=== PATIENT | female | born 1970 | race Caucasian/White ===

== ENCOUNTER → 2025-06-03 | Outpatient (CLI) | payer SELFPAY ==
--- NOTE | 2025-06-02 11:55 | FEM._PTH ---
PATIENT: DAMARIS JOYNER LOC: [facility] U#:[id number] AGE/SX: 55/F ROOM: RE06/03/[address]: Dr. Stiven Osuna MD : 1970 BED: DIS: 06/03/2025 SPEC #: [id number] RECD: 06/03/25 16:58 STATUS: JEREL TRISTIAN #: [id number] JOSE: 06/02/25 11:[address]: Stiven Osuna DEPT: SURGICAL PATHOLOGY RECD BY: Samy Cruz Tissues: A - Hip, NOS Procedures: Decalcification bone/plaque Surgery Specimen Level III HEADER OPERATION: Anterior left total hip arthroplasty PRE-OP DIAGNOSIS: Avascular necrosis of left hip TISSUE SUBMITTED: A- Left hip MICROSCOPIC DIAGNOSIS A. Femoral head, left, total hip arthroplasty: - Articular bone with necrosis. MICROSCOPIC DESCRIPTION Slides are reviewed. GROSS DESCRIPTION A. Received in formalin labeled with the patient's name and date of . Designated as femoral head-left is a 4.3 x 4.2 x 4.1 cm femoral head with a portion of attached femoral neck, 1.0 cm in length by 3.1 cm in diameter. The articular cartilage is smooth and willis with focal granularity and a 3.3 x 2.2 cm slightly raised area with a surrounding rim of [place]-green discoloration. Eburnation and peripheral osteophyte formation are not grossly identified. Sectioning reveals willis-yellow medullary bone with a 2.3 x 1.3 cm pale partially detached, wedge shaped area with irregular borders, underlying the previously described raised and discolored cartilage (suspicious for necrosis). Additional foci of possible necrosis are identified. There is also a 2.8 cm length by 0.8 cm in diameter defect with linear ridges (appears iatrogenic in nature). Operations Professional sections are submitted in 2 cassettes, following decalcification. [place] 06/06/2025 CPT:03570,48346
== END | disposition home or self-care (01) ==
LOC: LABSPEC 15:51
PROVIDERS: Referring Provider Specialist; Visit Provider Specialist
DX: M87.9 Osteonecrosis, unspecified (principal)
CPT/HCPCS: 88304; 88311

== ENCOUNTER → 2025-08-04 | Outpatient (CLI) | payer SELFPAY ==
--- NOTE | 2025-08-04 07:15 | FEM._PTH ---
PATIENT: DAMARIS JOYNER LOC: [facility] U#:[id number] AGE/SX: 55/F ROOM: RE08/04/[address]: Dr. Stiven Osuna MD : 1970 BED: DIS: 08/04/2025 SPEC #: [id number] RECD: 08/04/25 15:15 STATUS: JEREL REHaven #: [id number] JOSE: 08/04/25 07:[address]: Stiven Osuna DEPT: SURGICAL PATHOLOGY RECD BY: Anum Aceves Tissues: Hip, NOS Procedures: Decalcification bone/plaque Surgery Specimen Level III HEADER OPERATION: Anterior right total hip arthroplasty PRE-OP DIAGNOSIS: Right hip avascular necrosis TISSUE SUBMITTED: A- Right femoral head, bone and soft tissue MICROSCOPIC DIAGNOSIS A. 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 GROSS DESCRIPTION A. Received in formalin labeled with the patient's name and date of . Designated as right femoral head is a femoral head in 2 pieces, collectively measuring 4.5 x 4.2 x 3.9 cm with a detached femoral neck, 1.4 cm in length by 3.8 cm in diameter. The articular cartilage is willis and focally granular with focal, peripheral osteophyte formation. No definitive areas of eburnation are grossly identified. The medullary bone is willis-yellow with a 1.9 x 1.0 cm pale yellow, wedge-shaped area of some chondral bone (suspicious for necrosis). Video Game Animator sections are submitted in 2 cassettes, following decalcification as follows: A1: Femoral head wedge shaped areaA2: Femoral neck SC 08/05/2025 CPT:36513,14995
--- NOTE | 2025-08-04 07:15 | FEM._PTH ---
PATIENT: DAMARIS JOYNER LOC: [facility] U#:[id number] AGE/SX: 55/F ROOM: RE08/04/[address]: Dr. Stiven Osuna MD : 1970 BED: DIS: 08/04/2025 SPEC #: [id number] RECD: 08/04/25 15:15 STATUS: JEREL REHaven #: [id number] JOSE: 08/04/25 07:[address]: Stiven Osuna DEPT: SURGICAL PATHOLOGY RECD BY: Anum Aceves Tissues: Hip, NOS Procedures: Decalcification bone/plaque Surgery Specimen Level III HEADER OPERATION: Anterior right total hip arthroplasty PRE-OP DIAGNOSIS: Right hip avascular necrosis TISSUE SUBMITTED: A- Right femoral head, bone and soft tissue MICROSCOPIC DIAGNOSIS A. 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 GROSS DESCRIPTION A. Received in formalin labeled with the patient's name and date of . Designated as right femoral head is a femoral head in 2 pieces, collectively measuring 4.5 x 4.2 x 3.9 cm with a detached femoral neck, 1.4 cm in length by 3.8 cm in diameter. The articular cartilage is willis and focally granular with focal, peripheral osteophyte formation. No definitive areas of eburnation are grossly identified. The medullary bone is willis-yellow with a 1.9 x 1.0 cm pale yellow, wedge-shaped area of some chondral bone (suspicious for necrosis). Software Consultant sections are submitted in 2 cassettes, following decalcification as follows: A1: Femoral head wedge shaped areaA2: Femoral neck SC 08/05/2025 CPT:29812,58819
--- OUTSIDE RECORDS SUMMARY | 2025-08-04 15:47 | XMS RPT_ITS | CCD ---
Author Organization [facility] Care Team Providers Care Coach Mechanic Name Role Phone UNKNOWN, PCP Unavailable Unavailable JAQUAN DRAPER Unavailable Unavailable UNKNOWN, PCP Unavailable Unavailable Caitlyn Ferguson CNP Unavailable Unavailable None Unavailable Unavailable Caitlyn Ferguson Primary Care Provider [phone] Malena Cantor Attending Unav ailable CAITLYN FREGUSON Primary Care Unavailabl e MAMI CHARLES Attending Unavaila ble CAITLYN FERGUSON Primary Care Unavailatul e CAITLYN FERGUSON Consulting Unavailatul e Caitlyn Kirkland APRN, CNP Primary Care Provider Caitlyn Ferguson Primary Care Provider Caitlyn Kirkland APRN, CNP Primary Care Provider CAITLYN FERGUSON Primary Care Unavailable Dorota Jones MD Unavailable [phone] SID FRAGOSO Attending Unavailable SID FRAGOSO Referring Unavailable Dr. Leslee Mortensen MD Attending Provider [phone] Dr. Leslee Mortensen MD Referring Provider Leslee Mortensen Referring Unavailable Leslee Mortensen Attending Unavailable LESLEE MORTENSEN MD Attending Unavailable LESLEE MORTENSEN MD Primary Care Unavailable LESLEE MORTENSEN MD Admitting Unavailable [facility] Consulting Unavailable PROVIDER, UNKNOWN Consulting Unavailable LESLEE MORTENSEN MD Primary Care Unavailable LESLEE MORTENSEN MD Admitting Unavailable [facility] [place] Consulting Unavailable LESLEE MORTENSEN MD Attending Unavailable PROVIDER, UNKNOWN Consulting Unavailable Allergies Allergy Classification Reported Allergen(s) Allergy Type Date of Onset Reaction(s) Facility (10 sources) Antihistamines, Diphenhydramine- Type Propensity to adverse reactions to drug [address] Phone: (2 sources) diphenhydrAMINE; Translations: [DIPHENHYDRAMINE ] Drug Allergy 3 Unknown [facility] Medications Current Medications Medication Drug Class(es) Dates Sig (Normalized) Sig (Original) Acetaminophen (2 sources) Start: 08-06-2021 acetaminophen (TYLENOL) tablet 650 mg Start: 11-09-2019 End: 11-09-2019 acetaminophen (TYLENOL) 325 MG tablet [id number] 200 actuat albuterol 0.09 mg/actuat metered dose inhaler (2 sources) beta2-Adrenergic Agonist Start: 08-14-2021 take 2 puff(s) by inhalation every six hours as needed for wheezing albuterol sulfate HFA 108 (90 Base) MCG/ACT inhaler Inhale 2 puffs into the lungs every 6 hours as needed for Wheezing or Shortness of Breath 18 g 3 08/14/2021 Active Start: 08-06-2021 albuterol sulf ate HFA 108 (90 Base) MCG/ACT inhaler 2 puff ascorbic acid 500 mg oral tablet (2 sources) Vitamin C Start: 08-15-2021 take 1 tablet by mouth once daily ascorbic acid (VITAMIN C) 500 MG tablet Take 1 tablet by mouth daily 30 tablet 3 08/15/2021 Active Start: 08-06-2021 ascorbic acid (VITAMIN C) tablet 500 mg baricitinib 2 mg oral tablet (1 source) Start: 08-06-2021 End: 08-20-2021 baricitinib (OLUMIANT) tablet 4 mg benzocaine 15 mg / menthol 3.6 mg oral lozenge (1 source) Standardized Chemical Allergen Start: 08-14-2021 benzocaine-menthol (CEPACOL SORE THROAT) lozenge 1 lozenge cephalexin 500 mg oral capsule (4 sources) Cephalosporin Antibacterial Start: 04-18-2020 End: 04-25-2020 take 1 capsule by mouth three times daily cephALEXin (KEFLEX) 500 MG capsule Take 1 capsule by mouth 3 times daily for 7 days 21 capsule 0 04/18/2020 04/25/2020 Active cholecalciferol 0.025 mg oral tablet (3 sources) Vitamin D Start: 08-15-2021 take 1 tablet by mouth once daily Cholecalciferol (VITAMIN D) 25 MCG TABS Take 1 tablet by mouth daily 60 tablet 0 08/15/2021 Active Start: 08-06-2021 Vitamin D (CHO LECALCIFEROL) tablet 1,000 Units ciprofloxacin 500 mg oral tablet (1 source) Quinolone Antimicrobial Start: 10-30-2019 End: 11-06-2019 take 1 tablet by mouth twice daily ciprofloxacin (CIPRO) 500 MG tablet Take 1 tablet by mouth 2 times daily for 7 days 14 tablet 0 10/30/2019 11/06/2019 Active dexamethasone 6 mg oral tablet (5 sources) Corticosteroid Start: 08-14-2021 End: 08-19-2021 take 1 tablet by mouth once daily at breakfast dexamethasone (DECADRON) 6 MG tablet Take 1 tablet by mouth daily (with breakfast) for 5 days 5 tablet 0 08/14/2021 08/19/2021 Active Start: 08-12-2021 Dexamethasone Sodium Phosphate injection 10 mg Start: 08-07-2021 End: 08-07-2021 dexamethasone (DECADRON) inj ection 6 mg Start: 08-06-2021 End: 08-06-2021 dexamethasone (DECADRON) inj ection 4 mg Start: 08-06-2021 End: 08-06-2021 dexamethasone (DECADRON) inj ection 6 mg 0.4 ml enoxaparin sodium 100 mg/ml prefilled syringe (1 source) Low Molecular Weight Heparin Start: 08-06-2021 enoxaparin (LOVENOX) injection 40 mg 2 ml fentaNYL 0.05 mg/ml injection (2 sources) Opioid Agonist Start: 11-23-2019 fentaNYL (SUBL IMAZE) injection 50 mcg Start: 11-09-2019 fentaNYL (SUBL IMAZE) injection 50 mcg 1 ml hydrALAZINE hydrochloride 20 mg/ml injection (2 sources) Arteriolar Vasodilator Start: 11-23-2019 hydrALAZINE (APRESOLINE) injection 5 mg Start: 11-09-2019 hydrALAZINE (A PRESOLINE) injection 5 mg 1 ml HYDROmorphone hydrochloride 1 mg/ml cartridge (2 sources) Opioid Agonist Start: 11-23-2019 HYDROmorphone (DILAUDID) injection 0.25 mg Start: 11-09-2019 HYDROmorphone (DILAUDID) injection 0.25 mg ketorolac tromethamine 10 mg oral tablet (10 sources) Nonsteroidal Anti-inflammatory Drug, Cyclooxygenase Inhibitor Start: 04-14-2020 End: 04-21-2020 take 1 tablet by mouth every six hours as needed for pain ketorolac (TORADOL) 10 MG tablet Indications: Nephrolithiasis Take 1 tablet by mouth every 6 hours as needed for Pain 28 tablet 0 04/14/2020 04/21/2020 Active Start: 11-23-2019 ketorolac (TOR ADOL) injection 30 mg Start: 11-23-2019 ketorolac (TOR ADOL) 30 MG/ML injection Start: 10-30-2019 ketorolac (TOR ADOL) injection 30 mg Start: 10-30-2019 take 1 tablet by randall th every six hours as needed for pain ketorolac (TORADOL) 10 MG tablet Take 1 tablet by mouth every 6 hours as needed for Pain 20 tablet 0 10/30/2019 Suspended 1 ml meperidine hydrochloride 25 mg/ml cartridge (2 sources) Opioid Agonist Start: 11-23-2019 meperidine (DE MEROL) injection 12.5 mg Start: 11-09-2019 meperidine (DE MEROL) injection 12.5 mg 1 ml morphine sulfate 2 mg/ml cartridge (2 sources) Opioid Agonist Start: 11-23-2019 morphine (PF) injection 2 mg Start: 11-09-2019 morphine (PF) injection 2 mg ondansetron 4 mg disintegrating oral tablet (10 sources) Serotonin-3 Receptor Antagonist Start: 04-14-2020 take 1 tablet by mouth every eight hours as needed for nausea ondansetron (ZOFRAN ODT) 4 MG disintegrating tablet Indications: Nephrolithiasis Take 1 tablet by mouth every 8 hours as needed for Nausea or Vomiting 15 tablet 0 04/14/2020 Active Start: 11-23-2019 End: 11-23-2019 ondansetron (ZOFRAN) injecti on 4 mg Start: 11-09-2019 End: 11-09-2019 ondansetron (ZOFRAN) injecti on 4 mg Start: 10-30-2019 End: 10-30-2019 take 1 tablet by mouth every eight hours as needed for nausea ondansetron (ZOFRAN ODT) 4 MG disintegrating tablet Take 1 tablet by mouth every 8 hours as needed for Nausea 20 tablet 0 10/30/2019 Suspended ondansetron (ZOFRAN-ODT) disintegrating tablet 4 mg (1 source) Start: 08-06-2021 ondansetron (ZOFRAN-ODT) disintegrating tablet 4 mg 24 hr oxybutynin chloride 10 mg extended release oral tablet (6 sources) Cholinergic Muscarinic Antagonist Start: 04-18-2020 take 1 tablet by mouth once daily oxybutynin (DITROPAN XL) 10 MG extended release tablet Take 1 tablet by mouth daily 30 tablet 2 04/18/2020 Active Start: 04-14-2020 End: 04-18-2020 take 1 tablet by mouth three times daily as needed for muscle spasms oxybutynin (DITROPAN) 5 MG tablet Indications: Nephrolithiasis Take 1 tablet by mouth 3 times daily as needed (bladder spasms) 30 tablet 3 04/14/2020 04/18/2020 Discontinued (Stop Taking at Discharge) Start: 11-11-2019 End: 11-19-2019 take 1 tablet by mouth three times daily as needed for pain oxybutynin (DITROPAN) 5 MG tablet Indications: Nephrolithiasis Take 1 tablet by mouth 3 times daily as needed (stent pain, bladder spasms) 30 tablet 0 11/11/2019 11/19/2019 Discontinued (LIST CLEANUP) polyethylene glycol 3350 90599 mg powder for oral solution (1 source) Osmotic Laxative Start: 08-06-2021 polyethylene glycol (GLYCOLAX) packet 17 g potassium citrate 15 meq extended release oral tablet (2 sources) Start: 12-31-2021 End: 12-31-2022 take 1 tablet by mouth twice daily Potassium Citrate ER (UROCIT-K 15) 15 MEQ (1620 MG) TBCR Indications: Kidney stones Take 1 tablet by mouth 2 times daily 180 tablet 3 12/31/2021 12/31/2022 Active Start: 02-04-2021 End: 03-06-2021 take 2 tablets by mouth twice daily at mealtime potassium citrate (UROCIT-K) 10 MEQ (1080 MG) extended release tablet Take 2 tablets by mouth 2 times daily (with meals) 120 tablet 3 02/04/2021 03/06/2021 Active Progesterone Micronized 10 % CREA (1 source) Progesterone Micronized 10 % CREA Indications: to wrist Place onto the skin 2 times daily Indications: to wrist 0 Active tamsulosin hydrochloride 0.4 mg oral capsule (7 sources) alpha-Adrenergic Nik Start: 0 take 1 capsule by mouth once daily, then take 1 capsule by mouth once daily tamsulosin (FLOMAX) 0.4 MG capsule Take 1 capsule by mouth daily Take one capsule daily to facilitate passage of ureteral stone 21 capsule 0 04/18/2020 Active Start: 10-30-2019 End: 11-23-2019 take 1 capsule by mouth once daily, then take 1 capsule by mouth once daily tamsulosin (FLOMAX) 0.4 MG capsule Indications: Nephrolithiasis Take 1 capsule by mouth daily Take one capsule daily to facilitate passage of ureteral stone 30 capsule 1 11/01/2019 Active zinc sulfate 220 mg oral capsule (2 sources) Start: 08-15-2021 take 1 capsule by mouth once daily zinc sulfate (ZINCATE) 220 (50 Zn) MG capsule Take 1 capsule by mouth daily 30 capsule 3 08/15/2021 Active Start: 08-06-2021 zinc sulfate ( ZINCATE) capsule 50 mg Completed/Discontinued Medications Medication Drug Class(es) Dates Sig (Normalized) Sig (Original) acetaminophen 325 mg / HYDROcodone bitartrate 5 mg oral tablet (10 sources) Opioid Agonist Start: 04-18-2020 End: 04-18-2020 HYDROcodone-acetam inophen (NORCO) 5-325 MG per tablet 1 tablet Start: 04-18-2020 End: 04-18-2020 HYDROcodone-acetaminophen (N ORCO) 5-325 MG per tablet Start: 04-18-2020 End: 04-21-2020 take 1 tablet by mouth every four hours as needed for pain, then take 1 tablet by mouth as needed for pain HYDROcodone-acetaminophen (NORCO) 5-325 MG per tablet Indications: Nephrolithiasis Take 1 tablet by mouth every 4 hours as needed for Pain for up to 3 days. Intended supply: 3 days. Take lowest dose possible to manage pain 18 tablet 0 04/18/2020 04/21/2020 Active Start: 11-23-2019 End: 11-26-2019 take 1 tablet by mouth every four hours as needed for pain, then take 1 tablet by mouth as needed for pain HYDROcodone-acetaminophen (NORCO) 5-325 MG per tablet Indications: Postoperative pain Take 1 tablet by mouth every 4 hours as needed for Pain for up to 3 days. Intended supply: 3 days. Take lowest dose possible to manage pain 18 tablet 0 11/23/2019 11/26/2019 Active Start: 11-09-2019 End: 11-12-2019 HYDROcodone-acetaminophen (N ORCO) 5-325 MG per tablet Indications: Postoperative pain Take 1 tablet by mouth every 4 hours as needed for Pain for up to 3 days. Intended supply: 3 days. Take lowest dose possible to manage pain 18 tablet 0 11/09/2019 11/12/2019 Active Start: 10-30-2019 End: 11-02-2019 HYDROcodone-acetaminophen (N ORCO) 5-325 MG per tablet Indications: Right nephrolithiasis Take 1 tablet by mouth every 4 hours as needed for Pain for up to 3 days. Intended supply: 5 days. Take lowest dose possible to manage pain 12 tablet 0 10/30/2019 11/02/2019 Active End: 10-30-2019 take 1 tablet by mouth every six hours as needed for pain HYDROcodone-acetaminophen (NORCO) 5-325 MG per tablet Take 1 tablet by mouth every 6 hours as needed for Pain . 0 10/30/2019 Discontinued amoxicillin 875 mg / clavulanate 125 mg oral tablet (1 source) Penicillin-class Antibacterial Start: 11-22-2019 End: 11-29-2019 take 1 tablet by mouth twice daily amoxicillin-clavulanate (AUGMENTIN) 875-125 MG per tablet Indications: Enterococcus UTI Take 1 tablet by mouth 2 times daily for 7 days 14 tablet 0 11/22/2019 11/29/2019 Suspended belladonna alkaloids 16.2 mg / opium 30 mg rectal suppository (2 sources) Start: 11-23-2019 End: 11-23-2019 opium-belladonna (B&O SUPPRETTES) 16.2-30 MG suppository 30 mg Start: 11-23-2019 End: 11-23-2019 opium-belladonna (B&O SUPPRE TTES) 16.2-30 MG suppository bifidobacterium animalis [id number] unt / lactobacillus acidophilus [id number] unt oral capsule (2 sources) End: 11-09-2019 take 1 capsule by mouth once daily Probiotic Product (PROBIOMAX DAILY DF) CAPS Take 1 capsule by mouth daily 0 11/09/2019 Discontinued (Therapy completed) cefTRIAXone (ROCEPHIN) 1 g IVPB in 50 mL D5W minibag (1 source) Start: 10-30-2019 End: 10-30-2019 cefTRIAXone (ROCEPHIN) 1 g IVPB in 50 mL D5W minibag Iopamidol (1 source) Radiographic Contrast Agent Start: 10-30-2019 End: 10-30-2019 iopamidol (ISOVUE-370) 76 % injection 80 mL iv contrast (will be provided with radiology test) (1 source) Start: 08-31-2023 End: 01-18-2025 inject 1 dose intravenously once iv contrast (will be provided with radiology test) CTA Coronary. No IV access, insert saline lock prior to the sedation, infusion, injection for imaging exam. Discontinue saline lock post exam. If Pt. has a central line or IVAD, may access for administration according to line specific nursing protocol. Once exam is complete flush line and de-access according to line specific nursing protocol in the CT contrast administration guidelines link. 1 Each 08/31/2023 01/18/2025 Discontinued (Other) metoprolol tartrate 50 mg oral tablet (1 source) beta-Adrenergic Nik Start: 08-31-2023 End: 01-18-2025 metoprolol tartrate, short acting, (LOPRESSOR) 50 mg tablet Take one 50 mg tablet the evening prior to the CTA examination, take another 50 mg tablet the morning of the CTA examination. 2 tablet 08/31/2023 01/18/2025 Discontinued (Other) nitroglycerin 0.3 mg sublingual tablet (1 source) Nitrate Vasodilator Start: 08-31-2023 End: 01-18-2025 take 1 tablet under the tongue once nitroglycerin sublingual (NITROQUICK) 0.3 mg SL tablet Dissolve 1 tablet under the tongue one time only for 1 dose. To be administered in Radiology for CTA exam 1 tablet 08/31/2023 01/18/2025 Discontinued (Other) 50 ml sodium chloride 9 mg/ml injection (9 sources) Start: 08-13-2021 End: 08-13-2021 0.9 % sodium chloride bolus Start: 08-06-2021 0.9 % sodium c hloride infusion Start: 08-06-2021 sodium chlorid e flush 0.9 % injection 5-40 mL Start: 04-18-2020 0.9 % sodium c hloride infusion Start: 11-23-2019 0.9 % sodium c hloride infusion Start: 11-09-2019 0.9 % sodium c hloride infusion Start: 10-30-2019 End: 10-30-2019 0.9 % sodium chloride bolus sulfamethoxazole 800 mg / trimethoprim 160 mg oral tablet (1 source) Dihydrofolate Reductase Inhibitor Antibacterial, Sulfonamide Antimicrobial Start: 11-11-2019 End: 11-18-2019 take 1 tablet by mouth twice daily sulfamethoxazole-trimethoprim (BACTRIM DS;SEPTRA DS) 800-160 MG per tablet Indications: Nephrolithiasis , Dysuria , Urinary tract infection with hematuria, site unspecified Take 1 tablet by mouth 2 times daily for 7 days 14 tablet 0 11/11/2019 11/18/2019 Problems Active Problems Problem Classification Problem Date Documented Da te Episodic/Chronic Abdominal pain (3 sources) Unspecified abdominal pain; Translations: [Right flank pain] Onset: 06-29-2017 Episodic Administrative/social admission (3 sources) Medical examinations/reports status; Translations: [Examination for normal comparison for clinical research] Episodic Calculus of urinary tract (14 sources) Kidney stone; Translations: [Calculus of kidney] Onset: 07-01-2017 07-01-2017 Episodic Deficiency and other anemia (10 sources) Anemia; Translations: [Anemia, unspecified] 02-25-2014 Episodic Disorders of lipid metabolism (2 sources) Hyperlipidemia; Translations: [Hyperlipidemia, unspecified] Onset: 01-18-2025 01-18-2025 Chronic Other bone disease and musculoskeletal deformities (1 source) Osteonecrosis, unspecified; Translations: [Osteonecrosis, unspecified] Onset: 06-08-2025 Chronic Other nervous system disorders (2 sources) Postoperative pain Episodic Residual codes; unclassified (1 source) Past history of procedure; Translations: [Personal history of other medical treatment] 01-18-2025 Episodic Residual codes; unclassified (1 source) Non-smoker; Translations: [Other specified health status] 01-18-2025 Episodic Respiratory failure; insufficiency; arrest (adult) (1 source) Acute respiratory failure; Translations: [Acute respiratory failure with hypoxia] Episodic Past or Other Problems Problem Classification Problem Date Documented Date Episodic/Chronic Biliary tract disease (1 source) Calculus of gallbladder without cholecystitis without obstruction; Translations: [CALCULUS OF GALLBLADDER W/O CHOLECYSTITIS W/O OBSTRUCTION] Onset: 06-29-2017 Episodic Cardiac dysrhythmias (3 sources) Palpitations; Translations: [Palpitations] Onset: 01-18-2025 01-19-2025 Episodic Malaise and fatigue (10 sources) Tired; Translations: [Other fatigue] Onset: 02-25-2014 02-25-2014 Episodic Residual codes; unclassified (1 source) Personal history of other medical treatment; Translations: [History of stress test] Onset: 01-18-2025 Episodic Residual codes; unclassified (1 source) Other specified health status; Translations: [Non-smoker] Onset: 01-18-2025 Episodic Viral infection (3 sources) COVID-19; Translations: [Pneumonia due to other virus not elsewhere classified] Onset: 08-06-2021 Episodic Results Test Name Value Interpretation Reference Range Facility ALBUMIN PLASMAon 07-14-2025 Albumin [Mass/Vol] 3.8 g/dL Normal 3.4 - 5.0 [facility] Comment on above: Performed By: #### 2 [id number] #### [facility],[address] [place], [place] [id number] BMP with eGFRon 07-14-2025 AGE 55 years Normal [facility] Comment on above: Performed By: #### 2 [id number] #### [facility],[address] [place], [place] [id number] Anion gap [Moles/Vol] 11 mmol/L Normal 10 - 20 [facility] Comment on above: Performed By: #### 2 [id number] #### [facility],[address] [place] [address]78 BMP with eGFR Normal [facility] Comment on above: Result Comment: BASI C METABOLIC PANEL Performed By: #### 2 [id number] #### [facility],[address] [place] [address]605 Calcium [Mass/Vol] 9.1 mg/dL Normal 8.5 - 10.1 [facility] Comment on above: Performed By: #### 2 96540 #### [facility],[address] [place] [address] 47500 Chloride [Moles/Vol] 103 mmol/L Normal 98 - 107 [facility] Comment on above: Performed By: #### 2 11101 #### [facility],[address] [place] [address] 99515 CO2 [Moles/Vol] 30.1 mmol/L Normal 21.0 - 32.0 [facility] Comment on above: Performed By: #### 2 74668 #### [facility],[address] [place], [place] [id number] Creatinine [Mass/Vol] 0.85 mg/dL Normal 0.55 - 1.02 [facility] Comment on above: Performed By: #### 2 [id number] #### [facility],[address] [place] [address] GFR/1.73 sq M.predicted among non-blacks MDRD (S/P/Bld) [Vol rate/Area] mL/min/{1.73_m2} Normal 60 - 999 [facility] Comment on above: Performed By: #### 2 [id number] #### [facility],[address] [place], [place] [id number] Result Comment: ACCO RDING TO THE NATIONAL KIDNEY DISEASE EDUCATION PROGRAM(NKDE), A NORMAL eGFR IS A VALUE GREATER THAN OR EQUAL TO 60 ML/MIN/1.73 SQ METERS. CHRONIC KIDNEY DISEASE: <60mL/MIN/1.73 SQ METERS KIDNEY FAILURE: <15mL/MIN/1.73 SQ METERS THIS TEST SHOULD ONLY BE USED FOR PATIENTS 18 YEARS OF AGE AND OLDER. Glucose [Mass/Vol] 98 mg/dL Normal 74 - 106 [facility] Comment on above: Performed By: #### 2 [id number] #### [facility],[address] [place] [address]48 Potassium [Moles/Vol] 4.0 mmol/L Normal 3.5 - 5.1 [facility] Comment on above: Performed By: #### 2 63541 #### [facility],[address] [place] [address] 96875 Sodium [Moles/Vol] 140 mmol/L Normal 136 - 145 [facility] Comment on above: Performed By: #### 2 59581 #### [facility],[address] [place] [address] 97316 Urea nitrogen [Mass/Vol] 18 mg/dL Normal 7 - 18 [facility] Comment on above: Performed By: #### 2 79959 #### [facility],[address] [place] [address] 16385 CBC + DIFFon 07-14-2025 Baso # 0.03 x10EE3/UL Normal 0.00 - 0.10 [facility] Comment on above: Performed By: #### 2 82934 #### [facility],[address] [place] [address]4360 Basophils/100 WBC (Bld) 0.5 % Normal 0.0 - 2.0 [facility] Comment on above: Performed By: #### 2 92403 #### [facility],[address] [place] [address] 43969 CBC + DIFF Normal [facility] Comment on above: Result Comment: CBC- COMPLETE BLOOD COUNT Performed By: #### 2 10090 #### [facility],[address] [place] [address] 28720 EO # 0.12 x10EE3/UL Normal 0.00 - 0.50 [facility] Comment on above: Performed By: #### 2 91372 #### [facility],[address] [place] [address] 23267 Eosinophils/100 WBC (Bld) 2.2 % Normal 0.0 - 7.0 [facility] Comment on above: Performed By: #### 2 36235 #### [facility],[address] [place] [address] 46750 Erythrocyte distribution width (RBC) [Ratio] 13.4 % Normal 12.0 - 15.6 [facility] Comment on above: Performed By: #### 2 [id number] #### [facility],[address] [place] [address] Hematocrit (Bld) [Volume fraction] 38.5 % Normal 34.0 - 46.0 [facility] Comment on above: Performed By: #### 2 27678 #### [facility],[address] [place] [address] Hemoglobin (Bld) [Mass/Vol] 13.3 g/dL Normal 12.0 - 16.0 [facility] Comment on above: Performed By: #### 2 32426 #### [facility],[address] [place] [address] Lymph # 1.59 x10EE3/UL Normal 0.80 - 2.80 [facility] Comment on above: Performed By: #### 2 42589 #### [facility],[address] [place] [address] Lymphocytes/100 WBC (Bld) 29.7 % Normal 20.0 - 45.0 [facility] Comment on above: Performed By: #### 2 42287 #### [facility],[address] [place], [place] [id number] MANUAL DIFF N/A Normal [facility] Comment on above: Performed By: #### 2 [id number] #### [facility],[address] [place] [address] MCH (RBC) [Entitic mass] 30 pg Normal 27 - 33 [facility] Comment on above: Performed By: #### 2 [id number] #### [place] [address] MCHC 35 X10 3 Normal 32 - 36 [facility] Comment on above: Performed By: #### 2 [id number] #### [facility],[address] [place], [place] [address] MCV (RBC) [Entitic vol] 88 fL Normal 80 - 99 [facility] Comment on above: Performed By: #### 2 69456 #### [facility],[address] [place] [address] 14774 [place] # 0.39 x10EE3/UL Normal 0.20 - 1.00 [facility] Comment on above: Performed By: #### 2 88227 #### [facility],[address] [place] [address] 06324 MONOS % 7.3 % Normal 0.0 - 10.0 [facility] Comment on above: Performed By: #### 2 32746 #### [facility],[address] [place] [address] Morphology Lokesh (Bld) [Interp] N/A Normal [facility] Comment on above: Performed By: #### 2 22040 #### [facility],[address] [place] [address] Neut # 3.24 x10EE3/UL Normal 1.50 - 7.10 [facility] Comment on above: Performed By: #### 2 58448 #### [facility],[address] [place], [place] [address] Neutrophils/100 WBC (Bld) 60.4 % Normal 46.0 - 76.0 [facility] Comment on above: Performed By: #### 2 93813 #### [facility],[address] [place], [place] [address] PLATELET 316 x10EE3/UL Normal 150 - 450 [facility] Comment on above: Performed By: #### 2 18888 #### [facility],[address] [place] [address] 68159 Platelet mean volume (Bld) [Entitic vol] 7.1 fL Normal 6.6 - 10.5 [facility] Comment on above: Result Comment: AUTO MATED DIFFERENTIAL Performed By: #### 2 41086 #### [facility],[address] [place] [address] 45721 RBC 4.38 x 10EE6/UL Normal 4.10 - 5.30 [facility] Comment on above: Performed By: #### 2 44941 #### [facility],[address] [place] [address] 88585 WBC 5.4 x 10EE3/UL Normal 4.5 - 10.8 [facility] Comment on above: Performed By: #### 2 98795 #### [facility],[address] [place] [address] 91162 Decalcification bone/plaqueo n 06-02-2025 Decalcification bone/plaque Patient Age/Sex Location Account Attending Physician YARELI JOYNER 55/F LABSPEC [id number] Dr. Leslee Mortensen MD Specimen: [id number] Received: 06/03/25 Status: JEREL Hurt Num: [id number] Spec Type: FEM HEAD Subm Dr: Dr. Leslee Mortensen MD HEADER OPERATION: Anterior left total hip arthroplasty PRE-OP DIAGNOSIS: Avascular necrosis of left hip TISSUE SUBMITTED: A- Left hip MICROSCOPIC DIAGNOSIS A. Femoral head, left, total hip arthroplasty: - Articular bone with necrosis. MICROSCOPIC DESCRIPTION Slides are reviewed. GROSS DESCRIPTION A. Received in formalin labeled with the patient's name and date of . Designated as femoral head-left is a 4.3 x 4.2 x 4.1 cm femoral head with a portion of attached femoral neck, 1.0 cm in length by 3.1 cm in diameter. The articular cartilage is smooth and willis with focal granularity and a 3.3 x 2.2 cm slightly raised area with a surrounding rim of العراقي-green discoloration. Eburnation and peripheral osteophyte formation are not grossly identified. Sectioning reveals willis-yellow medullary bone with a 2.3 x 1.3 cm pale partially detached, wedge shaped area with irregular borders, underlying the previously described raised and discolored cartilage (suspicious for necrosis). Additional foci of possible necrosis are identified. There is also a 2.8 cm length by 0.8 cm in diameter defect with linear ridges (appears iatrogenic in nature). Assembler Adjuster sections are submitted in 2 cassettes, following decalcification. [place] 06/06/2025 CPT:10959,36252 Patient Age/Sex Location Account Attending Physician ARYARELI CHATTERJEE 55/F LABSPEC [id number] Dr. Leslee Mortensen MD Signed (signature on file) Dr. Amy Marcum MD 06/17/25 164 Normal [facility] Comment on above: Performed By: #### P DEC #### [facility] [address] [place], [place] [address], [place], [address] ALBUMIN PLASMAon 05-03-2025 Albumin [Mass/Vol] 3.7 g/dL Normal 3.4 - 5.0 [facility] Comment on above: Performed By: #### 2 99289 #### [facility],[address] [place] [address] 10846 BMP with eGFRon 05-03-2025 AGE 55 years Normal [facility] Comment on above: Performed By: #### 2 67212 #### [facility],[address] [place] [address] 78613 Anion gap [Moles/Vol] 10 mmol/L Normal 10 - 20 [facility] Comment on above: Performed By: #### 2 85078 #### [facility],[address] [place] [address] 12552 BMP with eGFR Normal [facility] Comment on above: Result Comment: BASI C METABOLIC PANEL Performed By: #### 2 21988 #### [facility],[address] [place], [place] [address] Calcium [Mass/Vol] 8.8 mg/dL Normal 8.5 - 10.1 [facility] Comment on above: Performed By: #### 2 72961 #### [facility],[address] [place] [address] Chloride [Moles/Vol] 105 mmol/L Normal 98 - 107 [facility] Comment on above: Performed By: #### 2 79477 #### [facility],[address] [place], [place] [address] CO2 [Moles/Vol] 29.4 mmol/L Normal 21.0 - 32.0 [facility] Comment on above: Performed By: #### 2 40307 #### [facility],[address] [place], [place] [address] Creatinine [Mass/Vol] 0.78 mg/dL Normal 0.55 - 1.02 [facility] Comment on above: Performed By: #### 2 57742 #### [facility],[address] [place] [address] 91121 GFR/1.73 sq M.predicted among non-blacks MDRD (S/P/Bld) [Vol rate/Area] mL/min/{1.73_m2} Normal 60 - 999 [facility] Comment on above: Performed By: #### 2 40371 #### [facility],[address] [place], [place] [address] Result Comment: ACCO RDING TO THE NATIONAL KIDNEY DISEASE EDUCATION PROGRAM(NKDE), A NORMAL eGFR IS A VALUE GREATER THAN OR EQUAL TO 60 ML/MIN/1.73 SQ METERS. CHRONIC KIDNEY DISEASE: <60mL/MIN/1.73 SQ METERS KIDNEY FAILURE: <15mL/MIN/1.73 SQ METERS THIS TEST SHOULD ONLY BE USED FOR PATIENTS 18 YEARS OF AGE AND OLDER. Glucose [Mass/Vol] 111 mg/dL High 74 - 106 [facility] Comment on above: Performed By: #### 2 31196 #### [facility],[address] [place] [address] Potassium [Moles/Vol] 4.2 mmol/L Normal 3.5 - 5.1 [facility] Comment on above: Performed By: #### 2 74539 #### [facility],[address] [place] [address] 64744 Sodium [Moles/Vol] 140 mmol/L Normal 136 - 145 [facility] Comment on above: Performed By: #### 2 96181 #### [facility],[address] [place], [place] [address] Urea nitrogen [Mass/Vol] 19 mg/dL High 7 - 18 [facility] Comment on above: Performed By: #### 2 23248 #### [facility],[address] [place] [address] 17103 CBC + DIFFon 05-03-2025 Baso # 0.02 x10EE3/UL Normal 0.00 - 0.10 [facility] Comment on above: Performed By: #### 2 61216 #### [facility],[address] [place] [address] 85161 Basophils/100 WBC (Bld) 0.4 % Normal 0.0 - 2.0 [facility] Comment on above: Performed By: #### 2 13307 #### [facility],[address] [place] [address] 38156 CBC + DIFF Normal [facility] Comment on above: Result Comment: CBC- COMPLETE BLOOD COUNT Performed By: #### 2 55457 #### [facility],[address] [place] [address] 82966 EO # 0.07 x10EE3/UL Normal 0.00 - 0.50 [facility] Comment on above: Performed By: #### 2 63228 #### [facility],[address] [place] [address] 95261 Eosinophils/100 WBC (Bld) 1.3 % Normal 0.0 - 7.0 [facility] Comment on above: Performed By: #### 2 04631 #### [facility],[address] [place] [address] Erythrocyte distribution width (RBC) [Ratio] 13.0 % Normal 12.0 - 15.6 [facility] Comment on above: Performed By: #### 2 98412 #### [facility],[address] [place] [address] Hematocrit (Bld) [Volume fraction] 38.8 % Normal 34.0 - 46.0 [facility] Comment on above: Performed By: #### 2 27372 #### [facility],[address] [place] [address] Hemoglobin (Bld) [Mass/Vol] 13.4 g/dL Normal 12.0 - 16.0 [facility] Comment on above: Performed By: #### 2 99138 #### [facility],[address] [place] [address] 87118 Lymph # 1.54 x10EE3/UL Normal 0.80 - 2.80 [facility] Comment on above: Performed By: #### 2 21106 #### [facility],[address] [place] [address] 53491 Lymphocytes/100 WBC (Bld) 30.4 % Normal 20.0 - 45.0 [facility] Comment on above: Performed By: #### 2 43720 #### [facility],[address] [place], [place] [address] MANUAL DIFF N/A Normal [facility] Comment on above: Performed By: #### 2 40866 #### [facility],[address] [place] [address] 51668 MCH (RBC) [Entitic mass] 30 pg Normal 27 - 33 [facility] Comment on above: Performed By: #### 2 50632 #### [facility],[address] [place] [address] 93476 MCHC 35 X10 3 Normal 32 - 36 [facility] Comment on above: Performed By: #### 2 69493 #### [facility],[address] [place] [address] 81743 MCV (RBC) [Entitic vol] 88 fL Normal 80 - 99 [facility] Comment on above: Performed By: #### 2 33796 #### [facility],[address] [place] [address] [place] # 0.27 x10EE3/UL Normal 0.20 - 1.00 [facility] Comment on above: Performed By: #### 2 35840 #### [facility],[address] [place] [address] 05815 MONOS % 5.3 % Normal 0.0 - 10.0 [facility] Comment on above: Performed By: #### 2 44841 #### [facility],[address] [place] [address] 67846 Morphology Lokesh (Bld) [Interp] N/A Normal [facility] Comment on above: Performed By: #### 2 57235 #### [facility],[address] [place] [address] 10861 Neut # 3.16 x10EE3/UL Normal 1.50 - 7.10 [facility] Comment on above: Performed By: #### 2 43386 #### [facility],[address] [place] [address] 54745 Neutrophils/100 WBC (Bld) 62.6 % Normal 46.0 - 76.0 [facility] Comment on above: Performed By: #### 2 56740 #### [facility],[address] [place] [address] 76827 PLATELET 253 x10EE3/UL Normal 150 - 450 [facility] Comment on above: Performed By: #### 2 87314 #### [facility],[address] [place] [address] 30440 Platelet mean volume (Bld) [Entitic vol] 7.2 fL Normal 6.6 - 10.5 [facility] Comment on above: Result Comment: AUTO MATED DIFFERENTIAL Performed By: #### 2 90167 #### [facility],[address] [place] [address] 43698 RBC 4.41 x 10EE6/UL Normal 4.10 - 5.30 [facility] Comment on above: Performed By: #### 2 14792 #### [facility],[address] [place] [address] 27692 WBC 5.1 x 10EE3/UL Normal 4.5 - 10.8 [facility] Comment on above: Performed By: #### 2 07944 #### [facility],[address] [place] [address] 17820 CNCOon 04-28-2025 [facility] (DAVONTE ) -- YARELI JOYNER ([id number]) 1970 F Date Time Provider Department 01/18/25 11:15 AM SID FRAGOSO During your visit today, we recorded the following information about you: Pulse Blood pressure Weight Height 57/minute 112/72 76.4 kg 1.651 m Sid Fragoso DO 01/19/2025 4:59 AM Signed Referring Provider: Sid Fragoso DO Date: January 18, 2025 Chief Complaint: Established Patient Follow-Up (1 year follow up) HISTORY OF PRESENT ILLNESS: Yareli Joyner is a 54 year old female who presents for Established Patient Follow-Up (1 year follow up). Patient has avascular necrosis of the hips. Activity is quite limited ALLERGIES Allergen Reactions Antihistamine [Diph* Unknown Palpitations-makes heart go crazy. PAST MEDICAL HISTORY: PAST MEDICAL HISTORY Diagnosis Date Atypical chest pain Avascular necrosis (HCC) History of exercise stress test 12/01/[address] changes, normal BP response, no arrhythmias Mixed hyperlipidemia Palpitations SOB (shortness of breath) PAST SURGICAL HISTORY Procedure Laterality Date KIDNEY STONE SURGERY HX 2020 x3 REMOVAL GALLBLADDER FAMILY HISTORY Problem Relation Age of Onset other (Cardiovascular Disease) Mother other (Cardiovascular Disease) Father SOCIAL HISTORY: Tobacco Use: Never Alcohol Use: Never Drug Use: Never Employer And Job Title: None on file Years Of Education Completed: Not specified Marital Status: MEDICATIONS: No current outpatient medications on file. No current facility-administered medications for this visit. I have personally reviewed the patients past medical history including social, family, surgical, diagnostics, and medications. REVIEW OF SYSTEMS: Review of Systems Constitutional: Negative for chills and fatigue. Respiratory: Negative for chest tightness and shortness of breath. Cardiovascular: Negative for chest pain, palpitations and leg swelling. Neurological: Negative for dizziness, syncope, weakness and light-headedness. Hematological: Does not bruise/bleed easily. Psychiatric/Behavioral: Negative for confusion and hallucinations. Vitals: BP 112/72 (BP Site: Left Arm, BP Position: Sitting, BP Cuff Size: Large Adult) Pulse (!) 57 Ht 165.1 cm (5' 5) Wt 76.4 kg (168 lb 6.9 oz) BMI 28.03 kg/m? PHYSICAL EXAMINATION: BP 112/72 (BP Site: Left Arm, BP Position: Sitting, BP Cuff Size: Large Adult) Pulse (!) 57 Ht 165.1 cm (5' 5) Wt 76.4 kg (168 lb 6.9 oz) BMI 28.03 kg/m? Last 3 Encounter BP Readings: Date: BP: 08/29/2023 112/70 Last 3 Encounter Pulse Readings: Date: Pulse: 08/29/2023 56 Last 3 Encounter Wt Readings: Date: Wt: 08/29/2023 81.2 kg (179 lb) Physical Exam Vitals reviewed. Constitutional: General: She is not in acute distress. Appearance: Normal appearance. HENT: Head: Normocephalic. Right Ear: External ear normal. Left Ear: External ear normal. Nose: Nose normal. Mouth/Throat: Mouth: Mucous membranes are moist. Eyes: Extraocular Movements: Extraocular movements intact. Cardiovascular: Rate and Rhythm: Normal rate and regular rhythm. Pulses: Normal pulses. Carotid pulses are 2+ on the right side and 2+ on the left side. Radial pulses are 2+ on the right side and 2+ on the left side. Posterior tibial pulses are 2+ on the right side and 2+ on the left side. Heart sounds: Normal heart sounds. No murmur heard. Pulmonary: Effort: Pulmonary effort is normal. Breath sounds: Normal breath sounds. Abdominal: General: Abdomen is flat. Bowel sounds are normal. Palpations: Abdomen is soft. Tenderness: There is no abdominal tenderness. Musculoskeletal: General: Normal range of motion. Cervical back: Normal range of motion. Right lower leg: No edema. Left lower leg: No edema. Skin: General: Skin is warm. Capillary Refill: Capillary refill takes 2 to 3 seconds. Findings: No rash or wound. Neurological: General: No focal deficit present. Mental Status: She is alert and oriented to person, place, and time. Mental status is at baseline. Coordination: Coordination is intact. Psychiatric: Mood and Affect: Mood normal. Thought Content: Thought content normal. Judgment: Judgment normal. LABS: No results found for: GLUC, K, NA, CHLOR, CO2, CREAT, BUN, ANION, CA, TPROT, ALB, TBILI, ALKPHOS, AST, ALT No results found for: HB, HCT, WBC No results found for: CHOL, HDL, LDL, TG EKG: s ASSESSMENT/PLAN: 1. Palpitations - ICD9: 785.1, ICD10: R00.2 (primary diagnosis) much improved. Denies any chest discomfort or palpitations at this time. She was on beta-blockade in the past. We have stopped it. She has not had a return of the palpitations - ECG COMPLETE today's EKG demonstrates sinus rhyt (more content not included)... [facility] ECG COMPLETEon 01-18-2025 ECG COMPLETE Ventricular Rate : 5 7 BPM Atrial Rate : 57 BPM P-R Interval : 132 ms QRS Duration : 88 ms Q-T Interval : 408 ms QTC Calculation(Bazett) : 397 ms Calculated P [place] : 8 degrees Calculated R [place] : 65 degrees Calculated T [place] : 69 degrees Sinus bradycardia Otherwise normal ECG When compared with ECG of 29-Aug-2023 10:, No significant change was found Confirmed by SID FRAGOSO DO ([id number]) on 01/24/2025 1:04:56 AM NAME : YARELI JOYNER PID : [id number] : 1970 Gender : Female Race : ORD : [id number] Procedure Date : Jan 18 2025 11:16:56 Edit Date : Jan 24 2025 01:05:01 Diagnosis: Sinus bradycardia Otherwise normal ECG When compared with ECG of 29-Aug-2023 10:, No significant change was found Confirmed by SID FRAGOSO DO ([id number]) on 01/24/2025 1:04:56 AM Test Reason : HCS Location : 2 : [place] Overread By : SID FRAGOSO DO Edited By : SID FRAGOSO DO Referred By : SID FRAGOSO Acquired by : [id number], [facility] Final Surgical Pathology Rep [facility] 01-26-2024 Final Surgical Pathology Report . Pathology Reports Accession: Collected Date/Time: Received Date/Time: Pathologist: [id number] 01/21/2024 15:15 EDT 01/23/2024 07:34 EDT MD CHELA SHEPHERD Final Surgical Pathology Report DIAGNOSIS: GALLBLADDER, CHOLECYSTECTOMY: - ACUTE CHOLECYSTITIS WITH CHOLELITHIASIS COMMENT: [facility] - [id number] CLINICAL INFORMATION: ACUTE CHOLECYSTITIS, ACUTE CHOLELITHIASIS, BILIARY COLIC SPECIMEN: A GALLBLADDER GROSS DESCRIPTION: All parts labelled with patient name and [id number] Received in formalin labelled gallbladder Dimensions - 8.2 x 3.7 x 1.3 cm Cystic duct/pericystic duct lymph node - no lymph node identified Serosal surface - is smooth and willis-العراقي with attached yellow adipose tissue Luminal contents - willis-brown bile and multiple yellow stones aggregating 0.2 cm Mucosal surface - is velvety dark green Wall thickness - 0.2 to 0.3 cm RS-1 Katherine Reagan, Grossing Cold Header/ Dr. Wagner Polk, Pathologist Dictated by Katherine Reagan MICROSCOPIC DESCRIPTION: The microscopic examination is performed, except in the case of Gross Only. Electronically Signed by Pathology Report verified by [facility] CHELA SHEPHERD MD Sign out Date: 01/26/2024 12:42 Performing Lab: [facility], [address] [place] [address] Pathology Dept Disclaimer If ancillary studies were utilized, the following Laboratory Developed Test (LDT) disclaimer will apply: Under CLIA requirements, [facility] is qualified to perform high complexity testing. For all ancillary stains, positive and negative controls stain appropriately. Performance characteristics of immunohistochemical and chromogenic in-situ hybridization tests have been determined by [facility]. These tests are used for clinical purposes, They should not be regarded as investigational or for research. Normal [facility] ([place]) Anion GapOrdered By: Unknown Result on 08-14-2021 Anion gap [Moles/Vol] 11.0 mmol/L 8.0 - 16.0 meq/L [address] Phone: Comment on above: ANION GAP = Sodium - (Chloride + CO2) Performed at [facility] [address] [place] [address] Basic Metabolic PanelOrdered By: Palmer Dave on 08-14-2021 Calcium [Mass/Vol] 9.2 mg/dL 8.5 - 10. 5 mg/dL [address] Phone: Comment on above: Performed at [facility] [address] [place] [address] Chloride [Moles/Vol] 101 mmol/L 98 - 11 1 meq/L [address] Phone: CO2 [Moles/Vol] 27 mmol/L 23 - 33 meq/L [address] Phone: Creatinine [Mass/Vol] 0.7 mg/dL 0.4 - 1.2 mg/dL [address] Phone: Glucose [Mass/Vol] 103 mg/dL 70 - 108 mg/dL [address] Phone: Potassium [Moles/Vol] 5.0 mmol/L 3.5 - 5.2 meq/L [address] Phone: Sodium [Moles/Vol] 139 mmol/L 135 - 145 meq/L [address] Phone: Urea nitrogen (BldV) [Mass/Vol] 27 mg/dL High 7 - 22 mg/dL [address] Phone: CBC auto differentialOrdered By: Palmer Dave on 08-14-2021 Basophils (Bld) [#/Vol] 0.0 10*3/uL [address] Phone: Basophils/100 WBC (Bld) 0.3 % [address] Phone: Eosinophils Absolute 0.0 [facility] Phone: Eosinophils/100 WBC (Bld) 0.3 % [address] Phone: Erythrocyte distribution width (RBC) [Ratio] 12.7 % 11.5 - 14.5 % [address] Phone: Erythrocyte distribution width (RBC) [Ratio] 42.5 fL 35.0 - 45.[address] Phone: Hematocrit (Bld) [Volume fraction] 42.7 % 37.0 - 47.0 % [address] Phone: Hemoglobin.gastrointe stinal spec 1 Ql (Stl) 14.[address] Phone: Immature Grans (Abs) 0.2 High [facility] Phone: Immature granulocytes/100 WBC (Bld) 2.9 % [address] Phone: Interpretation and review of laboratory results Abnormal [address] Phone: Lymphocytes Absolute 1.0 [facility] Phone: Lymphocytes/100 WBC (Bld) 15.1 % [employer] Work Phone: MCH (RBC) [Entitic mass] 30.5 pg 26.0 - 33.[address] [email or web address] Work Phone: MCHC (RBC) [Mass/Vol] 33.5 g/dL [facility] Work Phone: MCV (RBC) [Entitic vol] 91.0 fL 81.0 - 99.[address] [email or web address] Work Phone: Monocytes Absolute 0.[address] [email or web address] Work Phone: Monocytes/100 WBC (Bld) 6.4 % [email or web address] Work Phone: nRBC 0 /100 wbc [employer] Work Phone: Comment on above: Performed at [facility] [address] [place] [address] 97469 Platelet mean volume (Bld) [Entitic vol] 9.3 fL Low 9.4 - 12.4 fL [employer] Work Phone: Platelets (Bld) [#/Vol] 430 10*3/uL High [employer] Work Phone: RBC (Bld) [#/Vol] 4.69 10*6/uL [employer] Work Phone: Segmented neutrophils/100 WBC (Bld) 75 % [employer] [employer] Work Phone: [employer]s [employer] Work Phone: WBC (Bld) [#/Vol] 6.8 10*3/uL [employer] Work Phone: [employer] Work Phone: Glomerular Filtration Rate, EstimatedOrdered By: Unknown Result on 08-14-2021 GFR/1.73 sq M.predicted MDRD (S/P/Bld) [Vol rate/Area] 89 mL/min/{1.73_m2} Abnormal ml/min/1.[address] Phone: Comment on above: Stage Description GF R, ml/min/1.73 m2 - At increased risk > or = 60 (with chronic kidney disease risk factors) 1 Normal or increased GFR > or = 90 2 Mildly or decreased GFR 60 - 89 3 Moderately decreased GFR 30 - 59 4 Severely decreased GFR 15 - 29 5 Kidney failure <15 (or dialysis) Estimated GFR calculated using abbreviated MDRD formula as recommended by National Kidney Foundation. Calculation based upon serum creatinine and adjusted for age, gender & race. Mia. Internal Med., Vol. 139 (2 pg 137-147. Performed at [facility] [address] [place] [address] No Panel InformationOrdered By: Palmer Dave on 08-14-2021 Interpretation and review of laboratory results Abnormal [address] Phone: [address] Phone: Anion GapOrdered By: Unknown Result on 08-13-2021 Anion gap [Moles/Vol] 14.0 mmol/L 8.0 - 16.0 meq/L [address] Phone: Comment on above: ANION GAP = Sodium - (Chloride + CO2) Performed at [facility] [address] [place] [address] Basic Metabolic PanelOrdered By: Palmer Dave on 08-13-2021 Calcium [Mass/Vol] 9.0 mg/dL 8.5 - 10. 5 mg/dL [address] Phone: Comment on above: Performed at [facility] [address] [place] [address] Chloride [Moles/Vol] 99 mmol/L 98 - 11 1 meq/L [address] Phone: CO2 [Moles/Vol] 26 mmol/L 23 - 33 meq/L [address] Phone: Creatinine [Mass/Vol] 0.7 mg/dL 0.4 - 1.2 mg/dL [address] Phone: Glucose [Mass/Vol] 99 mg/dL 70 - 108 mg/dL [address] Phone: Potassium [Moles/Vol] 5.1 mmol/L 3.5 - 5.2 meq/L [address] Phone: Sodium [Moles/Vol] 139 mmol/L 135 - 145 meq/L [address] Phone: Urea nitrogen (BldV) [Mass/Vol] 30 mg/dL High 7 - 22 mg/dL [address] Phone: CBC auto differentialOrdered By: Palmer Dave on 08-13-2021 Basophils (Bld) [#/Vol] 0.0 10*3/uL [address] Phone: Basophils/100 WBC (Bld) 0.4 % [address] Phone: Eosinophils Absolute 0.0 [facility] Phone: Eosinophils/100 WBC (Bld) 0.4 % [address] Phone: Erythrocyte distribution width (RBC) [Ratio] 12.7 % 11.5 - 14.5 % [address] Phone: Erythrocyte distribution width (RBC) [Ratio] 42.2 fL 35.0 - 45.[address] Phone: Hematocrit (Bld) [Volume fraction] 44.5 % 37.0 - 47.0 % [address] Phone: Hemoglobin.gastrointe stinal spec 1 Ql (Stl) 14.[address] Phone: Immature Grans (Abs) 0.24 High [facility] Phone: Immature granulocytes/100 WBC (Bld) 3.3 % [address] Phone: Interpretation and review of laboratory results Abnormal [address] Phone: Lymphocytes Absolute 1.3 [facility] Phone: Lymphocytes/100 WBC (Bld) 17.8 % [address] Phone: MCH (RBC) [Entitic mass] 30.0 pg 26.0 - 33.0 pg [employer] Work Phone: MCHC (RBC) [Mass/Vol] 32.8 g/dL [facility] [employer] Work Phone: MCV (RBC) [Entitic vol] 91.4 fL 81.0 - 99.[address] [address] [facility] Work Phone: Monocytes Absolute 0.5 [employer] Work Phone: Monocytes/100 WBC (Bld) 7.5 % [employer] Work Phone: nRBC 0 /[address] Phone: Comment on above: Performed at [facility] [address] [place] [address] Platelet mean volume (Bld) [Entitic vol] 9.6 fL 9.4 - 12.[address] Phone: Platelets (Bld) [#/Vol] 441 10*3/uL High [employer] Work Phone: RBC (Bld) [#/Vol] 4.87 10*6/uL [address] Phone: Segmented neutrophils/100 WBC (Bld) 70.6 % [address] Phone: [employer] Work Phone: WBC (Bld) [#/Vol] 7.2 10*3/uL [employer] Work Phone: [address] Phone: Glomerular Filtration Rate, EstimatedOrdered By: Unknown Result on 08-13-2021 GFR/1.73 sq M.predicted MDRD (S/P/Bld) [Vol rate/Area] 89 mL/min/{1.73_m2} Abnormal ml/min/1.[address] Phone: Comment on above: Stage Description GF R, ml/min/1.73 m2 - At increased risk > or = 60 (with chronic kidney disease risk factors) 1 Normal or increased GFR > or = 90 2 Mildly or decreased GFR 60 - 89 3 Moderately decreased GFR 30 - 59 4 Severely decreased GFR 15 - 29 5 Kidney failure <15 (or dialysis) Estimated GFR calculated using abbreviated MDRD formula as recommended by National Kidney Foundation. Calculation based upon serum creatinine and adjusted for age, gender & race. Mia. Internal Med., Vol. 139 (2 pg 137-147. Performed at [facility] [address] [place] [address] No Panel InformationOrdered By: Palmer Dave on 08-13-2021 Interpretation and review of laboratory results Abnormal [address] Phone: [address] Phone: Anion GapOrdered By: Unknown Result on 08-12-2021 Anion gap [Moles/Vol] 10.0 mmol/L 8.0 - 16.0 meq/L [address] Phone: Comment on above: ANION GAP = Sodium - (Chloride + CO2) Performed at [facility] [address] [place] [address] Basic Metabolic PanelOrdered By: Palmer Dave on 08-12-2021 Calcium [Mass/Vol] 8.8 mg/dL 8.5 - 10. 5 mg/dL [address] Phone: Comment on above: Performed at [facility] [address] [place] [address] Chloride [Moles/Vol] 102 mmol/L 98 - 11 1 meq/L [address] Phone: CO2 [Moles/Vol] 26 mmol/L 23 - 33 meq/L [address] Phone: Creatinine [Mass/Vol] 0.7 mg/dL 0.4 - 1.2 mg/dL [address] Phone: Glucose [Mass/Vol] 110 mg/dL High 70 - 108 mg/dL [address] Phone: Potassium [Moles/Vol] 4.7 mmol/L 3.5 - 5.2 meq/L [address] Phone: Sodium [Moles/Vol] 138 mmol/L 135 - 145 meq/L [address] Phone: Urea nitrogen (BldV) [Mass/Vol] 28 mg/dL High 7 - 22 mg/dL [address] Phone: CBC auto differentialOrdered By: Palmer Dave on 08-12-2021 Basophils (Bld) [#/Vol] 0.0 10*3/uL [address] Phone: Basophils/100 WBC (Bld) 0.3 % [address] Phone: Eosinophils Absolute 0.0 [facility]N Phone: Eosinophils/100 WBC (Bld) 0.2 % [address] Phone: Erythrocyte distribution width (RBC) [Ratio] 12.6 % 11.5 - 14.5 % [address] Phone: Erythrocyte distribution width (RBC) [Ratio] 42.1 fL 35.0 - 45.[address] Phone: Hematocrit (Bld) [Volume fraction] 44.2 % 37.0 - 47.0 % [address] Phone: Hemoglobin.gastrointe stinal spec 1 Ql (Stl) 14.[address] Phone: Immature Grans (Abs) 0.[address] [facility] [employer] Phone: Immature granulocytes/100 WBC (Bld) 3.1 % [address] Phone: Interpretation and review of laboratory results Abnormal [address] Phone: Lymphocytes Absolute 0.8 Low [employer] Work Phone: Lymphocytes/100 WBC (Bld) 12.2 % [employer] Work Phone: MCH (RBC) [Entitic mass] 30.5 pg 26.0 - 33.[address] [facility] [address] [email or web address] Work Phone: MCHC (RBC) [Mass/Vol] 33.7 g/dL [facility] [employer] Work Phone: MCV (RBC) [Entitic vol] 90.6 fL 81.0 - 99.[address] [facility] [facility] Work Phone: Monocytes Absolute 0.[address] [facility] [email or web address] Work Phone: Monocytes/100 WBC (Bld) 7.2 % [employer] Work Phone: nRBC 0 /[address] Phone: Comment on above: Performed at [facility] [address] [place] [id number] Platelet mean volume (Bld) [Entitic vol] 9.1 fL Low 9.4 - 12.[address] Phone: Platelets (Bld) [#/Vol] 424 10*3/uL High [employer] Work Phone: RBC (Bld) [#/Vol] 4.88 10*6/uL [employer] Work Phone: Segmented neutrophils/100 WBC (Bld) 77 % [address] Phone: [employer] Work Phone: WBC (Bld) [#/Vol] 6.5 10*3/uL [employer] Work Phone: [employer] Work Phone: Glomerular Filtration Rate, EstimatedOrdered By: Unknown Result on 08-12-2021 GFR/1.73 sq M.predicted MDRD (S/P/Bld) [Vol rate/Area] 89 mL/min/{1.73_m2} Abnormal ml/min/1.7 3m2 [employer] Work Phone: Comment on above: Stage Description GF R, ml/min/1.73 m2 - At increased risk > or = 60 (with chronic kidney disease risk factors) 1 Normal or increased GFR > or = 90 2 Mildly or decreased GFR 60 - 89 3 Moderately decreased GFR 30 - 59 4 Severely decreased GFR 15 - 29 5 Kidney failure <15 (or dialysis) Estimated GFR calculated using abbreviated MDRD formula as recommended by National Kidney Foundation. Calculation based upon serum creatinine and adjusted for age, gender & race. Mia. Internal Med., Vol. 139 (2 pg 137-147. Performed at [facility] [address] [place] [address] No Panel InformationOrdered By: Palmer Dave on 08-12-2021 Interpretation and review of laboratory results Abnormal [address] Phone: [address] Phone: Anion GapOrdered By: Unknown Result on 08-11-2021 Anion gap [Moles/Vol] 12.0 mmol/L 8.0 - 16.0 meq/L [address] Phone: Comment on above: ANION GAP = Sodium - (Chloride + CO2) Performed at [facility] [address] [place] [address] Basic Metabolic PanelOrdered By: Palmer Dave on 08-11-2021 Calcium [Mass/Vol] 8.8 mg/dL 8.5 - 10. 5 mg/dL [address] Phone: Comment on above: Performed at [facility] [address] [place] [address] Chloride [Moles/Vol] 106 mmol/L 98 - 11 1 meq/L [address] Phone: CO2 [Moles/Vol] 21 mmol/L Low 23 - 33 meq/L [address] Phone: Creatinine [Mass/Vol] 0.6 mg/dL 0.4 - 1.2 mg/dL [address] Phone: Glucose [Mass/Vol] 107 mg/dL 70 - 108 mg/dL [address] Phone: Interpretation and review of laboratory results Abnormal [address] Phone: Potassium [Moles/Vol] 4.4 mmol/L 3.5 - 5.2 meq/L [address] Phone: Comment on above: Low level specimen h emolysis is present as indicated by the interference level index on the Allegra analyzer. The reported K+ level may be falsely increased. If clinically warranted, recollection of the specimen is suggested. Sodium [Moles/Vol] 139 mmol/L 135 - 145 meq/L [address] Phone: Urea nitrogen (BldV) [Mass/Vol] 31 mg/dL High 7 - 22 mg/dL [address] Phone: CBC auto differentialOrdered By: Palmer Dave on 08-11-2021 Basophils (Bld) [#/Vol] 0.0 10*3/uL [address] Phone: Basophils/100 WBC (Bld) 0.6 % [address] Phone: Eosinophils Absolute 0.0 [facility] Phone: Eosinophils/100 WBC (Bld) 0 % [address] Phone: Erythrocyte distribution width (RBC) [Ratio] 13.1 % 11.5 - 14.5 % [address] Phone: Erythrocyte distribution width (RBC) [Ratio] 48.3 fL High 35.0 - 45.[address] Phone: Hematocrit (Bld) [Volume fraction] 48.4 % High 37.0 - 47.0 % [address] Phone: Hemoglobin.gastrointe stinal spec 1 Ql (Stl) 14.[address] Phone: Immature Grans (Abs) 0.19 High [facility] Phone: Immature granulocytes/100 WBC (Bld) 2.6 % [address] Phone: Interpretation and review of laboratory results Abnormal [employer] Work Phone: Lymphocytes Absolute 1.0 [email or web address] Work Phone: Lymphocytes/100 WBC (Bld) 13.8 % [email or web address] Work Phone: MCH (RBC) [Entitic mass] 30.4 pg 26.0 - 33.[address] [email or web address] Work Phone: MCHC (RBC) [Mass/Vol] 30.4 g/dL Low [facility] [employer] Work Phone: MCV (RBC) [Entitic vol] 100.0 fL High 81.0 - 99.[address] [facility] Work Phone: Monocytes Absolute 0.[address] [facility] [email or web address] Work Phone: Monocytes/100 WBC (Bld) 8.6 % [email or web address] Work Phone: nRBC 0 /100 wbc [employer] Work Phone: Comment on above: Performed at [facility] [address] [place] [id number] Platelet mean volume (Bld) [Entitic vol] 9.2 fL Low 9.4 - 12.4 fL [employer] Work Phone: Platelets (Bld) [#/Vol] 360 10*3/uL [employer] Work Phone: RBC (Bld) [#/Vol] 4.84 10*6/uL [employer] Work Phone: Segmented neutrophils/100 WBC (Bld) 74.4 % [employer] Work Phone: [employer] Work Phone: WBC (Bld) [#/Vol] 7.3 10*3/uL [employer] Work Phone: [employer] Work Phone: Glomerular Filtration Rate, EstimatedOrdered By: Unknown Result on 08-11-2021 GFR/1.73 sq M.predicted MDRD (S/P/Bld) [Vol rate/Area] mL/min/{1.73_m2} ml/min/1.[address] Phone: Comment on above: Stage Description GF R, ml/min/1.73 m2 - At increased risk > or = 60 (with chronic kidney disease risk factors) 1 Normal or increased GFR > or = 90 2 Mildly or decreased GFR 60 - 89 3 Moderately decreased GFR 30 - 59 4 Severely decreased GFR 15 - 29 5 Kidney failure <15 (or dialysis) Estimated GFR calculated using abbreviated MDRD formula as recommended by National Kidney Foundation. Calculation based upon serum creatinine and adjusted for age, gender & race. Mia. Internal Med., Vol. 139 (7) pg 137-147. Performed at [facility] [address] [place] [address] No Panel InformationOrdered By: Palmer Dave on 08-11-[address] Phone: Anion GapOrdered By: Unknown Result on 08-10-2021 Anion gap [Moles/Vol] 10.0 mmol/L 8.0 - 16.0 meq/L [address] Phone: Comment on above: ANION GAP = Sodium - (Chloride + CO2) Performed at [facility] [address] [place] [address] Basic Metabolic PanelOrdered By: Palmer Dave on 08-10-2021 Calcium [Mass/Vol] 8.9 mg/dL 8.5 - 10. 5 mg/dL [address] Phone: Comment on above: Performed at [facility] [address] [place] [address] Chloride [Moles/Vol] 103 mmol/L 98 - 11 1 meq/L [address] Phone: CO2 [Moles/Vol] 27 mmol/L 23 - 33 meq/L [address] Phone: Creatinine [Mass/Vol] 0.7 mg/dL 0.4 - 1.2 mg/dL [address] Phone: Glucose [Mass/Vol] 108 mg/dL 70 - 108 mg/dL [address] Phone: Potassium [Moles/Vol] 4.6 mmol/L 3.5 - 5.2 meq/L [address] Phone: Sodium [Moles/Vol] 140 mmol/L 135 - 145 meq/L [address] Phone: Urea nitrogen (BldV) [Mass/Vol] 33 mg/dL High 7 - 22 mg/dL [address] Phone: CBC auto differentialOrdered By: Palmer Dave on 08-10-2021 Basophils (Bld) [#/Vol] 0.0 10*3/uL [address] Phone: Basophils/100 WBC (Bld) 0.4 % [address] Phone: Eosinophils Absolute 0.0 [facility] Phone: Eosinophils/100 WBC (Bld) 0 % [address] Phone: Erythrocyte distribution width (RBC) [Ratio] 13.3 % 11.5 - 14.5 % [address] Phone: Erythrocyte distribution width (RBC) [Ratio] 45.3 fL High 35.0 - 45.[address] Phone: Hematocrit (Bld) [Volume fraction] 43.1 % 37.0 - 47.0 % [address] Phone: Hemoglobin.gastrointe stinal spec 1 Ql (Stl) 14.[address] Phone: Immature Grans (Abs) 0.12 High [facility] Phone: Immature granulocytes/100 WBC (Bld) 1.7 % [address] Phone: Interpretation and review of laboratory results Abnormal [address] Phone: Lymphocytes Absolute 0.8 Low [employer] Work Phone: Lymphocytes/100 WBC (Bld) 11.3 % [email or web address] Work Phone: MCH (RBC) [Entitic mass] 30.5 pg 26.0 - 33.[address] [email or web address] Work Phone: MCHC (RBC) [Mass/Vol] 33.2 g/dL [facility] Work Phone: MCV (RBC) [Entitic vol] 91.9 fL 81.0 - 99.[address] [facility] Work Phone: Monocytes Absolute 0.[address] [email or web address] Work Phone: Monocytes/100 WBC (Bld) 10.5 % [email or web address] Work Phone: nRBC 0 /[address] [email or web address] Work Phone: Comment on above: Performed at [facility] [address] [place] [id number] Platelet mean volume (Bld) [Entitic vol] 9.1 fL Low 9.4 - 12.[address] [email or web address] Work Phone: Platelets (Bld) [#/Vol] 367 10*3/uL [email or web address] Work Phone: RBC (Bld) [#/Vol] 4.69 10*6/uL [employer] Work Phone: Segmented neutrophils/100 WBC (Bld) 76.1 % [employer] Work Phone: [employer]s [employer] 5[employer]5 [employer] [facility] [employer] Work Phone: WBC (Bld) [#/Vol] 7.2 10*3/uL [employer] Work Phone: [employer] Work Phone: Glomerular Filtration Rate, EstimatedOrdered By: Unknown Result on 08-10-2021 GFR/1.73 sq M.predicted MDRD (S/P/Bld) [Vol rate/Area] 89 mL/min/{1.73_m2} Abnormal ml/min/1.[address] Phone: Comment on above: Stage Description GF R, ml/min/1.73 m2 - At increased risk > or = 60 (with chronic kidney disease risk factors) 1 Normal or increased GFR > or = 90 2 Mildly or decreased GFR 60 - 89 3 Moderately decreased GFR 30 - 59 4 Severely decreased GFR 15 - 29 5 Kidney failure <15 (or dialysis) Estimated GFR calculated using abbreviated MDRD formula as recommended by National Kidney Foundation. Calculation based upon serum creatinine and adjusted for age, gender & race. Mia. Internal Med., Vol. 139 (8) pg 137-147. Performed at [facility] [address] [place] [address] No Panel InformationOrdered By: Palmer Dave on 08-10-2021 Interpretation and review of laboratory results Abnormal [address] Phone: [address] Phone: Anion GapOrdered By: Unknown Result on 08-09-2021 Anion gap [Moles/Vol] 12.0 mmol/L 8.0 - 16.0 meq/L [address] Phone: Comment on above: ANION GAP = Sodium - (Chloride + CO2) Performed at [facility] [address] [place] [address] Basic Metabolic PanelOrdered By: Palmer Dave on 08-09-2021 Calcium [Mass/Vol] 9.1 mg/dL 8.5 - 10. 5 mg/dL [address] Phone: Comment on above: Performed at [facility] [address] [place] [address] Chloride [Moles/Vol] 104 mmol/L 98 - 11 1 meq/L [address] Phone: CO2 [Moles/Vol] 26 mmol/L 23 - 33 meq/L [address] Phone: Creatinine [Mass/Vol] 0.7 mg/dL 0.4 - 1.2 mg/dL [address] Phone: Glucose [Mass/Vol] 113 mg/dL High 70 - 108 mg/dL [address] Phone: Potassium [Moles/Vol] 4.6 mmol/L 3.5 - 5.2 meq/L [address] Phone: Sodium [Moles/Vol] 142 mmol/L 135 - 145 meq/L [address] Phone: Urea nitrogen (BldV) [Mass/Vol] 35 mg/dL High 7 - 22 mg/dL [address] Phone: CBC auto differentialOrdered By: Palmer Dave on 08-09-2021 Atypical Lymphocytes RARE % [facility] Phone: Basophils (Bld) [#/Vol] 0.0 10*3/uL [address] Phone: Basophils/100 WBC (Bld) 0.1 % [address] Phone: Eosinophils Absolute 0.0 [facility] Phone: Eosinophils/100 WBC (Bld) 0 % [address] Phone: Erythrocyte distribution width (RBC) [Ratio] 13.8 % 11.5 - 14.5 % [address] Phone: Erythrocyte distribution width (RBC) [Ratio] 46.5 fL High 35.0 - 45.[address] Phone: Hematocrit (Bld) [Volume fraction] 42.3 % 37.0 - 47.0 % [address] Phone: Hemoglobin.gastrointe stinal spec 1 Ql (Stl) 14.[address] Phone: Immature Grans (Abs) 0.13 High [facility] Phone: Immature granulocytes/100 WBC (Bld) 1.7 % [address] Phone: Interpretation and review of laboratory results Abnormal [address] Phone: Lymphocytes Absolute 0.8 Low [email or web address] Work Phone: Lymphocytes/100 WBC (Bld) 10 % [facility] [employer] Work Phone: MCH (RBC) [Entitic mass] 30.5 pg 26.0 - 33.0 pg [facility] [employer] Work Phone: MCHC (RBC) [Mass/Vol] 33.3 g/dL [facility] Work Phone: MCV (RBC) [Entitic vol] 91.4 fL 81.0 - 99.[address] [facility] [employer] Work Phone: Monocytes Absolute 0.[address] [email or web address] Work Phone: Monocytes/100 WBC (Bld) 9.4 % [email or web address] Work Phone: nRBC 0 /[address] [facility] [email or web address] Work Phone: Comment on above: Performed at [facility] [address] [place] [address] Platelet Estimate ADEQUATE Adequate [facility] Center[facility] Work Phone: Platelet mean volume (Bld) [Entitic vol] 8.7 fL Low 9.4 - 12.[address] [email or web address] Work Phone: Platelets (Bld) [#/Vol] 371 10*3/uL [employer] Work Phone: RBC (Bld) [#/Vol] 4.63 10*6/uL [employer] Work Phone: Segmented neutrophils/100 WBC (Bld) 78.8 % [email or web address] Work Phone: [employer]s [employer] 6[employer] [place] [facility] [employer] Work Phone: WBC (Bld) [#/Vol] 7.7 10*3/uL [employer] Work Phone: Glomerular Filtration Rate, EstimatedOrdered By: Unknown Result on 08-09-2021 GFR/1.73 sq M.predicted MDRD (S/P/Bld) [Vol rate/Area] 89 mL/min/{1.73_m2} Abnormal ml/min/1.[address] Phone: Comment on above: Stage Description GF R, ml/min/1.73 m2 - At increased risk > or = 60 (with chronic kidney disease risk factors) 1 Normal or increased GFR > or = 90 2 Mildly or decreased GFR 60 - 89 3 Moderately decreased GFR 30 - 59 4 Severely decreased GFR 15 - 29 5 Kidney failure <15 (or dialysis) Estimated GFR calculated using abbreviated MDRD formula as recommended by National Kidney Foundation. Calculation based upon serum creatinine and adjusted for age, gender & race. Mia. Internal Med., Vol. 139 (2 pg 137-147. Performed at [facility] [address] [place] [address] No Panel InformationOrdered By: Palmer Dave on 08-09-[address] Phone: Interpretation and review of laboratory results Abnormal [address] Phone: [address] Phone: Scan of Blood SmearOrdered B y: Unknown Result on 08-09-2021 SCAN OF BLOOD SMEAR see below [address] Phone: Comment on above: Criteria Exceeded; S can of Differential Slide Performed Performed at [facility] [address] [place] [address] Anion GapOrdered By: Unknown Result on 08-08-2021 Anion gap [Moles/Vol] 15.0 mmol/L 8.0 - 16.0 meq/L [address] Phone: Comment on above: ANION GAP = Sodium - (Chloride + CO2) Performed at [facility] [address] [place] [address] Basic Metabolic PanelOrdered By: Palmer Dave on 08-08-2021 Calcium [Mass/Vol] 9.1 mg/dL 8.5 - 10. 5 mg/dL [address] Phone: Comment on above: Performed at [facility] [employer] [address] [place] [address] Chloride [Moles/Vol] 104 mmol/L 98 - 11 1 meq/L [address] Phone: CO2 [Moles/Vol] 23 mmol/L 23 - 33 meq/L [address] Phone: Creatinine [Mass/Vol] 0.7 mg/dL 0.4 - 1.2 mg/dL [address] Phone: Glucose [Mass/Vol] 128 mg/dL High 70 - 108 mg/dL [address] Phone: Potassium [Moles/Vol] 4.8 mmol/L 3.5 - 5.2 meq/L [address] Phone: Comment on above: Low level specimen h emolysis is present as indicated by the interference level index on the Allegra analyzer. The reported K+ level may be falsely increased. If clinically warranted, recollection of the specimen is suggested. Sodium [Moles/Vol] 142 mmol/L 135 - 145 meq/L [address] Phone: Urea nitrogen (BldV) [Mass/Vol] 29 mg/dL High 7 - 22 mg/dL [address] Phone: C-reactive proteinOrdered By : Palmer Dave on 08-08-2021 CRP 6.09 mg/dl High 0.00 - 1.00 mg/dl [address] Phone: Comment on above: Performed at [facility] [address] [place] [address] CBC auto differentialOrdered By: Palmer Dave on 08-08-2021 Atypical Lymphocytes RARE % [facility] Phone: Basophils (Bld) [#/Vol] 0.0 10*3/uL [employer] Work Phone: Basophils/100 WBC (Bld) 0.1 % [address] Phone: Eosinophils Absolute 0.0 [facility] Phone: Eosinophils/100 WBC (Bld) 0 % [employer] Work Phone: Erythrocyte distribution width (RBC) [Ratio] 13.9 % 11.5 - 14.5 % [employer] Work Phone: Erythrocyte distribution width (RBC) [Ratio] 47.7 fL High 35.0 - 45.[address] Phone: Hematocrit (Bld) [Volume fraction] 43.1 % 37.0 - 47.0 % [email or web address] Work Phone: Hemoglobin.gastrointe stinal spec 1 Ql (Stl) 13.[address] [facility] [email or web address] Work Phone: Immature Grans (Abs) 0.13 High [employer] Work Phone: Immature granulocytes/100 WBC (Bld) 1.7 % [facility] Phone: Interpretation and review of laboratory results Abnormal [facility] Phone: Lymphocytes Absolute 1.[address] [facility] [email or web address] Work Phone: Lymphocytes/100 WBC (Bld) 12.7 % [facility] Phone: MCH (RBC) [Entitic mass] 29.9 pg 26.0 - 33.[address] [facility] [facility] [email or web address] Work Phone: MCHC (RBC) [Mass/Vol] 32.3 g/dL [facility] [employer] Work Phone: MCV (RBC) [Entitic vol] 92.7 fL 81.0 - 99.[email or web address] Work Phone: Monocytes Absolute 0.[address] [facility] [address] Phone: Monocytes/100 WBC (Bld) 7.7 % [email or web address] Work Phone: nRBC 0 /[address] [facility] Phone: Platelet Estimate ADEQUATE Adequate [facility] Work Phone: Platelet mean volume (Bld) [Entitic vol] 9.1 fL Low 9.4 - 12.4 fL [employer] Work Phone: Platelets (Bld) [#/Vol] 378 10*3/uL [employer] Work Phone: RBC (Bld) [#/Vol] 4.65 10*6/uL [employer] Work Phone: Segmented neutrophils/100 WBC (Bld) 77.8 % [employer] Work Phone: Segs Absolute 6.0 [facility] Work Phone: Toxic Granulation Present Absent [employer] Work Phone: Comment on above: Performed at [facility] [address] [place] [id number] WBC (Bld) [#/Vol] 7.7 10*3/uL [employer] Work Phone: Glomerular Filtration Rate, EstimatedOrdered By: Unknown Result on 08-08-2021 GFR/1.73 sq M.predicted MDRD (S/P/Bld) [Vol rate/Area] 89 mL/min/{1.73_m2} Abnormal ml/min/1.[address] Phone: Comment on above: Stage Description GF R, ml/min/1.73 m2 - At increased risk > or = 60 (with chronic kidney disease risk factors) 1 Normal or increased GFR > or = 90 2 Mildly or decreased GFR 60 - 89 3 Moderately decreased GFR 30 - 59 4 Severely decreased GFR 15 - 29 5 Kidney failure <15 (or dialysis) Estimated GFR calculated using abbreviated MDRD formula as recommended by National Kidney Foundation. Calculation based upon serum creatinine and adjusted for age, gender & race. Mia. Internal Med., Vol. 139 (2) pg 137-147. Performed at [facility] [address] [place] [id number] No Panel InformationOrdered By: Palmer Dave on 08-08-2021 [employer] Work Phone: Interpretation and review of laboratory results Abnormal [employer] Work Phone: [employer] Work Phone: Scan of Blood SmearOrdered B y: Unknown Result on 08-08-2021 SCAN OF BLOOD SMEAR see below [address] Phone: Comment on above: Criteria Exceeded; S can of Differential Slide Performed Performed at [facility] [address] [place] [address] Anion GapOrdered By: Unknown Result on 08-07-2021 Anion gap [Moles/Vol] 11.0 mmol/L 8.0 - 16.0 meq/L [address] Phone: Comment on above: ANION GAP = Sodium - (Chloride + CO2) Performed at [facility] [address] [place], [place] [id number] Basic Metabolic Panel w/ Ref sameera to MGOrdered By: Palmer Dave on 08-07-2021 Calcium [Mass/Vol] 9.2 mg/dL 8.5 - 10. 5 mg/dL [address] Phone: Comment on above: Performed at [facility] [address] [place] [address] Chloride [Moles/Vol] 103 mmol/L 98 - 11 1 meq/L [address] Phone: CO2 [Moles/Vol] 27 mmol/L 23 - 33 meq/L [address] Phone: Creatinine [Mass/Vol] 0.6 mg/dL 0.4 - 1.2 mg/dL [address] Phone: Glucose [Mass/Vol] 139 mg/dL High 70 - 108 mg/dL [address] Phone: Interpretation and review of laboratory results Abnormal [address] Phone: Potassium [Moles/Vol] 4 mmol/L 3.5 - 5.2 meq/L [address] Phone: Sodium [Moles/Vol] 141 mmol/L 135 - 145 meq/L [address] Phone: Urea nitrogen (BldV) [Mass/Vol] 18 mg/dL 7 - 22 mg/dL [address] Phone: CBC auto differentialOrdered By: Palmer Dave on 08-07-2021 Atypical Lymphocytes OCC. % [facility] Phone: Basophils (Bld) [#/Vol] 0.0 10*3/uL [address] Phone: Basophils/100 WBC (Bld) 0.2 % [address] Phone: Eosinophils Absolute 0.[address] [facility] [employer] Phone: Eosinophils/100 WBC (Bld) 0 % [address] Phone: Erythrocyte distribution width (RBC) [Ratio] 13.9 % 11.5 - 14.5 % [facility] Phone: Erythrocyte distribution width (RBC) [Ratio] 46.7 fL High 35.0 - 45.[address] Phone: Hematocrit (Bld) [Volume fraction] 41.0 % 37.0 - 47.0 % [facility] Phone: Hemoglobin.gastrointe stinal spec 1 Ql (Stl) 13.[address] [facility] [address] Phone: Immature Grans (Abs) 0.[address] [facility] [employer] Phone: Immature granulocytes/100 WBC (Bld) 3 % [address] Phone: Interpretation and review of laboratory results Abnormal [facility] Phone: Lymphocytes Absolute 0.[address] [facility] [employer] Phone: Lymphocytes/100 WBC (Bld) 14.5 % [facility] Phone: MCH (RBC) [Entitic mass] 30.2 pg 26.0 - 33.[address] [facility] Phone: MCHC (RBC) [Mass/Vol] 33.2 g/dL [facility] [employer] Work Phone: MCV (RBC) [Entitic vol] 90.9 fL 81.0 - 99.0 fL [employer] Work Phone: Monocytes Absolute 0.2 Low [employer] Work Phone: Monocytes/100 WBC (Bld) 4.9 % [employer] Work Phone: nRBC 0 /100 wbc [employer] Work Phone: Comment on above: Performed at [facility] [address] [place] [address] Platelet Estimate ADEQUATE Adequate [employer] Work Phone: Platelet mean volume (Bld) [Entitic vol] 8.8 fL Low 9.4 - 12.4 fL [employer] Work Phone: Platelets (Bld) [#/Vol] 322 10*3/uL [employer] Work Phone: RBC (Bld) [#/Vol] 4.51 10*6/uL [employer] Work Phone: Segmented neutrophils/100 WBC (Bld) 77.4 % [employer] Work Phone: Segs Absolute 3.2 [employer] Work Phone: WBC (Bld) [#/Vol] 4.1 10*3/uL Low [employer] Work Phone: Glomerular Filtration Rate, EstimatedOrdered By: Unknown Result on 08-07-2021 GFR/1.73 sq M.predicted MDRD (S/P/Bld) [Vol rate/Area] mL/min/{1.73_m2} ml/min/1.7 3m2 [employer] Work Phone: Comment on above: Stage Description GF R, ml/min/1.73 m2 - At increased risk > or = 60 (with chronic kidney disease risk factors) 1 Normal or increased GFR > or = 90 2 Mildly or decreased GFR 60 - 89 3 Moderately decreased GFR 30 - 59 4 Severely decreased GFR 15 - 29 5 Kidney failure <15 (or dialysis) Estimated GFR calculated using abbreviated MDRD formula as recommended by National Kidney Foundation. Calculation based upon serum creatinine and adjusted for age, gender & race. Mia. Internal Med., Vol. 139 (2) pg 137-147. Performed at [facility] [address] [place] [address] No Panel InformationOrdered By: Palmer Dave on 08-07-[address] Phone: [address] Phone: Scan of Blood SmearOrdered B y: Unknown Result on 08-07-2021 SCAN OF BLOOD SMEAR see below [address] Phone: Comment on above: Criteria Exceeded; S can of Differential Slide Performed Performed at [facility] [address] [place] [address] APTTOrdered By: Glenn Newton on 08-06-2021 aPTT Coag (Bld) [Time] 33.[address] Phone: Comment on above: Therapeutic Heparin Reference Range= 60-95 seconds (corresponds to 0.3 to 0.7 u/mL Anti-Xa factor activity) Performed at [facility] [place] [address] Phone: Anion GapOrdered By: Dann veronica on 08-06-2021 Anion gap [Moles/Vol] 13.0 mmol/L 8.0 - 16.0 meq/L [address] Phone: Comment on above: ANION GAP = Sodium - (Chloride + CO2) Performed at [place] [place] [address] Brain Natriuretic PeptideOrd ered By: Dann Haile on 08-06-2021 Natriuretic peptide B (Bld) [Mass/Vol] 60.1 pg/mL 0.0 - 450.0 pg/mL [address] Phone: Comment on above: Values < 300 pg/ml rule out, or make the probability of heart failure highly unlikely. Values which rule in heart failue are as follows: AGE RANGE <50 years >450 pg/ml 50-75 years >900 pg/ml >75 years >1800 pg/ml Performed at [facility] [address] [place] [address] C-Reactive ProteinOrdered By : Glenn Newton on 08-06-2021 CRP 23.15 mg/dl High 0.00 - 1.00 mg/dl [address] Phone: Comment on above: Performed at [facility] [address] [place] [address] CBC Auto DifferentialOrdered By: Dann Haile on 08-06-2021 Atypical Lymphocytes RARE % [employer] Work Phone: Basophils (Bld) [#/Vol] 0.0 10*3/uL [employer] Work Phone: Basophils/100 WBC (Bld) 0.2 % [address] Phone: Eosinophils Absolute 0.0 [facility] Phone: Eosinophils/100 WBC (Bld) 0 % [employer] Work Phone: Erythrocyte distribution width (RBC) [Ratio] 14.1 % 11.5 - 14.5 % [address] Phone: Erythrocyte distribution width (RBC) [Ratio] 48.4 fL High 35.0 - 45.[address] Phone: Hematocrit (Bld) [Volume fraction] 42.2 % 37.0 - 47.0 % [address] Phone: Hemoglobin.gastrointe stinal spec 1 Ql (Stl) 13.[address] Phone: Immature Grans (Abs) 0.07 [employer] Work Phone: Immature granulocytes/100 WBC (Bld) 1.2 % [address] Phone: Interpretation and review of laboratory results Abnormal [address] Phone: Lymphocytes Absolute 0.6 Low [employer] Work Phone: Lymphocytes/100 WBC (Bld) 11 % [employer] Work Phone: MCH (RBC) [Entitic mass] 30.5 pg 26.0 - 33.0 pg [facility] [employer] Work Phone: MCHC (RBC) [Mass/Vol] 32.9 g/dL [facility] Work Phone: MCV (RBC) [Entitic vol] 92.5 fL 81.0 - 99.[address] [email or web address] Work Phone: Monocytes Absolute 0.[address] [email or web address] Work Phone: Monocytes/100 WBC (Bld) 3.9 % [email or web address] Work Phone: nRBC 0 /[address] [email or web address] Work Phone: Comment on above: Performed at [facility] [address] [place] [address] Platelet mean volume (Bld) [Entitic vol] 8.9 fL Low 9.4 - 12.[address] [email or web address] Work Phone: Platelets (Bld) [#/Vol] 234 10*3/uL [email or web address] Work Phone: RBC (Bld) [#/Vol] 4.56 10*6/uL [employer] Work Phone: Segmented neutrophils/100 WBC (Bld) 83.7 % [facility] Phone: Segs Absolute 4.[address] [facility] CenterSk[facility] [employer] Work Phone: WBC (Bld) [#/Vol] 5.6 10*3/uL [email or web address] Work Phone: COVID-19, RapidOrdered By: Casimiro Haile on 08-06-2021 Interpretation and review of laboratory results Abnormal [facility] Phone: SARS-CoV-2 (COVID-19) RNA TIAGO+probe Ql (Unsp spec) Detected Critically abnormal NOT DETECTED [facility] Phone: Comment on above: Rapid NAAT: Negative results should be treated as presumptive and, if inconsistent with clinical signs and symptoms or necessary for patient management, should be tested with an alternative molecular assay. Negative results do not preclude SARS-CoV-2 infection and should not be used as the sole basis for patient management decisions. This test has been authorized by the FDA under an Emergency Use Authorization (EUA) for use by authorized laboratories. Fact sheet for Healthcare Providers: https://www.fda.gov/media/203360/download Fact sheet for Patients: https://www.fda.gov/media/453925/download METHODOLOGY: Isothermal Nucleic Acid Amplification Performed at [facility] [address] [place] [address] Phone: Comprehensive Metabolic Pane l w/ Reflex to MGOrdered By: Dann Haile on 08-06-2021 Albumin [Mass/Vol] 3.8 g/dL 3.5 - 5.1 g/dL [address] Phone: ALP (Bld) [Catalytic activity/Vol] 83 U/L 38 - 126 U/L [address] Phone: ALT [Catalytic activity/Vol] 104 U/L High 11 - 66 U/L [address] Phone: Comment on above: Performed at [facility] [address] [place] [address] AST [Catalytic activity/Vol] 71 U/L High 5 - 40 U/L [address] Phone: Bilirubin [Mass/Vol] 0.4 mg/dL 0.3 - 1 .2 mg/dL [address] Phone: Calcium [Mass/Vol] 9.1 mg/dL 8.5 - 10. 5 mg/dL [address] Phone: Chloride [Moles/Vol] 102 mmol/L 98 - 11 1 meq/L [address] Phone: CO2 [Moles/Vol] 26 mmol/L 23 - 33 meq/L [address] Phone: Creatinine [Mass/Vol] 0.7 mg/dL 0.4 - 1.2 mg/dL [address] Phone: Free PSA/Total PSA [Mass fraction] 7.6 g/dL 6.1 - 8.0 g/dL [address] Phone: Glucose [Mass/Vol] 107 mg/dL 70 - 108 mg/dL [address] Phone: Potassium [Moles/Vol] 3.9 mmol/L 3.5 - 5.2 meq/L [address] Phone: Sodium [Moles/Vol] 141 mmol/L 135 - 145 meq/L [address] Phone: Urea nitrogen (BldV) [Mass/Vol] 11 mg/dL 7 - 22 mg/dL [address] Phone: FerritinOrdered By: Glenn denis on 08-06-2021 Ferritin [Mass/Vol] 4179 ng/mL High 10 - 291 ng/mL [address] Phone: Comment on above: Performed at [facility] [address] [place] [address] Interpretation and review of laboratory results Abnormal [address] Phone: [address] Phone: FibrinogenOrdered By: Glenn Newton on 08-06-2021 [address]ibrinogen [address] Phone: Comment on above: Performed at [facility] [address] [place] [address] Interpretation and review of laboratory results Abnormal [address] Phone: Glomerular Filtration Rate, EstimatedOrdered By: Dann Haile on 08-06-2021 GFR/1.73 sq M.predicted MDRD (S/P/Bld) [Vol rate/Area] 89 mL/min/{1.73_m2} Abnormal ml/min/1.[address] Phone: Comment on above: Stage Description GF R, ml/min/1.73 m2 - At increased risk > or = 60 (with chronic kidney disease risk factors) 1 Normal or increased GFR > or = 90 2 Mildly or decreased GFR 60 - 89 3 Moderately decreased GFR 30 - 59 4 Severely decreased GFR 15 - 29 5 Kidney failure <15 (or dialysis) Estimated GFR calculated using abbreviated MDRD formula as recommended by National Kidney Foundation. Calculation based upon serum creatinine and adjusted for age, gender & race. Mia. Internal Med., Vol. 139 (2) pg 137-147. Performed at [facility] [address] [place] [address] Lactate DehydrogenaseOrdered By: Glenn Newton on 08-06-2021 LD 539 U/L High 100 - 190 U/L [employer] Work Phone: Comment on above: Performed at [facility] [address] [place] [address] No Panel InformationOrdered By: Dann Haile on 08-06-2021 [employer] Work Phone: Interpretation and review of laboratory results Abnormal [employer] Work Phone: [employer] Work Phone: [employer] Work Phone: No Panel InformationOrdered By: Glenn Newton on 08-06-2021 Interpretation and review of laboratory results Abnormal [employer] Work Phone: [employer] Work Phone: [employer] Work Phone: OsmolalityOrdered By: Dann magallanes on 08-06-2021 Osmolality Calc 281.1 [facility] Work Phone: Comment on above: Performed at [facility] [address] [place] [address] ProcalcitoninOrdered By: Thomas Newton on 08-06-2021 Procalcitonin 0.12 ng/mL High 0.01 - 0.09 ng/mL [employer] Work Phone: Comment on above: Suspected Sepsis: <0.50 ng/mL Low likelihood of sepsis. 0.50-2.00 ng/mL Increased likelihood of sepsis. Antibiotics encouraged. >2.00 ng/mL High risk of sepsis/shock. Antibiotics strongly encouraged. Suspected Lower Resp Tract Infections: <0.24 ng/mL Low likelihood of bacterial infection. >0.24 ng/mL Increased likelihood of bacterial infection. Antibiotics encouraged. With successful antibiotic therapy, PCT levels should decrease rapidly. (Half-life of 24 to 36 hours.) Procalcitonin values from samples collected within the first 6 hours of systemic infection may still be low. Retesting may be indicated. Values from day 1 and day 4 can be entered into the Change in Procalcitonin Calculator (www.ukzpam-vhu-pvrajijbfr.The Roundtable) to determine the patient's Mortality Risk Prognosis. In healthy neonates, plasma Procalcitonin (PCT) concentrations increase gradually after , reaching peak values at about 24 hours of age then decrease to normal values below 0.5 ng/mL by 48-72 hours of age. Performed at [facility] [address] [place] [address] Protime-INROrdered By: Carlee Newton on 08-06-2021 INR Coag (Bld) [Relative time] 1.06 {INR} [address] Phone: Comment on above: ---------INDICATION- INR Reference Range DVT, PE, AF, AMI, tissue heart valve 2.0 to 3.0 Mechanical prosthetic valves 2.5 to 3.5 Performed at [facility] [address] [place] [address] Rapid influenza A/B antigens Ordered By: Dann Haile on 08-06-2021 Flu A Antigen Negative NEGATIVE [employer] Work Phone: Flu B Antigen Negative NEGATIVE [employer] Work Phone: Comment on above: Performed at [facility] [address] [place] [address] Phone: Scan of Blood SmearOrdered B y: Dann Haile on 08-06-2021 SCAN OF BLOOD SMEAR see below [address] Phone: Comment on above: Criteria Exceeded; S can of Differential Slide Performed Performed at [facility] [address] [place] [address] TroponinOrdered By: Dann damon on 08-06-2021 Troponin T < 0.010 ng/ml [address] Phone: Comment on above: <0.010 ng/ml Normal > or = 0.010 ng/ml Elevated (99%) Consistent with myocardial damage Cardiac troponin values can be elevated by many disease states in addition to acute ischemia. These include, but are not limited to: chronic renal failure, CHF, CVA, pulmonary embolus, COPD, myocardial trauma/surgery, myocarditis, pericarditis, tachycardia, aortic dissection, amyloidosis, sepsis and strenuous exercise. Serial measurement of troponin is strongly recommended as a first step in determining whether a low level elevation represents an acute or chronic condition. Performed at [facility] [address] [address] XR CHEST PORTABLEOrdered By: Dann Haile on 08-06-2021 1. Poor inflation th e lungs. Kyphotic positioning the patient. Normal heart size. 2. Moderate pneumonia/pulmonary edema both mid and lower lung caro. This report has been created using voice recognition software. It may contain minor errors which are inherent in voice recognition technology. Final report electronically signed by Dr. Bari Franklin on 08/06/2021 1:[address] Phone: Flo, Wcoh Incoming R adiant Results From [facility]Pacs - 08/06/2021 1:32 PM EDT PROCEDURE: XR CHEST PORTABLE CLINICAL INFORMATION: sob COMPARISON: No prior study. TECHNIQUE: A single mobile view of the chest was obtained. IMPRESSION: 1. Poor inflation the lungs. Kyphotic positioning the patient. Normal heart size. 2. Moderate pneumonia/pulmonary edema both mid and lower lung caro. This report has been created using voice recognition software. It may contain minor errors which are inherent in voice recognition technology. Final report electronically signed by Dr. Bari Franklin on 08/06/2021 1:[address] Phone: [address] Phone: BASIC METABOLIC PANEL WITH G FRon 02-14-2021 Anion gap [Moles/Vol] 8 mmol/L Normal 5-15 [employer] Comment on above: Result Comment: Test performed at [facility] [address] [place] [address] CLIA Number [id number] ----- Calcium [Mass/Vol] 9.6 mg/dL Normal 8.5-10.5 [employer] Chloride [Moles/Vol] 103 mmol/L Normal 98-109 [facility] [employer] CO2 [Moles/Vol] 27 mmol/L Normal 22-32 [facility] Creatinine [Mass/Vol] 0.84 mg/dL Normal 0.40-1.00 [employer] Comment on above: Result Comment: METH OD TRACEABLE TO IDMS STANDARD GFR/1.73 sq M.predicted among blacks MDRD (S/P/Bld) [Vol rate/Area] mL/min/{1.73_m2} Normal >59 [facility] GFR/1.73 sq M.predicted among non-blacks MDRD (S/P/Bld) [Vol rate/Area] mL/min/{1.73_m2} Normal >59 [facility] Glucose [Mass/Vol] 101 mg/dL High 65-99 [facility] Potassium [Moles/Vol] 4.5 mmol/L Normal 3.5-5.0 [employer] Sodium [Moles/Vol] 138 mmol/L Normal 134-146 [facility] [employer] Urea nitrogen [Mass/Vol] 11 mg/dL Normal 5-23 [facility] CBC W/AUTO DIFFon 02-14-2021 ABS NEUTROPHILS 2.9 X10E9/L Normal 1.5-6.6 [facility] Basophils (Bld) [#/Vol] 0.1 10*3/uL Normal 0.0-0.2 [facility] Comment on above: Result Comment: Perf ormed at [facility] [address] [place] [address] [facility] [place] [address] CLIA No. [id number] CAP Accreditation No. [id number] Project Controller: Dominick Mosley M.D. Basophils/100 WBC (Bld) 1.2 % Normal [facility] Eosinophils (Bld) [#/Vol] 0.1 10*3/uL Normal 0.0-0.4 [facility] Eosinophils/100 WBC (Bld) 1.4 % Normal [facility] Erythrocyte distribution width (RBC) [Ratio] 13.5 % Normal 11.5-15.0 [facility] Hematocrit (Bld) [Volume fraction] 40.3 % Normal 35-47 [facility] Hemoglobin (Bld) [Mass/Vol] 13.9 g/dL Normal 11.7-15.5 [facility] Lymphocytes (Bld) [#/Vol] 2.0 10*3/uL Normal 1.0-3.5 [facility] Lymphocytes/100 WBC (Bld) 37.7 % Normal [facility] MCH (RBC) [Entitic mass] 31.1 pg Normal 27-34 [facility] MCHC (RBC) [Mass/Vol] 34.5 g/dL Normal 32-36 [facility] MCV (RBC) [Entitic vol] 90 fL Normal 80-100 [facility] Monocytes (Bld) [#/Vol] 0.3 10*3/uL Normal 0-0.9 [facility] Monocytes/100 WBC (Bld) 5.7 % Normal [facility] Neutrophils/100 WBC (Bld) 54.0 % Normal [facility] Platelet mean volume (Bld) [Entitic vol] 7.9 fL Normal 7-12 [facility] Platelets (Bld) [#/Vol] 282 10*3/uL Normal 150-450 [facility] RBC 4.47 X10E12/L Normal 3.80-5.20 [facility] WBC (Bld) [#/Vol] 5.3 10*3/uL Normal 4.0-11.0 [facility] [employer] COVID-19on 04-18-2020 SARS-CoV-2, PCR NOT DETECTED NOT DETECT [facility]AM[facility] Lindsay Comment on above: This test has been a uthorized by FDA under an Emergency Use Authorization (EUA). This test is only authorized for the duration of the time of declaration that circumstances exist justifying the authorization of the emergency use of in vitro diagnostic testing for detection of the SARS-CoV-2 virus and/or diagnosis of COVID-19 infection under section 564 (b)(1) of the Act, 21 U.S.C. 360nnn-3 (b) (1), unless the authorization is terminated or revoked sooner. Performed at [facility] [address] CT COMPARISON OF OUTSIDE [facility] MSon 04-18-2020 Radiology exam is complete. No Radiologist dictation. Please follow up with ordering provider. [place], [place] COMPARISON OF OUTSIDE [facility] MSon 04-18-2020 Radiology exam is complete. No Radiologist dictation. Please follow up with ordering provider. [place], [place] XR [facility] Radiology exam is complete. No Radiologist dictation. Please follow up with ordering provider. [place], [place] CT Abd Pelvis w/o IV Cont St one Prot.on 04-14-2020 CT Abd Pelvis w/o IV Cont Stone Prot. COMPUTED TOMOGRAPHY OF THE ABDOMEN AND PELVIS, RENAL STONE PROTOCOL: CLINICAL INFORMATION: Severe left flank pain. History of bilateral renal stones. COMPARISON: Ultrasound kidneys dated 04/04/2020. KUB dated 04/04/2020. TECHNIQUE: Contiguous axial scans of 3.0 mm slice thicknesses were obtained through the genitourinary tract. This CT study was performed using one or more of the following dose reduction techniques: automated exposure control, adjustment of the mA and/or kV according to patient's size and/or use of iterative reconstruction technique. Coronal and sagittal reformatted images were created and reviewed. FINDINGS: Right Kidney: Kidney is normal in size. No mass. A 7 mm calculus in the lower pole, axial image #62, coronal image #56. No ureteral calculi are noted. No hydronephrosis. No abnormal perinephric fascial stranding is seen. Left Kidney: Kidney is normal in size. No solid or cystic masses. No intrarenal calculi/calcifications. A 6 mm obstructing calculus just proximal to the ureterovesical junction. Proximal hydroureteronephrosis is seen. No abnormal perinephric fascial stranding is seen. Bladder: No calcifications are seen in the urinary bladder. No bladder masses or areas of wall thickening are noted. Liver: Normal in size. Normal parenchymal attenuation. Gallbladder: No calcified gallstones. No wall thickening or pericholecystic edema. No ductal dilatation. Spleen: Normal size. No masses. Pancreas: No abnormalities noted in the region of the pancreas. Adrenals: Unremarkable. Appendix: Unremarkable. Stomach and Bowel: Normal caliber. Reproductive organs: Unremarkable. Peritoneum: No signs of free air or masses. No peritoneal fluid collection or masses Retroperitoneum: No abnormal fluid collections or masses. No lymphadenopathy. Vessels: No aneurysms. Phleboliths in the pelvis . Abdominal wall: Fat-containing periumbilical hernia. Lower thorax: Partially visualized. No abnormalities. Bones: Unremarkable. CONCLUSIONS: 1. Findings of a left obstructive uropathy by a 6 mm calculus at the ureterovesical junction. Associated proximal hydroureteronephrosis. 2. A 7 mm nonobstructing calculus in the inferior pole, right kidney. 3. Other nonacute findings detailed above. Radiation Dose Estimate: CTDI(mGy):0.855087 / / / kVp:130.920703 / mAs:0.260514 / / / Body Part: Abdomen CTDI(mGy):19.594701 / / / kVp:130.367638 / mAs:130.465409 / / / Body Part: Abdomen Final Dictated by: Ryan Epstein MD Dictated DT/TM: 04.14.2020 1:45 pm Signed by: Ryan Epstein MD Signed (Electronic Signature): 04.14.2020 1:53 pm (If Report Is Signed, Electronically Signed in Other Vendor System) Normal [facility] US Renal Onlyon 04-04-2020 US Renal Only Procedure: Renal son ogram. Technique: Real-time grayscale and color flow Doppler imaging of the kidneys. Still images were reviewed. Clinical Information: 49-year-old female with history of kidney stones and left flank pain. Comparison: Abdominal radiographs 04/04/2020. Right kidney findings: Echogenicity: Normal. Cysts/masses: None. Calculi (number and maximal diameter): None. Pelvicalyceal dilatation: None. Size: 10.4 x 4.3 x 5.4 cm. Cortical thickness: 1.1 cm. Left kidney findings: Echogenicity: Normal. Cysts/masses: None. Calculi (number and maximal diameter): None. Pelvicalyceal dilatation: None. Size: 10.5 x 5.3 x 5.5 cm. Cortical thickness: 1.2 cm. IMPRESSION: Unremarkable renal sonogram. Final Dictated by: Juan Byrd MD Dictated DT/TM: 04/04/2020 2:31 pm Signed by: Juan Byrd MD Signed (Electronic Signature): 04/04/2020 2:41 pm (If Report Is Signed, Electronically Signed in Other Vendor System) Normal [facility] XR Abdomen APon 04-04-2020 XR Abdomen AP Procedure: Supine AP view of the abdomen (KUB). Clinical Information: 49-year-old female with gross immaturity and left flank pain two days ago. History of kidney stones. Comparison: Renal sonogram 04/04/2020. Findings: Pathologic calcifications: Subcentimeter calcifications projecting over the inferior right renal collecting system. Pelvic calcifications, probable phleboliths. Bowel gas pattern: Nonobstructive. Bones/soft tissues: No gross acute abnormality. IMPRESSION: Possible nonobstructing right nephrolithiasis, although not appreciated on comparison sonogram. Final Dictated by: Juan Byrd MD Dictated DT/TM: 04/04/2020 2:41 pm Signed by: Juan Byrd MD Signed (Electronic Signature): 04/04/2020 2:47 pm (If Report Is Signed, Electronically Signed in Other Vendor System) Normal [facility] FLUORO FOR SURGICAL PROCEDUR ESOrdered By: Antonia Grigsby on 11-09-2019 Radiology exam is complete. No Radiologist dictation. Please follow up with ordering provider. [address] Phone: XR ABDOMEN (KUB) (SINGLE AP VIEW)Ordered By: Antonia Grigsby on 11-09-2019 Status post double-J stent insertion by Dr. Grigsby This report has been created using voice recognition software. It may contain minor errors which are inherent in voice recognition technology. Final report electronically signed by Dr. Bari Franklin on 11/09/2019 4:[address] Phone: Anion GapOrdered By: Ligia James on 10-30-2019 Anion gap [Moles/Vol] 15.0 mmol/L 8 - 16 meq/L [address] Phone: Comment on above: ANION GAP = Sodium - (Chloride + CO2) Performed at [facility] [address] [place] [address] CBC auto differentialOrdered By: Malena James on 10-30-2019 Basophils (Bld) [#/Vol] 0.1 10*3/uL [address] Phone: Basophils/100 WBC (Bld) 1 % [address] Phone: Eosinophils Absolute 0.1 [facility] Phone: Eosinophils/100 WBC (Bld) 1.4 % [address] Phone: Erythrocyte distribution width (RBC) [Ratio] 13.2 % 11.5 - 14.5 % [address] Phone: Hematocrit (Bld) [Volume fraction] 40.5 % 37 - 47 % [address] Phone: Hemoglobin (Bld) [Mass/Vol] 13.1 g/dL [address] Phone: Immature Grans (Abs) 0.01 [facility] Phone: Immature granulocytes/100 WBC (Bld) 0.2 % [address] Phone: Interpretation and review of laboratory results Abnormal [address] Phone: Lymphocytes Absolute 1.9 [facility] Phone: Lymphocytes/100 WBC (Bld) 37.7 % [address] Phone: MCH (RBC) [Entitic mass] 29.9 pg 26 - [address] Phone: MCHC (RBC) [Mass/Vol] 32.3 g/dL [facility] [employer] Work Phone: MCV (RBC) [Entitic vol] 92.5 fL 81 - 99 fL [employer] Work Phone: Monocytes Absolute 0.[address] Phone: Monocytes/100 WBC (Bld) 6.3 % [address] Phone: nRBC 0 /100 wbc [employer] Work Phone: Comment on above: Performed at [facility] [address] [place] [address] Platelet mean volume (Bld) [Entitic vol] 9.1 fL Low 9.4 - 12.[address] [facility] Phone: Platelets (Bld) [#/Vol] 292 10*3/uL [employer] Work Phone: RBC (Bld) [#/Vol] 4.38 10*6/uL [employer] Work Phone: RDW-SD 44.6 fL 35 - [address] Phone: Segmented neutrophils/100 WBC (Bld) 53.4 % [address] Phone: Segs Absolute 2.7 [employer] Work Phone: WBC (Bld) [#/Vol] 5.1 10*3/uL [address] Phone: CT ABDOMEN PELVIS W WO CONTR AST Additional Contrast? NoneOrdered By: Malena James on 10-30-2019 1. 5 mm calculus in the distal right ureter causing mild right hydronephrosis. 2. Bilateral nephrolithiasis. 3. Cholelithiasis. This report has been created using voice recognition software. It may contain minor errors which are inherent in voice recognition technology. Final report electronically signed by Dr. Darleen Spring on 10/30/2019 2:[address] Phone: Comprehensive Metabolic Pane l w/ Reflex to MGOrdered By: Malena James on 10-30-2019 Albumin [Mass/Vol] 4.5 g/dL 3.5 - 5.1 g/dL [address] Phone: ALP [Catalytic activity/Vol] 84 U/L 38 - 126 U/L [address] Phone: ALT [Catalytic activity/Vol] 34 U/L 11 - 66 U/L [address] Phone: Comment on above: Performed at [facility] [address] [place] [address] AST [Catalytic activity/Vol] 23 U/L 5 - 40 U/L [address] Phone: Bilirubin [Mass/Vol] 0.4 mg/dL 0.3 - 1 .2 mg/dL [address] Phone: Calcium [Mass/Vol] 9.7 mg/dL 8.5 - 10. 5 mg/dL [address] Phone: Chloride [Moles/Vol] 102 mmol/L 98 - 11 1 meq/L [address] Phone: CO2 [Moles/Vol] 22 mmol/L Low 23 - 33 meq/L [address] Phone: Creatinine [Mass/Vol] 0.8 mg/dL 0.4 - 1.2 mg/dL [address] Phone: Glucose [Mass/Vol] 96 mg/dL 70 - 108 mg/dL [address] Phone: Potassium [Moles/Vol] 4.1 mmol/L 3.5 - 5.2 meq/L [address] Phone: Protein [Mass/Vol] 7.7 g/dL 6.1 - 8 g/dL [address] Phone: Sodium [Moles/Vol] 139 mmol/L 135 - 145 meq/L [address] Phone: Urea nitrogen [Mass/Vol] 15 mg/dL 7 - 22 mg/dL [employer] Work Phone: Glomerular Filtration Rate, EstimatedOrdered By: Malena James on 10-30-2019 Est Globruna Filt Rate 77 Abnormal ml/min/1 .7 3m2 [employer] Work Phone: Comment on above: Stage Description G FR, ml/min/1.73 m2 - At increased risk > or = 60 (with chronic kidney disease risk factors) 1 Normal or increased GFR > or = 90 2 Mildly or decreased GFR 60 - 89 3 Moderately decreased GFR 30 - 59 4 Severely decreased GFR 15 - 29 5 Kidney failure <15 (or dialysis) Estimated GFR calculated using abbreviated MDRD formula as recommended by National Kidney Foundation. Calculation based upon serum creatinine and adjusted for age, gender & race. Mia. Internal Med., Vol. 139 (2 pg 137-147. Performed at [facility] [address] [place] [address] HCG Qualitative, SerumOrdere d By: Malena James on 10-30-2019 Preg, Serum Negative NEGATIVE [employer] Work Phone: Comment on above: Performed at [facility] [address] [place] [address] No Panel InformationOrdered By: Malena James on 10-30-2019 Interpretation and review of laboratory results Abnormal [address] Phone: OsmolalityOrdered By: Miguel James on 10-30-2019 Osmolality Calc 278.2 [employer] Work Phone: Comment on above: Performed at [facility] [address] [place] [address] Urine with Reflexed MicroOrd ered By: Malena James on 10-30-2019 Bacteria, UA NONE SEEN FEW/NONE S /hpf [employer] Work Phone: Bilirubin Urine Negative NEGATIVE [employer] Work Phone: Blood, Urine TRACE Abnormal NEGATIVE [employer] Work Phone: CASTS 2 NONE SEEN NONE SEEN /lpf [employer] Work Phone: Casts UA NONE SEEN NONE SEEN /lpf [facility] Work Phone: Character, Urine CLEAR CLEAR-SL C [facility] Work Phone: Color, UA DK YELLOW Abnormal STRAW-YELL [facility] [employer] Work Phone: Crystals LM Nom (Urine sed) NONE SEEN NONE SEEN [facility] Work Phone: Epi Cells 0-2 3-5/hpf /hpf [facility] Work Phone: Glucose, Ur Negative NEGATIVE mg/dl [employer] Work Phone: Interpretation and review of laboratory results Abnormal [facility] Work Phone: Ketones Ql (U) Negative NEGATIVE [facility] Work Phone: Leukocyte esterase Test strip Ql (U) Negative NEGATIVE [facility] Work Phone: MISCELLANEOUS 2 NONE [address] [facility] Work Phone: Comment on above: Performed at [facility] [address] [place] [address] Nitrite, Urine Positive Abnormal NEGATIVE [facility] Work Phone: pH, UA 6.[address] [facility] Work Phone: Protein, UA Negative NEGATIVE [facility] [employer] Work Phone: RBC, UA 0-2 0-2/hpf /hpf [facility] Work Phone: Renal Epithelial, Urine NONE SEEN NONE SEEN [facility] Work Phone: Specific [place], Urine < 1.005 [employer] Work Phone: Urobilinogen, Urine 0.2 [employer] Work Phone: WBC, UA NONE SEEN 0-4/hpf /hpf [facility] Work Phone: Yeast, UA NONE SEEN NONE SEEN [facility] Work Phone: Microalb/Creat Ratio,[place] Ur on 04-14-2018 Microalbumin, Random Urine < 2.0 Normal [facility] Comment on above: Performed By: #### L 500.0950 ####Main Laboratory ([facility])[address] [phone] Nivar, MD Microalbumin/Creatini ne Ratio < 3.7 Normal 0-30.0 [facility] Comment on above: Performed By: #### L 500.0950 ####Main Laboratory ([facility])[address] [phone] Nivar, MD Urine, creatinine 54.0 mg/dL Normal [facility] Comment on above: Performed By: #### L 500.0950 ####Main Laboratory ([facility])[address] [phone] Nivar, MD Urinalysis with Reflex Cultu reon 04-14-2018 Bilirubin (total) Negative Normal Negative [facility] Comment on above: Order Comment: Urine Source Urine, Clean Catch Performed By: #### L 300.3000 ####Main Laboratory ([facility])[address] [phone] Nivar, MD Epi,Squamous 0-5 Normal [facility] [place] Comment on above: Order Comment: Urine Source Urine, Clean Catch Performed By: #### L 300.3000 ####Main Laboratory ([facility])[address], [place] [phone] Nivar, MD Epi,Transitional 0-5 Normal [facility] Comment on above: Order Comment: Urine Source Urine, Clean Catch Performed By: #### L 300.3000 ####Main Laboratory ([facility])[address] [phone] Nivar, MD Erythrocytes (RBC) 0-2 Normal [place] [facility] Comment on above: Order Comment: Urine Source Urine, Clean Catch Performed By: #### L 300.3000 ####Main Laboratory ([facility])[address], [place] [phone] Nivar, MD Glucose mass conc Negative Normal Negative [facility] Comment on above: Order Comment: Urine Source Urine, Clean Catch Performed By: #### L 300.3000 ####Main Laboratory ([facility])[address], [place] [phone] Nivar, MD Hemoglobin mass conc (Bld) Negative Normal Negative [facility] Comment on above: Order Comment: Urine Source Urine, Clean Catch Performed By: #### L 300.3000 ####Main Laboratory ([facility])[address] [phone] Nivar, MD Mucous Present Normal [facility] Comment on above: Order Comment: Urine Source Urine, Clean Catch Performed By: #### L 300.3000 ####Main Laboratory ([facility])[address] [place] [phone] Nivar, MD pH of blood 5.0 [pH] Normal 5.0-8.0 [facility] Comment on above: Order Comment: Urine Source Urine, Clean Catch Performed By: #### L 300.3000 ####Main Laboratory ([facility])[address], [place] [phone] Nivar, MD Protein Negative Normal Negative [facility] Comment on above: Order Comment: Urine Source Urine, Clean Catch Performed By: #### L 300.3000 ####Main Laboratory ([facility])[address], [place] [phone] Nivar, MD UA Reflex Culture No Normal [facility] Comment on above: Order Comment: Urine Source Urine, Clean Catch Result Comment: Cult ure not done per lab protocol Performed By: #### L 300.3000 ####Main Laboratory ([facility])[address], [place] [phone] Nivar, MD Urine, appearance Clear Normal [facility] Comment on above: Order Comment: Urine Source Urine, Clean Catch Performed By: #### L 300.3000 ####Main Laboratory ([facility])[address], [place] [phone] Nivar, MD Urine, color Straw Normal [facility] [place] Comment on above: Order Comment: Urine Source Urine, Clean Catch Performed By: #### L 300.3000 ####Main Laboratory ([facility])[address], [place] [phone] Nivar, MD Urine, ketones presence Negative Normal Negative [facility] Comment on above: Order Comment: Urine Source Urine, Clean Catch Performed By: #### L 300.3000 ####Main Laboratory ([facility])[address], [place] [phone] Nivar, MD Urine, nitrite presence Negative Normal Negative [facility] Comment on above: Order Comment: Urine Source Urine, Clean Catch Performed By: #### L 300.3000 ####Main Laboratory ([facility])[address], [place] [phone] Nivar, MD Urine, specific gravity 1.008 Normal 1.000-1.03 5 [facility] Comment on above: Order Comment: Urine Source Urine, Clean Catch Performed By: #### L 300.3000 ####Main Laboratory ([facility])[address], [place] [phone] Nivar, MD Urine, urobilinogen {Kylee'U}/dL Normal 0.2-1.0 [facility] Comment on above: Order Comment: Urine Source Urine, Clean Catch Performed By: #### L 300.3000 ####Main Laboratory ([facility])[address], [place] [phone] Nivar, MD WBC (Leukocytes) Negative Normal Negative [facility] Comment on above: Order Comment: Urine Source Urine, Clean Catch Performed By: #### L 300.3000 ####Main Laboratory ([facility])[address] [place] [phone] Nivar, MD WBC (Leukocytes) 0-5 Normal [facility] Comment on above: Order Comment: Urine Source Urine, Clean Catch Performed By: #### L 300.3000 ####Main Laboratory ([facility])[address] [place] [phone] Nivar, MD AMYLASEon 06-29-2017 Amylase 66 U/L Normal 25-115 [facility] Comment on above: Result Comment: The above 1 analytes were performed by [facility] [address] [place] [address] Performed By: #### 1 1000, 23114, 94206, 10725, 97535 ####[facility] Laboratory, [address] [place] [address] BASIC METABOLIC PANELon 06-20 BUN (urea nitrogen) 20 mg/dL High 7-18 [facility] Comment on above: Performed By: #### 1 1000, 53928, 41639, 31128, 22337 ####[facility] Laboratory, [address] [facility] [place] [address] Calcium 9.1 mg/dL Normal 8.5-10.1 [facility] Comment on above: Result Comment: The above 11 analytes were performed by [facility] [address] [facility] [place] [address] Performed By: #### 1 1000, 29506, 53245, 73220, 96705 ####[facility], [address] [facility] [place] [place] [address] Chloride 103 mmol/L Normal 98-107 [facility] Comment on above: Performed By: #### 1 1000, 74224, 70848, 27677, 04690 ####[facility], [address] [facility] [place] [place] [address] CO2 26 mmol/L Normal 21-32 [facility] Comment on above: Performed By: #### 1 1000, 16007, 89840, 30099, 52874 ####[facility] Laboratory, [address] [place] [address] Creatinine 0.90 mg/dL Normal 0.60-1.30 [facility] Comment on above: Performed By: #### 1 1000, 58995, 36345, 49556, 42962 ####[facility] Laboratory, [address] [place] [address] eGFR (non-black) mL/min/{1.73_m2} Normal [facility] Comment on above: Result Comment: Norm al Reference Range is >60. Performed By: #### 1 1000, 94475, 16472, 14680, 22249 ####[facility] Laboratory, [address] [place] [address] Result Comment: AfAm = UNITS=mL/min/1.73 [id number] Reference Ranges is >60.Persistent reduction of eGFR (<60) for 3 months or more defines chronickidney disease, while eGFR <15 indicates renal failure. Patients witheGFR values >= 60 may also have CKD if evidence of persistentproteinuria is present. Gap 11 Normal 5-15 [facility] Comment on above: Performed By: #### 1 1000, 38643, 02474, 80676, 52907 ####[facility] Laboratory, [address] [place] [address] Glucose mass conc 97 mg/dL Normal 74-106 [facility] Comment on above: Performed By: #### 1 1000, 83932, 21100, 97399, 57696 ####[facility] Laboratory, [address] [place] [address] Potassium molar conc 3.6 mmol/L Normal 3.5-5.1 [facility] Comment on above: Performed By: #### 1 1000, 32749, 08360, 66667, 12256 ####[facility] Laboratory, [address] [place] [address] Sodium 136 mmol/L Normal 136-145 [facility] Comment on above: Performed By: #### 1 1000, 62335, 81525, 84915, 37255 ####[facility] Laboratory, [address] [place] [address] CBC WITH AUTO DIFFon 06-29-2 017 Basophils Auto #/vol (Bld) 0.[address] [facility] Comment on above: Result Comment: The above 20 analytes were performed by [facility] [id number] [place] [address] Performed By: #### 1 1000, 63983, 88612, 42683, 23345 ####[facility] Laboratory, [address] [place] [address] Basophils/100 WBC Auto (Bld) 0.5 % Normal 0.0-3.0 [facility] Comment on above: Performed By: #### 1 1000, 36247, 96877, 09331, 96370 ####[facility], [address] [place] [address] Eosinophils 0.[address] [facility] Comment on above: Performed By: #### 1 1000, 75123, 38899, 78557, 73536 ####[facility] Laboratory, [address] [place] [address] Eosinophils/100 leukocytes 0.7 % Normal 0.0-6.0 [facility] Comment on above: Performed By: #### 1 1000, 46749, 29425, 63971, 55648 ####[facility], [address] [place] [address] Erythrocyte distribution width Auto Ratio (RBC) 13.2 % Normal 11.0-15.0 [facility] Comment on above: Performed By: #### 1 1000, 57326, 10180, 21751, 58307 ####[facility] Laboratory, [address] [place] [address] Hematocrit (HCT) 42.9 % Normal 37.0-47.0 [facility] Comment on above: Performed By: #### 1 1000, 80369, 02302, 42874, 82595 ####[facility], [address] [place] [address] Hemoglobin mass conc (Bld) 14.5 g/dL Normal 12.0-16.0 [facility] Comment on above: Performed By: #### 1 1000, 63335, 24110, 22832, 01923 ####[facility] Laboratory, [address] [place] [address] Lymphocytes 2.[address] [facility] Comment on above: Performed By: #### 1 1000, 06543, 24866, 78106, 72140 ####[facility] Laboratory, [address] [place] [address] Lymphocytes/100 leukocytes 24.8 % Normal 14.0-47.0 [facility] Comment on above: Performed By: #### 1 1000, 10810, 66292, 78491, 62535 ####[facility] Laboratory, [address] [place] [address] MCH 30.2 pg Normal 27-31 [facility] Comment on above: Performed By: #### 1 1000, 86067, 41576, 74053, 71247 ####[facility] Laboratory, [address] [place] [address] MCHC mass conc (RBC) 33.9 g/dL Normal 32.0-36.0 [facility] Comment on above: Performed By: #### 1 1000, 58022, 46071, 18059, 14409 ####[facility] Laboratory, [address] [place] [address] MCV 89.1 fL Normal 80.0-100.0 [facility] Comment on above: Performed By: #### 1 1000, 08282, 52699, 98585, 91141 ####[facility], [address] [place] [address] Monocytes 0.[address] [facility] Comment on above: Performed By: #### 1 1000, 02902, 16265, 45606, 39775 ####[facility] [facility], [address] [place] [address] Monocytes/100 leukocytes 5.4 % Normal 0.0-10.0 [facility] Comment on above: Performed By: #### 1 1000, 48807, 05485, 17924, 04112 ####[facility], [address] [place] [address] Neutrophils 5[address] [facility] Comment on above: Performed By: #### 1 1000, 79995, 24361, 36569, 28905 ####[facility], [address] [place] [address] Neutrophils/100 WBC Auto (Bld) 68.6 % Normal 43.0-77.0 [facility] Comment on above: Performed By: #### 1 1000, 34714, 84404, 47783, 30973 ####[facility], [address] [place] [address] NRBC% 0.00 % WBC Normal [facility] Comment on above: Performed By: #### 1 1000, 03697, 06673, 65254, 00354 ####[facility], [facility] [place] [address] Platelets 297 x1000 Normal 144-420 [facility] Comment on above: Performed By: #### 1 1000, 13684, 56982, 55468, 54448 ####[facility], [facility] [place] [address] Red Blood Cell 4.82 MILLION Normal 4.2-5.4 [facility] Comment on above: Performed By: #### 1 1000, 93558, 57119, 08520, 80215 ####[facility], [facility] [place] [address] WBC (Leukocytes) 8.4 x1000 Normal 4.8-10.8 [facility] Comment on above: Performed By: #### 1 1000, 13623, 34088, 67750, 46401 ####[facility], [address] [place] [address] ABD&PELVIS W/O CONon 06-20 CT ABD&PELVIS W/O CON [place], OHIORADIOLOGY INTERPRETATION Patient Name: YARELI JOYNER Med Rec #: [id number] DR: JAQUAN DRAPER M.D. Date: 06/29/2017 Age: 47Y 2MLocation: ER : [address]: Pham RESTREPO M.D. Acces #: [id number] DR: Order #: [id number] DR: MD Dominick GutierrezExam Description: CT ABD&PELVIS W/O CON EXAMINATION:CT OF THE ABDOMEN AND PELVIS WITHOUT CONTRAST 06/29/2017 1:50 pmTECHNIQUE:CT of the abdomen and pelvis was performed without the administration ofintravenous contrast. Multiplanar reformatted images are provided for review.Dose modulation, iterative reconstruction, and/or weight based adjustment ofthe mA/kV was utilized to reduce the radiation dose to as low as reasonablyachievable.HARLEY RISON:NoneHISTORY:FLANK PAINLeft flank pain for 1 hour, history of kidney stones, initial presentationFINDINGS:Lower Chest: The lung bases are clear. There are no pleural or pericardialeffusions evident.Organs: There is a single 3 mm gallstone present. The gallbladder isotherwise normal in appearance. The liver, spleen, pancreas and adrenalglands are normal in appearance. There is mild left hydronephrosis and lefthydroureter. There is a 1 mm calculus within the distal left ureter justproximal to the left ureterovesicular junction. There are nonobstructingbilateral intrarenal calculi. The largest calculus is located within theright kidney measuring 5 mm. There is no right-sided hydronephrosis.GI/Bowel: There are no abnormally dilated loops of large or small bowelpresent. There is no mesenteric inflammatory stranding present. Theappendix is normal.Pelvis: The urinary bladder is normal in appearance. There is no free fluididentified. There is no pelvic mass identified.Peritoneum/Retr operitoneum: There is no pathologically enlargedlymphadenopathy present.Bones/Soft Tissues: No lytic or blastic osseous lesions are identified.IMPRESSION:1. Mild left hydronephrosis and left hydroureter secondary to a 1 mm calculuswithin the distal left ureter just proximal to the left ureterovesicularRADIOLOGY INTERPRETATION Page 1 of 2Patient Name: FILEMON JOYNERCLARISSAChococount #: [id number] Med Rec #: [id number] DR: MD Dominick Gutierrez.2. Bilateral nephrolithiasis.###FMC/dxr Dict: 06/29/2017 2:11:32 PMTran: 06/29/2017 2:18:10 PMJob#: [id number] Name: Ceci JOYNERectronically signed by Dominick Gutierrez MD on 06/30/2017 7:24:32 AMRADIOLOGY INTERPRETATION Page 2 of 2 [facility] LIPASEon 06-29-2017 Lipase 163 U/L Normal 73-393 [facility] Comment on above: Result Comment: The above 1 analytes were performed by [facility] [address] [place] [facility] [address] Performed By: #### 1 1000, 81454, 28615, 09432, 84590 ####[facility], [address] [facility] [place] [place] [address] URINALYSIS W/MICROSCOPIC REF SAMEERA TO CULTUREon 06-29-2017 Bilirubin,Urine Negative Normal Negative [facility] Comment on above: Performed By: #### 1 1000, 88192, 92447, 37912, 03410 ####[facility], [address], [place] [address] Blood,Urine Moderate Critically abnormal Negative [facility] Comment on above: Performed By: #### 1 1000, 96653, 97291, 83160, 06237 ####[facility], [address], [place] [address] Epith,Urine Few Normal [facility] Comment on above: Performed By: #### 1 1000, 47938, 39416, 52245, 49413 ####[facility], [address], [place] [address] Ketone,Urine Trace Critically abnormal Negative [facility] Comment on above: Performed By: #### 1 1000, 15597, 58693, 66541, 00886 ####[facility], [address], [place] [address] Leukocyte,Urine Negative Normal Negative [facility] Comment on above: Performed By: #### 1 1000, 39683, 52822, 59214, 08527 ####[facility], [address], [place] [address] Mucus,Urine Few Normal [facility] Comment on above: Result Comment: The above 16 analytes were performed by [facility] [address],[place] [address] Performed By: #### 1 1000, 33237, 59701, 41550, 10240 ####[facility], [address], [place] [address] Nitrite,Urine Negative Normal Negative [facility] Comment on above: Performed By: #### 1 1000, 67985, 06834, 04815, 33932 ####[facility], [address], [place] [address] pH of blood 5.0 [pH] Low 6.0-8.0 [facility] Comment on above: Performed By: #### 1 1000, 29128, 59210, 81820, 96299 ####[facility], [address], [place] [address] Protein,Urine Qual Negative Normal Negative [facility] Comment on above: Performed By: #### 1 1000, 16638, 94321, 38021, 12718 ####[facility], [address], [place] [address] S.G. 1.014 Normal 1.000-1.[address] [facility] Comment on above: Performed By: #### 1 1000, 85549, 43500, 21038, 09012 ####[facility], [address], [place] [address] Urine, appearance Clear Normal Clear [facility] Comment on above: Performed By: #### 1 1000, 82394, 95184, 67795, 63737 ####[facility], [address], [place] [address] Urine, color Yellow Normal Yellow [facility] Comment on above: Performed By: #### 1 1000, 98415, 51699, 93625, 95692 ####[facility], [address], [place] [address] Urine, erythrocytes in sediment by area 11-20 [facility] Comment on above: Performed By: #### 1 1000, 92429, 37686, 95889, 15056 ####[facility], [address], [place] [address] Urine, glucose presence Negative Normal Negative [facility] Comment on above: Performed By: #### 1 1000, 75095, 08813, 30482, 48015 ####[facility], [address], [place] [address] Urine, leukocytes in sedmiment 1-2 [facility] Comment on above: Performed By: #### 1 1000, 62931, 39029, 96947, 45322 ####[facility], [address] [place] [address] Urobilinogen,Urine Normal Normal Normal [facility] Comment on above: Performed By: #### 1 1000, 34368, 25659, 96412, 19344 ####[facility], [address] [place] [address] Vital Signs Date Time Vital Sign Value Performing Clinician John christopher 01-18-2025 11:220400 Body height 165.1 cm [employer] Work Phone: [facility] 01-18-2025 11:22040 Body mass index (BMI) [Ratio] 28.03 kg/m2 [employer] Work Phone: [facility] 01-18-2025 11:22040 Body weight 76.4 kg [employer] Work Phone: [facility] 01-18-2025 11:22-0400 Diastolic blood pressure 72 mm[Hg] [employer] Work Phone: [facility] 01-18-2025 11:22-0400 Heart rate 57 /min [employer] Work Phone: [facility] 01-18-2025 11:22-0400 Systolic blood pressure 112 mm[Hg] [employer] Work Phone: [facility] 08-14-2021 16:11-0400 Body temperature 97.5 [degF] [employer] Work Phone: [employer] Work Phone: 08-14-2021 16:11-0400 Diastolic blood pressure 66 mm[Hg] [employer] Work Phone: [address] Phone: 08-14-2021 16:11-0400 Heart rate 64 /min [employer] Work Phone: [address] Phone: 08-14-2021 16:11-0400 Respiratory rate 19 /min Dann Agiro DO Work Phone: [employer] Work Phone: 08-14-2021 16:11-0400 SaO2% (BldA) [Mass fraction] 93 % [facility] Work Phone: [address] Phone: 08-14-2021 16:11-0400 Systolic blood pressure 105 mm[Hg] [employer] [facility] Work Phone: [employer] Work Phone: 08-06-2021 21:36-0400 Body mass index (BMI) [Ratio] 29.02 kg/m2 [employer] Work Phone: [address] Phone: 08-06-2021 21:36-0400 Body weight 84.05 kg [employer] Phone: [address] Phone: 08-06-2021 12:38-0400 Body height 170.2 cm [employer] Phone: [address] Phone: 04-18-2020 18:41-0400 BP Diastolic 64 mm[Hg] [facility] , MD 04-18-2020 18:41-0400 BP Systolic 128 mm[Hg] [facility] [employer] [facility] , MD 04-18-2020 18:41-0400 Pulse (Heart Rate) 66 /min [facility] MD 04-18-2020 18:41-0400 Pulse Oximetry 98 % [facility] , [place] 04-18-2020 18:41-0400 Respiratory Rate 16 /min [facility] [employer], [place] 04-18-2020 17:40-0400 Body Temperature 98.2 [degF] [facility] [employer], [place] 04-18-2020 14:55-0400 BMI (Body Mass Index) 32.02 kg/m2 [facility], MD 04-18-2020 14:55-0400 Body weight 87.27 kg [facility] [employer] , [place] 04-18-2020 14:55-0400 Height 165.1 cm Antoniaalfred Vidaels [facility] , MD 11-23-2019 12:05-0500 BP Diastolic 59 mm[Hg] Antonia Ball [employer] Work Phone: 11-23-2019 12:05-0500 BP Systolic 106 mm[Hg] Antoniaalfred Grigsby [facility] [employer] Work Phone: 11-23-2019 12:05-0500 Pulse (Heart Rate) 77 /min Antoniaalfred Grigsby [facility] [employer] Work Phone: 11-23-2019 12:05-0500 Pulse Oximetry 97 % Antoniaalfred Grigsby [facility] [employer] Work Phone: 11-23-2019 12:05-0500 Respiratory Rate 16 /min Antoniaalfred Grigsby [facility] [employer] Work Phone: 11-23-2019 11:06-0500 Body Temperature 97 [degF] Antoniaalfred Grigsby [facility] [employer] Work Phone: 11-23-2019 08:01-0500 BMI (Body Mass Index) 32.42 kg/m2 Antoniaalfred V[employer]ales [facility] Work Phone: 11-23-2019 08:01-0500 Body weight 88.36 kg Antoniaalfred Grigsby [facility] Work Phone: 11-23-2019 08:01-0500 Height 165.1 cm Antoniaalfred Grigsby [facility] [employer] Work Phone: 11-09-2019 17:38-0500 Body temperature 97.2 [degF] Antonia Grigsby MD Work Phone: [employer] Work Phone: 11-09-2019 17:38-0500 Diastolic blood pressure 68 mm[Hg] Antonia Grigsby MD Work Phone: [employer] Work Phone: 11-09-2019 17:38-0500 Heart rate 63 /min Antonia Grigsby MD Work Phone: [employer] Work Phone: 11-09-2019 17:38-0500 Respiratory rate 16 /min Antonia Grigsby MD Work Phone: [employer] Work Phone: 11-09-2019 17:38-0500 SaO2% (BldA) [Mass fraction] 100 % Antonia Grigsby MD Work Phone: [employer] Work Phone: 11-09-2019 17:38-0500 Systolic blood pressure 124 mm[Hg] Antonia Grigsby MD Work Phone: [employer] Work Phone: 11-09-2019 14:01-0500 Body height 165.1 cm Antonia Grigsby MD Work Phone: [employer] Work Phone: 11-09-2019 14:01-0500 Body mass index (BMI) [Ratio] 32.48 kg/m2 Antonia Grigsby MD Work Phone: [employer] Work Phone: 11-09-2019 14:01-0500 Body weight 88.54 kg Antonia Grigsby MD Work Phone: [employer] Work Phone: 10-30-2019 15:10-0500 Diastolic blood pressure 79 mm[Hg] Caitlyn Ferguson Other Phone: [employer] Work Phone: 10-30-2019 15:10-0500 Heart rate 68 /min Caitlyn Ferguson Other Phone: [employer] Work Phone: 10-30-2019 15:10-0500 Respiratory rate 18 /min Caitlyn Ferguson Other Phone: [address] Phone: 10-30-2019 15:10-0500 SaO2% (BldA) [Mass fraction] 96 % Caitlyn Ferguson Other Phone: [address] Phone: 10-30-2019 15:10-0500 Systolic blood pressure 123 mm[Hg] Caitlyn Ferguson Other Phone: [address] Phone: 10-30-2019 13:21-0500 Body height 165.1 cm Caitlyn Ferguson Other Phone: [address] Phone: 10-30-2019 13:21-0500 Body mass index (BMI) [Ratio] 31.62 kg/m2 Caitlyn [place]ilton Other Phone: [address] Phone: 10-30-2019 13:21-0500 Body temperature 98.4 [degF] Caitlyn Bairdabel Other Phone: [address] Phone: 10-30-2019 13:21-0500 Body weight 86.18 kg Caitlyn Madeleine Other Phone: [address] Phone: Encounters Encounter Date Encounter Type Care Provider Facility Start: 07-14-2025 End: 07-14-2025 ambulatory LESLEE MORTENSEN [facility] Start: 06-03-2025 End: 06-03-[address] Leslee Mortensen MD Work Phone: -Laboratory Specimen Start: 06-03-2025 End: 06-03-[address] Leslee Mortensen MD -Laboratory Specimen Work Phone: Start: 06-03-2025 End: 06-03-2025 ambulatory Leslee Mortensen Facility:[facility] Start: 05-03-2025 End: 05-03-2025 [facility] Start: 01-18-2025 End: 01-18-2025 Patient encounter procedure Sid Fragoso DO Work Phone: [facility] Card[facility] Comment on above: Palpitations (Primar y Dx); Hyperlipidemia LDL goal <70; History of stress test; Non-smoker Start: 01-18-2025 End: 01-18-2025 ambulatory SID FRAGOSO Facility:[id number] Start: 03-11-2024 End: 03-11-2024 [facility] Start: 05-07-2022 End: 05-07-2022 Subsequent hospital visit by physician Caitlyn Ferguson [employer] Work Phone: [facility] Start: 08-06-2021 End: 08-14-2021 Evaluation and management of inpatient Dann Haile DO Work Phone: [facility] Comment on above: Pneumonia due to COV ID-19 virus (Primary Dx); Acute respiratory failure with hypoxia (HCC) Start: 02-15-2021 End: 02-15-2021 Subsequent hospital visit by physician Caitlyn Ferguson [employer] Work Phone: [facility] [place] Comment on above: Right flank pain; Nephrolithiasis Start: 04-18-2020 End: 04-18-2020 Subsequent hospital visit by physician Antonia Grigsby Work Phone: [facility] Comment on above: Nephrolithiasis (Key nikky Dx) Start: 04-18-2020 End: 04-18-2020 Subsequent hospital visit by physician Leila Willams 4 [facility] Ultrasound Comment on above: Examination for norm al comparison for clinical research Start: 04-14-2020 End: 04-15-2020 Patient encounter procedure MAMI RICHARD Facility:[facility] Start: 04-04-2020 End: 04-05-2020 Patient encounter procedure Malena Cantor Facility:[facility] Start: 11-23-2019 End: 11-23-2019 Subsequent hospital visit by physician Antonia Grigsby Work Phone: [facility] Comment on above: Postoperative pain ( Primary Dx) Start: 11-09-2019 End: 11-09-2019 Subsequent hospital visit by physician Antonia Grigsby MD Work Phone: [facility] Comment on above: Postoperative pain ( Primary Dx) Start: 10-30-2019 End: 10-30-2019 Emergency department patient visit Caitlyn Ferguson Other Phone: [facility] Comment on above: Right nephrolithiasi s (Primary Dx) Start: 04-14-2018 End: 04-14-2018 Ambulatory Caitlyn Ferguson CNP Facility:[facility] Start: 06-29-2017 End: 06-29-[address] [facility] Procedures Date Procedure Procedure Detail Performing Clinician Start: 01-18-2025 Ecg routine ecg w/le ast 12 lds i&r only Sid Curry Yovany DO Work Phone: Start: 08-14-2021 Anion gap [Moles/Vol] U nknown Provider Result Start: 08-14-2021 Basic metabolic pane l calcium total Palmer Antalis DO Work Phone: Start: 08-14-2021 GLOMERULAR FILTRATIO N RATE, ESTIMATED Unknown Provider Result Start: 08-13-2021 Anion gap [Moles/Vol] U nknown Provider Result Start: 08-13-2021 Basic metabolic pane l calcium total Palmer Antalis DO Work Phone: Start: 08-13-2021 GLOMERULAR FILTRATIO N RATE, ESTIMATED Unknown Provider Result Start: 08-12-2021 Anion gap [Moles/Vol] U nknown Provider Result Start: 08-12-2021 Basic metabolic pane l calcium total Palmer Antalis DO Work Phone: Start: 08-12-2021 GLOMERULAR FILTRATIO N RATE, ESTIMATED Unknown Provider Result Start: 08-11-2021 HOME O2 EVAL (DESATURATION SCREEN) Palmer Antalis DO Work Phone: Start: 08-11-2021 Anion gap [Moles/Vol] U nknown Provider Result Start: 08-11-2021 Basic metabolic pane l calcium total Palmer Antalis DO Work Phone: Start: 08-11-2021 GLOMERULAR FILTRATIO N RATE, ESTIMATED Unknown Provider Result Start: 08-10-2021 Anion gap [Moles/Vol] U nknown Provider Result Start: 08-10-2021 Basic metabolic pane l calcium total Palmer Richardsalis DO Work Phone: Start: 08-10-2021 GLOMERULAR FILTRATIO N RATE, ESTIMATED Unknown Provider Result Start: 08-09-2021 Anion gap [Moles/Vol] U nknown Provider Result Start: 08-09-2021 Basic metabolic pane l calcium total Palmer Richardsalis DO Work Phone: Start: 08-09-2021 GLOMERULAR FILTRATIO N RATE, ESTIMATED Unknown Provider Result Start: 08-09-2021 SCAN OF BLOOD SMEAR Unk nown Provider Result Start: 08-08-2021 Anion gap [Moles/Vol] U nknown Provider Result Start: 08-08-2021 Basic metabolic pane l calcium total Palmer Richardsalis DO Work Phone: Start: 08-08-2021 C-reactive protein Jah lc Antalis DO Work Phone: Start: 08-08-2021 GLOMERULAR FILTRATIO N RATE, ESTIMATED Unknown Provider Result Start: 08-08-2021 SCAN OF BLOOD SMEAR Unk nown Provider Result Start: 08-07-2021 Anion gap [Moles/Vol] U nknown Provider Result Start: 08-07-2021 BASIC METABOLIC PANE L W/ REFLEX TO MG FOR LOW K Palmer Richardsalis DO Work Phone: Start: 08-07-2021 Blood count complete auto&auto difrntl wbc Palmer Richardsalis DO Work Phone: Start: 08-07-2021 GLOMERULAR FILTRATIO N RATE, ESTIMATED Unknown Provider Result Start: 08-07-2021 SCAN OF BLOOD SMEAR Unk nown Provider Result Start: 08-06-2021 Anion gap [Moles/Vol] S eth Agiro DO Work Phone: Start: 08-06-2021 Assay of ferritin Carlee Newton MD Work Phone: Start: 08-06-2021 C-reactive protein Mattesfaye Newton MD Work Phone: Start: 08-06-2021 GLOMERULAR FILTRATIO N RATE, ESTIMATED Dann Agiro DO Work Phone: Start: 08-06-2021 SCAN OF BLOOD SMEAR Set h Agiro DO Work Phone: Start: 08-06-2021 Radiologic exam ches t single view Dann Agiro DO Work Phone: Start: 08-06-2021 COVID-19, RAPID Dann Ag iro DO Work Phone: Start: 08-06-2021 Iaadiadoo influenza Set h Agiro DO Work Phone: Start: 02-15-2021 COVID-19 Antonia Grigsby MD Work Phone: Start: 04-18-2020 COVID-19 Antonia Grigsby Work Phone: Start: 04-14-2020 CT COMPARISON OF OUT SIDE FILMS Darleen Spring Work Phone: Start: 04-04-2020 US COMPARISON OF OUT SIDE FILMS Darleen Spring Work Phone: Start: 04-04-2020 XR COMPARISON OF OUT SIDE FILMS Darleen Spring Work Phone: Start: 11-09-2019 FLUORO FOR SURGICAL PROCEDURES Antonia Grigsby MD Work Phone: Start: 11-09-2019 Radiologic exam abdo men 1 view Antonia Grigsby MD Work Phone: Start: 10-30-2019 Ct abdomen & pelvis w/o contrst 1/> body re Malena James PA-C Work Phone: Start: 10-30-2019 URINE WITH REFLEXED MICRO Malena James PA-C Work Phone: Start: 10-30-2019 Anion gap [Moles/Vol] J jag James PA-C Work Phone: Start: 10-30-2019 End: 10-30-2019 Assay of osmolality blood Malena nelson PA-C Work Phone: Start: 10-30-2019 GLOMERULAR FILTRATIO N RATE, ESTIMATED Malena James PA-C Work Phone: Start: 10-30-2019 Ecg routine ecg w/le ast 12 lds w/i&r Malena James PA-C Work Phone: Plan of Treatment Date Care Activity Detail Author Start: 01-18-2027 End: 01-18-2027 Patient encounter procedure 01/18/2027 11:20 AM EDT Office Visit [facility] [address] [place] [address] [address] [address] Gerardo Mullen APRN.[facility] [address] [place], [place] [id number] 2 year f/u [facility] Comment on above: 2 year f/u Start: 07-19-2025 Lipid panel [facility] Start: 08-14-2024 Diabetes Screening Diabetes Screenin g [facility] Start: 06-20-2024 Covid-19 Vaccine ( season) Covid-19 Vaccine ( season) [facility] Start: 06-20-2024 Influenza vaccination Influenza Vacc ine (#1) [facility] Start: 11-05-2022 End: 11-05-2022 Patient encounter procedure 11/05/2022 Office Visit Urology Antonia Grigsby MD [address] [place] [address] [facility] Start: 06-20-2022 Influenza vaccination Flu vaccine (# 1) [facility] Start: 2022 Pneumococcal Vaccine : 50+ (1 of 1 - PCV) Pneumococcal Vaccine: 50+ (1 of 1 - PCV) [facility] Start: 2022 Screening for malign ant neoplasm of breast Breast cancer screen [facility] Start: 06-29-2022 Shingles vaccine (1 of 2) Shingles vaccine (1 of 2) [facility] Start: 2022 Shingrix Vaccine (1 of 2) Shingrix Vaccine (1 of 2) [facility] Start: 06-20-2021 [facility]: Start: 02-20-2021 End: 02-20-2021 Admission to same day surgery center 02/20/2021 Surgery IP Unit Antonia Grigsby MD [address] [place], [id number] [phone] RIGHT ESWL EXTRACORPOREAL SHOCK WAVE LITHOTRIPSY [facility] Comment on above: RIGHT ESWL EXTRACORP OREAL SHOCK WAVE LITHOTRIPSY Start: 02-20-2021 Subsequent hospital visit by physician 02/20/2021 Hospital Encounter IP Unit Antonia Grigsby MD [address] [place], [id number] [phone] [facility] Start: 06-20-2020 Influenza vaccination Flu vacc ine (Season Ended) [facility] [place] Start: 05-16-2020 End: 05-16-2020 Office Visit 05/16/2020 Office Visit Urology Antonia Grigsby MD [address] [place], [id number] [phone] [facility] [facility] Start: 11-29-2019 End: 11-29-2019 Nurse Only [facility] Start: 11-01-2019 End: 11-01-2019 Patient encounter procedure 11/01/2019 Office Visit Urology [facility] Start: 06-30-2019 [facility] [place] [place] Start: 06-30-2019 [facility]id screen [facility] Phone: Start: 06-20-2019 Influenza vaccination Flu vaccine (# 1) [address] Phone: Start: 08-30-2017 Cervical cancer screen Cervical canc er screen [facility] Phone: Start: 08-30-2017 Screening for malign ant neoplasm of cervix Cervical cancer screen [facility]- [place], [place] Start: 06-30-2017 Diabetes screen Diabetes screen [facility] Start: 2017 Lipid panel Lipid Screening [facility] Start: 2017 Screening for malign ant neoplasm of colon [facility] Start: 2012 Screening for malign ant neoplasm of breast Mammogram Screening [facility] Start: 2002 Screening for malign ant neoplasm of cervix [facility] Start: 1993 Screening for malign ant neoplasm of cervix [facility] Start: 1991 DTaP/Tdap/Td vaccine (1 - Tdap) DTaP/Tdap/Td vaccine (1 - Tdap) [facility] Start: 1991 Hepatitis B Vaccine (1 of 3 - 19+ 3-dose series) Hepatitis B Vaccine (1 of 3 - 19+ 3-dose series) [facility] Start: 1991 Urine microalbumin profile DTaP,Tdap,Td Vaccine (1 - Tdap) [facility] Start: 1990 Anxiety Screening Anxiety Screening [facility] Start: 1990 [facility]: [facility] Hep[facility] C screening [facility] Start: 1990 HIV screening HIV Screening [facility] Start: 1988 COVID-19 Vaccine (1) COVID-19 Vaccin e (1) [facility] [employer] Work Phone: Start: 1987 HIV screen HIV screen [facility] Work Phone: Start: 1987 HIV screening HIV screen [facility] Start: 1984 COVID-19 Vaccine (1) COVID-19 Vaccin e (1) [employer] Work Phone: Start: 1984 Depression Screen Depression Screen [facility] Start: 1983 DTaP/Tdap/Td vaccine (1 - Tdap) DTaP/Tdap/Td vaccine (1 - Tdap) [facility] Work Phone: Start: 1970 COVID-19 Vaccine (#1) COVID-19 Vacci ne (#1) DEANNA HART [employer] Start: 1970 Hepatitis C screening Hepatitis C sc víctor [address] Phone: Acapella Acapella Respira tory Care Routine As Needed until discontinued starting 08/08/2021 [employer] Work Phone: Comment on above: As Needed until disc ontinued starting 08/08/2021 Basic metabolic 2000 panel - Serum or Plasma Basic Metabolic Panel Lab Routine Daily until discontinued starting 08/08/2021, [address] Phone: Comment on above: Daily until disconti nued starting 08/08/2021, 7 completed CBC W Auto Different ial panel - Blood CBC auto differential Lab Routine Daily until discontinued starting 08/08/2021, [address] Phone: Comment on above: Daily until disconti nued starting 08/08/2021, 7 completed COVID-19 COVID-19 Lab [place] Right flank pain Nephrolithiasis 02/15/2021 9:20 AM EDT [employer] Work Phone: End: 10-30-2019 Culture, Reflexed, Urine Culture, Reflexed, Urine Microbiology Routine Once for 1 Occurrences starting 10/30/2019 until 10/30/2019 [employer] Work Phone: Comment on above: Once for 1 Occurrenc es starting 10/30/2019 until 10/30/2019 Culture, Reflexed, Urine Culture , Reflexed, Urine Microbiology Routine 10/30/2019 1:22 PM [email or web address] Work Phone: ECG COMPLETE ECG COMPLETE ECG Routine Palpitations 01/18/2025 11:16 AM EDT [facility] Work Phone: EKG Emergency EKG Emergency EC G STAT 10/30/2019 1:18 PM EST [employer] Work Phone: Heated/ Humidified H igh Flow Nasal Cannula Heated/ Humidified High Flow Nasal Cannula Respiratory Care Routine Every 4hr until discontinued starting 08/07/[address] Phone: Comment on above: Every 4hr until disc ontinued starting 08/07/2021 End: 08-13-2021 Home O2 eval (desaturation screen) Home O2 eval (desaturation screen) Respiratory Care Routine One Time for 1 Occurrences starting 08/13/2021 until 08/13/[address] Phone: Comment on above: One Time for 1 Occur rences starting 08/13/2021 until 08/13/2021 End: 08-14-2021 Home O2 eval (desaturation screen) Home O2 eval (desaturation screen) Respiratory Care Routine One Time for 1 Occurrences starting 08/14/2021 until 08/14/[address] Phone: Comment on above: One Time for 1 Occur rences starting 08/14/2021 until 08/14/2021 Incentive spirometry [employer] [facility] [employer] Phone: Comment on above: Every 2hr while awak e until discontinued starting 11/23/2019 Every 2hr while awak e until discontinued starting 11/09/2019 Initiate Oxygen Ther apy Protocol [address] Phone: Comment on above: Daily until disconti nued starting 11/23/2019 Daily until disconti nued starting 11/09/2019 Oxygen therapy [[facility] Data Set] Initiate Oxygen Therapy Protocol Respiratory Care Routine Daily until discontinued starting 08/06/[address] Phone: Comment on above: Daily until disconti nued starting 08/06/2021 Phase I & II - meter ed glucose [address] Phone: Comment on above: As Needed until disc ontinued starting 11/23/2019 As Needed until disc ontinued starting 11/09/2019 End: 11-23-2019 Stone Analysis Stone Analysis Microbiology Routine Once for 1 Occurrences starting 11/23/2019 until 11/23/[address] Phone: Comment on above: Once for 1 Occurrenc es starting 11/23/2019 until 11/23/2019 Stone Analysis Stone Analysis Microbiology Routine 11/23/2019 9:[address] Phone: Surgical Pathology Surgical Path ology Lab Routine ONE TIME for 1 Occurrences starting 11/23/[address] Phone: Comment on above: ONE TIME for 1 Occur rences starting 11/23/2019 Payers Date Payer Category Payer Self-pay 1970 Unknown [id number] 1970 Unknown [id number] Self-pay [id number] Unknown [id number] Social History Date Type Detail Facility Start: 11-23-2019 End: 08-29-2023 Tobacco smoking status ORIS Never smoker DEANNA HART [facility] Phone: Start: 11-23-2019 End: 05-07-2022 Alcohol intake Current non-drinker of alcohol (finding) [address] Phone: Start: 1970 Sex Assigned At Not on file [employer] Phone: Exposure to SARS-CoV -2 (event) Unable to assess [employer]- [place], [place] Start: 02-14-2021 End: 08-29-2023 Tobacco use and exposure Never used [employer] Exposure to SARS-CoV -2 (event) Not sure [employer] Start: 01-18-2025 Alcoholic beverage intake Lifetime non-drinker (finding) [facility] Start: 08-29-2023 End: 01-18-2025 History of Social function [facility] Start: 08-29-2023 End: 01-18-2025 Tobacco use panel [facility] National Score (1-10 0), lower number is lower risk 48 [facility] if ever smoked [facility] Work Phone: Start: 1970 Sex Assigned At Female [facility] Medical Equipment Procedure Code Equipment Code Equipment Origin al Text Equipment Identifier Dates Stent Uret Hydrp l Coat W/O [id number] Start: 11-09-2019 Stent Uret Hydrp l Coat W/O [id number] Start: 11-23-2019 Stent Uret Hydrp l Coat W/O [id number] Start: 04-18-2020 Goals Date Patient Goal Desired Activity /State Personal health goal Clinical Notes 10-30-2019 to 01-18-2025 Sid Fragoso DO - 01/18/2025 11:18 AM Palmer Murillo DO - 08/14/2021 3:31 PM Akosua Jaramillo RN - 08/14/2021 2:50 PM Amie Hernández PT - 08/14/2021 10:55 AM EDTInstructions Note Date & Type Note Facility 01-18-2025 Note HNO ID: [id number] Author: SID FRAGOSO DO Service: ? Author Type: Physician Type: Progress Notes Filed: 01/19/2025 04:59 Note Text: Referring Provider: Sid Fragoso DO Date: January 18, 2025 Chief Complaint: Established Patient Follow-Up (1 year follow up) HISTORY OF PRESENT ILLNESS: Yareli Joyner is a 54 year old female who presents for Established Patient Follow-Up (1 year follow up). Patient has avascular necrosis of the hips. Activity is quite limited ALLERGIES Allergen Reactions Antihistamine [Diph* Unknown Palpitations-makes heart go crazy. PAST MEDICAL HISTORY: PAST MEDICAL HISTORY Diagnosis Date Atypical chest pain Avascular necrosis (HCC) History of exercise stress test 12/01/[address] changes, normal BP response, no arrhythmias Mixed hyperlipidemia Palpitations SOB (shortness of breath) PAST SURGICAL HISTORY Procedure Laterality Date KIDNEY STONE SURGERY HX 2019 x3 REMOVAL GALLBLADDER FAMILY HISTORY Problem Relation Age of Onset other (Cardiovascular Disease) Mother other (Cardiovascular Disease) Father SOCIAL HISTORY: Tobacco Use: Never Alcohol Use: Never Drug Use: Never Employer And Job Title: None on file Years Of Education Completed: Not specified Marital Status: MEDICATIONS: No current outpatient medications on file. No current facility-administered medications for this visit. I have personally reviewed the patients past medical history including social, family, surgical, diagnostics, and medications. REVIEW OF SYSTEMS: Review of Systems Constitutional: Negative for chills and fatigue. Respiratory: Negative for chest tightness and shortness of breath. Cardiovascular: Negative for chest pain, palpitations and leg swelling. Neurological: Negative for dizziness, syncope, weakness and light-headedness. Hematological: Does not bruise/bleed easily. Psychiatric/Behavioral: Negative for confusion and hallucinations. Vitals: BP 112/72 (BP Site: Left Arm, BP Position: Sitting, BP Cuff Size: Large Adult) Pulse (!) 57 Ht 165.1 cm (5' 5) Wt 76.4 kg (168 lb 6.9 oz) BMI 28.03 kg/m? PHYSICAL EXAMINATION: BP 112/72 (BP Site: Left Arm, BP Position: Sitting, BP Cuff Size: Large Adult) Pulse (!) 57 Ht 165.1 cm (5' 5) Wt 76.4 kg (168 lb 6.9 oz) BMI 28.03 kg/m? Last 3 Encounter BP Readings: Date: BP: 08/29/2023 112/70 Last 3 Encounter Pulse Readings: Date: Pulse: 08/29/2023 56 Last 3 Encounter Wt Readings: Date: Wt: 08/29/2023 81.2 kg (179 lb) Physical Exam Vitals reviewed. Constitutional: General: She is not in acute distress. Appearance: Normal appearance. HENT: Head: Normocephalic. Right Ear: External ear normal. Left Ear: External ear normal. Nose: Nose normal. Mouth/Throat: Mouth: Mucous membranes are moist. Eyes: Extraocular Movements: Extraocular movements intact. Cardiovascular: Rate and Rhythm: Normal rate and regular rhythm. Pulses: Normal pulses. Carotid pulses are 2+ on the right side and 2+ on the left side. Radial pulses are 2+ on the right side and 2+ on the left side. Posterior tibial pulses are 2+ on the right side and 2+ on the left side. Heart sounds: Normal heart sounds. No murmur heard. Pulmonary: Effort: Pulmonary effort is normal. Breath sounds: Normal breath sounds. Abdominal: General: Abdomen is flat. Bowel sounds are normal. Palpations: Abdomen is soft. Tenderness: There is no abdominal tenderness. Musculoskeletal: General: Normal range of motion. Cervical back: Normal range of motion. Right lower leg: No edema. Left lower leg: No edema. Skin: General: Skin is warm. Capillary Refill: Capillary refill takes 2 to 3 seconds. Findings: No rash or wound. Neurological: General: No focal deficit present. Mental Status: She is alert and oriented to person, place, and time. Mental status is at baseline. Coordination: Coordination is intact. Psychiatric: Mood and Affect: Mood normal. Thought Content: Thought content normal. Judgment: Judgment normal. LABS: No results found for: GLUC, K, NA, CHLOR, CO2, CREAT, BUN, ANION, CA, TPROT, ALB, TBILI, ALKPHOS, AST, ALT No results found for: HB, HCT, WBC No results found for: CHOL, HDL, LDL, TG EKG: s ASSESSMENT/PLAN: 1. Palpitations - ICD9: 785.1, ICD10: R00.2 (primary diagnosis) much improved. Denies any chest discomfort or palpitations at this time. She was on beta-blockade in the past. We have stopped it. She has not had a return of the palpitations - ECG COMPLETE today's EKG demonstrates sinus rhythm. There is no QT prolongation. 2. Hyperlipidemia LDL goal <70 - ICD9: 272.4, ICD10: E78.5 Patient is not currently taking anything for cholesterol 3. History of stress test - ICD9: V15.89, ICD10: Z92.89 Stress test done on 12/01/2018 showed EKG showed nonspecific S (more content not included)... [facility] 01-18-2025 History of Presen t illness Narrative Referring Provider: Sid Fragoso DO Date: January 18, 2025 Chief Complaint: Established Patient Follow-Up (1 year follow up) HISTORY OF PRESENT ILLNESS: Yareli Joyner is a 54 year old female who presents for Established Patient Follow-Up (1 year follow up). Patient has avascular necrosis of the hips. Activity is quite limited ALLERGIES Allergen Reactions Antihistamine [Diph* Unknown Palpitations-makes heart go crazy. PAST MEDICAL HISTORY: PAST MEDICAL HISTORY Diagnosis Date Atypical chest pain Avascular necrosis (HCC) History of exercise stress test 12/01/[address] changes, normal BP response, no arrhythmias Mixed hyperlipidemia Palpitations SOB (shortness of breath) PAST SURGICAL HISTORY Procedure Laterality Date KIDNEY STONE SURGERY HX 2020 x3 REMOVAL GALLBLADDER FAMILY HISTORY Problem Relation Age of Onset other (Cardiovascular Disease) Mother other (Cardiovascular Disease) Father SOCIAL HISTORY: Tobacco Use: Never Alcohol Use: Never Drug Use: Never Employer And Job Title: None on file Years Of Education Completed: Not specified Marital Status: MEDICATIONS: No current outpatient medications on file. No current facility-administered medications for this visit. I have personally reviewed the patients past medical history including social, family, surgical, diagnostics, and medications. REVIEW OF SYSTEMS: Review of Systems Constitutional: Negative for chills and fatigue. Respiratory: Negative for chest tightness and shortness of breath. Cardiovascular: Negative for chest pain, palpitations and leg swelling. Neurological: Negative for dizziness, syncope, weakness and light-headedness. Hematological: Does not bruise/bleed easily. Psychiatric/Behavioral: Negative for confusion and hallucinations. Vitals: BP 112/72 (BP Site: Left Arm, BP Position: Sitting, BP Cuff Size: Large Adult) Pulse (!) 57 Ht 165.1 cm (5' 5) Wt 76.4 kg (168 lb 6.9 oz) BMI 28.03 kg/m PHYSICAL EXAMINATION: BP 112/72 (BP Site: Left Arm, BP Position: Sitting, BP Cuff Size: Large Adult) Pulse (!) 57 Ht 165.1 cm (5' 5) Wt 76.4 kg (168 lb 6.9 oz) BMI 28.03 kg/m Last 3 Encounter BP Readings: Date: BP: 08/29/2023 112/70 Last 3 Encounter Pulse Readings: Date: Pulse: 08/29/2023 56 Last 3 Encounter Wt Readings: Date: Wt: 08/29/2023 81.2 kg (179 lb) Physical Exam Vitals reviewed. Constitutional: General: She is not in acute distress. Appearance: Normal appearance. HENT: Head: Normocephalic. Right Ear: External ear normal. Left Ear: External ear normal. Nose: Nose normal. Mouth/Throat: Mouth: Mucous membranes are moist. Eyes: Extraocular Movements: Extraocular movements intact. Cardiovascular: Rate and Rhythm: Normal rate and regular rhythm. Pulses: Normal pulses. Carotid pulses are 2+ on the right side and 2+ on the left side. Radial pulses are 2+ on the right side and 2+ on the left side. Posterior tibial pulses are 2+ on the right side and 2+ on the left side. Heart sounds: Normal heart sounds. No murmur heard. Pulmonary: Effort: Pulmonary effort is normal. Breath sounds: Normal breath sounds. Abdominal: General: Abdomen is flat. Bowel sounds are normal. Palpations: Abdomen is soft. Tenderness: There is no abdominal tenderness. Musculoskeletal: General: Normal range of motion. Cervical back: Normal range of motion. Right lower leg: No edema. Left lower leg: No edema. Skin: General: Skin is warm. Capillary Refill: Capillary refill takes 2 to 3 seconds. Findings: No rash or wound. Neurological: General: No focal deficit present. Mental Status: She is alert and oriented to person, place, and time. Mental status is at baseline. Coordination: Coordination is intact. Psychiatric: Mood and Affect: Mood normal. Thought Content: Thought content normal. Judgment: Judgment normal. LABS: No results found for: GLUC, K, NA, CHLOR, CO2, CREAT, BUN, ANION, CA, TPROT, ALB, TBILI, ALKPHOS, AST, ALT No results found for: HB, HCT, WBC No results found for: CHOL, HDL, LDL, TG EKG: s ASSESSMENT/PLAN: 1. Palpitations - ICD9: 785.1, ICD10: R00.2 (primary diagnosis) much improved. Denies any chest discomfort or palpitations at this time. She was on beta-blockade in the past. We have stopped it. She has not had a return of the palpitations - ECG COMPLETE today's EKG demonstrates sinus rhythm. There is no QT prolongation. 2. Hyperlipidemia LDL goal <70 - ICD9: 272.4, ICD10: E78.5 Patient is not currently taking anything for cholesterol 3. History of stress test - ICD9: V15.89, ICD10: Z92.89 Stress test done on 12/01/2018 showed EKG showed nonspecific ST changes, normal BP response, no arrhythmias 4. Non-smoker - ICD9: V49.89, ICD10: Z78.9 Patient is a non-smoker I, Phylicia Galindo MA , scribing for Dr. Sid Fragoso, was present in the room during the examination Follow up in: 2 years with Gerardo Prior to entering the room, I reviewed the last progress note including the diagnosis and plan of action. When available, I then reviewed the last heart catheterization, stress test, echocardiogram and EKG. I proceeded to review the medial therapy and any side effects the patient may have had in the past. I was able to look at the last several EKGs. A new EKG was performed today and an interetation was performed. I reviewed its interpretation with the family and compared it to the previous EKGs that we have in the medical records. Changes were described to the patient. In a pictorial format; I described the CT and QRS intervals. This was to show the effects of antiarrhythmic therapy on the electrical system. I was able to look at the past several EKG's. A new EKG was performed today and interpretation was noted. I reviewed this interpretation with the patient, and the family when available, and compared it to the previous EKG's that we have in the medical record. Since my office visit was carried out with a scribe, while in the exam room I was able to devote one hundred percent of my time in [id number] conversation with the patient. I answered all the questions and explained the diagnosis of palpitations now with lifestyle modification. Beta-blockade has been stopped in the past she has not had any return of the palpitations. Greater that 51% of my time was spent with [id number] conversation with the patient. I have discussed the recommended treatment, alternative therapies and other options in detail. I've discussed the best benefit and side effects of these recommended treatments. I've attempted to answer all the questions to the patient's satisfaction and understanding. With approval, we would recommend an pursue the current therapy such as unfortunately she has avascular necrosis. She is cleared for surgical approach if deemed necessary. After leaving the exam room, I went back into the patient's chart and coordinated care with my nurse ordering the proper testing and medicinal changes. Letter was performed with voice recognition algorithms and sent to the referring team. The chart was completed. Including the pre-exam, exam and post-exam, the total time spent in the patient's management was greater than 15 minutes I, Dr. Sid Fragoso, have reviewed and agree with the information in the medical record. Sid Fragoso DO documented in this encounter [facility] 08-14-2021 Hospital course Narrative Images from the original note were not included. Hospitalist Discharge Summary Patient: Yareli Joyner Date of : 1970 Acct: [id number] Primary Care Physician: Caitlyn Ferguson APRN - [employer] Admit date 08/06/2021 Discharge date: 08/14/2021 3:31 PM Chief Complaint on presentation :- Shortness of breath Discharge Assessment and Plan:- 1. Hypoxic respiratory failure 2. COVID-19 pneumonia a. Treated with high-dose IV Decadron therapy due to need for high flow nasal cannula presentation. b. Also received baricitinib, vitamin C/D, and zinc. c. We will complete an additional 5 days of p.o. Decadron therapy at 6 mg daily. d. On her home oxygen evaluation prior to discharge. Patient did not require any supplemental oxygen with rest or exertion to maintain appropriate oxygen saturations. 3. Orthostasis, resolved 1. Secondary to volume depletion with poor oral intake. 2. Patient responded to IV fluids. Repeat orthostatic vital signs were normal. Patient was asymptomatic. Initial H and P and Hospital course:- 08/06: Patient presents to the hospital with 8 days of fevers, shortness of breath, and cough. Found to be COVID-19 positive and started on IV Decadron therapy. Initially required 4 L nasal cannula, but quickly uptitrated to high flow nasal cannula. 08/07. Patient stable on high flow nasal cannula. Decadron increased to 20 mg daily. 08/09: Patient weaned off high flow nasal cannula. Tolerating regular nasal cannula. Working with physical therapy/Occupational Therapy. Remains severely dyspneic and hypoxic with exertion. 08/11: Patient underwent home oxygen evaluation with significant desaturations to the low to mid 80s despite 6 L via nasal cannula after ambulating only a few steps. Oxygen evaluation was aborted. Patient was significant dyspnea 08/14: Patient being discharged home. Will complete additional 5 days of p.o. Decadron therapy. Complete home oxygen evaluation prior to discharge. Patient was able to maintain appropriate oxygen saturations at rest and with exertion. No indication for oxygen at discharge. Physical Exam:- Vitals: Patient Vitals for the past 24 hrs: BP Temp Temp src Pulse Resp SpO2 08/14/21 1158 (!) 91/55 97.7 F (36.5 C) Oral 84 18 93 % 08/14/21 0830 93 % 08/14/21 0800 97.9 F (36.6 C) Oral 57 18 94 % 08/14/21 0400 (!) 113/94 98 F (36.7 C) Oral 56 18 95 % 08/14/21 0000 117/66 98.6 F (37 C) Oral 55 16 95 % 08/13/21 2145 98 F (36.7 C) Oral 82 18 95 % 08/13/21 1658 92 % 08/13/21 1544 96/61 97.5 F (36.4 C) Oral 68 18 92 % Weight: Weight: 185 lb 4.8 oz (84.1 kg) 24 hour intake/output: Intake/Output Summary (Last 24 hours) at 08/14/2021 1531 Last data filed at 08/13/2021 1658 Gross per 24 hour Intake 240 ml Output Net 240 ml General appearance: No apparent distress, appears stated age and cooperative HEENT: Normal cephalic, atraumatic without obvious deformity. Pupils equal, round, and reactive to light. Extra ocular muscles intact. Conjunctivae/corneas clear. Neck: Supple, with full range of motion. No jugular venous distention. Trachea midline. Respiratory: Lungs are clear to auscultation. No wheeze, rales, rhonchi. Normal respiratory rate. Cardiovascular: Regular rate and rhythm with normal S1/S2 without murmurs, rubs or gallops. Abdomen: Soft, non-tender, non-distended with normal bowel sounds. Musculoskeletal: No clubbing, cyanosis or edema bilaterally. Skin: Skin color, texture, turgor normal. No rashes or lesions. Neurologic: Neurovascularly intact without any focal sensory/motor deficits. Cranial nerves: II-XII intact, grossly non-focal. Psychiatric: Alert and oriented, thought content appropriate, normal insight Capillary Refill: Brisk,< 3 seconds Peripheral Pulses: +2 palpable, equal bilaterally Discharge Medications:- Medication List START taking these medications albuterol sulfate HFA 108 (90 Base) MCG/ACT inhaler Inhale 2 puffs into the lungs every 6 hours as needed for Wheezing or Shortness of Breath ascorbic acid 500 MG tablet Commonly known as: VITAMIN C Take 1 tablet by mouth daily Start taking on: August 15, 2021 dexamethasone 6 MG tablet Commonly known as: Decadron Take 1 tablet by mouth daily (with breakfast) for 5 days Vitamin D3 25 MCG Tabs Take 1 tablet by mouth daily Start taking on: August 15, 2021 zinc sulfate 220 (50 Zn) MG capsule Commonly known as: ZINCATE Take 1 capsule by mouth daily Start taking on: August 15, 2021 Where to Get Your Medications These medications were sent to [id number] - [place], [place] - [address] - P [phone] - F [phone] [place] [address] albuterol sulfate HFA 108 (90 Base) MCG/ACT inhaler ascorbic acid 500 MG tablet dexamethasone 6 MG tablet Vitamin D3 25 MCG Tabs You can get these medications from any pharmacy You don't need a prescription for these medications zinc sulfate 220 (50 Zn) MG capsule Labs :- Recent Results (from the past 72 hour(s)) CBC auto differential Collection Time: 08/12/21 6:39 AM Result Value Ref Range WBC 6.5 4.8 - 10.8 thou/mm3 RBC 4.88 4.20 - 5.40 mill/mm3 Hemoglobin 14.9 12.0 - 16.0 gm/dl Hematocrit 44.2 37.0 - 47.0 % MCV 90.6 81.0 - 99.0 fL MCH 30.5 26.0 - 33.0 pg MCHC 33.7 32.2 - 35.5 gm/dl RDW-CV 12.6 11.5 - 14.5 % RDW-SD 42.1 35.0 - 45.0 fL Platelets 424 (H) 130 - 400 thou/mm3 MPV 9.1 (L) 9.4 - 12.4 fL Seg Neutrophils 77.0 % Lymphocytes 12.2 % Monocytes 7.2 % Eosinophils 0.2 % Basophils 0.3 % Immature Granulocytes 3.1 % Segs Absolute 5.0 1 - 7 thou/mm3 Lymphocytes Absolute 0.8 (L) 1.0 - 4.8 thou/mm3 Monocytes Absolute 0.5 0.4 - 1.3 thou/mm3 Eosinophils Absolute 0.0 0.0 - 0.4 thou/mm3 Basophils Absolute 0.0 0.0 - 0.1 thou/mm3 Immature Grans (Abs) 0.20 (H) 0.00 - 0.07 thou/mm3 nRBC 0 /100 wbc Basic Metabolic Panel Collection Time: 08/12/21 6:39 AM Result Value Ref Range Sodium 138 135 - 145 meq/L Potassium 4.7 3.5 - 5.2 meq/L Chloride 102 98 - 111 meq/L CO2 26 23 - 33 meq/L Glucose 110 (H) 70 - 108 mg/dL BUN 28 (H) 7 - 22 mg/dL CREATININE 0.7 0.4 - 1.2 mg/dL Calcium 8.8 8.5 - 10.5 mg/dL Anion Gap Collection Time: 08/12/21 6:39 AM Result Value Ref Range Anion Gap 10.0 8.0 - 16.0 meq/L Glomerular Filtration Rate, Estimated Collection Time: 08/12/21 6:39 AM Result Value Ref Range Est, Glom Filt Rate 89 (A) ml/min/1.73m2 CBC auto differential Collection Time: 08/13/21 7:04 AM Result Value Ref Range WBC 7.2 4.8 - 10.8 thou/mm3 RBC 4.87 4.20 - 5.40 mill/mm3 Hemoglobin 14.6 12.0 - 16.0 gm/dl Hematocrit 44.5 37.0 - 47.0 % MCV 91.4 81.0 - 99.0 fL MCH 30.0 26.0 - 33.0 pg MCHC 32.8 32.2 - 35.5 gm/dl RDW-CV 12.7 11.5 - 14.5 % RDW-SD 42.2 35.0 - 45.0 fL Platelets 441 (H) 130 - 400 thou/mm3 MPV 9.6 9.4 - 12.4 fL Seg Neutrophils 70.6 % Lymphocytes 17.8 % Monocytes 7.5 % Eosinophils 0.4 % Basophils 0.4 % Immature Granulocytes 3.3 % Segs Absolute 5.1 1 - 7 thou/mm3 Lymphocytes Absolute 1.3 1.0 - 4.8 thou/mm3 Monocytes Absolute 0.5 0.4 - 1.3 thou/mm3 Eosinophils Absolute 0.0 0.0 - 0.4 thou/mm3 Basophils Absolute 0.0 0.0 - 0.1 thou/mm3 Immature Grans (Abs) 0.24 (H) 0.00 - 0.07 thou/mm3 nRBC 0 /100 wbc Basic Metabolic Panel Collection Time: 08/13/21 7:04 AM Result Value Ref Range Sodium 139 135 - 145 meq/L Potassium 5.1 3.5 - 5.2 meq/L Chloride 99 98 - 111 meq/L CO2 26 23 - 33 meq/L Glucose 99 70 - 108 mg/dL BUN 30 (H) 7 - 22 mg/dL CREATININE 0.7 0.4 - 1.2 mg/dL Calcium 9.0 8.5 - 10.5 mg/dL Anion Gap Collection Time: 08/13/21 7:04 AM Result Value Ref Range Anion Gap 14.0 8.0 - 16.0 meq/L Glomerular Filtration Rate, Estimated Collection Time: 08/13/21 7:04 AM Result Value Ref Range Est, Glom Filt Rate 89 (A) ml/min/1.73m2 CBC auto differential Collection Time: 08/14/21 5:50 AM Result Value Ref Range WBC 6.8 4.8 - 10.8 thou/mm3 RBC 4.69 4.20 - 5.40 mill/mm3 Hemoglobin 14.3 12.0 - 16.0 gm/dl Hematocrit 42.7 37.0 - 47.0 % MCV 91.0 81.0 - 99.0 fL MCH 30.5 26.0 - 33.0 pg MCHC 33.5 32.2 - 35.5 gm/dl RDW-CV 12.7 11.5 - 14.5 % RDW-SD 42.5 35.0 - 45.0 fL Platelets 430 (H) 130 - 400 thou/mm3 MPV 9.3 (L) 9.4 - 12.4 fL Seg Neutrophils 75.0 % Lymphocytes 15.1 % Monocytes 6.4 % Eosinophils 0.3 % Basophils 0.3 % Immature Granulocytes 2.9 % Segs Absolute 5.1 1 - 7 thou/mm3 Lymphocytes Absolute 1.0 1.0 - 4.8 thou/mm3 Monocytes Absolute 0.4 0.4 - 1.3 thou/mm3 Eosinophils Absolute 0.0 0.0 - 0.4 thou/mm3 Basophils Absolute 0.0 0.0 - 0.1 thou/mm3 Immature Grans (Abs) 0.20 (H) 0.00 - 0.07 thou/mm3 nRBC 0 /100 wbc Basic Metabolic Panel Collection Time: 08/14/21 5:50 AM Result Value Ref Range Sodium 139 135 - 145 meq/L Potassium 5.0 3.5 - 5.2 meq/L Chloride 101 98 - 111 meq/L CO2 27 23 - 33 meq/L Glucose 103 70 - 108 mg/dL BUN 27 (H) 7 - 22 mg/dL CREATININE 0.7 0.4 - 1.2 mg/dL Calcium 9.2 8.5 - 10.5 mg/dL Anion Gap Collection Time: 08/14/21 5:50 AM Result Value Ref Range Anion Gap 11.0 8.0 - 16.0 meq/L Glomerular Filtration Rate, Estimated Collection Time: 08/14/21 5:50 AM Result Value Ref Range Est, Glom Filt Rate 89 (A) ml/min/1.73m2 Microbiology: Blood culture #1: No results found for: BC Blood culture #2:No results found for: BLOODCULT2 Organism: Lab Results Component Value Date LABGRAM 06/30/2017 Rare segmented neutrophils observed. Few epithelial cells observed. Many large gram positive bacilli. Few gram positive cocci in pairs. Smear consistent with Normal Vaginal Nayana. MRSA culture only:No results found for: MRSAC Urine culture: Lab Results Component Value Date LABURIN 02/13/2021 No growth-preliminary Growth of Contaminants. The mixture of organisms present are not a common cause of urinary tract infections and probably represent skin nayana or distal urethral nayana. Lab Results Component Value Date ORG Growth of Contaminants 02/13/2021 Respiratory culture: No results found for: CULTRESP Aerobic and Anaerobic : No results found for: LABAERO No results found for: LABANAE Urinalysis: Lab Results Component Value Date NITRU Negative 02/13/2021 WBCUA NONE SEEN 10/30/2019 BACTERIA NONE SEEN 10/30/2019 RBCUA 0-2 10/30/2019 BLOODU Negative 02/13/2021 BLOODU Negative 04/04/2020 SPECGRAV 1.018 04/04/2020 GLUCOSEU Negative 02/13/2021 Radiology:- XR CHEST PORTABLE Result Date: 08/06/2021 PROCEDURE: XR CHEST PORTABLE CLINICAL INFORMATION: sob COMPARISON: No prior study. TECHNIQUE: A single mobile view of the chest was obtained. 1. Poor inflation the lungs. Kyphotic positioning the patient. Normal heart size. 2. Moderate pneumonia/pulmonary edema both mid and lower lung caro. This report has been created using voice recognition software. It may contain minor errors which are inherent in voice recognition technology. Final report electronically signed by Dr. Bari Franklin on 08/06/2021 1:30 PM Follow-up scheduled after discharge :- in 5-7 days with CELESTE Moffett CNP Consultations during this hospital stay:- [] NONE [] Cardiology [] Nephrology [] Hemo onco [] GI [] ID [] Endocrine [] Pulm [] Neuro [] Psych [] Urology [] ENT [] G SURGERY []Ortho []CV surg [] Palliative [] Hospice [] Pain management [] care services manager []TCU [] PT/OT OTHERS:- Disposition: home Condition at Discharge: Stable Time Spent:- 40 minutes Discharging Hospitalist documented in this encounter [address] Phone: 08-14-2021 History of Presen t illness Narrative A home oxygen evaluation has been completed. [x]Patient is an inpatient. It is expected that the patient will be discharged within the next 48 hours. Qualified provider to write order for home prescription if patient qualifies. Social service/care managers will arrange for home oxygen. If patient is active, arrange for Home Medical supplier to assess for Oxygen Conserving Device per pulse oximetry. Patient was placed on room air for 20 minutes. SpO2 was 92 % on room air at rest. Patient can ambulate for exercise flow rate. Patients was ambulated for 6 minutes, SpO2 was 91% on room air during ambulation. [facility] INPATIENT PHYSICAL THERAPY DAILY NOTE STRZ MED SURG 8B - 8B-21/021-A Time In: 724 Time Out: 754 Timed Code Treatment Minutes: 30 Minutes Minutes: 30 Date: 08/14/2021 Patient Name: Yareli Joyner, Gender: female : 1970 (51 y.o.) Referring Practitioner: Palmer Dave DO Diagnosis: acute respiratory failure with hypoxia Additional Pertinent Hx: Per chart Patient is a 51-year-old female with no significant past medical history presents to the hospital with approximately 8 days of fevers, shortness of breath, and cough. Patient is unvaccinated for COVID-19. She states that 8 days ago, she has been having fevers in the 101 102 range at home which she has been treating with Tylenol and Motrin. She has not seen a physician or had Covid testing until today. She has not received any steroids or antibiotics. She states that she has had worsening shortness of breath over the last few days. Complains of a dry cough. Denies any diarrhea or loss of taste or smell. In the ER, she was found to be hypoxic. She was placed on 4 L via nasal cannula and started on Decadron therapy. Prior Level of Function: Lives With: Spouse, Son Type of Home: House Home Layout: One level Home Access: Stairs to enter with rails Entrance Stairs - Number of Steps: 4 YASH, has no need to use basement Entrance Stairs - Rails: Right Bathroom Shower/Tub: Tub/Shower unit Bathroom Toilet: Standard Bathroom Accessibility: Accessible ADL Assistance: Independent Homemaking Assistance: Independent Homemaking Responsibilities: Yes Ambulation Assistance: Independent Transfer Assistance: Independent Active Process Controls Technician: Yes Additional Comments: Pt stays at home, and son work during the day. Pt was IND with all functional mobility tasks, ADL and IADL's with no AD. Pt very IND and active prior. Pt completed grocery shopping, errands, and community mobiilty. Pt also helps care for her parents who live near her. Restrictions/Precautions: Restrictions/Precautions: Fall Risk, Isolation Position Activity Restriction Other position/activity restrictions: droplet + precautions, COVID-19 SUBJECTIVE: pleasant, cooperative, per pt feeling better today PAIN: no c/o pain Vitals: 2L O2 at 95% at rest required inc to 4L O2 with amb to maintain >/=92%. RN stated had to check orthostatics: sup 101/66(79) HR 54, sit 104/73(84) HR 61, std 110/72(87) HR 75, OBJECTIVE: Bed Mobility: Rolling to Left: Modified Independent Rolling to Right: Modified Independent Supine to Sit: Modified Independent Sit to Supine: Modified Independent Scooting: Modified Independent Transfers: Sit to Stand: Modified Independent Stand to Sit:Modified Independent Ambulation: Contact Guard Assistance, to SBA Distance: 300'x1 Surface: Level Tile Device:occasional reach for HR In hallway Gait Deviations: Slow Natalia and Mild Path Deviations Balance: Static Sitting Balance: Modified Independent Static Standing Balance: Stand By Assistance, no UE support Ed on use of accapella and pickle throughout the day Functional Outcome Measures: Completed [facility] Inpatient Mobility Raw Score : 22 [facility] Inpatient T-Scale Score : 53.28 ASSESSMENT: Assessment: Patient progressing toward established goals. Activity Tolerance: Patient tolerance of treatment: good. Equipment Recommendations:Equipment Needed: No Discharge Recommendations: home with HH as needed Plan: Times per week: 5x C Current Treatment Recommendations: Strengthening, Home Exercise Program, Neuromuscular Re-education, Safety Education & Training, Balance Training, Endurance Training, Patient/Caregiver Education & Training, Functional Mobility Training, Equipment Evaluation, Education, & procurement, Transfer Training, Gait Training, Stair training Patient Education Patient Education: Home Exercise Program, Bed Mobility, Transfers, Gait, monitoring O2 sats Goals: Patient goals : go the bathroom without fainting and to go home Short term goals Time Frame for Short term goals: by discharge Short term goal 1: Pt will amb with no AD with IND with good safety for >200 feet to progress towards PLOF safely. Short term goal 2: Pt will demo IND with transfers from various surfaces and heights with good safety to progress towards PLOF. Short term goal 3: Pt will complete stair negotiation for YASH in the home with IND to progress towards PLOF safely. long term care pharmacist goals Time Frame for long term care pharmacist goals : NA due to short ELOS Following session, patient left in safe position with all fall risk precautions in place. [facility] MED SURG 8B Occupational Therapy Daily Note Time: Time In: 946 Time Out: 1020 Timed Code Treatment Minutes: 33 Minutes Minutes: 33 Date: 08/14/2021 Patient Name: Yareli Joyner, Gender: female Room: [facility]021-A : 1970 (51 y.o.) Referring Practitioner: Palmer Dave DO Diagnosis: Acute Respiratory Failure with hypoxia Additional Pertinent Hx: Patient states that over the last 9 days she has been developing worsening shortness of breath and came into the emergency room. Patient Dors is a nonproductive cough, chest pain, ageusia and anosmia. Patient states that the chest pain is diffuse and believes is secondary to coughing.. Pain is nonradiating 6 out of 10 intensity. Patient states that she is also experiencing severe nausea and a single episode of vomiting earlier today before coming to emergency department. Patient states that her children were recently sick with a viral illness however they did not get tested for Covid. Patient is not Covid vaccinated. Restrictions/Precautions: Restrictions/Precautions: Fall Risk, Isolation Position Activity Restriction Other position/activity restrictions: droplet + precautions, COVID-19 SUBJECTIVE: Pleasant and cooperative PAIN: denied Vitals: Oxygen: on 1L O2, maintained throughout session COGNITION: WNL ADL: Grooming: Supervision. Toileting: Supervision. Toilet Transfer: Supervision. . BALANCE: Sitting Balance: Modified Independent. Standing Balance: Supervision. BED MOBILITY: Supine to Sit: Supervision Sit to Supine: Supervision Scooting: Supervision TRANSFERS: Sit to Stand: Supervision. Stand to Sit: Supervision. FUNCTIONAL MOBILITY: Assistive Device: None Assist Level: Stand By Assistance. Distance: To and from bathroom and within unit Extended standing RBs and slow pace noted with good breathing tech, initially OTR preemptively increased to 2L, however, pt did not need increased, decreased back to 1L, and able to maintain throughout mobility. ADDITIONAL ACTIVITIES: Pt completed B UE exs to increase strength required to complete ADL routine, x 1 set, x 10 reps, light resistance: shoulder flexion, chest press, bicep curls, horizontal AB/ADduction. Fair pace, exhibits min fatigue, requires min RBs during exs. ASSESSMENT: Activity Tolerance: Patient tolerance of treatment: good. Discharge Recommendations: Home Independently Equipment Recommendations: Equipment Needed: No Plan: Times per week: 5x Current Treatment Recommendations: Strengthening, Balance Training, Functional Mobility Training, Endurance Training, Self-Care / ADL, Safety Education & Training, Equipment Evaluation, Education, & procurement, Patient/Caregiver Education & Training Patient Education Patient Education: Plan of Care, Energy Conservation and Home Exercise Program Goals Short term goals Time Frame for Short term goals: by discharge Short term goal 1: Pt will complete functional mobility to/from BR with Fabiola while maintaining O2 above 90% to increase indep with accessing environment for ADLs. Short term goal 2: Pt will complete LB ADL with Fabiola to increase indep with self care. Short term goal 3: Pt will complete dynamic standing task with Fabiola while maintianing O2 above 90% to increase balance required for grooming. Short term goal 4: Pt will complete simulated IADL with Fabiola while incorporating EC/WS techs to decrease SOB with cooking and cleaning. Following session, patient left in safe position with all fall risk precautions in place. Spoke with Dago. Update given. All questions answered. Spouse, Dago called and updated on patient's status. No questions voiced at this time. [facility] OCCUPATIONAL THERAPY MISSED TREATMENT NOTE [facility] MED SURG 8B 8B-21/021-A Date: 08/13/2021 Patient Name: Yareli Joyner CSN: [id number] : 1970 (51 y.o.) Gender: female Referring Practitioner: Palmer Dave DO Diagnosis: Acute Respiratory Failure with hypoxia REASON FOR MISSED TREATMENT: Attx1 Patient positive for orthostatic BP Attx2 patient sleeping [facility] INPATIENT PHYSICAL THERAPY DAILY NOTE STRZ MED SURG 8B - 8B-21/021-A Time In: 1253 Time Out: 1327 Timed Code Treatment Minutes: 34 Minutes Minutes: 34 Date: 08/13/2021 Patient Name: Yareli Joyner, Gender: female : 1970 (51 y.o.) Referring Practitioner: Palmer Dave DO Diagnosis: acute respiratory failure with hypoxia Additional Pertinent Hx: Per chart Patient is a 51-year-old female with no significant past medical history presents to the hospital with approximately 8 days of fevers, shortness of breath, and cough. Patient is unvaccinated for COVID-19. She states that 8 days ago, she has been having fevers in the 101 102 range at home which she has been treating with Tylenol and Motrin. She has not seen a physician or had Covid testing until today. She has not received any steroids or antibiotics. She states that she has had worsening shortness of breath over the last few days. Complains of a dry cough. Denies any diarrhea or loss of taste or smell. In the ER, she was found to be hypoxic. She was placed on 4 L via nasal cannula and started on Decadron therapy. Prior Level of Function: Lives With: Spouse, Son Type of Home: House Home Layout: One level Home Access: Stairs to enter with rails Entrance Stairs - Number of Steps: 4 YASH, has no need to use basement Entrance Stairs - Rails: Right Bathroom Shower/Tub: Tub/Shower unit Bathroom Toilet: Standard Bathroom Accessibility: Accessible ADL Assistance: Independent Homemaking Assistance: Independent Homemaking Responsibilities: Yes Ambulation Assistance: Independent Transfer Assistance: Independent Active Process Controls Technician: Yes Additional Comments: Pt stays at home, and son work during the day. Pt was IND with all functional mobility tasks, ADL and IADL's with no AD. Pt very IND and active prior. Pt completed grocery shopping, errands, and community mobiilty. Pt also helps care for her parents who live near her. Restrictions/Precautions: Restrictions/Precautions: Fall Risk, Isolation Position Activity Restriction Other position/activity restrictions: droplet + precautions, COVID-19 SUBJECTIVE: RN approved session. Pt in rcliner upon arrival and agrees to therapy, very pleasant, cooperative and motivated. PAIN: 0/10 Vitals: Oxygen: 3L nasal cannula, SpO2 >90% Heart Rate: 62 OBJECTIVE: Bed Mobility: Not Tested Transfers: Sit to Stand: Stand By Assistance, Contact Guard Assistance Stand to Sit:Stand By Assistance, Contact Guard Assistance Ambulation: Stand By Assistance, Contact Guard Assistance Distance: ~25 ft, 12ft in room Surface: Level Tile Device:No Device Gait Deviations: Very slow moving and guarded, min unsteady at times, no real LOB, did stop mult times during bout for ~20 each time before continuing. Pt denies any dizziness or other symptoms Balance: Dynamic Standing Balance: Stand By Assistance Pt able to complete functional tasks for use of toilet, pt steady and able to complete tasks without physical assist Exercise: Patient was guided in 1 set(s) 10 reps of exercise to both lower extremities. Ankle pumps, Glut sets, Quad sets, Heelslides, Hip abduction/adduction, Straight leg raises, Upper trunk rotations, Shoulder horizontal abduction/adduction and Shoulder rolls. Exercises were completed for increased independence with functional mobility. Functional Outcome Measures: Completed [facility] Inpatient Mobility Raw Score : 19 [facility] Inpatient T-Scale Score : 45.44 ASSESSMENT: Assessment: Patient progressing toward established goals. Activity Tolerance: Patient tolerance of treatment: good. Pt min unsteady and demos decreased endurance and independence with mobility. tp will benefit from cont PT Equipment Recommendations:Equipment Needed: No Discharge Recommendations: Patient would benefit from continued PT at discharge Plan: Times per week: 5x C Current Treatment Recommendations: Strengthening, Home Exercise Program, Neuromuscular Re-education, Safety Education & Training, Balance Training, Endurance Training, Patient/Caregiver Education & Training, Functional Mobility Training, Equipment Evaluation, Education, & procurement, Transfer Training, Gait Training, Stair training Patient Education Patient Education: Plan of Care, Transfers, Gait, Verbal Exercise Instruction Goals: Patient goals : go the bathroom without fainting and to go home Short term goals Time Frame for Short term goals: by discharge Short term goal 1: Pt will amb with no AD with IND with good safety for >200 feet to progress towards PLOF safely. Short term goal 2: Pt will demo IND with transfers from various surfaces and heights with good safety to progress towards PLOF. Short term goal 3: Pt will complete stair negotiation for YASH in the home with IND to progress towards PLOF safely. long term care pharmacist goals Time Frame for snf goals : NA due to short ELOS Following session, patient left in safe position with all fall risk precautions in place. Images from the original note were not included. Hospitalist Progress Note Patient: Yareli Joyner Unit/Bed:8B-/021-A Date of : 1970 Acct: [id number] PCP: CELESTE Moffett CNP Date of Admission: 08/06/2021 Assessment/Plan: 1. Hypoxic respiratory failure 2. COVID-19 pneumonia a. Covid directed therapy i. Decadron 10 mg 08/06. Decadron 20 mg 08/07 08/11. Decadron 10 mg 08/12 current ii. Baricitinib 08/06 iii. As needed albuterol iv. Vitamin C/D and zinc b. Incentive spirometer and Acapella c. Patient currently on 1 to 2 L via nasal cannula. Complete home oxygen evaluation today. Continues to have significant desaturations with exertion. Required 6 L with significant dyspnea d. Orthostasis 1. Suspect volume depletion based on clinical exam. 2. Patient did respond to 1 L of normal saline this morning, but remains positive on repeat orthostatic vital signs. 3. We will give an additional liter of normal saline. 4. Encourage p.o. intake. Disposition: Anticipate discharge in 24 to 48 hours. Chief Complaint: Shortness of breath Hospital Course: 08/06: Patient presents to the hospital with 8 days of fevers, shortness of breath, and cough. Found to be COVID-19 positive and started on IV Decadron therapy. Initially required 4 L nasal cannula, but quickly uptitrated to high flow nasal cannula. 08/07. Patient stable on high flow nasal cannula. Decadron increased to 20 mg daily. 08/09: Patient weaned off high flow nasal cannula. Tolerating regular nasal cannula. Working with physical therapy/Occupational Therapy. Remains severely dyspneic and hypoxic with exertion. 08/11: Patient underwent home oxygen evaluation with significant desaturations to the low to mid 80s despite 6 L via nasal cannula after ambulating only a few steps. Oxygen evaluation was aborted. Patient was significant dyspnea Subjective (past 24 hours): Patient complains of lightheadedness/dizziness upon standing today. Nursing staff report orthostatic vital signs are positive. Patient continues to have fairly significant dyspnea with even minimal exertion. Currently on nasal cannula at 1 to 2 L. Denies any fevers, chest pains, palpitations. Past medical history, family history, social history and allergies reviewed again and is unchanged since admission. ROS (12 point review of systems completed. Pertinent positives noted. Otherwise ROS is negative) Medications: Reviewed Infusion Medications sodium chloride Scheduled Medications dexamethasone 10 mg IntraVENous Q24H sodium chloride flush 5-40 mL IntraVENous 2 times per day enoxaparin 40 mg SubCUTAneous Q24H ascorbic acid 500 mg Oral Daily Vitamin D 1,000 Units Oral Daily zinc sulfate 50 mg Oral Daily baricitinib 4 mg Oral Daily PRN Meds: sodium chloride flush, sodium chloride, ondansetron OR ondansetron, polyethylene glycol, acetaminophen OR acetaminophen, albuterol sulfate HFA No intake or output data in the 24 hours ending 08/13/21 1253 Diet: ADULT DIET; Regular; No Added Salt (3-4 gm) Exam: BP (!) 97/54 Pulse 68 Temp 98.2 F (36.8 C) (Oral) Resp 18 Ht 5' 7 (1.702 m) Wt 185 lb 4.8 oz (84.1 kg) LMP 06/04/2017 SpO2 91% BMI 29.02 kg/m General appearance: No apparent distress, appears stated age and cooperative HEENT: Normal cephalic, atraumatic without obvious deformity. Pupils equal, round, and reactive to light. Extra ocular muscles intact. Conjunctivae/corneas clear. Neck: Supple, with full range of motion. No jugular venous distention. Trachea midline. Respiratory: Mild scattered fine crackles on exam. No wheezes or rhonchi. Symmetric chest expansion. Regular nasal cannula in place Cardiovascular: Regular rate and rhythm with normal S1/S2 without murmurs, rubs or gallops. Abdomen: Soft, non-tender, non-distended with normal bowel sounds. Musculoskeletal: No clubbing, cyanosis or edema bilaterally. Skin: Skin color, texture, turgor normal. No rashes or lesions. Neurologic: Neurovascularly intact without any focal sensory/motor deficits. Cranial nerves: II-XII intact, grossly non-focal. Psychiatric: Alert and oriented, thought content appropriate, normal insight Capillary Refill: Brisk,< 3 seconds Peripheral Pulses: +2 palpable, equal bilaterally Labs: Recent Labs 08/11/21 0634 08/12/21 0639 08/13/21 0704 WBC 7.3 6.5 7.2 HGB 14.7 14.9 14.6 HCT 48.4* 44.2 44.5 PLT 360 424* 441* Recent Labs 08/11/21 0634 08/12/21 0639 08/13/21 0704 NA 139 138 139 K 4.4 4.7 5.1 CL 106 102 99 CO2 21* 26 26 BUN 31* 28* 30* CREATININE 0.6 0.7 0.7 CALCIUM 8.8 8.8 9.0 No results for input(s): AST, ALT, BILIDIR, BILITOT, ALKPHOS in the last 72 hours. No results for input(s): INR in the last 72 hours. No results for input(s): CKTOTAL, TROPONINI in the last 72 hours. Microbiology: Blood culture #1: No results found for: BC Blood culture #2:No results found for: BLOODCULT2 Organism: Lab Results Component Value Date ORG Growth of Contaminants 02/13/2021 Lab Results Component Value Date LABGRAM 06/30/2017 Rare segmented neutrophils observed. Few epithelial cells observed. Many large gram positive bacilli. Few gram positive cocci in pairs. Smear consistent with Normal Vaginal Nayana. MRSA culture only:No results found for: MRSAC Urine culture: Lab Results Component Value Date LABURIN 02/13/2021 No growth-preliminary Growth of Contaminants. The mixture of organisms present are not a common cause of urinary tract infections and probably represent skin nayana or distal urethral nayana. Respiratory culture: No results found for: CULTRESP Aerobic and Anaerobic : No results found for: LABAERO No results found for: LABANAE Urinalysis: Lab Results Component Value Date NITRU Negative 02/13/2021 WBCUA NONE SEEN 10/30/2019 BACTERIA NONE SEEN 10/30/2019 RBCUA 0-2 10/30/2019 BLOODU Negative 02/13/2021 BLOODU Negative 04/04/2020 SPECGRAV 1.018 04/04/2020 GLUCOSEU Negative 02/13/2021 Radiology: XR CHEST PORTABLE Final Result 1. Poor inflation the lungs. Kyphotic positioning the patient. Normal heart size. 2. Moderate pneumonia/pulmonary edema both mid and lower lung caro. This report has been created using voice recognition software. It may contain minor errors which are inherent in voice recognition technology. Final report electronically signed by Dr. Bari Franklin on 08/06/2021 1:30 PM XR CHEST PORTABLE Result Date: 08/06/2021 PROCEDURE: XR CHEST PORTABLE CLINICAL INFORMATION: sob COMPARISON: No prior study. TECHNIQUE: A single mobile view of the chest was obtained. 1. Poor inflation the lungs. Kyphotic positioning the patient. Normal heart size. 2. Moderate pneumonia/pulmonary edema both mid and lower lung caro. This report has been created using voice recognition software. It may contain minor errors which are inherent in voice recognition technology. Final report electronically signed by Dr. Bari Franklin on 08/06/2021 1:30 PM Sitting in chair. O2 at 4 lpm, SpO2 is 92%. A home oxygen evaluation has been completed. [x]Patient is an inpatient. It is expected that the patient will be discharged within the next 48 hours. Qualified provider to write order for home prescription if patient qualifies. Social service/care managers will arrange for home oxygen. If patient is active, arrange for Home Medical supplier to assess for Oxygen Conserving Device per pulse oximetry. []Patient is an outpatient. Results will be faxed to the ordering provider. Qualified provider to write order for home prescription if patient qualifies and arranges for home oxygen. Patient was placed on room air for 5 minutes. SpO2 was 88 % on room air at rest. Patients SpO2 was below 89% and qualified for home oxygen. Oxygen was applied at 1 lpm via nasal cannula to maintain a SpO2 between 90-92% while at rest. Actual SpO2 was 90 %. Patient can ambulate for exercise flow rate. Patients was ambulated, SpO2 was 87% on 6 lpm to maintain SpO2 between 90-92% while exercising. If oxygen need is greater than 4 lpm the SpO2 on 4 lpm was 87%. Ambulated [address] with 2 assist. SpO2 dropped to 87% and O2 increased to 6 lpm. Returning to room at rest at bedside SpO2 dropped to 73% slowly recovering to 90% over 3 minutes. O2 left at 6 lpm, primary nurse at bedside. Updated Dago on patient condition and plan of care. Images from the original note were not included. Hospitalist Progress Note Patient: Yareli Joyner Unit/Bed:8B-21/021-A Date of : 1970 Acct: [id number] PCP: CELESTE Moffett CNP Date of Admission: 08/06/2021 Assessment/Plan: 1. Hypoxic respiratory failure 2. COVID-19 pneumonia a. Covid directed therapy i. Decadron 10 mg 08/06. Decadron 20 mg 08/07 current ii. Baricitinib 08/06 iii. As needed albuterol iv. Vitamin C/D and zinc b. Incentive spirometer and Acapella c. Patient back up to 3 L via nasal cannula today. Did not perform very well on home oxygen evaluation yesterday as well and was able to make it to the doorway without significant desaturations. We will plan for repeat home oxygen evaluation tomorrow pending clinical stability. 3. Diarrhea, resolved a. Likely related to COVID-19 infection. If persistent diarrhea, will rule out C. difficile and send GI molecular panel. b. If negative for infection, will start the patient on as needed Imodium for symptomatic control. c. Encourage p.o. intake. Disposition: Anticipate discharge in 24 to 48 hours. Chief Complaint: Shortness of breath Hospital Course: 08/06: Patient presents to the hospital with 8 days of fevers, shortness of breath, and cough. Found to be COVID-19 positive and started on IV Decadron therapy. Initially required 4 L nasal cannula, but quickly uptitrated to high flow nasal cannula. 08/07. Patient stable on high flow nasal cannula. Decadron increased to 20 mg daily. 08/09: Patient weaned off high flow nasal cannula. Tolerating regular nasal cannula. Working with physical therapy/Occupational Therapy. Remains severely dyspneic and hypoxic with exertion. 08/11: Patient underwent home oxygen evaluation with significant desaturations to the low to mid 80s despite 6 L via nasal cannula after ambulating only a few steps. Oxygen evaluation was aborted. Patient was significant dyspnea Subjective (past 24 hours): Patient states she feels pretty well today. She has been ambulating around her room with improvement in symptoms compared to yesterday. No acute events overnight. Admits to continued shortness of breath with exertion, but no fevers, chills, or chest pain. Past medical history, family history, social history and allergies reviewed again and is unchanged since admission. ROS (12 point review of systems completed. Pertinent positives noted. Otherwise ROS is negative) Medications: Reviewed Infusion Medications sodium chloride Scheduled Medications dexamethasone 10 mg IntraVENous Q24H sodium chloride flush 5-40 mL IntraVENous 2 times per day enoxaparin 40 mg SubCUTAneous Q24H ascorbic acid 500 mg Oral Daily Vitamin D 1,000 Units Oral Daily zinc sulfate 50 mg Oral Daily baricitinib 4 mg Oral Daily PRN Meds: sodium chloride flush, sodium chloride, ondansetron OR ondansetron, polyethylene glycol, acetaminophen OR acetaminophen, albuterol sulfate HFA Intake/Output Summary (Last 24 hours) at 08/12/2021 1150 Last data filed at 08/12/2021 0842 Gross per 24 hour Intake 517.32 ml Output Net 517.32 ml Diet: ADULT DIET; Regular; No Added Salt (3-4 gm) Exam: BP 94/70 Pulse 60 Temp 97.7 F (36.5 C) (Oral) Resp 16 Ht 5' 7 (1.702 m) Wt 185 lb 4.8 oz (84.1 kg) LMP 06/04/2017 SpO2 93% BMI 29.02 kg/m General appearance: No apparent distress, appears stated age and cooperative HEENT: Normal cephalic, atraumatic without obvious deformity. Pupils equal, round, and reactive to light. Extra ocular muscles intact. Conjunctivae/corneas clear. Neck: Supple, with full range of motion. No jugular venous distention. Trachea midline. Respiratory: Mild scattered fine crackles on exam. No wheezes or rhonchi. Symmetric chest expansion. Regular nasal cannula in place Cardiovascular: Regular rate and rhythm with normal S1/S2 without murmurs, rubs or gallops. Abdomen: Soft, non-tender, non-distended with normal bowel sounds. Musculoskeletal: No clubbing, cyanosis or edema bilaterally. Skin: Skin color, texture, turgor normal. No rashes or lesions. Neurologic: Neurovascularly intact without any focal sensory/motor deficits. Cranial nerves: II-XII intact, grossly non-focal. Psychiatric: Alert and oriented, thought content appropriate, normal insight Capillary Refill: Brisk,< 3 seconds Peripheral Pulses: +2 palpable, equal bilaterally Labs: Recent Labs 08/10/21 0718 08/11/21 0634 08/12/21 0639 WBC 7.2 7.3 6.5 HGB 14.3 14.7 14.9 HCT 43.1 48.4* 44.2 PLT 367 360 424* Recent Labs 08/10/21 0718 08/11/21 0634 08/12/21 0639 NA 140 139 138 K 4.6 4.4 4.7 CL 103 106 102 CO2 27 21* 26 BUN 33* 31* 28* CREATININE 0.7 0.6 0.7 CALCIUM 8.9 8.8 8.8 No results for input(s): AST, ALT, BILIDIR, BILITOT, ALKPHOS in the last 72 hours. No results for input(s): INR in the last 72 hours. No results for input(s): CKTOTAL, TROPONINI in the last 72 hours. Microbiology: Blood culture #1: No results found for: BC Blood culture #2:No results found for: BLOODCULT2 Organism: Lab Results Component Value Date ORG Growth of Contaminants 02/13/2021 Lab Results Component Value Date LABGRAM 06/30/2017 Rare segmented neutrophils observed. Few epithelial cells observed. Many large gram positive bacilli. Few gram positive cocci in pairs. Smear consistent with Normal Vaginal Nayana. MRSA culture only:No results found for: MRSAC Urine culture: Lab Results Component Value Date LABURIN 02/13/2021 No growth-preliminary Growth of Contaminants. The mixture of organisms present are not a common cause of urinary tract infections and probably represent skin nayana or distal urethral nayana. Respiratory culture: No results found for: CULTRESP Aerobic and Anaerobic : No results found for: LABAERO No results found for: LABANAE Urinalysis: Lab Results Component Value Date NITRU Negative 02/13/2021 WBCUA NONE SEEN 10/30/2019 BACTERIA NONE SEEN 10/30/2019 RBCUA 0-2 10/30/2019 BLOODU Negative 02/13/2021 BLOODU Negative 04/04/2020 SPECGRAV 1.018 04/04/2020 GLUCOSEU Negative 02/13/2021 Radiology: XR CHEST PORTABLE Final Result 1. Poor inflation the lungs. Kyphotic positioning the patient. Normal heart size. 2. Moderate pneumonia/pulmonary edema both mid and lower lung caro. This report has been created using voice recognition software. It may contain minor errors which are inherent in voice recognition technology. Final report electronically signed by Dr. Bari Franklin on 08/06/2021 1:30 PM XR CHEST PORTABLE Result Date: 08/06/2021 PROCEDURE: XR CHEST PORTABLE CLINICAL INFORMATION: sob COMPARISON: No prior study. TECHNIQUE: A single mobile view of the chest was obtained. 1. Poor inflation the lungs. Kyphotic positioning the patient. Normal heart size. 2. Moderate pneumonia/pulmonary edema both mid and lower lung caro. This report has been created using voice recognition software. It may contain minor errors which are inherent in voice recognition technology. Final report electronically signed by Dr. Bari Franklin on 08/06/2021 1:30 PM Updated Dago will here for visit with plan of care and condition. Images from the original note were not included. Hospitalist Progress Note Patient: Yareli Joyner Unit/Bed:8B-21/021-A Date of : 1970 Acct: [id number] PCP: CELESTE Moffett CNP Date of Admission: 08/06/2021 Assessment/Plan: 1. Hypoxic respiratory failure 2. COVID-19 pneumonia a. Covid directed therapy i. Decadron 10 mg 08/06. Decadron 20 mg 08/07 current 08/07 current ii. Baricitinib 08/06 iii. As needed albuterol iv. Vitamin C/D and zinc b. Incentive spirometer and Acapella c. Patient is been titrated down to 1-2 L via nasal cannula today. d. Underwent a home oxygen evaluation, patient was only able to exercise minimally and barely made out of her room without significant lethargy, weakness, and hypoxia despite being on 6 L. Rest of the home oxygen evaluation was aborted. We will reassess and titrate oxygen as tolerated.. 3. Diarrhea a. Likely related to COVID-19 infection. If persistent diarrhea, will rule out C. difficile and send GI molecular panel. b. If negative for infection, will start the patient on as needed Imodium for symptomatic control. c. Encourage p.o. intake. Disposition: Anticipate discharge in 24 to 48 hours. Chief Complaint: Shortness of breath Hospital Course: 08/06: Patient presents to the hospital with 8 days of fevers, shortness of breath, and cough. Found to be COVID-19 positive and started on IV Decadron therapy. Initially required 4 L nasal cannula, but quickly uptitrated to high flow nasal cannula. 08/07. Patient stable on high flow nasal cannula. Decadron increased to 20 mg daily. 08/09: Patient weaned off high flow nasal cannula. Tolerating regular nasal cannula. Working with physical therapy/Occupational Therapy. Remains severely dyspneic and hypoxic with exertion. Subjective (past 24 hours): Patient is doing well. On minimal supplemental oxygen at rest. Continues have significant desaturations with minimal exertion. Attempted home oxygen evaluation today, but patient with severe symptoms and severe hypoxia despite 6 L via nasal cannula. No acute events overnight. Patient did have a few episodes of diarrhea. She states she gets this from time to time when she takes vitamins. Denies any abdominal pain, fevers, or chills. Past medical history, family history, social history and allergies reviewed again and is unchanged since admission. ROS (12 point review of systems completed. Pertinent positives noted. Otherwise ROS is negative) Medications: Reviewed Infusion Medications sodium chloride Scheduled Medications [START ON 08/12/2021] dexamethasone 10 mg IntraVENous Q24H sodium chloride flush 5-40 mL IntraVENous 2 times per day enoxaparin 40 mg SubCUTAneous Q24H ascorbic acid 500 mg Oral Daily Vitamin D 1,000 Units Oral Daily zinc sulfate 50 mg Oral Daily baricitinib 4 mg Oral Daily PRN Meds: sodium chloride flush, sodium chloride, ondansetron OR ondansetron, polyethylene glycol, acetaminophen OR acetaminophen, albuterol sulfate HFA Intake/Output Summary (Last 24 hours) at 08/11/2021 1354 Last data filed at 08/11/2021 1333 Gross per 24 hour Intake 381.32 ml Output Net 381.32 ml Diet: ADULT DIET; Regular; No Added Salt (3-4 gm) Exam: BP (!) 100/58 Pulse 67 Temp 97.6 F (36.4 C) (Oral) Resp 16 Ht 5' 7 (1.702 m) Wt 185 lb 4.8 oz (84.1 kg) LMP 06/04/2017 SpO2 92% BMI 29.02 kg/m General appearance: No apparent distress, appears stated age and cooperative HEENT: Normal cephalic, atraumatic without obvious deformity. Pupils equal, round, and reactive to light. Extra ocular muscles intact. Conjunctivae/corneas clear. Neck: Supple, with full range of motion. No jugular venous distention. Trachea midline. Respiratory: Mild scattered fine crackles on exam. No wheezes or rhonchi. Symmetric chest expansion. Regular nasal cannula in place Cardiovascular: Regular rate and rhythm with normal S1/S2 without murmurs, rubs or gallops. Abdomen: Soft, non-tender, non-distended with normal bowel sounds. Musculoskeletal: No clubbing, cyanosis or edema bilaterally. Skin: Skin color, texture, turgor normal. No rashes or lesions. Neurologic: Neurovascularly intact without any focal sensory/motor deficits. Cranial nerves: II-XII intact, grossly non-focal. Psychiatric: Alert and oriented, thought content appropriate, normal insight Capillary Refill: Brisk,< 3 seconds Peripheral Pulses: +2 palpable, equal bilaterally Labs: Recent Labs 08/09/21 0856 08/10/21 0718 08/11/21 0634 WBC 7.7 7.2 7.3 HGB 14.1 14.3 14.7 HCT 42.3 43.1 48.4* PLT 371 367 360 Recent Labs 08/09/21 0856 08/10/21 0718 08/11/21 0634 NA 142 140 139 K 4.6 4.6 4.4 CL 104 103 106 CO2 26 27 21* BUN 35* 33* 31* CREATININE 0.7 0.7 0.6 CALCIUM 9.1 8.9 8.8 No results for input(s): AST, ALT, BILIDIR, BILITOT, ALKPHOS in the last 72 hours. No results for input(s): INR in the last 72 hours. No results for input(s): CKTOTAL, TROPONINI in the last 72 hours. Microbiology: Blood culture #1: No results found for: BC Blood culture #2:No results found for: BLOODCULT2 Organism: Lab Results Component Value Date ORG Growth of Contaminants 02/13/2021 Lab Results Component Value Date LABGRAM 06/30/2017 Rare segmented neutrophils observed. Few epithelial cells observed. Many large gram positive bacilli. Few gram positive cocci in pairs. Smear consistent with Normal Vaginal Nayana. MRSA culture only:No results found for: MRSAC Urine culture: Lab Results Component Value Date LABURIN 02/13/2021 No growth-preliminary Growth of Contaminants. The mixture of organisms present are not a common cause of urinary tract infections and probably represent skin nayana or distal urethral nayana. Respiratory culture: No results found for: CULTRESP Aerobic and Anaerobic : No results found for: LABAERO No results found for: LABANAE Urinalysis: Lab Results Component Value Date NITRU Negative 02/13/2021 WBCUA NONE SEEN 10/30/2019 BACTERIA NONE SEEN 10/30/2019 RBCUA 0-2 10/30/2019 BLOODU Negative 02/13/2021 BLOODU Negative 04/04/2020 SPECGRAV 1.018 04/04/2020 GLUCOSEU Negative 02/13/2021 Radiology: XR CHEST PORTABLE Final Result 1. Poor inflation the lungs. Kyphotic positioning the patient. Normal heart size. 2. Moderate pneumonia/pulmonary edema both mid and lower lung caro. This report has been created using voice recognition software. It may contain minor errors which are inherent in voice recognition technology. Final report electronically signed by Dr. Bari Franklin on 08/06/2021 1:30 PM XR CHEST PORTABLE Result Date: 08/06/2021 PROCEDURE: XR CHEST PORTABLE CLINICAL INFORMATION: sob COMPARISON: No prior study. TECHNIQUE: A single mobile view of the chest was obtained. 1. Poor inflation the lungs. Kyphotic positioning the patient. Normal heart size. 2. Moderate pneumonia/pulmonary edema both mid and lower lung caro. This report has been created using voice recognition software. It may contain minor errors which are inherent in voice recognition technology. Final report electronically signed by Dr. Bari Franklin on 08/06/2021 1:30 PM Spoke with Dago. Update given, all questions answered. Spouse updated at the visit, stated didn't need called unless she turns for the worse. [facility] INPATIENT OCCUPATIONAL THERAPY STRZ MED SURG 8B EVALUATION Time: Time In: 1106 Time Out: 1140 Timed Code Treatment Minutes: 25 Minutes Minutes: 34 Date: 08/10/2021 Patient Name: Yareli Joyner, Gender: female : 1970 (51 y.o.) Referring Practitioner: Palmer Dave DO Diagnosis: Acute Respiratory Failure with hypoxia Additional Pertinent Hx: Patient states that over the last 9 days she has been developing worsening shortness of breath and came into the emergency room. Patient Dors is a nonproductive cough, chest pain, ageusia and anosmia. Patient states that the chest pain is diffuse and believes is secondary to coughing.. Pain is nonradiating 6 out of 10 intensity. Patient states that she is also experiencing severe nausea and a single episode of vomiting earlier today before coming to emergency department. Patient states that her children were recently sick with a viral illness however they did not get tested for Covid. Patient is not Covid vaccinated. Restrictions/Precautions: Restrictions/Precautions: Fall Risk, Isolation Position Activity Restriction Other position/activity restrictions: droplet + precautions, COVID-19 Subjective Chart Reviewed: Yes, Progress Notes, Orders, History and Physical Patient assessed for rehabilitation services?: Yes Subjective: Pleasant and cooperative Pain: Pain Assessment Patient Currently in Pain: Denies Vitals: Oxygen: pt on 6L O2 able to maintain ~90% during session except with standing and washing bottom, dropped to 82% requiring extended RB to recover. 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 Pt was IND with all functional mobility tasks, ADL and IADL's with no AD. Pt very IND and active prior. Pt completed grocery shopping, errands, and community mobiilty. Pt also helps care for her parents who live near her. VISION:WFL HEARING: WNL COGNITION: WNL RANGE OF MOTION: Bilateral Upper Extremity: WNL STRENGTH: Bilateral Upper Extremity: WNL SENSATION: WFL ADL: Grooming: Supervision. Bathing: Stand By Assistance and Contact Guard Assistance. while standing for balance Upper Extremity Dressing: Minimal Assistance. hospital gown Lower Extremity Dressing: Stand By Assistance and Contact Guard Assistance. standing to manage briefs. BALANCE: Sitting Balance: Supervision. Standing Balance: Contact Guard Assistance. -SBA BED MOBILITY: Not Tested TRANSFERS: Sit to Stand: Stand By Assistance. Stand to Sit: Stand By Assistance. FUNCTIONAL MOBILITY: Assistive Device: None Assist Level: Stand By Assistance. Distance: ~5 feet SOB and decreased O2 limiting distance Provided pt with energy conservation/work simplification handout for safe transition home. Reviewed education and pt actively participating in education with good understanding of education. Activity Tolerance: Patient tolerance of treatment: good. Assessment: Pt s/p covid. Pt exhibiting deficits detailed below, requiring additional OT intervention to restore independent PLOF. Pt now requiring assist for ADLs, IADLs, mobility, t/fs, and standing balance. Pt with significant increase in burden of care. Without skilled OT intervention pt at risk for functional decline, increased falls, and readmission to hospital. Performance deficits / Impairments: Decreased functional mobility , Decreased endurance, Decreased ADL status, Decreased balance, Decreased strength, Decreased safe awareness, Decreased high-level IADLs Prognosis: Good REQUIRES OT FOLLOW UP: Yes Treatment Initiated: Treatment and education initiated within context of evaluation. Evaluation time included review of current medical information, gathering information related to past medical, social and functional history, completion of standardized testing, formal and informal observation of tasks, assessment of data and development of plan of care and goals. Treatment time included skilled education and facilitation of tasks to increase safety and independence with ADL's for improved functional independence and quality of life. Discharge Recommendations: Home with assist PRN Patient Education: OT Education: OT Role, Plan of Care, ADL Adaptive Strategies, Transfer Training, Energy Conservation Equipment Recommendations: Equipment Needed: No Plan: Times per week: 5x Current Treatment Recommendations: Strengthening, Balance Training, Functional Mobility Training, Endurance Training, Self-Care / ADL, Safety Education & Training, Equipment Evaluation, Education, & procurement, Patient/Caregiver Education & Training. See long-term goal time frame for expected duration of plan of care. If no long-term goals established, a short length of stay is anticipated. Goals: Short term goals Time Frame for Short term goals: by discharge Short term goal 1: Pt will complete functional mobility to/from BR with Fabiola while maintaining O2 above 90% to increase indep with accessing environment for ADLs. Short term goal 2: Pt will complete LB ADL with Fabiola to increase indep with self care. Short term goal 3: Pt will complete dynamic standing task with Fabiola while maintianing O2 above 90% to increase balance required for grooming. Short term goal 4: Pt will complete simulated IADL with Fabiola while incorporating EC/WS techs to decrease SOB with cooking and cleaning. Following session, patient left in safe position with all fall risk precautions in place. Images from the original note were not included. Hospitalist Progress Note Patient: Yareli Joyner Unit/Bed:8B-21/021-A Date of : 1970 Acct: [id number] PCP: CELESTE Moffett CNP Date of Admission: 08/06/2021 Assessment/Plan: 1. Hypoxic respiratory failure 2. COVID-19 pneumonia a. Covid directed therapy i. Decadron 10 mg 08/06. Decadron 20 mg 08/07 current 08/07 current ii. Baricitinib 08/06 iii. As needed albuterol iv. Vitamin C/D and zinc b. Incentive spirometer and Acapella c. Patient has had significant improvement in her oxygen status. Currently tolerating regular cannula 3 to 5 L. Previously on high flow nasal cannula. d. PT/OT following. Disposition: Unknown, currently requiring high flow nasal cannula. Chief Complaint: Shortness of breath Hospital Course: 08/06: Patient presents to the hospital with 8 days of fevers, shortness of breath, and cough. Found to be COVID-19 positive and started on IV Decadron therapy. Initially required 4 L nasal cannula, but quickly uptitrated to high flow nasal cannula. 08/07. Patient stable on high flow nasal cannula. Decadron increased to 20 mg daily. 08/09: Patient weaned off high flow nasal cannula. Tolerating regular nasal cannula. Working with physical therapy/Occupational Therapy. Remains severely dyspneic and hypoxic with exertion. Subjective (past 24 hours): Patient states she feels pretty well today. Admits to just mild shortness of breath. Has a mild cough. Denies any fevers or chills. Has worked with physical therapy, but has fairly severe shortness of breath with exertion. No acute events overnight. Past medical history, family history, social history and allergies reviewed again and is unchanged since admission. ROS (12 point review of systems completed. Pertinent positives noted. Otherwise ROS is negative) Medications: Reviewed Infusion Medications sodium chloride Scheduled Medications dexamethasone 20 mg IntraVENous Q24H Followed by [START ON 08/12/2021] dexamethasone 10 mg IntraVENous Q24H sodium chloride flush 5-40 mL IntraVENous 2 times per day enoxaparin 40 mg SubCUTAneous Q24H ascorbic acid 500 mg Oral Daily Vitamin D 1,000 Units Oral Daily zinc sulfate 50 mg Oral Daily baricitinib 4 mg Oral Daily PRN Meds: sodium chloride flush, sodium chloride, ondansetron OR ondansetron, polyethylene glycol, acetaminophen OR acetaminophen, albuterol sulfate HFA Intake/Output Summary (Last 24 hours) at 08/10/2021 1356 Last data filed at 08/10/2021 0804 Gross per 24 hour Intake 10 ml Output Net 10 ml Diet: ADULT DIET; Regular; No Added Salt (3-4 gm) Exam: BP 108/63 Pulse 65 Temp 98.5 F (36.9 C) (Oral) Resp 16 Ht 5' 7 (1.702 m) Wt 185 lb 4.8 oz (84.1 kg) LMP 06/04/2017 SpO2 93% BMI 29.02 kg/m General appearance: No apparent distress, appears stated age and cooperative HEENT: Normal cephalic, atraumatic without obvious deformity. Pupils equal, round, and reactive to light. Extra ocular muscles intact. Conjunctivae/corneas clear. Neck: Supple, with full range of motion. No jugular venous distention. Trachea midline. Respiratory: Mild scattered fine crackles on exam. No wheezes or rhonchi. Symmetric chest expansion. Regular nasal cannula in place Cardiovascular: Regular rate and rhythm with normal S1/S2 without murmurs, rubs or gallops. Abdomen: Soft, non-tender, non-distended with normal bowel sounds. Musculoskeletal: No clubbing, cyanosis or edema bilaterally. Skin: Skin color, texture, turgor normal. No rashes or lesions. Neurologic: Neurovascularly intact without any focal sensory/motor deficits. Cranial nerves: II-XII intact, grossly non-focal. Psychiatric: Alert and oriented, thought content appropriate, normal insight Capillary Refill: Brisk,< 3 seconds Peripheral Pulses: +2 palpable, equal bilaterally Labs: Recent Labs 08/08/21 0703 08/09/21 0856 08/10/21 0718 WBC 7.7 7.7 7.2 HGB 13.9 14.1 14.3 HCT 43.1 42.3 43.1 PLT 378 371 367 Recent Labs 08/08/21 0703 08/09/21 0856 08/10/21 0718 NA 142 142 140 K 4.8 4.6 4.6 CL 104 104 103 CO2 23 26 27 BUN 29* 35* 33* CREATININE 0.7 0.7 0.7 CALCIUM 9.1 9.1 8.9 No results for input(s): AST, ALT, BILIDIR, BILITOT, ALKPHOS in the last 72 hours. No results for input(s): INR in the last 72 hours. No results for input(s): CKTOTAL, TROPONINI in the last 72 hours. Microbiology: Blood culture #1: No results found for: BC Blood culture #2:No results found for: BLOODCULT2 Organism: Lab Results Component Value Date ORG Growth of Contaminants 02/13/2021 Lab Results Component Value Date LABGRAM 06/30/2017 Rare segmented neutrophils observed. Few epithelial cells observed. Many large gram positive bacilli. Few gram positive cocci in pairs. Smear consistent with Normal Vaginal Nayana. MRSA culture only:No results found for: MRSAC Urine culture: Lab Results Component Value Date LABURIN 02/13/2021 No growth-preliminary Growth of Contaminants. The mixture of organisms present are not a common cause of urinary tract infections and probably represent skin nayana or distal urethral nayana. Respiratory culture: No results found for: CULTRESP Aerobic and Anaerobic : No results found for: LABAERO No results found for: LABANAE Urinalysis: Lab Results Component Value Date NITRU Negative 02/13/2021 WBCUA NONE SEEN 10/30/2019 BACTERIA NONE SEEN 10/30/2019 RBCUA 0-2 10/30/2019 BLOODU Negative 02/13/2021 BLOODU Negative 04/04/2020 SPECGRAV 1.018 04/04/2020 GLUCOSEU Negative 02/13/2021 Radiology: XR CHEST PORTABLE Final Result 1. Poor inflation the lungs. Kyphotic positioning the patient. Normal heart size. 2. Moderate pneumonia/pulmonary edema both mid and lower lung caro. This report has been created using voice recognition software. It may contain minor errors which are inherent in voice recognition technology. Final report electronically signed by Dr. Bari Franklin on 08/06/2021 1:30 PM XR CHEST PORTABLE Result Date: 08/06/2021 PROCEDURE: XR CHEST PORTABLE CLINICAL INFORMATION: sob COMPARISON: No prior study. TECHNIQUE: A single mobile view of the chest was obtained. 1. Poor inflation the lungs. Kyphotic positioning the patient. Normal heart size. 2. Moderate pneumonia/pulmonary edema both mid and lower lung caro. This report has been created using voice recognition software. It may contain minor errors which are inherent in voice recognition technology. Final report electronically signed by Dr. Bari Franklin on 08/06/2021 1:30 PM [facility] INPATIENT PHYSICAL THERAPY EVALUATION [facility] MED SURG 8B - 8B-21/021-A Time In: 726 Time Out: 752 Timed Code Treatment Minutes: 17 Minutes Minutes: 26 Date: 08/10/2021 Patient Name: Yareli Joyner, Gender: female : 1970 (51 y.o.) Referring Practitioner: Palmer Dave DO Diagnosis: acute respiratory failure with hypoxia Additional Pertinent Hx: Per chart Patient is a 51-year-old female with no significant past medical history presents to the hospital with approximately 8 days of fevers, shortness of breath, and cough. Patient is unvaccinated for COVID-19. She states that 8 days ago, she has been having fevers in the 101 102 range at home which she has been treating with Tylenol and Motrin. She has not seen a physician or had Covid testing until today. She has not received any steroids or antibiotics. She states that she has had worsening shortness of breath over the last few days. Complains of a dry cough. Denies any diarrhea or loss of taste or smell. In the ER, she was found to be hypoxic. She was placed on 4 L via nasal cannula and started on Decadron therapy. Restrictions/Precautions: Restrictions/Precautions: Fall Risk, Isolation Position Activity Restriction Other position/activity restrictions: droplet + precautions, COVID-19 Subjective: Chart Reviewed: Yes Patient assessed for rehabilitation services?: Yes Family / Caregiver Present: No Subjective: Ok to see pt per nursing. Per nursing, pt is in bed wanting her to get up in chair this AM, pt also on 5 L of O2 and nursing reporting pt drops with mobility and requires increased time for recovery. Pt in bed when therapy arrived, agreeable to PT session, wanting to stay in room, wanting to use commode. Pt reports she has been having some anxiety due to her SOB with activity. General: Overall Orientation Status: Within Normal Limits Vision: Within Functional Limits Hearing: Within functional limits Pain: denies Vitals: Oxygen: 5 L of O2, decreased into uppper 70s low 80s with mobility, increased to 6 L of O2 for improved recovery Education on proper breathing mechanics, good demo, increased time for recovery from mobility during session. 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 Pt was IND with all functional mobility tasks, ADL and IADL's with no AD. Pt very IND and active prior. Pt completed grocery shopping, errands, and community mobiilty. Pt also helps care for her parents who live near her. OBJECTIVE: Range of Motion: Bilateral Lower Extremity: WNL Strength: Bilateral Lower Extremity: WFL Balance: Static Sitting Balance: Independent Dynamic Sitting Balance: Independent Static Standing Balance: Stand By Assistance Dynamic Standing Balance: Stand By Assistance No AD required, pt completed aurelia care and required assist for safety to decrease falls. Bed Mobility: Rolling to Right: Supervision Supine to Sit: Supervision Sit to Supine: Supervision x2 completion, as pt wanted to lay back down after using bedside commode Transfers: Sit to Stand: Stand By Assistance Stand to Sit:Stand By Assistance Cues for safety, good demo, education on energy conservation to help improve O2 sats during session. Pt completed from various surfaces and heights, no LOB or dizziness or lightheadedness during session. Ambulation: Stand By Assistance, X 1, with cues for safety, with verbal cues Distance: 10 feet x, 3 feet x1 Surface: Level Tile Device:No Device Gait Deviations: Slow Natalia, Decreased Step Length Bilaterally, Decreased Gait Speed and Unsteady Gait Cues for safety, no LOB noted, required UE support intermittently Functional Outcome Measures: Completed [facility] Inpatient Mobility Raw Score : 19 [facility] Inpatient T-Scale Score : 45.44 ASSESSMENT: Activity Tolerance: Patient tolerance of treatment: fair. Increased anxiety noted and reported, low O2 sats with mobility Treatment Initiated: Treatment and education initiated within context of evaluation. Evaluation time included review of current medical information, gathering information related to past medical, social and functional history, completion of standardized testing, formal and informal observation of tasks, assessment of data and development of plan of care and goals. Treatment time included skilled education and facilitation of tasks to increase safety and independence with functional mobility for improved independence and quality of life. Assessment: Body structures, Functions, Activity limitations: Decreased functional mobility , Decreased balance, Decreased ADL status, Decreased strength, Decreased safe awareness, Decreased endurance Assessment: Pt cont to require skilled PT services to increase strength, progress with endurance, balance and safety to decrease risk for falls and return home to decrease reliance on family for support and to increase QOL. Prognosis: Good REQUIRES PT FOLLOW UP: Yes Discharge Recommendations: Discharge Recommendations: Continue to assess pending progress, Home with assist PRN, Home with Home health PT, Patient would benefit from continued therapy after discharge Patient Education: PT Education: General Safety, Gait Training, Goals, PT Role, Plan of Care, Precautions, Transfer Training, Energy Conservation, Functional Mobility Training Equipment Recommendations: Equipment Needed: No Plan: Times per week: 5x C Current Treatment Recommendations: Strengthening, Home Exercise Program, Neuromuscular Re-education, Safety Education & Training, Balance Training, Endurance Training, Patient/Caregiver Education & Training, Functional Mobility Training, Equipment Evaluation, Education, & procurement, Transfer Training, Gait Training, Stair training Goals: Patient goals : go the bathroom without fainting and to go home Short term goals Time Frame for Short term goals: by discharge Short term goal 1: Pt will amb with no AD with IND with good safety for >200 feet to progress towards PLOF safely. Short term goal 2: Pt will demo IND with transfers from various surfaces and heights with good safety to progress towards PLOF. Short term goal 3: Pt will complete stair negotiation for YASH in the home with IND to progress towards PLOF safely. snf goals Time Frame for snf goals : NA due to short ELOS Following session, patient left in safe position with all fall risk precautions in place. Pt left in bedside chair with all needs and call light in reach following session, nursing aware of O2 status during session. Spoke with Alllen. Update given, all questions answered. Patient's , Dago, was called and updated on patient's plan of care and condition. Questions answered and concerns addressed. Also explained visiting hours and rules if patient gets weaned to nasal cannula oxygen. Images from the original note were not included. Hospitalist Progress Note Patient: Yareli Joyner Unit/Bed:[facility]21/021-A Date of : 1970 Acct: [id number] PCP: CELESTE Moffett CNP Date of Admission: 08/06/2021 Assessment/Plan: 1. Hypoxic respiratory failure 2. COVID-19 pneumonia a. Covid directed therapy i. Decadron 10 mg 08/06. Will increase from 20 mg 08/07 current ii. Baricitinib 08/06 iii. As needed albuterol iv. Vitamin C/D and zinc b. Incentive spirometer and Acapella c. Mild improvement in patient's hypoxia today. Currently on FiO2 60% and 60 L on high flow nasal cannula. We will continue to wean as tolerated. d. PT/OT evaluation. Disposition: Unknown, currently requiring high flow nasal cannula. Chief Complaint: Shortness of breath Hospital Course: 08/06: Patient presents to the hospital with 8 days of fevers, shortness of breath, and cough. Found to be COVID-19 positive and started on IV Decadron therapy. Initially required 4 L nasal cannula, but quickly uptitrated to high flow nasal cannula. 08/07. Patient stable on high flow nasal cannula. Decadron increased to 20 mg daily. Subjective (past 24 hours): Patient is doing well. Remains dyspneic with minimal exertion. Continues to have mild cough. No fevers or chills. No acute events overnight. Patient noted to have mild hypotension this morning. She is asymptomatic with no lightheadedness, dizziness, chest pain, or palpitations. No orthostasis symptoms. States she runs mildly hypotensive at baseline. Past medical history, family history, social history and allergies reviewed again and is unchanged since admission. ROS (12 point review of systems completed. Pertinent positives noted. Otherwise ROS is negative) Medications: Reviewed Infusion Medications sodium chloride Scheduled Medications dexamethasone 20 mg IntraVENous Q24H Followed by [START ON 08/12/2021] dexamethasone 10 mg IntraVENous Q24H sodium chloride flush 5-40 mL IntraVENous 2 times per day enoxaparin 40 mg SubCUTAneous Q24H ascorbic acid 500 mg Oral Daily Vitamin D 1,000 Units Oral Daily zinc sulfate 50 mg Oral Daily baricitinib 4 mg Oral Daily PRN Meds: sodium chloride flush, sodium chloride, ondansetron OR ondansetron, polyethylene glycol, acetaminophen OR acetaminophen, albuterol sulfate HFA Intake/Output Summary (Last 24 hours) at 08/09/2021 1425 Last data filed at 08/09/2021 0830 Gross per 24 hour Intake 190 ml Output Net 190 ml Diet: ADULT DIET; Regular; No Added Salt (3-4 gm) Exam: BP (!) 94/59 Pulse 79 Temp 98.2 F (36.8 C) (Oral) Resp 20 Ht 5' 7 (1.702 m) Wt 185 lb 4.8 oz (84.1 kg) LMP 06/04/2017 SpO2 92% BMI 29.02 kg/m General appearance: No apparent distress, appears stated age and cooperative HEENT: Normal cephalic, atraumatic without obvious deformity. Pupils equal, round, and reactive to light. Extra ocular muscles intact. Conjunctivae/corneas clear. Neck: Supple, with full range of motion. No jugular venous distention. Trachea midline. Respiratory: Mild scattered fine crackles on exam. No wheezes or rhonchi. Symmetric chest expansion. High flow nasal cannula in place Cardiovascular: Regular rate and rhythm with normal S1/S2 without murmurs, rubs or gallops. Abdomen: Soft, non-tender, non-distended with normal bowel sounds. Musculoskeletal: No clubbing, cyanosis or edema bilaterally. Skin: Skin color, texture, turgor normal. No rashes or lesions. Neurologic: Neurovascularly intact without any focal sensory/motor deficits. Cranial nerves: II-XII intact, grossly non-focal. Psychiatric: Alert and oriented, thought content appropriate, normal insight Capillary Refill: Brisk,< 3 seconds Peripheral Pulses: +2 palpable, equal bilaterally Labs: Recent Labs 08/07/21 0847 08/08/21 0703 08/09/21 0856 WBC 4.1* 7.7 7.7 HGB 13.6 13.9 14.1 HCT 41.0 43.1 42.3 PLT 322 378 371 Recent Labs 08/07/21 0847 08/08/21 0703 08/09/21 0856 NA 141 142 142 K 4.0 4.8 4.6 CL 103 104 104 CO2 27 23 26 BUN 18 29* 35* CREATININE 0.6 0.7 0.7 CALCIUM 9.2 9.1 9.1 No results for input(s): AST, ALT, BILIDIR, BILITOT, ALKPHOS in the last 72 hours. No results for input(s): INR in the last 72 hours. No results for input(s): CKTOTAL, TROPONINI in the last 72 hours. Microbiology: Blood culture #1: No results found for: BC Blood culture #2:No results found for: BLOODCULT2 Organism: Lab Results Component Value Date ORG Growth of Contaminants 02/13/2021 Lab Results Component Value Date LABGRAM 06/30/2017 Rare segmented neutrophils observed. Few epithelial cells observed. Many large gram positive bacilli. Few gram positive cocci in pairs. Smear consistent with Normal Vaginal Nayana. MRSA culture only:No results found for: MRSAC Urine culture: Lab Results Component Value Date LABURIN 02/13/2021 No growth-preliminary Growth of Contaminants. The mixture of organisms present are not a common cause of urinary tract infections and probably represent skin nayana or distal urethral nayana. Respiratory culture: No results found for: CULTRESP Aerobic and Anaerobic : No results found for: LABAERO No results found for: LABANAE Urinalysis: Lab Results Component Value Date NITRU Negative 02/13/2021 WBCUA NONE SEEN 10/30/2019 BACTERIA NONE SEEN 10/30/2019 RBCUA 0-2 10/30/2019 BLOODU Negative 02/13/2021 BLOODU Negative 04/04/2020 SPECGRAV 1.018 04/04/2020 GLUCOSEU Negative 02/13/2021 Radiology: XR CHEST PORTABLE Final Result 1. Poor inflation the lungs. Kyphotic positioning the patient. Normal heart size. 2. Moderate pneumonia/pulmonary edema both mid and lower lung caro. This report has been created using voice recognition software. It may contain minor errors which are inherent in voice recognition technology. Final report electronically signed by Dr. Bari Franklin on 08/06/2021 1:30 PM XR CHEST PORTABLE Result Date: 08/06/2021 PROCEDURE: XR CHEST PORTABLE CLINICAL INFORMATION: sob COMPARISON: No prior study. TECHNIQUE: A single mobile view of the chest was obtained. 1. Poor inflation the lungs. Kyphotic positioning the patient. Normal heart size. 2. Moderate pneumonia/pulmonary edema both mid and lower lung caro. This report has been created using voice recognition software. It may contain minor errors which are inherent in voice recognition technology. Final report electronically signed by Dr. Bari Franklin on 08/06/2021 1:30 PM Spoke with Dago. Update given. All questions answered. Spouse, Dago called and updated on plan of care for Yareli. Questions answered at this time. Images from the original note were not included. Hospitalist Progress Note Patient: Yareli oJyner Unit/Bed:8B-21/021-A Date of : 1970 Acct: [id number] PCP: CELESTE Moffett CNP Date of Admission: 08/06/2021 Assessment/Plan: 1. Hypoxic respiratory failure 2. COVID-19 pneumonia a. Covid directed therapy i. Decadron 10 mg 08/06. Will increase from 20 mg 08/07 current ii. Baricitinib 08/06 iii. As needed albuterol iv. Vitamin C/D and zinc b. Incentive spirometer and Acapella c. Patient is mildly improved her oxygen requirements today. Currently on high flow nasal cannula at 70% 60 L. Disposition: Unknown, currently requiring high flow nasal cannula. Chief Complaint: Shortness of breath Hospital Course: 08/06: Patient presents to the hospital with 8 days of fevers, shortness of breath, and cough. Found to be COVID-19 positive and started on IV Decadron therapy. Initially required 4 L nasal cannula, but quickly uptitrated to high flow nasal cannula. Chest 19. Patient stable on high flow nasal cannula. Decadron increased to 20 mg daily. Subjective (past 24 hours): Patient states she feels pretty well today. She did have an episode of desaturation after ambulating to the bedside commode and having a coughing fit. She is since recovered. She states she overall feels better than yesterday. No acute events overnight. Past medical history, family history, social history and allergies reviewed again and is unchanged since admission. ROS (12 point review of systems completed. Pertinent positives noted. Otherwise ROS is negative) Medications: Reviewed Infusion Medications sodium chloride Scheduled Medications dexamethasone 20 mg IntraVENous Q24H Followed by [START ON 08/12/2021] dexamethasone 10 mg IntraVENous Q24H sodium chloride flush 5-40 mL IntraVENous 2 times per day enoxaparin 40 mg SubCUTAneous Q24H ascorbic acid 500 mg Oral Daily Vitamin D 1,000 Units Oral Daily zinc sulfate 50 mg Oral Daily baricitinib 4 mg Oral Daily PRN Meds: sodium chloride flush, sodium chloride, ondansetron OR ondansetron, polyethylene glycol, acetaminophen OR acetaminophen, albuterol sulfate HFA Intake/Output Summary (Last 24 hours) at 08/08/2021 1353 Last data filed at 08/08/2021 0348 Gross per 24 hour Intake 240 ml Output Net 240 ml Diet: ADULT DIET; Regular; No Added Salt (3-4 gm) Exam: BP 110/71 Pulse 70 Temp 98.6 F (37 C) (Oral) Resp 18 Ht 5' 7 (1.702 m) Wt 185 lb 4.8 oz (84.1 kg) LMP 06/04/2017 SpO2 90% BMI 29.02 kg/m General appearance: No apparent distress, appears stated age and cooperative HEENT: Normal cephalic, atraumatic without obvious deformity. Pupils equal, round, and reactive to light. Extra ocular muscles intact. Conjunctivae/corneas clear. Neck: Supple, with full range of motion. No jugular venous distention. Trachea midline. Respiratory: Mild scattered fine crackles on exam. No wheezes or rhonchi. Symmetric chest expansion. High flow nasal cannula in place Cardiovascular: Regular rate and rhythm with normal S1/S2 without murmurs, rubs or gallops. Abdomen: Soft, non-tender, non-distended with normal bowel sounds. Musculoskeletal: No clubbing, cyanosis or edema bilaterally. Skin: Skin color, texture, turgor normal. No rashes or lesions. Neurologic: Neurovascularly intact without any focal sensory/motor deficits. Cranial nerves: II-XII intact, grossly non-focal. Psychiatric: Alert and oriented, thought content appropriate, normal insight Capillary Refill: Brisk,< 3 seconds Peripheral Pulses: +2 palpable, equal bilaterally Labs: Recent Labs 08/06/21 1323 08/07/21 0847 08/08/21 0703 WBC 5.6 4.1* 7.7 HGB 13.9 13.6 13.9 HCT 42.2 41.0 43.1 PLT 234 322 378 Recent Labs 08/06/21 1323 08/07/21 0847 08/08/21 0703 NA 141 141 142 K 3.9 4.0 4.8 CL 102 103 104 CO2 26 27 23 BUN 11 18 29* CREATININE 0.7 0.6 0.7 CALCIUM 9.1 9.2 9.1 Recent Labs 08/06/21 1323 AST 71* ALT 104* BILITOT 0.4 ALKPHOS 83 Recent Labs 08/06/21 1323 INR 1.06 No results for input(s): CKTOTAL, TROPONINI in the last 72 hours. Microbiology: Blood culture #1: No results found for: BC Blood culture #2:No results found for: BLOODCULT2 Organism: Lab Results Component Value Date ORG Growth of Contaminants 02/13/2021 Lab Results Component Value Date LABGRAM 06/30/2017 Rare segmented neutrophils observed. Few epithelial cells observed. Many large gram positive bacilli. Few gram positive cocci in pairs. Smear consistent with Normal Vaginal Nayana. MRSA culture only:No results found for: MRSAC Urine culture: Lab Results Component Value Date LABURIN 02/13/2021 No growth-preliminary Growth of Contaminants. The mixture of organisms present are not a common cause of urinary tract infections and probably represent skin nayana or distal urethral nayana. Respiratory culture: No results found for: CULTRESP Aerobic and Anaerobic : No results found for: LABAERO No results found for: LABANAE Urinalysis: Lab Results Component Value Date NITRU Negative 02/13/2021 WBCUA NONE SEEN 10/30/2019 BACTERIA NONE SEEN 10/30/2019 RBCUA 0-2 10/30/2019 BLOODU Negative 02/13/2021 BLOODU Negative 04/04/2020 SPECGRAV 1.018 04/04/2020 GLUCOSEU Negative 02/13/2021 Radiology: XR CHEST PORTABLE Final Result 1. Poor inflation the lungs. Kyphotic positioning the patient. Normal heart size. 2. Moderate pneumonia/pulmonary edema both mid and lower lung caro. This report has been created using voice recognition software. It may contain minor errors which are inherent in voice recognition technology. Final report electronically signed by Dr. Bari Franklin on 08/06/2021 1:30 PM XR CHEST PORTABLE Result Date: 08/06/2021 PROCEDURE: XR CHEST PORTABLE CLINICAL INFORMATION: sob COMPARISON: No prior study. TECHNIQUE: A single mobile view of the chest was obtained. 1. Poor inflation the lungs. Kyphotic positioning the patient. Normal heart size. 2. Moderate pneumonia/pulmonary edema both mid and lower lung caro. This report has been created using voice recognition software. It may contain minor errors which are inherent in voice recognition technology. Final report electronically signed by Dr. Bari Franklin on 08/06/2021 1:30 PM Called and updated patient's spouse Dago on plan of care. Addressed all questions and concerns. Spouse, Dago updated on patients status and updates for the day. Questions from spouse answered appropriately. Images from the original note were not included. Hospitalist Progress Note Patient: Yareli Joyner Unit/Bed:[facility]/021-A Date of : 1970 Acct: [id number] PCP: Caitlyn Ferguson APRN - [facility] Date of Admission: 08/06/2021 Assessment/Plan: 1. Hypoxic respiratory failure 2. COVID-19 pneumonia a. Covid directed therapy i. Decadron 10 mg 08/06. Will increase Decadron to 20 mg today, 08/07. ii. Baricitinib 08/06 iii. As needed albuterol iv. Vitamin C/D and zinc b. Incentive spirometer and Acapella c. Patient with worsening oxygen requirements overnight. Currently on high flow nasal cannula FiO2 of 90%, 60 L. Maintaining appropriate oxygen saturation in the low 90s on the settings. Disposition: Unknown, currently requiring high flow nasal cannula. Chief Complaint: Shortness of breath Hospital Course: 08/06: Patient presents to the hospital with 8 days of fevers, shortness of breath, and cough. Found to be COVID-19 positive and started on IV Decadron therapy. Initially required 4 L nasal cannula, but quickly uptitrated to high flow nasal cannula. Subjective (past 24 hours): Patient with worsening oxygen status overnight. Currently on high flow nasal cannula. States that she feels more worn down and short of breath today. Denies any chest pain, palpitations, or lower extremity pain/swelling. Past medical history, family history, social history and allergies reviewed again and is unchanged since admission. ROS (12 point review of systems completed. Pertinent positives noted. Otherwise ROS is negative) Medications: Reviewed Infusion Medications sodium chloride Scheduled Medications dexamethasone 20 mg IntraVENous Q24H Followed by [START ON 08/12/2021] dexamethasone 10 mg IntraVENous Q24H sodium chloride flush 5-40 mL IntraVENous 2 times per day enoxaparin 40 mg SubCUTAneous Q24H ascorbic acid 500 mg Oral Daily Vitamin D 1,000 Units Oral Daily zinc sulfate 50 mg Oral Daily baricitinib 4 mg Oral Daily PRN Meds: sodium chloride flush, sodium chloride, ondansetron OR ondansetron, polyethylene glycol, acetaminophen OR acetaminophen, albuterol sulfate HFA Intake/Output Summary (Last 24 hours) at 08/07/2021 1436 Last data filed at 08/07/2021 0800 Gross per 24 hour Intake 10 ml Output Net 10 ml Diet: ADULT DIET; Regular; No Added Salt (3-4 gm) Exam: BP (!) 108/58 Pulse 74 Temp 97.6 F (36.4 C) (Oral) Resp 20 Ht 5' 7 (1.702 m) Wt 185 lb 4.8 oz (84.1 kg) LMP 06/04/2017 SpO2 96% BMI 29.02 kg/m General appearance: No apparent distress, appears stated age and cooperative HEENT: Normal cephalic, atraumatic without obvious deformity. Pupils equal, round, and reactive to light. Extra ocular muscles intact. Conjunctivae/corneas clear. Neck: Supple, with full range of motion. No jugular venous distention. Trachea midline. Respiratory: Mild scattered fine crackles on exam. No wheezes or rhonchi. Symmetric chest expansion. High flow nasal cannula in place Cardiovascular: Regular rate and rhythm with normal S1/S2 without murmurs, rubs or gallops. Abdomen: Soft, non-tender, non-distended with normal bowel sounds. Musculoskeletal: No clubbing, cyanosis or edema bilaterally. Skin: Skin color, texture, turgor normal. No rashes or lesions. Neurologic: Neurovascularly intact without any focal sensory/motor deficits. Cranial nerves: II-XII intact, grossly non-focal. Psychiatric: Alert and oriented, thought content appropriate, normal insight Capillary Refill: Brisk,< 3 seconds Peripheral Pulses: +2 palpable, equal bilaterally Labs: Recent Labs 08/06/21 1323 08/07/21 0847 WBC 5.6 4.1* HGB 13.9 13.6 HCT 42.2 41.0 PLT 234 322 Recent Labs 08/06/21 1323 08/07/21 0847 NA 141 141 K 3.9 4.0 CL 102 103 CO2 26 27 BUN 11 18 CREATININE 0.7 0.6 CALCIUM 9.1 9.2 Recent Labs 08/06/21 1323 AST 71* ALT 104* BILITOT 0.4 ALKPHOS 83 Recent Labs 08/06/21 1323 INR 1.06 No results for input(s): CKTOTAL, TROPONINI in the last 72 hours. Microbiology: Blood culture #1: No results found for: BC Blood culture #2:No results found for: BLOODCULT2 Organism: Lab Results Component Value Date ORG Growth of Contaminants 02/13/2021 Lab Results Component Value Date LABGRAM 06/30/2017 Rare segmented neutrophils observed. Few epithelial cells observed. Many large gram positive bacilli. Few gram positive cocci in pairs. Smear consistent with Normal Vaginal Nayana. MRSA culture only:No results found for: MRSAC Urine culture: Lab Results Component Value Date LABURIN 02/13/2021 No growth-preliminary Growth of Contaminants. The mixture of organisms present are not a common cause of urinary tract infections and probably represent skin nayana or distal urethral nayana. Respiratory culture: No results found for: CULTRESP Aerobic and Anaerobic : No results found for: LABAERO No results found for: LABANAE Urinalysis: Lab Results Component Value Date NITRU Negative 02/13/2021 WBCUA NONE SEEN 10/30/2019 BACTERIA NONE SEEN 10/30/2019 RBCUA 0-2 10/30/2019 BLOODU Negative 02/13/2021 BLOODU Negative 04/04/2020 SPECGRAV 1.018 04/04/2020 GLUCOSEU Negative 02/13/2021 Radiology: XR CHEST PORTABLE Final Result 1. Poor inflation the lungs. Kyphotic positioning the patient. Normal heart size. 2. Moderate pneumonia/pulmonary edema both mid and lower lung caro. This report has been created using voice recognition software. It may contain minor errors which are inherent in voice recognition technology. Final report electronically signed by Dr. Bari Franklin on 08/06/2021 1:30 PM XR CHEST PORTABLE Result Date: 08/06/2021 PROCEDURE: XR CHEST PORTABLE CLINICAL INFORMATION: sob COMPARISON: No prior study. TECHNIQUE: A single mobile view of the chest was obtained. 1. Poor inflation the lungs. Kyphotic positioning the patient. Normal heart size. 2. Moderate pneumonia/pulmonary edema both mid and lower lung caro. This report has been created using voice recognition software. It may contain minor errors which are inherent in voice recognition technology. Final report electronically signed by Dr. Bari Franklin on 08/06/2021 1:30 PM Called and updated patient's Dago, and updated on plan of care. Addressed all questions and concerns. Pt admitted to 8[facility]21 via from stretcher from ED. Complaints: Shortness of breath. COVID + IV none infusing into the antecubital left, condition patent IV site free of s/s of infection or infiltration. Vital signs obtained. Assessment and data collection initiated. Two nurse skin assessment performed by Melissa Darden RN and Annalisa WHEELER. Oriented to room. Policies and procedures for [facility] explained. All questions answered with no further questions at this time. Fall prevention and safety brochure discussed with patient. Bed alarm on. Call light in reach.Oriented to room. Melissa Bee RN, RN 08/06/2021 10:06 PM Explained patients right to have family, technical sales representatives or physician notified of their admission. Patient has Declined for physician to be notified. Patient has Declined for family/technical sales representatives to be notified. Patient would like family notified once per shift? No documented in this encounter [address] Phone: 08-14-2021 Hospital DischFlor Nelson RN - 08/14/2021 Images from the original note were not included. Learning About COVID-19 and Flu Symptoms How can you tell COVID-19 from the flu? COVID-19 and the flu have similar symptoms. The two can be hard to tell apart. The only way to know for sure which illness you have is to be tested. Since the symptoms are so alike, it makes sense to act as if you have COVID-19 until your test results come back. This means staying home and limiting contact with people in your home. You'll need to wash your hands often and disinfect surfaces that you touch. And be sure to wear a mask when you're around other people. This is also good advice if you think you have the flu. COVID-19 and the flu have these symptoms in common: Fever or chills Cough Shortness of breath Fatigue (tiredness) Sore throat Runny or stuffy nose Muscle and body aches Headache Vomiting and diarrhea (more common in children than adults) COVID-19 has another symptom that also may occur: New loss of taste or smell COVID-19 symptoms may appear from 2 to 14 days after infection. Flu symptoms usually appear 1 to 4 days after infection. Why should you get a flu shot during the COVID-19 pandemic? It's important to get your yearly flu vaccine. Both the flu and COVID-19 can be active at the same time. You can get sick with both infections at once. And having both may make you more sick than getting just one. The flu vaccine won't protect you from COVID-19. But it can help prevent the flu or reduce its symptoms. If fewer people get very ill with the flu, this will help free up medical resources that are needed for COVID-19 patients. Where can you learn more? Go to [email or web address] and sign in to your [employer] account. Enter C123 in the Search Health Information box to learn more about Learning About COVID-19 and Flu Symptoms. If you do not have an account, please click on the Sign Up Now link. Current as of: January 12, 2021 Content Version: 13.0 [employer]. Care instructions adapted under license by [employer]. If you have questions about a medical condition or this instruction, always ask your healthcare professional. [employer] disclaims any warranty or liability for your use of this information. albuterol and ipratropium (inhalation) Pronunciation: garcia faustin ol and SALOMÓN chase um Brand: Combivent Respimat What is the most important information I should know about albuterol and ipratropium inhalation? Seek medical attention if your breathing problems get worse quickly, or if you think your medications are not working as well. Overuse of albuterol and ipratropium may increase the risk of . It is critical that you use only the prescribed dose of this medicine. What is albuterol and ipratropium inhalation? Albuterol and ipratropium are bronchodilators that relax muscles in the airways and increase air flow to the lungs. Albuterol and ipratropium inhalation is used to prevent bronchospasm in people with chronic obstructive pulmonary disease (COPD) who are also using other medicines to control their condition. Albuterol and ipratropium inhalation may also be used for purposes not listed in this medication guide. What should I discuss with my healthcare provider before using albuterol and ipratropium inhalation? You should not use this medicine if you are allergic to albuterol, ipratropium, or atropine. Tell your doctor if you have ever had: heart disease, high blood pressure, coronary artery disease, or heart rhythm disorder; a seizure disorder such as epilepsy; diabetes; overactive thyroid; glaucoma; liver or kidney disease; or enlarged prostate, problems with urination. Tell your doctor if you are or . This medicine is not approved for use by anyone younger than 18 years old. How should I use albuterol and ipratropium inhalation? Follow all directions on your prescription label and read all medication guides or instruction sheets. Use the medicine exactly as directed. Albuterol and ipratropium inhalation is usually used 4 times per day. Follow your doctor's dosing instructions very carefully. Do not use more than 6 inhalations in a 24-hour period. Overuse of this medicine may increase the risk of . It is critical that you use only the prescribed dose of this medicine. Read and carefully follow any Instructions for Use provided with your medicine. Ask your doctor or pharmacist if you do not understand these instructions. Always use the new inhaler device provided with your refill. To use the inhaler: You do not need to shake the inhaler before use. Uncap the mouthpiece of the inhaler. Breathe out fully. Put the mouthpiece into your mouth and close your lips. Keep your eyes closed to prevent spraying any medicine into your eyes. Breathe in slowly while pressing the dose-release button on the inhaler. Hold your breath for 10 seconds, then breathe out slowly. Close the cap until you use your inhaler again. Carefully follow all directions for cleaning your specific inhaler device once per week. Keep track of the number of sprays you have used. Throw away the Combivent Respimat inhaler canister after 3 months or 120 sprays, whichever comes first. To use the solution with a nebulizer: Open the foil pouch and remove one vial. Empty the medicine into the chamber of the nebulizer. Attach the mouthpiece or face mask, then attach the drug chamber to the compressor. Sit upright in a comfortable position. Place the mouthpiece into your mouth or put on the face mask, covering your nose and mouth. Turn on the compressor. Breathe in slowly and evenly until no more mist is formed by the nebulizer and the drug chamber is empty. Clean the nebulizer after each use. Follow the cleaning directions that came with your nebulizer. Seek medical attention if your breathing problems get worse quickly, or if you think your medications are not working as well. To make sure this medicine is not causing harmful effects on your lungs, you may need to have chest X rays or other frequent lung function tests. Store at room temperature away from moisture, heat, and light. Do not freeze. Keep each vial in its foil pouch until you are ready to use it. Keep the cover on your inhaler when not in use. Keep away from open flame or high heat. The canister may explode if it gets too hot. Do not puncture or burn an empty inhaler canister. What happens if I miss a dose? Use the medicine as soon as you can, but skip the missed dose if it is almost time for your next dose. Do not use two doses at one time. Get your prescription refilled before you run out of medicine completely. What happens if I overdose? Seek emergency medical attention or call the Poison Help line at . An overdose of albuterol and ipratropium can be fatal. Overdose symptoms may include chest pain, fast or pounding heartbeats, tremors, dry mouth, extreme thirst, muscle weakness or limp feeling, severe headache, pounding in your neck or ears, or feeling like you might pass out. What should I avoid while using albuterol and ipratropium inhalation? If this medication gets in your eyes, rinse with water and seek medical attention. Avoid driving or hazardous activity until you know how this medicine will affect you. Your vision or reactions could be impaired. What are the possible side effects of albuterol and ipratropium inhalation? Get emergency medical help if you have signs of an allergic reaction: hives; difficult breathing; swelling of your face, lips, tongue, or throat. Call your doctor at once if you have: wheezing, choking, or other breathing problems after using this medicine; chest pain; fast or pounding heartbeats, fluttering in your chest; tremors, nervousness; swelling of your ankles or feet; blurred vision, tunnel vision, eye pain, or seeing halos around lights; painful or difficult urination; or low potassium --leg cramps, constipation, irregular heartbeats, fluttering in your chest, increased thirst or urination, numbness or tingling, muscle weakness or limp feeling. Common side effects may include: headache; trouble breathing; or cold symptoms such as stuffy nose, sneezing, cough, or sore throat. This is not a complete list of side effects and others may occur. Call your doctor for medical advice about side effects. You may report side effects to FDA at 3-957-WFD-6679. What other drugs will affect albuterol and ipratropium inhalation? Tell your doctor about all your other medicines, especially: a diuretic or water pill; heart or blood pressure medicine; other beta-blockers; or an antidepressant. This list is not complete. Other drugs may affect albuterol and ipratropium, including prescription and [id number]-yucfnms medicines, vitamins, and herbal products. Not all possible drug interactions are listed here. Where can I get more information? Your pharmacist can provide more information about albuterol and ipratropium inhalation. Remember, keep this and all other medicines out of the reach of children, never share your medicines with others, and use this medication only for the indication prescribed. Every effort has been made to ensure that the information provided by [employer] is accurate, up-to-date, and complete, but no guarantee is made to that effect. Drug information contained herein may be time sensitive. [employer] information has been compiled for use by healthcare practitioners and consumers in the [place] and therefore [employer] does not warrant that uses outside of the [place] are appropriate, unless specifically indicated otherwise. [facility] drug information does not endorse drugs, diagnose patients or recommend therapy. [facility] drug information is an informational resource designed to assist licensed healthcare practitioners in caring for their patients and/or to serve consumers viewing this service as a supplement to, and not a substitute for, the expertise, skill, knowledge and judgment of healthcare practitioners. The absence of a warning for a given drug or drug combination in no way should be construed to indicate that the drug or drug combination is safe, effective or appropriate for any given patient. [employer] does not assume any responsibility for any aspect of healthcare administered with the aid of information [employer] provides. The information contained herein is not intended to cover all possible uses, directions, precautions, warnings, drug interactions, allergic reactions, or adverse effects. If you have questions about the drugs you are taking, check with your doctor, nurse or pharmacist. Copyright 2640-3057 [employer]. Version: 8.01. Revision date: 07/24/2020. Care instructions adapted under license by [employer]. If you have questions about a medical condition or this instruction, always ask your healthcare professional. [employer] disclaims any warranty or liability for your use of this information. dexamethasone (oral) Pronunciation: dex a METH a sone Brand: Decadron, DexPak 6 DayTaperpak, Hemady What is the most important information I should know about dexamethasone? You should not use this medicine if you have a fungal infection anywhere in your body. Tell your doctor about all your medical conditions, and all the medicines you are using. There are many other diseases that can be affected by steroid use, and many other medicines that can interact with steroids. What is dexamethasone? There are many brands and forms of dexamethasone available. Not all brands are listed on this leaflet. Dexamethasone is a steroid that prevents the release of substances in the body that cause inflammation. Dexamethasone is used to treat many different conditions such as allergic disorders, skin conditions, ulcerative colitis, arthritis, lupus, psoriasis, or breathing disorders. Dexamethasone may also be used for purposes not listed in this medication guide. What should I discuss with my healthcare provider before taking dexamethasone? You should not use dexamethasone if you are allergic to it, or if you have: a fungal infection anywhere in your body. Tell your doctor if you have ever had: liver disease (such as cirrhosis); kidney disease; a thyroid disorder; malaria; tuberculosis; osteoporosis; a muscle disorder such as myasthenia gravis; diabetes (steroid medicine may increase glucose levels in your blood or urine); glaucoma or cataracts; herpes infection of the eyes; stomach ulcers, ulcerative colitis, diverticulitis, inflammatory bowel disease; depression or mental illness; congestive heart failure; or high blood pressure. Steroid medication affects your immune system. You may get infections more easily. Steroids can also worsen or reactivate an infection you've already had. Tell your doctor about any illness or infection you have had within the past several weeks. It is not known whether this medicine will harm an unborn baby. Tell your doctor if you are . You should not breastfeed while using dexamethasone. How should I take dexamethasone? Follow all directions on your prescription label and read all medication guides or instruction sheets. Your doctor may occasionally change your dose. Use the medicine exactly as directed. Your dose needs may change due to surgery, illness, stress, or a medical emergency. Tell your doctor about any such situation that affects you. This medicine can affect the results of certain medical tests. Tell any doctor who treats you that you are using dexamethasone. Do not stop using dexamethasone suddenly, or you could have unpleasant withdrawal symptoms. Ask your doctor how to safely stop using this medicine. In case of emergency, wear or carry medical identification to let others know you use dexamethasone. Store at room temperature away from moisture and heat. What happens if I miss a dose? Call your doctor for instructions if you miss a dose of dexamethasone. What happens if I overdose? Seek emergency medical attention or call the Poison Help line at . An overdose of dexamethasone is not expected to produce life threatening symptoms. snf use of high doses can lead to thinning skin, easy bruising, changes in body fat (especially in your face, neck, back, and waist), increased acne or facial hair, menstrual problems, impotence, or loss of interest in sex. What should I avoid while taking dexamethasone? Avoid being near people who are sick or have infections. Call your doctor for preventive treatment if you are exposed to chickenpox or measles. These conditions can be serious or even fatal in people who are using steroid medicine. Avoid drinking alcohol while you are taking dexamethasone. Do not receive a live vaccine while using dexamethasone. The vaccine may not work as well during this time, and may not fully protect you from disease. Live vaccines include measles, mumps, rubella (MMR), polio, rotavirus, typhoid, yellow fever, varicella (chickenpox), and zoster (shingles). What are the possible side effects of dexamethasone? Get emergency medical help if you have signs of an allergic reaction: hives; difficulty breathing; swelling of your face, lips, tongue, or throat. Call your doctor at once if you have: muscle tightness, weakness, or limp feeling; blurred vision, tunnel vision, eye pain, or seeing halos around lights; shortness of breath (even with mild exertion), swelling, rapid weight gain; severe depression, unusual thoughts or behavior; a seizure (convulsions); bloody or tarry stools, coughing up blood; fast or slow heart rate, weak pulse; pancreatitis --severe pain in your upper stomach spreading to your back, nausea and vomiting; low potassium level --leg cramps, constipation, irregular heartbeats, fluttering in your chest, increased thirst or urination, numbness or tingling; or increased blood pressure --severe headache, blurred vision, pounding in your neck or ears, anxiety, nosebleed. Dexamethasone can affect growth in children. Tell your doctor if your child is not growing at a normal rate while using this medicine. Common side effects may include: fluid retention (swelling in your hands or ankles); increased appetite; mood changes, trouble sleeping; skin rash, bruising or discoloration; acne, increased sweating, increased hair growth; headache, dizziness; nausea, vomiting, upset stomach; changes in your menstrual periods; or changes in the shape or location of body fat (especially in your arms, legs, face, neck, breasts, and waist). This is not a complete list of side effects and others may occur. Call your doctor for medical advice about side effects. You may report side effects to FDA at 6-740-ZSI-7557. What other drugs will affect dexamethasone? Sometimes it is not safe to use certain medications at the same time. Some drugs can affect your blood levels of other drugs you take, which may increase side effects or make the medications less effective. Tell your doctor about all your current medicines. Many drugs can affect dexamethasone, especially: an antibiotic or antifungal medicine; control pills or hormone replacement therapy; insulin or diabetes medications you take by mouth; medicine to treat dementia or Parkinson's disease; a blood thinner --warfarin, Coumadin, Jantoven; or NSAIDs (nonsteroidal anti-inflammatory drugs) --aspirin, ibuprofen (Advil, Motrin), naproxen (Aleve), celecoxib, diclofenac, indomethacin, meloxicam, and others. This list is not complete and many other drugs may affect dexamethasone. This includes prescription and uauw-oru-zfgzwef medicines, vitamins, and herbal products. Not all possible drug interactions are listed here. Where can I get more information? Your pharmacist can provide more information about dexamethasone. Remember, keep this and all other medicines out of the reach of children, never share your medicines with others, and use this medication only for the indication prescribed. Every effort has been made to ensure that the information provided by [employer] is accurate, up-to-date, and complete, but no guarantee is made to that effect. Drug information contained herein may be time sensitive. [employer] information has been compiled for use by healthcare practitioners and consumers in the [place] and therefore [employer] does not warrant that uses outside of the [place] are appropriate, unless specifically indicated otherwise. [employer]s drug information does not endorse drugs, diagnose patients or recommend therapy. [employer] drug information is an informational resource designed to assist licensed healthcare practitioners in caring for their patients and/or to serve consumers viewing this service as a supplement to, and not a substitute for, the expertise, skill, knowledge and judgment of healthcare practitioners. The absence of a warning for a given drug or drug combination in no way should be construed to indicate that the drug or drug combination is safe, effective or appropriate for any given patient. [employer] does not assume any responsibility for any aspect of healthcare administered with the aid of information [employer] provides. The information contained herein is not intended to cover all possible uses, directions, precautions, warnings, drug interactions, allergic reactions, or adverse effects. If you have questions about the drugs you are taking, check with your doctor, nurse or pharmacist. Copyright 6374-2708 [employer]. Version: 8.01. Revision date: 08/23/2020. Care instructions adapted under license by [employer]. If you have questions about a medical condition or this instruction, always ask your healthcare professional. [place], [facility] disclaims any warranty or liability for your use of this information. documented in this encounter [address] Phone: 08-06-2021 Note PROCEDURE: XR CHEST PORTABLE CLINICAL INFORMATION: sob COMPARISON: No prior study. TECHNIQUE: A single mobile view of the chest was obtained. [address] Phone: 02-15-2021 History of Presen t illness Narrative Covid swab obtained. Given to lab. Tolerated well. Proper PPE worn. documented in this encounter [address] Phone: 11-09-2019 History of Presen t illness Narrative Pt has met discharge criteria and states she is ready for discharge to home. IV removed, gauze and tape applied. Dressed in own clothes and personal belongings gathered. Discharge instructions (with opioid medication education information) given to pt and family; pt and family verbalized understanding of discharge instructions, prescriptions and follow up appointments. Pt transported to discharge lobby by [facility] staff. Pt returned to [facility] room 14. Vitals and assessment as charted. 0.9 infusing, 600 ml to count from PACU. Pt has crackers and gingerale. Family at the bedside. Pt and family verbalized understanding of discharge criteria and call light use. Call light in reach. 1545: pt arrived to pacu. Pt resting easy no needs expressed. Stent in place 1600: pt resting easy no needs expressed 1344: called and informed regarding patient's last menstrual cycle has been over 2 years ago, May 2017, and urine ordered. He stated no urine sample needed. 1414: Patient admitted to [facility] room 14. Dago, spouse at bedside. Arm bands applied. Bilat. Socks, SCD's applied. Call light in reach. Patient verbalized approval for first name, last initial and physician name on unit whiteboard. Patient stated she is self pay and wants to ask Dr. Grigsby if she needs to have surgery today. 1426: Dr. Grigsby in to see patient and discuss the patient's situation. 1430: Consent signed. documented in this encounter [address] Phone: 11-09-2019 Note PROCEDURE: XR ABDOME N (KUB) (SINGLE AP VIEW) CLINICAL INFORMATION: CYSTOSCOPY, RIGHT URETEROSCOPY, HOLMIUM LASER LITHOTRIPSY, POSSIBLE RIGHT URETERAL STENT COMPARISON: No comparison available. TECHNIQUE: 2 fluoroscopic spot films of the abdomen and pelvis were obtained following stent insertion by . The actual fluoroscopy time was 30 seconds. FINDINGS: The films reveal a double-J ureteral stent right side in good position. The previously a few calculi in the right kidney. . . [address] Phone: 11-09-2019 Note Flo, Wcoh Incoming R adiant Results From [facility] - 11/09/2019 4:55 PM EST PROCEDURE: XR ABDOMEN (KUB) (SINGLE AP VIEW) CLINICAL INFORMATION: CYSTOSCOPY, RIGHT URETEROSCOPY, HOLMIUM LASER LITHOTRIPSY, POSSIBLE RIGHT URETERAL STENT COMPARISON: No comparison available. TECHNIQUE: 2 fluoroscopic spot films of the abdomen and pelvis were obtained following stent insertion by . The actual fluoroscopy time was 30 seconds. FINDINGS: The films reveal a double-J ureteral stent right side in good position. The previously a few calculi in the right kidney. . . IMPRESSION: Status post double-J stent insertion by Dr. Grigsby This report has been created using voice recognition software. It may contain minor errors which are inherent in voice recognition technology. Final report electronically signed by Dr. Bari Franklin on 11/09/2019 4:[address] Phone: 11-09-2019 Hospital Discharg Antonia Coronel MD - 11/09/2019 Pt ok to discharge home in good condition No heavy lifting, >10 lbs for today Pt should avoid strenuous activity for today Pt should walk moderately at home Pt ok to shower Pt may resume diet as tolerated Pt should take Rx as directed No driving while on narcotics Please call attending physician or hospital dinkey press operator with questions Call or Present to ED if fever (> 101F), intractable nausea vomiting or pain. Rx in chart Pt should follow up with ANTONIA GRIGSBY MD, in 1-2 weeks for repeat surgery The following attachments cannot be sent through Care Everywhere.Cystoscopy: Post-op (Liberian)Lithotripsy: Post-op (Liberian)documented in this encounter [address] Phone: 10-30-2019 Note PROCEDURE: CT ABDOME N PELVIS W WO CONTRAST CLINICAL INFORMATION: right flank and rlq pain; colic-type pain, hx stones . Intermittent right flank pain beginning 10/19/2019. The pain is mostly resolved however she did have 2 hour episode yesterday. History of kidney stones. COMPARISON: CT abdomen pelvis 06/29/2017. TECHNIQUE: 5 mm noncontrast axial images were obtained to the abdomen. [address] images were obtained through the abdomen and pelvis after the administration of intravenous and oral contrast. Coronal and sagittal reconstructions were obtained. All CT scans at this facility use dose modulation, iterative reconstruction, and/or weight-based dosing when appropriate to reduce radiation dose to as low as reasonably achievable. FINDINGS: The visualized aspects of the lung bases are clear. The base of the heart is within appropriate limits. There is diffuse low-attenuation to the liver consistent with fatty infiltration. The spleen is normal. The adrenal glands and pancreas are within acceptable limits. There is a 5 mm mobile stone within the gallbladder. On the noncontrast images, this is in the fundus. On the post contrast images, this is in the neck. There is a 6 mm nonobstructing stone in the lower pole the right kidney. There is a 5 mm nonobstructing stone in the left kidney. There is mild right hydronephrosis. There is right hydroureter. In the distal right ureter there is a 5 mm stone. There are no stones in the left ureter. No abnormalities of the small bowel loops are noted. The IVC and aorta are of normal caliber. There is no adenopathy. The urinary bladder is normal. There is no pelvic free fluid. There is mild diverticulosis of the colon. There is some stool throughout the colon. There is a normal appendix. There are phleboliths in the pelvis. The uterus and adnexa appear normal. No suspicious osseous lesions are present. [employer] Work Phone: 10-30-2019 Note Flo, Wcoh Incoming R adiant Results From [email or web address] - 10/30/2019 2:44 PM EST PROCEDURE: CT ABDOMEN PELVIS W WO CONTRAST CLINICAL INFORMATION: right flank and rlq pain; colic-type pain, hx stones . Intermittent right flank pain beginning 10/19/2019. The pain is mostly resolved however she did have 2 hour episode yesterday. History of kidney stones. COMPARISON: CT abdomen pelvis 06/29/2017. TECHNIQUE: 5 mm noncontrast axial images were obtained to the abdomen. [address] images were obtained through the abdomen and pelvis after the administration of intravenous and oral contrast. Coronal and sagittal reconstructions were obtained. All CT scans at this facility use dose modulation, iterative reconstruction, and/or weight-based dosing when appropriate to reduce radiation dose to as low as reasonably achievable. FINDINGS: The visualized aspects of the lung bases are clear. The base of the heart is within appropriate limits. There is diffuse low-attenuation to the liver consistent with fatty infiltration. The spleen is normal. The adrenal glands and pancreas are within acceptable limits. There is a 5 mm mobile stone within the gallbladder. On the noncontrast images, this is in the fundus. On the post contrast images, this is in the neck. There is a 6 mm nonobstructing stone in the lower pole the right kidney. There is a 5 mm nonobstructing stone in the left kidney. There is mild right hydronephrosis. There is right hydroureter. In the distal right ureter there is a 5 mm stone. There are no stones in the left ureter. No abnormalities of the small bowel loops are noted. The IVC and aorta are of normal caliber. There is no adenopathy. The urinary bladder is normal. There is no pelvic free fluid. There is mild diverticulosis of the colon. There is some stool throughout the colon. There is a normal appendix. There are phleboliths in the pelvis. The uterus and adnexa appear normal. No suspicious osseous lesions are present. IMPRESSION: 1. 5 mm calculus in the distal right ureter causing mild right hydronephrosis. 2. Bilateral nephrolithiasis. 3. Cholelithiasis. This report has been created using voice recognition software. It may contain minor errors which are inherent in voice recognition technology. Final report electronically signed by Dr. Darleen Spring on 10/30/2019 2:[address] Phone: 10-30-2019 Hospital Discharg e Malena Estrada PA-C - 10/30/2019 You have a 5 mm stone in the right ureter causing pain and backup of urine. At this time we will try outpatient therapy but if you are unable to keep fluids down or you are vomiting up your medication, pain is out of control, unable to urinate you need to return to the emergency department for an admission. See urology on Friday and should use a strainer until the stone passes. The following attachments cannot be sent through Care Everywhere.Kidney Stone (Liberian)documented in this encounter [address] Phone: Evaluation note Diagnosis Right flank pain Abdominal pain, unspecified site Nephrolithiasis Calculus of kidney documented in this encounter [address] Phone: evaluation note* Diagnosis Pneumonia due to COVID-19 virus- Primary Acute respiratory failure with hypoxia (HCC) Acute respiratory failure documented in this encounter [address] Phone: evaluation note* Diagnosis Right nephrolithiasis- Primary documented in this encounter [address] Phone: evaluation note* Diagnosis Postoperative pain- Primary Other acute postoperative pain documented in this encounter [address] Phone: evaluation note* Diagnosis Palpitations- Primary Hyperlipidemia LDL goal <70 Other and unspecified hyperlipidemia History of stress test Other specified conditions influencing health status Non-smoker Other specified conditions influencing health status [facility] information availableW[facility] Work Phone: Reason for referral (narrative)No reason for referral information availableWMemorial Health System Work Phone: Summary Purpose Family History No Family History Records FoundNo Family History Records FoundNo Family History Records FoundNo Family History Records FoundNo Family History Records FoundNo Family History Records FoundNo Family History Records FoundNo Family History Records FoundNo Family History Records Found Advance Directives No Advanced Directives Records FoundDocuments on File Type Date Recorded 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 Advance Directives and Living Will Power of Cancer Registry Manager Latest Code Status on File Code Status Date Activated Date Inactivated Comments Full Code 06/30/2017 7:48 AM 07/01/2017 2:32 PM Documents on File Type Date Recorded 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 Advance Directives and Living Will Power of Cancer Registry Manager Latest Code Status on File Code Status Date Activated Date Inactivated Comments Full Code 06/30/2017 7:48 AM 07/01/2017 2:32 PM Documents on File Type Date Recorded 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 ACP-Advance Directive ACP-Power of Cancer Registry Manager Latest Code Status on File Code Status Date Activated Date Inactivated Comments Full Code 08/06/2021 3:51 PM Full Code 06/30/2017 7:48 AM 07/01/2017 2:32 PM Latest Code Status on File Code Status Date Activated Date Inactivated Comments Full Code 08/06/2021 3:51 PM 08/14/2021 6:51 PM Discharge Instructions * Instructions* Mami Nicholas RN - 11/23/2019 Pt ok to discharge home in good condition No heavy lifting, >10 lbs for today Pt should avoid strenuous activity for today Pt should walk moderately at home Pt ok to shower Pt may resume diet as tolerated Pt should take Rx as directed No driving while on narcotics Please call attending physician or hospital dinkey press operator with questions Call or Present to ED if fever (> 101F), intractable nausea vomiting or pain. Rx in chart Follow up in office in 5 days for stent removal. Pt should follow up with ANTONIA GRIGSBY MD, in 6 weeks, call to confirm appointment documented in this encounter* Instructions* Antonia Grigsby MD - 04/18/2020 Pt ok to discharge home in good condition No heavy lifting, >10 lbs for today Pt should avoid strenuous activity for today Pt should walk moderately at home Pt ok to shower Pt may resume diet as tolerated Pt should take Rx as directed No driving while on narcotics Please call attending physician or hospital dinkey press operator with questions Call or Present to ED if fever (> 101F), intractable nausea vomiting or pain. Rx in chart Pt should follow up with ANTONIA GRIGSBY MD, in 8 weeks, call to confirm appointment Pt should Pull stent in 5 days. There may be some pain associated with the stent removal, which is usually self-limiting. We suggest using the pain medication prescribed for you and a nonsteroidal anti-inflammatory such as Ibuprofen, if you are able to take this medication, to control symptoms. Please stay hydrated. Please call with questions. documented in this encounter History of Present Illness * Mami Nicholas RN - 11/23/2019 12:54 PM EST DISCHARGE INSTRUCTIONS REVIEWED WITH PATIENT AND FAMILY. DISCHARGED BY WHEELCHAIR TO CAR. * Mami Nicholas RN - 11/23/2019 12:13 PM EST AMBULATED TO BATHROOM, GAIT STEADY, ABLE TO VOID. * Mami Nicholas RN - 11/23/2019 11:06 AM EST Return from PACU, family at bedside. Eating and drinking without problems. * Gregory Reyes RN - 11/23/2019 10:50 AM EST 1006 Awake and oriented on arrival to PACU with O2 , HOB elevated 1010 O2 off resp easy , pt c/o slight ABd cramping 1030 pt states cramping remains , feels like she needs to void , medicated with Toradol 30 mg IV and B&O sup 1045 eyes closed resp easy 1100 pt awakens easily to name , states pain minimal 1105 meets criteria for discharge , transported to [facility] , family aware * Sylvia Richardson RN - 11/23/2019 8:00 AM EST Admitted and oriented to [facility]. Fall risk band applied, and information given. Verbalized approval for first name, last initial and physician name on unit whiteboard. documented in this encounter* Amie Salomon RN - 04/18/2020 7:12 PM EDT Pt has met discharge criteria and states she is ready for discharge to home. IV removed, gauze and tape applied. Dressed in own clothes and personal belongings gathered. Discharge instructions (with opioid medication education information) given to pt and family; pt and family verbalized understanding of discharge instructions, prescriptions and follow up appointments. Pt transported to dischargelobby by [facility] staff. * Amie Salomon RN - 04/18/2020 5:40 PM EDT Pt returned to [facility] room 8. Vitals and assessment as charted. 0.9 infusing. Pt has crackers and pop.Family at the bedside. Pt and family verbalized understanding of discharge criteria and call light use. Call light in reach. * Sheryl Mccrary RN - 04/18/2020 5:11 PM EDT 1704- Patient to PACU. Report received from Ellen WHEELER. Patient responds to voice. IV infusing, no redness or swelling at site noted. VSS 1712-Patient resting quietly in bed. Denies pain or discomfort. VSS 1735-Patient meets DC criteria. Resting quietly in bed. Denies pain or discomfort. VSS. To [facility] in stable condition. * Amie Crane RN - 04/18/2020 3:08 PM EDT ADMITTED TO [facility] AND ORIENTED TO UNIT. SCDS ON. FALL AND ALLERGY BANDS ON. PT VERBALIZED APPROVAL FOR FIRST NAME, LAST INITIAL AND PHYSICIAN NAME ON UNIT WHITEBOARD. documented in this encounter Assessments Diagnosis Postoperative pain- Primary Other acute postoperative pain Diagnosis Nephrolithiasis Calculus of kidney Diagnosis Examination for normal comparison for clinical research Examination of participant in clinical trial Diagnosis Examination for normal comparison for clinical research Examination of participant in clinical trial Chief Complaint and Reason for Visit Chief Complaint Admit Date AVASCULAR NECROSIS OF LEFT HIP June 032024 3:45pm Additional Source Comments INFORMATION SOURCE (unrecogn ized section and content) DATE CREATED AUTHOR 04/15/2018 [facility] DATE CREATED AUTHOR [facility] DATE CREATED AUTHOR AUTHOR'S ORGANIZ ATION 05/10/2020 [facility] DATE CREATED AUTHOR AUTHOR'S ORGANIZ ATION 02/15/2021 Pathology Teresafauzia saldaña [facility] DATE CREATED AUTHOR AUTHOR'S ORGANIZ ATION 01/27/2024 [facility] DATE CREATED AUTHOR AUTHOR'S ORGANIZ ATION 03/19/2024 [facility] DATE CREATED AUTHOR AUTHOR'S ORGANIZ ATION 05/02/2025 [facility] DATE CREATED AUTHOR AUTHOR'S ORGANIZ ATION 06/19/2025 [facility] DATE CREATED AUTHOR AUTHOR'S ORGANIZ ATION 07/15/2025 [facility] Reason for Visit (unrecogniz ed section and content) Status Reason Specialty Diagnoses / Procedures Referre d By Contact Referred To Contact Diagnoses KIDNEY STONES Procedures CT CYSTO/URETERO W/LITHOTRIPSY &INDWELL STENT INSRT CYSTOSCOPY, RIGHT URETEROSCOPY, HOLMIUM LASER LITHOTRIPSY, RIGHT STENT EXCHANGE Antonia Grigsby MD [address] [facility] ([place], [place]) [address] [place] [address] [facility] Status Reason Specialty Diagnoses / Procedures Referre d By Contact Referred To Contact Diagnoses Kidney stone KIDNEY STONE Procedures CT CYSTO/URETERO W/LITHOTRIPSY &INDWELL STENT INSRT CYSTOSCOPY, LEFT URETEROSCOPY, LASER LITHOTRIPSY, BASKET RETRIEVAL OF STONE FRAGMENTS, POSSIBLE LEFT URETERAL STENT Antonia Grigsby MD [address] [place] [address] [facility] Status Reason Specialty Diagnoses / Procedures Referre d By Contact Referred To Contact [facility]iology Diagnoses Examination for normal comparison for clinical research Procedures CT COMPARISON OF OUTSIDE FILMS Darleen Spring MD [address] [facility] [place] [address] Reason Comments Fever Shortness of Breath Reason Comments Flank Pain Status Reason Specialty Diagnoses / Procedures Referre d By Contact Referred To Contact Diagnoses Kidney stone KIDNEY STONE Procedures CT OFFICE/OUTPT VISIT,PROCEDURE ONLY CT CYSTO/URETERO W/LITHOTRIPSY &INDWELL STENT INSRT CYSTOSCOPY, RIGHT URETEROSCOPY, HOLMIUM LASER LITHOTRIPSY, POSSIBLE RIGHT URETERAL STENT Antonia Grigsby MD [address] [facility] ([place], [place]) [address] [place] [address] [facility] Reason Comments Established Patient Follow-Up 1 year fol low up Specialty Diagnoses / Procedures Referred By Isabell schafer Referred To Contact Cardiology / CARDIOLOGY Diagnoses 1 year follow up. (H.N.F) Procedures EST PATIENT Sid Fragoso, [address] [place] [address] Phone: tel: fax: Sid Fragoso, [address] [place] [address] Phone: tel: fax: Referral ID Status Reason Start Date Expiration Date Visits Requested Visits Authorized [id number] Authorized Patient Cleared - Qualified 100% FAS 01/11/2025 04/11/2025 99 99 Ordered Prescriptions (unrec ognized section and content) Prescription Sig Dispensed Refills Start Date End Da te dexamethasone (DECADRON) 6 MG tablet Take 1 tablet by mouth daily (with breakfast) for 5 days 5 tablet 0 08/14/2021 08/19/2021 Cholecalciferol (VITAMIN D) 25 MCG TABS Take 1 tablet by mouth daily 60 tablet 0 08/15/2021 ascorbic acid (VITAMIN C) 500 MG tablet Take 1 tablet by mouth daily 30 tablet 3 08/15/2021 zinc sulfate (ZINCATE) 220 (50 Zn) MG capsule Take 1 capsule by mouth daily 30 capsule 3 08/15/2021 albuterol sulfate HFA 108 (90 Base) MCG/ACT inhaler Inhale 2 puffs into the lungs every 6 hours as needed for Wheezing or Shortness of Breath 18 g 3 08/14/2021 Scheduled Active and Recently Administ ered Medications (unrecognized section and content) Medication Order 08/12/2021 08/13/2021 08/14/2021 0.9 % sodium chloride bolus (COMPLETED) 1,000 mL (11.9 mL/kg), IntraVENous, at 500 mL/hr, Administer over 2 Hours, ONCE, On Fri08/13/21 at 0930, For 1 dose 0915 (New Bag - Provider: Flor Akins RN)1130 (Stopped - Provider: Flor Akins RN - Comment: 1000 ml infused) 0.9 % sodium chloride bolus (COMPLETED) 1,000 mL (11.9 mL/kg), IntraVENous, at 500 mL/hr, Administer over 2 Hours, ONCE, On Fri08/13/21 at 1330, For 1 dose 1330 (New Bag - Provider: Flor Akins RN)1613 (Stopped - Provider: Flor Akins RN) ascorbic acid (VITAMIN C) tablet 500 mg 500 mg, Oral, DAILY, First dose on Fri08/06/21 at 1700 0918 (Not Given - Provider: Amie Tolentino RN - Reason: Patient/family refused) 0909 (Given - Provider: Flor Akins RN) 0814 (Given - Provider: Flor Akins RN) baricitinib (OLUMIANT) tablet 4 mg 4 mg, Oral, DAILY, First dose on Fri08/06/21 at 2300, For 14 days 0841 (Given - Provider: Amie Tolentino RN) 0910 (Given - Provider: Flor Akins RN) 0814 (Given - Provider: Flor Akins RN) Dexamethasone Sodium Phosphate injection 10 mg 10 mg, IntraVENous, EVERY 24 HOURS, First dose on Fri08/12/21 at 0900 0841 (Given - Provider: Amie Tolentino RN) 0909 (Given - Provider: Flor Akins RN) 0814 (Given - Provider: Flor Akins RN) enoxaparin (LOVENOX) injection 40 mg 40 mg, SubCUTAneous, EVERY 24 HOURS, First dose on Fri08/06/21 at 1730 2001 (Given - Provider: Edward Smith RN) 2158 (Given - Provider: Malena Lira RN) 2100 (Due - Provider: [place] [facility]) sodium chloride flush 0.9 % injection 5-40 mL 5-40 mL, IntraVENous, EVERY 12 HOURS SCHEDULED (2 times per day), First dose on Fri08/06/21 at 2100, For Line Patency: Peripheral IV = 5 mL; Midline or Central Line = 10 mL/lumen. If following IV push medication, administer flush at same rate as the IV push. Flush volume is determined by type of infusion therapy being given. For non-viscous solutions use: Peripheral IV = 5 mL Midline or Central Line = 10 mL/lumen For viscous solutions (i.e. blood components, parenteral nutrition, contrast media, or after obtaining blood sample) use: Peripheral IV = 10 mL Midline or Central Line = 20 mL/lumen 0842 (Given - Provider: Amie Tolentino RN)2001 (Given - Provider: Edward Smith, SUMMER) 09 (Given - Provider: Flor Akins, SUMMER)2157 (Given - Provider: Malena Lira RN) 0820 (Given - Provider: Flor Akins, SUMMER)2100 (Due) Vitamin D (CHOLECALCIFEROL) tablet 1,000 Units 1,000 Units, Oral, DAILY, First dose on Fri08/06/21 at 1700, Labeling may look different. 25 vxg=4748 Units. Please double check dosages. 0918 (Not Given - Provider: Amie Tolentino RN - Reason: Patient/family refused) 0909 (Given - Provider: Flor Akins RN) 0814 (Given - Provider: Flor Akins RN) zinc sulfate (ZINCATE) capsule 50 mg 50 mg, Oral, DAILY, First dose on Fri08/06/21 at 1700, Each 220mg Zinc Sulfate cap contains 50mg elemental zinc. 0918 (Not Given - Provider: Amie Tolentino RN - Reason: Patient/family refused) 0909 (Given - Provider: Flor Akins RN) 0814 (Given - Provider: Flor Akins, SUMMER) PRN Medication Order 08/12/2021 08/13/2021 08/14/2021 0.9 % sodium chloride infusion 25 mL, IntraVENous, at 100 mL/hr, PRN, If patient receiving piggyback infusions without ordered maintenance IV fluids or with frequent/long duration piggyback infusions, Starting on Fri08/06/21 at 1546, Administer at the same rate as the piggyback being infused. acetaminophen (TYLENOL) suppository 650 mg(Linked Group 1) 650 mg, Rectal, EVERY 6 HOURS PRN, Pain Mild (1-3), Fever, For temp greater than 100.4 F (38 C), Starting on Fri08/06/21 at 1546, Administer if oral route cannot be used. acetaminophen (TYLENOL) tablet 650 mg(Linked Group 1) 650 mg, Oral, EVERY 6 HOURS PRN, Pain Mild (1-3), Fever, For temp greater than 100.4 F (38 C), Starting on Fri08/06/21 at 1546, Maximum dose of acetaminophen is 4000 mg from all sources in 24 hours. albuterol sulfate HFA 108 (90 Base) MCG/ACT inhaler 2 puff 2 puff, Inhalation, EVERY 6 HOURS PRN, Wheezing, Shortness of Breath, Starting on Fri08/06/21 at 1550 benzocaine-menthol (CEPACOL SORE THROAT) lozenge 1 lozenge 1 lozenge, Oral, EVERY 2 HOURS PRN, Sore Throat, Starting on Fri08/14/21 at 1129 ondansetron (ZOFRAN) injection 4 mg(Linked Group 2) 4 mg, IntraVENous, EVERY 6 HOURS PRN, Nausea, Vomiting, Starting on Fri08/06/21 at 1546, Administer if oral route cannot be used. ondansetron (ZOFRAN-ODT) disintegrating tablet 4 mg(Linked Group 2) 4 mg, Oral, EVERY 8 HOURS PRN, Nausea, Vomiting, Starting on Fri08/06/21 at 1546 polyethylene glycol (GLYCOLAX) packet 17 g 17 g, Oral, DAILY PRN, Constipation, Starting on Fri08/06/21 at 1546, First line therapy for constipation sodium chloride flush 0.9 % injection 5-40 mL 5-40 mL, IntraVENous, PRN, Line Care, After every IV line use, Starting on Fri08/06/21 at 1546, For Line Patency: Peripheral IV = 5 mL; Midline or Central Line = 10 mL/lumen. If following IV push medication, administer flush at same rate as the IV push. Flush volume is determined by type of infusion therapy being given. For non-viscous solutions use: Peripheral IV = 5 mL Midline or Central Line = 10 mL/lumen For viscous solutions (i.e. blood components, parenteral nutrition, contrast media, or after obtaining blood sample) use: Peripheral IV = 10 mL Midline or Central Line = 20 mL/lumen Linked Groups Order Group 1: acetaminophen (TYLENOL) tablet 650 mgJump to med 650 mg, Oral, EVERY 6 HOURS PRN, Pain Mild (1-3), Fever, For temp greater than 100.4 F (38 C), Starting on Fri08/06/21 at 1546
Maximum dose of acetaminophen is 4000 mg from all sources in 24 hours.
Or acetaminophen (TYLENOL) suppository 650 mgJump to med 650 mg, Rectal, EVERY 6 HOURS PRN, Pain Mild (1-3), Fever, For temp greater than 100.4 F (38 C), Starting on Fri08/06/21 at 1546
Administer if oral route cannot be used.
Group 2: ondansetron (ZOFRAN-ODT) disintegrating tablet 4 mgJump to med 4 mg, Oral, EVERY 8 HOURS PRN, Nausea, Vomiting, Starting on Fri08/06/21 at 1546 Or ondansetron (ZOFRAN) injection 4 mgJump to med 4 mg, IntraVENous, EVERY 6 HOURS PRN, Nausea, Vomiting, Starting on Fri08/06/21 at 1546
Administer if oral route cannot be used.
Care Teams (unrecognized sec tion and content) Coach Mechanic Relationship Specialty Start Date End Date Caitlyn Ferguson APRN - [facility] PCP - General Certified Nurse Practitioner 10/30/19 Coach Mechanic Relationship Specialty Start Date End Date Dorota Jones MD [address] [facility] [address] [place] [address] [employer] 03/22/24 Team Status: Inactive Member Role/Relationship Status Dates Dr. Leslee Mortensen MD Attending Provider Active Start: June 03, 2025 End: June 03, 2025 Dr. Leslee Mortensen MD Referring Provider Active Start: June 03, 2025 End: June 03, 2025 Source Comments (unrecognize d section and content) In the event this informatio n is protected by the Federal Confidentiality of Alcohol and Drug Abuse Patient Records regulations: The Federal rules restrict any use of the information to criminally investigate or prosecute any alcohol or drug abuse patient.[facility] Goals (unrecognized section and content) Goals may be documented in a n alternate section FOR RECORDS PERTAINING TO PATIENTS WHO ARE OR HAVE BEEN ENROLLED IN A CHEMICAL DEPENDENCY/SUBSTANCEABUSE PROGRAM, SOME INFORMATION MAY BE OMITTED. This clinical summary was aggregated from multiple sources. Caution should be exercised in using it in the provision of clinical care. This summary normalizes information from multiple sources, and as a consequence, information in this document may materially change the coding, format and clinical context of patient data. In addition, data may be omitted in some cases. CLINICAL DECISIONS SHOULD BE BASED ON THE PRIMARY CLINICAL RECORDS. [facility]. provides no warranty or guarantee of the accuracy or completeness of information in this document.
--- OUTSIDE RECORDS SUMMARY | 2025-08-04 15:47 | XMS RPT_ITS | CCD ---
Author Organization [facility] Care Team Providers Care Boiler Installer Name Role Phone UNKNOWN, PCP Unavailable Unavailable JAQUAN DRAPER Unavailable Unavailable UNKNOWN, PCP Unavailable Unavailable Caitlyn Ferguson CNP Unavailable Unavailable None Unavailable Unavailable Caitlyn Ferguson Primary Care Provider Malena Cantor Attending Unav ailable CAITLYN FERGUSON Primary Care Unavailabl e MAMI CHARLES Attending Unavaila ble CAITLYN FERGUSON Primary Care Unavailatul e CAITLYN FERGUSON Consulting Unavailatul e Caitlyn Kirkland APRN, CNP Primary Care Provider Caitlyn Ferguson Primary Care Provider [phone] Caitlyn Kirkland APRN, CNP Primary Care Provider CAITLYN FERGUSON Primary Care Unavailable Dorota Jones MD Unavailable SID FRAGOSO Attending Unavailable SID FRAGOSO Referring Unavailable Dr. Leslee Mortensen MD Attending Provider Dr. Leslee Mortensen MD Referring Provider [phone] Leslee Mortensen Referring Unavailable Leslee Mortensen Attending [...] to adverse reactions to drug 7 Palpitations [employer] Phone: (2 sources) diphenhydrAMINE; Translations: [DIPHENHYDRAMINE ] Drug Allergy 3 Unknown [facility] Medications Current Medications Medication Drug Class(es) Dates Sig (Normalized) Sig (Original) Acetaminophen (2 sources) Start: 08-06-2021 acetaminophen (TYLENOL) tablet 650 mg Start: 11-09-2019 End: 11-09-2019 acetaminophen (TYLENOL) 325 MG tablet [id number] 200 actuat albuterol 0.09 mg/actuat metered dose [...] 11/19/2019 Discontinued (LIST CLEANUP) polyethylene glycol 3350 74780 mg powder for oral solution (1 source) [...] SUPPRE TTES) 16.2-30 MG suppository bifidobacterium animalis [id number] unt / lactobacillus acidophilus [id number] unt oral capsule (2 sources) End: 11-09-2019 [...] [Mass/Vol] 3.8 g/dL Normal 3.4 - 5.[address] [facility] Comment on above: Performed By: #### 2 34293 #### [facility],[address] [place], [place] [id number] BMP with eGFRon 07-14-2025 AGE 55 years Normal [facility] Comment on above: Performed By: #### 2 00599 #### [facility],[address] [place], [place] [id number] Anion gap [Moles/Vol] 11 mmol/L Normal 10 - 20 [facility] Comment on above: Performed By: #### 2 95294 #### [facility],[address] [place] [address] 67969 BMP with eGFR Normal [facility] Comment on above: Result Comment: BASI C METABOLIC PANEL Performed By: #### 2 26017 #### [facility],[address] [place] [address] 37057 Calcium [Mass/Vol] 9.1 mg/dL Normal 8.5 - 10.[address] [facility] Comment on above: Performed By: #### 2 08078 #### [facility],[address] [place] [address] 56635 Chloride [Moles/Vol] 103 mmol/L Normal 98 - 107 [facility] Comment on above: Performed By: #### 2 88562 #### [facility],[address] [place] [address] 97626 CO2 [Moles/Vol] 30.1 mmol/L Normal 21.0 - 32.0 [facility] Comment on above: Performed By: #### 2 79977 #### [facility],[address] [place], [place] [address] Creatinine [Mass/Vol] 0.85 mg/dL Normal 0.55 - 1.02 [facility] Comment on above: Performed By: #### 2 40042 #### [facility],[address] [place] [address] GFR/1.73 sq M.predicted among non-blacks MDRD (S/P/Bld) [Vol rate/Area] mL/min/{1.73_m2} Normal 60 - 999 [facility] Comment on above: Performed By: #### 2 96248 #### [facility],[address] [place], [place] [address] Result Comment: ACCO RDING TO THE NATIONAL KIDNEY DISEASE EDUCATION PROGRAM(NKDE), A NORMAL eGFR IS A VALUE GREATER THAN OR EQUAL TO 60 ML/MIN/1.73 SQ METERS. CHRONIC KIDNEY DISEASE: <60mL/MIN/1.73 SQ METERS KIDNEY FAILURE: <15mL/MIN/1.73 SQ METERS THIS TEST SHOULD ONLY BE USED FOR PATIENTS 18 YEARS OF AGE AND OLDER. Glucose [Mass/Vol] 98 mg/dL Normal 74 - [address] [facility] Comment on above: Performed By: #### 2 51802 #### [facility],[address] [place] [address] 07460 Potassium [Moles/Vol] 4.0 mmol/L Normal 3.5 - 5.1 [facility] Comment on above: Performed By: #### 2 35991 #### [facility],[address] [place] [address] 82625 Sodium [Moles/Vol] 140 mmol/L Normal 136 - [address] [facility] Comment on above: Performed By: #### 2 55274 #### [facility],[address] [place] [address] 83145 Urea nitrogen [Mass/Vol] 18 mg/dL Normal 7 - 18 [facility] Comment on above: Performed By: #### 2 77171 #### [facility],[address] [place] [address] 32336 CBC + DIFFon 07-14-2025 Baso # 0.03 x10EE3/UL Normal 0.00 - 0.10 [facility] Comment on above: Performed By: #### 2 89109 #### [facility],[address] [place] [address] 37575 Basophils/100 WBC (Bld) 0.5 % Normal 0.0 - 2.0 [facility] Comment on above: Performed By: #### 2 44381 #### [facility],[address] [place] [address] 00751 CBC + DIFF Normal [facility] Comment on above: Result Comment: CBC- COMPLETE BLOOD COUNT Performed By: #### 2 46338 #### [facility],[address] [place] [address] 63666 EO # 0.12 x10EE3/UL Normal 0.00 - 0.50 [facility] Comment on above: Performed By: #### 2 36277 #### [facility],[address] [place] [address] 39731 Eosinophils/100 WBC (Bld) 2.2 % Normal 0.0 - 7.0 [facility] Comment on above: Performed By: #### 2 30433 #### [facility],[address] [place] [address] 08752 Erythrocyte distribution width (RBC) [Ratio] 13.4 % Normal 12.0 - 15.6 [facility] Comment on above: Performed By: #### 2 70053 #### [facility],[address] [place] [address] Hematocrit (Bld) [Volume fraction] 38.5 % Normal 34.0 - 46.0 [facility] Comment on above: Performed By: #### 2 21102 #### [facility],[address] [place] [address] Hemoglobin (Bld) [Mass/Vol] 13.3 g/dL Normal 12.0 - 16.0 [facility] Comment on above: Performed By: #### 2 54113 #### [facility],[address] [place] [address] Lymph # 1.59 x10EE3/UL Normal 0.80 - 2.80 [facility] Comment on above: Performed By: #### 2 93062 #### [facility],[address] [place] [address] Lymphocytes/100 WBC (Bld) 29.7 % Normal 20.0 - 45.0 [facility] Comment on above: Performed By: #### 2 15325 #### [facility],[address] [place], [place] [address] MANUAL DIFF N/A Normal [facility] Comment on above: Performed By: #### 2 36255 #### [facility],[address] [place] [address] MCH (RBC) [Entitic mass] 30 pg Normal 27 - 33 [facility] Comment on above: Performed By: #### 2 02702 #### [place] [address] MCHC 35 X10 3 Normal 32 - 36 [facility] Comment on above: Performed By: #### 2 02083 #### [facility],[address] [place], [place] [address] MCV (RBC) [Entitic vol] 88 fL Normal 80 - 99 [facility] Comment on above: Performed By: #### 2 88056 #### [facility],[address] [place] [address] 20696 [place] # 0.39 x10EE3/UL Normal 0.20 - 1.00 [facility] Comment on above: Performed By: #### 2 95177 #### [facility],[address] [place] [address] 98417 MONOS % 7.3 % Normal 0.0 - 10.0 [facility] Comment on above: Performed By: #### 2 16928 #### [facility],[address] [place] [address] Morphology [place] (Bld) [Interp] N/A Normal [facility] Comment on above: Performed By: #### 2 07936 #### [facility],[address] [place] [address] Neut # 3.24 x10EE3/UL Normal 1.50 - 7.10 [facility] Comment on above: Performed By: #### 2 97098 #### [facility],[address] [place], [place] [address] Neutrophils/100 WBC (Bld) 60.4 % Normal 46.0 - 76.0 [facility] Comment on above: Performed By: #### 2 90487 #### [facility],[address] [place], [place] [address] PLATELET 316 x10EE3/UL Normal 150 - 450 [facility] Comment on above: Performed By: #### 2 25643 #### [facility],[address] [place] [address] 63366 Platelet mean volume (Bld) [Entitic vol] 7.1 fL Normal 6.6 - 10.5 [facility] Comment on above: Result Comment: AUTO MATED DIFFERENTIAL Performed By: #### 2 75081 #### [facility],[address] [place] [address] 80434 RBC 4.38 x 10EE6/UL Normal 4.10 - 5.30 [facility] Comment on above: Performed By: #### 2 78380 #### [facility],[address] [place] [address] 25636 WBC 5.4 x 10EE3/UL Normal 4.5 - 10.8 [facility] Comment on above: Performed By: #### 2 92517 #### [facility],[address] [place] [address] 68264 Decalcification bone/plaqueo n 06-02-2025 Decalcification bone/plaque Patient Age/Sex Location Account Attending Physician YARELI JOYNER 55/F LABSPEC [id number] Dr. Leslee Mortensen MD Specimen: [id number] Received: 06/03/25 Status: JEREL Hurt Num: [id number] Spec Type: FEM HEAD Subm Dr: Dr. [...] with linear ridges (appears iatrogenic in nature). Funeral Home Attendant sections are submitted in 2 cassettes, following decalcification. CT 06/06/2025 CPT:84776,63683 Patient Age/Sex Location Account Attending Physician ARYARELI CHATTERJEE 55/F LABSPEC [id number] Dr. Leslee Mortensen MD Signed (signature on file) Dr. Amy Marcum MD 06/17/25 164 Normal [facility] Comment on above: Performed By: #### P DEC #### [facility] [address] [place], [place] [address], [address] ALBUMIN PLASMAon 05-03-2025 Albumin [Mass/Vol] 3.7 g/dL Normal 3.4 - 5.[address] [facility] Comment on above: Performed By: #### 2 96567 #### [facility],[address] [place] [address] 78175 BMP with eGFRon 05-03-2025 AGE 55 years Normal [facility] Comment on above: Performed By: #### 2 96615 #### [facility],[address] [place] [address] 21740 Anion gap [Moles/Vol] 10 mmol/L Normal 10 - 20 [facility] Comment on above: Performed By: #### 2 34306 #### [facility],[address] [place] [address] 87142 BMP with eGFR Normal [facility] Comment on above: Result Comment: BASI C METABOLIC PANEL Performed By: #### 2 28816 #### [facility],[address] [place], [place] [address] Calcium [Mass/Vol] 8.8 mg/dL Normal 8.5 - 10.[address] [facility] Comment on above: Performed By: #### 2 26820 #### [facility],[address] [place] [address] Chloride [Moles/Vol] 105 mmol/L Normal 98 - 107 [facility] Comment on above: Performed By: #### 2 99343 #### [facility],[address] [place], [place] [address] CO2 [Moles/Vol] 29.4 mmol/L Normal 21.0 - 32.0 [facility] Comment on above: Performed By: #### 2 97825 #### [facility],[address] [place], [place] [address] Creatinine [Mass/Vol] 0.78 mg/dL Normal 0.55 - 1.02 [facility] Comment on above: Performed By: #### 2 74775 #### [facility],[address] [place] [address] 97300 GFR/1.73 sq M.predicted among non-blacks MDRD (S/P/Bld) [Vol rate/Area] mL/min/{1.73_m2} Normal 60 - 999 [facility] Comment on above: Performed By: #### 2 36329 #### [facility],[address] [place], [place] [address] Result Comment: ACCO RDING TO THE NATIONAL KIDNEY DISEASE EDUCATION PROGRAM(NKDE), A NORMAL eGFR IS A VALUE GREATER THAN OR EQUAL TO 60 ML/MIN/1.73 SQ METERS. CHRONIC KIDNEY DISEASE: <60mL/MIN/1.73 SQ METERS KIDNEY FAILURE: <15mL/MIN/1.73 SQ METERS THIS TEST SHOULD ONLY BE USED FOR PATIENTS 18 YEARS OF AGE AND OLDER. Glucose [Mass/Vol] 111 mg/dL High 74 - [address] [facility] Comment on above: Performed By: #### 2 39575 #### [facility],[address] [place] [address] Potassium [Moles/Vol] 4.2 mmol/L Normal 3.5 - 5.1 [facility] Comment on above: Performed By: #### 2 38352 #### [facility],[address] [place] [address] 09947 Sodium [Moles/Vol] 140 mmol/L Normal 136 - [address] [facility] Comment on above: Performed By: #### 2 25425 #### [facility],[address] [place], [place] [address] Urea nitrogen [Mass/Vol] 19 mg/dL High 7 - 18 [facility] Comment on above: Performed By: #### 2 84534 #### [facility],[address] [place] [address] 17568 CBC + DIFFon 05-03-2025 Baso # 0.02 x10EE3/UL Normal 0.00 - 0.10 [facility] Comment on above: Performed By: #### 2 55086 #### [facility],[address] [place] [address] 71667 Basophils/100 WBC (Bld) 0.4 % Normal 0.0 - 2.0 [facility] Comment on above: Performed By: #### 2 66970 #### [facility],[address] [place] [address] 60183 CBC + DIFF Normal [facility] Comment on above: Result Comment: CBC- COMPLETE BLOOD COUNT Performed By: #### 2 97827 #### [facility],[address] [place] [address] 30093 EO # 0.07 x10EE3/UL Normal 0.00 - 0.50 [facility] Comment on above: Performed By: #### 2 39366 #### [facility],[address] [place] [address] 37297 Eosinophils/100 WBC (Bld) 1.3 % Normal 0.0 - 7.0 [facility] Comment on above: Performed By: #### 2 89097 #### [facility],[address] [place] [address] Erythrocyte distribution width (RBC) [Ratio] 13.0 % Normal 12.0 - 15.6 [facility] Comment on above: Performed By: #### 2 28884 #### [facility],[address] [place] [address] Hematocrit (Bld) [Volume fraction] 38.8 % Normal 34.0 - 46.0 [facility] Comment on above: Performed By: #### 2 19819 #### [facility],[address] [place] [address] Hemoglobin (Bld) [Mass/Vol] 13.4 g/dL Normal 12.0 - 16.0 [facility] Comment on above: Performed By: #### 2 40808 #### [facility],[address] [place] [address] 79904 Lymph # 1.54 x10EE3/UL Normal 0.80 - 2.80 [facility] Comment on above: Performed By: #### 2 05176 #### [facility],[address] [place] [address] 55721 Lymphocytes/100 WBC (Bld) 30.4 % Normal 20.0 - 45.0 [facility] Comment on above: Performed By: #### 2 25425 #### [facility],[address] [place], [place] [address] MANUAL DIFF N/A Normal [facility] Comment on above: Performed By: #### 2 98146 #### [facility],[address] [place] [address] 46700 MCH (RBC) [Entitic mass] 30 pg Normal 27 - 33 [facility] Comment on above: Performed By: #### 2 39493 #### [facility],[address] [place] [address] 05882 MCHC 35 X10 3 Normal 32 - 36 [facility] Comment on above: Performed By: #### 2 96991 #### [facility],[address] [place] [address] 71921 MCV (RBC) [Entitic vol] 88 fL Normal 80 - 99 [facility] Comment on above: Performed By: #### 2 81489 #### [facility],[address] [place] [address] [place] # 0.27 x10EE3/UL Normal 0.20 - 1.00 [facility] Comment on above: Performed By: #### 2 75223 #### [facility],[address] [place] [address] 26289 MONOS % 5.3 % Normal 0.0 - 10.0 [facility] Comment on above: Performed By: #### 2 31552 #### [facility],[address] [place] [address] 70203 Morphology [place] (Bld) [Interp] N/A Normal [facility] Comment on above: Performed By: #### 2 28405 #### [facility],[address] [place] [address] 87499 Neut # 3.16 x10EE3/UL Normal 1.50 - 7.10 [facility] Comment on above: Performed By: #### 2 21216 #### [facility],[address] [place] [address] 65864 Neutrophils/100 WBC (Bld) 62.6 % Normal 46.0 - 76.0 [facility] Comment on above: Performed By: #### 2 58229 #### [facility],[address] [place] [address] 63728 PLATELET 253 x10EE3/UL Normal 150 - 450 [facility] Comment on above: Performed By: #### 2 55140 #### [facility],[address] [place] [address] 51666 Platelet mean volume (Bld) [Entitic vol] 7.2 fL Normal 6.6 - 10.5 [facility] Comment on above: Result Comment: AUTO MATED DIFFERENTIAL Performed By: #### 2 23655 #### [facility],[address] [place] [address] 53899 RBC 4.41 x 10EE6/UL Normal 4.10 - 5.30 [facility] Comment on above: Performed By: #### 2 10035 #### [facility],[address] [place] [address] 51893 WBC 5.1 x 10EE3/UL Normal 4.5 - 10.8 [facility] Comment on above: Performed By: #### 2 37877 #### [facility],[address] [place] [address] 45771 CNCOon 04-28-2025 [facility] ([facility] ) -- YARELI JOYNER ([id number]) 1970 F Date Time Provider Department 01/18/25 [...] demonstrates sinus rhyt (more content not included)... [facility] ECG COMPLETEon 01-18-2025 ECG COMPLETE Ventricular Rate : 5 7 BPM Atrial Rate : 57 BPM P-R Interval : 132 ms QRS Duration : 88 ms Q-T Interval : 408 ms QTC Calculation(Bazett) : 397 ms Calculated P [place] : 8 degrees Calculated R [place] : 65 degrees Calculated T [place] : 69 degrees Sinus bradycardia Otherwise normal ECG When compared with ECG of 29-Aug-2023 10:, No significant change was found Confirmed by SID FRAGOSO DO ([id number]) on 01/24/2025 1:04:56 AM NAME : YARELI JOYNER PID : [id number] : 1970 Gender : Female Race : ORD : [id number] Procedure Date : Jan 18 2025 11:16:56 Edit Date : Jan 24 2025 01:05:01 Diagnosis: Sinus bradycardia Otherwise normal ECG When compared with ECG of 29-Aug-2023 10:, No significant change was found Confirmed by SID FRAGOSO DO ([id number]) on 01/24/2025 1:04:56 AM Test Reason : HCS Location : 2 : [place] Overread By : SID FRAGOSO DO Edited By : SID FRAGOSO DO Referred By : SID FRAGOSO Acquired by : 6120, [facility] Final Surgical Pathology Rep [facility] 01-26-2024 Final Surgical Pathology Report . Pathology Reports Accession: Collected Date/Time: Received Date/Time: Pathologist: [id number] 01/21/2024 15:15 EDT 01/23/2024 07:34 EDT MD CHELA SHEPHERD Final Surgical Pathology Report DIAGNOSIS: GALLBLADDER, CHOLECYSTECTOMY: - ACUTE CHOLECYSTITIS WITH CHOLELITHIASIS COMMENT: [facility] - [id number] CLINICAL INFORMATION: ACUTE CHOLECYSTITIS, ACUTE CHOLELITHIASIS, BILIARY COLIC SPECIMEN: A GALLBLADDER GROSS DESCRIPTION: All parts labelled with patient name and [id number] Received in formalin labelled gallbladder Dimensions - [...] to 0.3 cm RS-1 Katherine Reagan, Grossing Drilling Field Specialist/ Dr. Wagner Polk, Pathologist Dictated by Katherine Reagan MICROSCOPIC DESCRIPTION: The microscopic examination is performed, except in the case of Gross Only. Electronically Signed by Pathology Report verified by [facility] CHELA SHEPHERD MD Sign out Date: 01/26/2024 12:42 Performing Lab: [facility], [address] [place] [address] Pathology Dept Disclaimer If ancillary studies were utilized, the following Laboratory Developed Test (LDT) disclaimer will apply: Under CLIA requirements, [facility] is qualified to perform high complexity testing. For all ancillary stains, positive and negative controls stain appropriately. Performance characteristics of immunohistochemical and chromogenic in-situ hybridization tests have been determined by [facility]. These tests are used for clinical purposes, They should not be regarded as investigational or for research. Normal [facility] ([place]) Anion GapOrdered By: Unknown Result on 08-14-2021 Anion gap [Moles/Vol] 11.0 mmol/L 8.0 - 16.0 meq/L [employer] Phone: Comment on above: ANION GAP = Sodium - (Chloride + CO2) Performed at [facility] [address] [place] [address] Basic Metabolic PanelOrdered By: Palmer Dave on 08-14-2021 Calcium [Mass/Vol] 9.2 mg/dL 8.5 - 10. 5 mg/dL [employer] Phone: Comment on above: Performed at [facility] [address] [place] [address] Chloride [Moles/Vol] 101 mmol/L 98 - 11 1 meq/L [employer] Phone: CO2 [Moles/Vol] 27 mmol/L 23 - 33 meq/L [employer] Phone: Creatinine [Mass/Vol] 0.7 mg/dL 0.4 - 1.2 mg/dL [employer] Phone: Glucose [Mass/Vol] 103 mg/dL 70 - 108 mg/dL [employer] Phone: Potassium [Moles/Vol] 5.0 mmol/L 3.5 - 5.2 meq/L [employer] Phone: Sodium [Moles/Vol] 139 mmol/L 135 - 145 meq/L [employer] Phone: Urea nitrogen (BldV) [Mass/Vol] 27 mg/dL High 7 - 22 mg/dL [employer] Phone: CBC auto differentialOrdered By: Palmer Dave on 08-14-2021 Basophils (Bld) [#/Vol] 0.0 10*3/uL [employer] Phone: Basophils/100 WBC (Bld) 0.3 % [employer] Phone: Eosinophils Absolute 0.0 [employer] Phone: Eosinophils/100 WBC (Bld) 0.3 % [employer] Phone: Erythrocyte distribution width (RBC) [Ratio] 12.7 % 11.5 - 14.5 % [employer] Phone: Erythrocyte distribution width (RBC) [Ratio] 42.5 fL 35.0 - 45.0 fL [employer] Phone: Hematocrit (Bld) [Volume fraction] 42.7 % 37.0 - 47.0 % [employer] Phone: Hemoglobin.gastrointe stinal spec 1 Ql (Stl) 14.3 [employer] Phone: Immature Grans (Abs) 0.2 High [employer] Phone: Immature granulocytes/100 WBC (Bld) 2.9 % [employer] Phone: Interpretation and review of laboratory results Abnormal [employer] Phone: Lymphocytes Absolute 1.0 [employer] Phone: Lymphocytes/100 WBC (Bld) 15.1 % [employer] Work Phone: MCH (RBC) [Entitic mass] 30.5 pg 26.0 - 33.0 pg [facility] Work Phone: MCHC (RBC) [Mass/Vol] 33.5 g/dL [facility] Work Phone: MCV (RBC) [Entitic vol] 91.0 fL 81.0 - 99.0 fL [facility] Work Phone: Monocytes Absolute 0.4 [facility] Work Phone: Monocytes/100 WBC (Bld) 6.4 % [facility] Work Phone: nRBC 0 /100 wbc [employer] Work Phone: Comment on above: Performed at [facility] [address] [place] [address] 57707 Platelet mean volume (Bld) [Entitic vol] 9.3 fL Low 9.4 - 12.4 fL [employer] Work Phone: Platelets (Bld) [#/Vol] 430 10*3/uL High [employer] Work Phone: RBC (Bld) [#/Vol] 4.69 10*6/uL [employer] Work Phone: Segmented neutrophils/100 WBC (Bld) 75 % [employer] Work Phone: Segs Absolute 5.1 [employer] Work Phone: WBC (Bld) [#/Vol] 6.8 10*3/uL [employer] Work Phone: [employer] Work Phone: Glomerular Filtration Rate, EstimatedOrdered By: Unknown Result on 08-14-2021 GFR/1.73 sq M.predicted MDRD (S/P/Bld) [Vol rate/Area] 89 mL/min/{1.73_m2} Abnormal ml/min/1.7 3m2 [employer] Phone: Comment on above: Stage Description GF [...] Vol. 139 (2 pg 137-147. Performed at [facility] [address] [place] [address] No Panel InformationOrdered By: Palmer Dave on 08-14-2021 Interpretation and review of laboratory results Abnormal [employer] Phone: [employer] Phone: Anion GapOrdered By: Unknown Result on 08-13-2021 Anion gap [Moles/Vol] 14.0 mmol/L 8.0 - 16.0 meq/L [employer] Phone: Comment on above: ANION GAP = Sodium - (Chloride + CO2) Performed at [facility] [address] [place] [address] Basic Metabolic PanelOrdered By: Palmer Dave on 08-13-2021 Calcium [Mass/Vol] 9.0 mg/dL 8.5 - 10. 5 mg/dL [employer] Phone: Comment on above: Performed at [facility] [address] [place] [address] Chloride [Moles/Vol] 99 mmol/L 98 - 11 1 meq/L [employer] Phone: CO2 [Moles/Vol] 26 mmol/L 23 - 33 meq/L [employer] Phone: Creatinine [Mass/Vol] 0.7 mg/dL 0.4 - 1.2 mg/dL [employer] Phone: Glucose [Mass/Vol] 99 mg/dL 70 - 108 mg/dL [employer] Phone: Potassium [Moles/Vol] 5.1 mmol/L 3.5 - 5.2 meq/L [employer] Phone: Sodium [Moles/Vol] 139 mmol/L 135 - 145 meq/L [employer] Phone: Urea nitrogen (BldV) [Mass/Vol] 30 mg/dL High 7 - 22 mg/dL [employer] Phone: CBC auto differentialOrdered By: Palmer Dave on 08-13-2021 Basophils (Bld) [#/Vol] 0.0 10*3/uL [employer] Phone: Basophils/100 WBC (Bld) 0.4 % [employer] Phone: Eosinophils Absolute 0.0 [employer] Phone: Eosinophils/100 WBC (Bld) 0.4 % [employer] Phone: Erythrocyte distribution width (RBC) [Ratio] 12.7 % 11.5 - 14.5 % [employer] Phone: Erythrocyte distribution width (RBC) [Ratio] 42.2 fL 35.0 - 45.0 fL [employer] Phone: Hematocrit (Bld) [Volume fraction] 44.5 % 37.0 - 47.0 % [employer] Phone: Hemoglobin.gastrointe stinal spec 1 Ql (Stl) 14.6 [employer] Phone: Immature Grans (Abs) 0.24 High [employer] Phone: Immature granulocytes/100 WBC (Bld) 3.3 % [employer] Phone: Interpretation and review of laboratory results Abnormal [employer] Phone: Lymphocytes Absolute 1.3 [employer] Phone: Lymphocytes/100 WBC (Bld) 17.8 % [employer] Phone: MCH (RBC) [Entitic mass] 30.0 pg 26.0 - 33.0 pg [employer] Work Phone: MCHC (RBC) [Mass/Vol] 32.8 g/dL [facility] [employer] Work Phone: MCV (RBC) [Entitic vol] 91.4 fL 81.0 - 99.0 fL [facility] Work Phone: Monocytes Absolute 0.5 [employer] Work Phone: Monocytes/100 WBC (Bld) 7.5 % [employer] Work Phone: nRBC 0 /100 wbc [employer] Phone: Comment on above: Performed at [facility] [address] [place] [address] Platelet mean volume (Bld) [Entitic vol] 9.6 fL 9.4 - 12.4 fL [employer] Phone: Platelets (Bld) [#/Vol] 441 10*3/uL High [employer] Work Phone: RBC (Bld) [#/Vol] 4.87 10*6/uL [employer] Phone: Segmented neutrophils/100 WBC (Bld) 70.6 % [employer] Phone: Segs Absolute 5.1 [employer] Work Phone: WBC (Bld) [#/Vol] 7.2 10*3/uL [employer] Work Phone: [employer] Phone: Glomerular Filtration Rate, EstimatedOrdered By: Unknown Result on 08-13-2021 GFR/1.73 sq M.predicted MDRD (S/P/Bld) [Vol rate/Area] 89 mL/min/{1.73_m2} Abnormal ml/min/1.7 3m2 [employer] Phone: Comment on above: Stage Description GF [...] Vol. 139 (2 pg 137-147. Performed at [facility] [address] [place] [address] No Panel InformationOrdered By: Palmer Dave on 08-13-2021 Interpretation and review of laboratory results Abnormal [employer] Phone: [employer] Phone: Anion GapOrdered By: Unknown Result on 08-12-2021 Anion gap [Moles/Vol] 10.0 mmol/L 8.0 - 16.0 meq/L [employer] Phone: Comment on above: ANION GAP = Sodium - (Chloride + CO2) Performed at [facility] [address] [place] [address] Basic Metabolic PanelOrdered By: Palmer Dave on 08-12-2021 Calcium [Mass/Vol] 8.8 mg/dL 8.5 - 10. 5 mg/dL [facility] Phone: Comment on above: Performed at [facility] [address] [place] [address] Chloride [Moles/Vol] 102 mmol/L 98 - 11 1 meq/L [employer] Phone: CO2 [Moles/Vol] 26 mmol/L 23 - 33 meq/L [employer] Phone: Creatinine [Mass/Vol] 0.7 mg/dL 0.4 - 1.2 mg/dL [employer] Phone: Glucose [Mass/Vol] 110 mg/dL High 70 - 108 mg/dL [employer] Phone: Potassium [Moles/Vol] 4.7 mmol/L 3.5 - 5.2 meq/L [employer] Phone: Sodium [Moles/Vol] 138 mmol/L 135 - 145 meq/L [employer] Phone: Urea nitrogen (BldV) [Mass/Vol] 28 mg/dL High 7 - 22 mg/dL [employer] Phone: CBC auto differentialOrdered By: Palmer Dave on 08-12-2021 Basophils (Bld) [#/Vol] 0.0 10*3/uL [employer] Phone: Basophils/100 WBC (Bld) 0.3 % [employer] Phone: Eosinophils Absolute 0.0 [employer] Phone: Eosinophils/100 WBC (Bld) 0.2 % [employer] Phone: Erythrocyte distribution width (RBC) [Ratio] 12.6 % 11.5 - 14.5 % [employer] Phone: Erythrocyte distribution width (RBC) [Ratio] 42.1 fL 35.0 - 45.0 fL [employer] Phone: Hematocrit (Bld) [Volume fraction] 44.2 % 37.0 - 47.0 % [employer] Phone: Hemoglobin.gastrointe stinal spec 1 Ql (Stl) 14.9 [employer] Phone: Immature Grans (Abs) 0.2 High [facility] [place] Phone: Immature granulocytes/100 WBC (Bld) 3.1 % [facility] Phone: Interpretation and review of laboratory results Abnormal [employer] Phone: Lymphocytes Absolute 0.8 Low [employer] Work Phone: Lymphocytes/100 WBC (Bld) 12.2 % [employer] Work Phone: MCH (RBC) [Entitic mass] 30.5 pg 26.0 - 33.0 pg [facility] Work Phone: MCHC (RBC) [Mass/Vol] 33.7 g/dL [facility] [place] Work Phone: MCV (RBC) [Entitic vol] 90.6 fL 81.0 - 99.0 fL [facility] Work Phone: Monocytes Absolute 0.5 [facility] Work Phone: Monocytes/100 WBC (Bld) 7.2 % [employer] Work Phone: nRBC 0 /100 wbc [employer] Phone: Comment on above: Performed at [facility] [address] [place] [id number] Plate[facility] mean volume (Bld) [Entitic vol] 9.1 fL Low 9.4 - 12.4 fL [employer] Phone: Platelets (Bld) [#/Vol] 424 10*3/uL High [employer] Work Phone: RBC (Bld) [#/Vol] 4.88 10*6/uL [employer] Work Phone: Segmented neutrophils/100 WBC (Bld) 77 % [employer]udem Phone: Segs Absolute 5.0 [employer] Work Phone: WBC (Bld) [#/Vol] 6.5 10*3/uL [employer] Work Phone: [employer]GAP Work Phone: Glomerular Filtration Rate, EstimatedOrdered By: Unknown Result on 08-12-2021 GFR/1.73 sq M.predicted MDRD (S/P/Bld) [Vol rate/Area] 89 mL/min/{1.73_m2} Abnormal ml/min/1.7 3m2 [employer] Work Phone: Comment on above: Stage Description [...] Vol. 139 (2 pg 137-147. Performed at [facility] [address] [place] [address] No Panel InformationOrdered By: Palmer Dave on 08-12-2021 Interpretation and review of laboratory results Abnormal [facility] Phone: [facility]em Phone: Anion GapOrdered By: Unknown Result on 08-11-2021 Anion gap [Moles/Vol] 12.0 mmol/L 8.0 - 16.0 meq/L [employer] Phone: Comment on above: ANION GAP = Sodium - (Chloride + CO2) Performed at [facility] [address] [place] [address] Basic Metabolic PanelOrdered By: Palmer Dave on 08-11-2021 Calcium [Mass/Vol] 8.8 mg/dL 8.5 - 10. 5 mg/dL [facility] Phone: Comment on above: Performed at [facility] [address] [place] [address] Chloride [Moles/Vol] 106 mmol/L 98 - 11 1 meq/L [employer] Phone: CO2 [Moles/Vol] 21 mmol/L Low 23 - 33 meq/L [employer] Phone: Creatinine [Mass/Vol] 0.6 mg/dL 0.4 - 1.2 mg/dL [employer] Phone: Glucose [Mass/Vol] 107 mg/dL 70 - 108 mg/dL [facility] Phone: Interpretation and review of laboratory results Abnormal [employer] Phone: Potassium [Moles/Vol] 4.4 mmol/L 3.5 - 5.2 meq/L [employer] Phone: Comment on above: Low level specimen h emolysis is present as indicated by the interference level index on the Allegra analyzer. The reported K+ level may be falsely increased. If clinically warranted, recollection of the specimen is suggested. Sodium [Moles/Vol] 139 mmol/L 135 - 145 meq/L [employer] Phone: Urea nitrogen (BldV) [Mass/Vol] 31 mg/dL High 7 - 22 mg/dL [employer] Phone: CBC auto differentialOrdered By: Palmer Dave on 08-11-2021 Basophils (Bld) [#/Vol] 0.0 10*3/uL [employer] Phone: Basophils/100 WBC (Bld) 0.6 % [employer] Phone: Eosinophils Absolute 0.0 [employer] Phone: Eosinophils/100 WBC (Bld) 0 % [employer]em Phone: Erythrocyte distribution width (RBC) [Ratio] 13.1 % 11.5 - 14.5 % [employer] Phone: Erythrocyte distribution width (RBC) [Ratio] 48.3 fL High 35.0 - 45.0 fL [employer] Phone: Hematocrit (Bld) [Volume fraction] 48.4 % High 37.0 - 47.0 % [employer] Phone: Hemoglobin.gastrointe stinal spec 1 Ql (Stl) 14.7 [employer] Phone: Immature Grans (Abs) 0.19 High [employer] Phone: Immature granulocytes/100 WBC (Bld) 2.6 % [employer]em Phone: Interpretation and review of laboratory results Abnormal [employer] Work Phone: Lymphocytes Absolute 1.0 [employer] Work Phone: Lymphocytes/100 WBC (Bld) 13.8 % [facility] Work Phone: MCH (RBC) [Entitic mass] 30.4 pg 26.0 - 33.0 pg [facility] Work Phone: MCHC (RBC) [Mass/Vol] 30.4 g/dL Low [facility] [place] Work Phone: MCV (RBC) [Entitic vol] 100.0 fL High 81.0 - 99.0 fL [facility] Work Phone: Monocytes Absolute 0.6 [facility] Work Phone: Monocytes/100 WBC (Bld) 8.6 % [facility] Work Phone: nRBC 0 /100 wbc [employer]GAP Work Phone: Comment on above: Performed at [facility] [address] [place] [id number] [facility] mean volume (Bld) [Entitic vol] 9.2 fL Low 9.4 - 12.4 fL [employer] Work Phone: Platelets (Bld) [#/Vol] 360 10*3/uL [employer] Work Phone: RBC (Bld) [#/Vol] 4.84 10*6/uL [employer] Work Phone: Segmented neutrophils/100 WBC (Bld) 74.4 % [employer] Work Phone: Segs Absolute 5.4 [employer] Work Phone: WBC (Bld) [#/Vol] 7.3 10*3/uL [employer] Work Phone: nGAP Work Phone: Glomerular Filtration Rate, EstimatedOrdered By: Unknown Result on 08-11-2021 GFR/1.73 sq M.predicted MDRD (S/P/Bld) [Vol rate/Area] mL/min/{1.73_m2} ml/min/1.7 3m2 [employer]em Phone: Comment on above: Stage Description GF [...] & race. Mia. Internal Med., Vol. 139 (5) pg 137-147. Performed at [facility] [address] [place] [address] No Panel InformationOrdered By: Palmer Dave on 08-11-2021 [employer]em Phone: Anion GapOrdered By: Unknown Result on 08-10-2021 Anion gap [Moles/Vol] 10.0 mmol/L 8.0 - 16.0 meq/L [employer] Phone: Comment on above: ANION GAP = Sodium - (Chloride + CO2) Performed at [facility] [address] [place] [address] Basic Metabolic PanelOrdered By: Palmer Dave on 08-10-2021 Calcium [Mass/Vol] 8.9 mg/dL 8.5 - 10. 5 mg/dL [facility] Phone: Comment on above: Performed at [facility] [address] [place] [address] Chloride [Moles/Vol] 103 mmol/L 98 - 11 1 meq/L [employer] Phone: CO2 [Moles/Vol] 27 mmol/L 23 - 33 meq/L [employer] Phone: Creatinine [Mass/Vol] 0.7 mg/dL 0.4 - 1.2 mg/dL [employer] Phone: Glucose [Mass/Vol] 108 mg/dL 70 - 108 mg/dL [employer] Phone: Potassium [Moles/Vol] 4.6 mmol/L 3.5 - 5.2 meq/L [employer] Phone: Sodium [Moles/Vol] 140 mmol/L 135 - 145 meq/L [employer] Phone: Urea nitrogen (BldV) [Mass/Vol] 33 mg/dL High 7 - 22 mg/dL [employer]em Phone: CBC auto differentialOrdered By: Palmer Dave on 08-10-2021 Basophils (Bld) [#/Vol] 0.0 10*3/uL [employer] Phone: Basophils/100 WBC (Bld) 0.4 % [employer] Phone: Eosinophils Absolute 0.0 [employer] Phone: Eosinophils/100 WBC (Bld) 0 % [employer]em Phone: Erythrocyte distribution width (RBC) [Ratio] 13.3 % 11.5 - 14.5 % [employer] Phone: Erythrocyte distribution width (RBC) [Ratio] 45.3 fL High 35.0 - 45.0 fL [employer] Phone: Hematocrit (Bld) [Volume fraction] 43.1 % 37.0 - 47.0 % [employer] Phone: Hemoglobin.gastrointe stinal spec 1 Ql (Stl) 14.3 [employer] Phone: Immature Grans (Abs) 0.12 High [employer] Phone: Immature granulocytes/100 WBC (Bld) 1.7 % [facility] Phone: Interpretation and review of laboratory results Abnormal [employer] Phone: Lymphocytes Absolute 0.8 Low [employer] Work Phone: Lymphocytes/100 WBC (Bld) 11.3 % [facility] Work Phone: MCH (RBC) [Entitic mass] 30.5 pg 26.0 - 33.0 pg [facility] Work Phone: MCHC (RBC) [Mass/Vol] 33.2 g/dL [facility] Work Phone: MCV (RBC) [Entitic vol] 91.9 fL 81.0 - 99.0 fL [facility] Work Phone: Monocytes Absolute 0.8 [facility] Work Phone: Monocytes/100 WBC (Bld) 10.5 % [facility] Work Phone: nRBC 0 /100 wbc [facility] Work Phone: Comment on above: Performed at [facility] [address] [place] [id number] [facility] mean volume (Bld) [Entitic vol] 9.1 fL Low 9.4 - 12.4 fL [facility] Work Phone: Platelets (Bld) [#/Vol] 367 10*3/uL [facility] Work Phone: RBC (Bld) [#/Vol] 4.69 10*6/uL [employer] Work Phone: Segmented neutrophils/100 WBC (Bld) 76.1 % [employer] Work Phone: Segs Absolute 5.5 [employer] [facility] [employer] Work Phone: WBC (Bld) [#/Vol] 7.2 10*3/uL [employer] Work Phone: [employer]GAP Work Phone: Glomerular Filtration Rate, EstimatedOrdered By: Unknown Result on 08-10-2021 GFR/1.73 sq M.predicted MDRD (S/P/Bld) [Vol rate/Area] 89 mL/min/{1.73_m2} Abnormal ml/min/1.7 3m2 [employer] Phone: Comment on above: Stage Description GF [...] and adjusted for age, gender & race. Mai. Internal Med., Vol. 139 (0) pg 137-147. Performed at [facility] [address] [place] [address] No Panel InformationOrdered By: Palmer Dvae on 08-10-2021 Interpretation and review of laboratory results Abnormal [facility] Phone: [facility]em Phone: Anion GapOrdered By: Unknown Result on 08-09-2021 Anion gap [Moles/Vol] 12.0 mmol/L 8.0 - 16.0 meq/L [employer] Phone: Comment on above: ANION GAP = Sodium - (Chloride + CO2) Performed at [facility] [address] [place] [address] Basic Metabolic PanelOrdered By: Palmer Dave on 08-09-2021 Calcium [Mass/Vol] 9.1 mg/dL 8.5 - 10. 5 mg/dL [facility] Phone: Comment on above: Performed at [facility] [address] [place] [address] Chloride [Moles/Vol] 104 mmol/L 98 - 11 1 meq/L [employer] Phone: CO2 [Moles/Vol] 26 mmol/L 23 - 33 meq/L [employer] Phone: Creatinine [Mass/Vol] 0.7 mg/dL 0.4 - 1.2 mg/dL [employer] Phone: Glucose [Mass/Vol] 113 mg/dL High 70 - 108 mg/dL [employer] Phone: Potassium [Moles/Vol] 4.6 mmol/L 3.5 - 5.2 meq/L [employer] Phone: Sodium [Moles/Vol] 142 mmol/L 135 - 145 meq/L [employer] Phone: Urea nitrogen (BldV) [Mass/Vol] 35 mg/dL High 7 - 22 mg/dL [employer] Phone: CBC auto differentialOrdered By: Palmer Dave on 08-09-2021 Atypical Lymphocytes RARE % [employer] Phone: Basophils (Bld) [#/Vol] 0.0 10*3/uL [employer] Phone: Basophils/100 WBC (Bld) 0.1 % [employer] Phone: Eosinophils Absolute 0.0 [employer] Phone: Eosinophils/100 WBC (Bld) 0 % [employer] Phone: Erythrocyte distribution width (RBC) [Ratio] 13.8 % 11.5 - 14.5 % [employer] Phone: Erythrocyte distribution width (RBC) [Ratio] 46.5 fL High 35.0 - 45.0 fL [employer] Phone: Hematocrit (Bld) [Volume fraction] 42.3 % 37.0 - 47.0 % [employer] Phone: Hemoglobin.gastrointe stinal spec 1 Ql (Stl) 14.1 [employer] Phone: Immature Grans (Abs) 0.13 High [employer] Phone: Immature granulocytes/100 WBC (Bld) 1.7 % [employer] Phone: Interpretation and review of laboratory results Abnormal [employer] Phone: Lymphocytes Absolute 0.8 Low [employer] Work Phone: Lymphocytes/100 WBC (Bld) 10 % [facility] [employer] Work Phone: MCH (RBC) [Entitic mass] 30.5 pg 26.0 - 33.0 pg [facility] Work Phone: MCHC (RBC) [Mass/Vol] 33.3 g/dL [facility] Work Phone: MCV (RBC) [Entitic vol] 91.4 fL 81.0 - 99.0 fL [facility] [place] Work Phone: Monocytes Absolute 0.7 [facility] Work Phone: Monocytes/100 WBC (Bld) 9.4 % [facility] Work Phone: nRBC 0 /100 wbc [facility] Work Phone: Comment on above: Performed at [facility] [address] [place] [address] Platelet Estimate ADEQUATE Adequate [facility] Work Phone: [facility] mean volume (Bld) [Entitic vol] 8.7 fL Low 9.4 - 12.4 fL [facility] Work Phone: Platelets (Bld) [#/Vol] 371 10*3/uL [employer] Work Phone: RBC (Bld) [#/Vol] 4.63 10*6/uL [employer] Work Phone: Segmented neutrophils/100 WBC (Bld) 78.8 % [facility] Work Phone: Segs Absolute 6.1 [employer] [facility] [employer] Work Phone: WBC (Bld) [#/Vol] 7.7 10*3/uL [employer] Work Phone: Glomerular Filtration Rate, EstimatedOrdered By: Unknown Result on 08-09-2021 GFR/1.73 sq M.predicted MDRD (S/P/Bld) [Vol rate/Area] 89 mL/min/{1.73_m2} Abnormal ml/min/1.7 3m2 [employer] Phone: Comment on above: Stage Description GF [...] Vol. 139 (2 pg 137-147. Performed at [facility] [address] [place] [address] No Panel InformationOrdered By: Palmer Dave on 08-09-2021 [employer] Phone: Interpretation and review of laboratory results Abnormal [facility] Phone: Medudem Phone: Scan of Blood SmearOrdered B y: Unknown Result on 08-09-2021 SCAN OF BLOOD SMEAR see below [employer]udem Phone: Comment on above: Criteria Exceeded; S can of Differential Slide Performed Performed at [facility] [address] [place] [address] Anion GapOrdered By: Unknown Result on 08-08-2021 Anion gap [Moles/Vol] 15.0 mmol/L 8.0 - 16.0 meq/L [employer] Phone: Comment on above: ANION GAP = Sodium - (Chloride + CO2) Performed at [facility] [address] [place] [address] Basic Metabolic PanelOrdered By: Palmer Dave on 08-08-2021 Calcium [Mass/Vol] 9.1 mg/dL 8.5 - 10. 5 mg/dL [facility] Phone: Comment on above: Performed at [facility] [address] [place] [address] Chloride [Moles/Vol] 104 mmol/L 98 - 11 1 meq/L [employer] Phone: CO2 [Moles/Vol] 23 mmol/L 23 - 33 meq/L [employer] Phone: Creatinine [Mass/Vol] 0.7 mg/dL 0.4 - 1.2 mg/dL [employer] Phone: Glucose [Mass/Vol] 128 mg/dL High 70 - 108 mg/dL [facility] Phone: Potassium [Moles/Vol] 4.8 mmol/L 3.5 - 5.2 meq/L [employer] Phone: Comment on above: Low level specimen h emolysis is present as indicated by the interference level index on the Allegra analyzer. The reported K+ level may be falsely increased. If clinically warranted, recollection of the specimen is suggested. Sodium [Moles/Vol] 142 mmol/L 135 - 145 meq/L [employer] Phone: Urea nitrogen (BldV) [Mass/Vol] 29 mg/dL High 7 - 22 mg/dL [facility] Phone: C-reactive proteinOrdered By : Palmer Dave on 08-08-2021 CRP 6.09 mg/dl High 0.00 - 1.00 mg/dl [facility] Phone: Comment on above: Performed at [facility] [address] [place] [address] CBC auto differentialOrdered By: Palmer Dave on 08-08-2021 Atypical Lymphocytes RARE % [employer] Phone: Basophils (Bld) [#/Vol] 0.0 10*3/uL [employer] Work Phone: Basophils/100 WBC (Bld) 0.1 % [employer]udem Phone: Eosinophils Absolute 0.0 [employer] Phone: Eosinophils/100 WBC (Bld) 0 % [employer] Work Phone: Erythrocyte distribution width (RBC) [Ratio] 13.9 % 11.5 - 14.5 % [employer] Work Phone: Erythrocyte distribution width (RBC) [Ratio] 47.7 fL High 35.0 - 45.0 fL [employer] Phone: Hematocrit (Bld) [Volume fraction] 43.1 % 37.0 - 47.0 % [facility] Work Phone: Hemoglobin.gastrointe stinal spec 1 Ql (Stl) 13.9 [facility] Work Phone: Immature Grans (Abs) 0.13 High [employer] Work Phone: Immature granulocytes/100 WBC (Bld) 1.7 % [facility] Phone: Interpretation and review of laboratory results Abnormal [facility] Phone: Lymphocytes Absolute 1.0 [facility] Work Phone: Lymphocytes/100 WBC (Bld) 12.7 % [facility] Phone: MCH (RBC) [Entitic mass] 29.9 pg 26.0 - 33.0 pg [facility] Work Phone: MCHC (RBC) [Mass/Vol] 32.3 g/dL [facility] [employer] Work Phone: MCV (RBC) [Entitic vol] 92.7 fL 81.0 - 99.0 fL [facility] Work Phone: Monocytes Absolute 0.6 [facility] Phone: Monocytes/100 WBC (Bld) 7.7 % [facility] Work Phone: nRBC 0 /100 wbc [facility] Phone: Platelet Estimate ADEQUATE Adequate [facility] Work Phone: Platelet mean volume (Bld) [Entitic vol] 9.1 fL Low 9.4 - 12.4 fL [employer] Work Phone: Platelets (Bld) [#/Vol] 378 10*3/uL [employer] Work Phone: RBC (Bld) [#/Vol] 4.65 10*6/uL [employer] Work Phone: Segmented neutrophils/100 WBC (Bld) 77.8 % [employer] Work Phone: Segs Absolute 6.0 [employer] [facility] Work Phone: Toxic Granulation Present Absent [employer] Work Phone: Comment on above: Performed at [facility] [address] [place] [id number] WBC (Bld) [#/Vol] 7.7 10*3/uL [employer] Work Phone: Glomerular Filtration Rate, EstimatedOrdered By: Unknown Result on 08-08-2021 GFR/1.73 sq M.predicted MDRD (S/P/Bld) [Vol rate/Area] 89 mL/min/{1.73_m2} Abnormal ml/min/1.7 3m2 [employer] Phone: Comment on above: Stage Description GF [...] Vol. 139 (2) pg 137-147. Performed at [facility] [address] [place] [id number] No Panel InformationOrdered By: Palmer Dave on 08-08-2021 [employer] Work Phone: Interpretation and review of laboratory results Abnormal [employer] Work Phone: [employer] Work Phone: Scan of Blood SmearOrdered B y: Unknown Result on 08-08-2021 SCAN OF BLOOD SMEAR see below [employer]udem Phone: Comment on above: Criteria Exceeded; S can of Differential Slide Performed Performed at [facility] [address] [place] [address] Anion GapOrdered By: Unknown Result on 08-07-2021 Anion gap [Moles/Vol] 11.0 mmol/L 8.0 - 16.0 meq/L [facility] Phone: Comment on above: ANION GAP = Sodium - (Chloride + CO2) Performed at [facility] [address] [place], [place] [id number] Basic Metabolic Panel w/ Ref sameera to MGOrdered By: Palmer Dave on 08-07-2021 Calcium [Mass/Vol] 9.2 mg/dL 8.5 - 10. 5 mg/dL [facility] Phone: Comment on above: Performed at [facility] [address] [place] [address] Chloride [Moles/Vol] 103 mmol/L 98 - 11 1 meq/L [employer] Phone: CO2 [Moles/Vol] 27 mmol/L 23 - 33 meq/L [employer] Phone: Creatinine [Mass/Vol] 0.6 mg/dL 0.4 - 1.2 mg/dL [employer] Phone: Glucose [Mass/Vol] 139 mg/dL High 70 - 108 mg/dL [facility] Phone: Interpretation and review of laboratory results Abnormal [facility] Phone: Potassium [Moles/Vol] 4 mmol/L 3.5 - 5.2 meq/L [employer] Phone: Sodium [Moles/Vol] 141 mmol/L 135 - 145 meq/L [facility] Phone: Urea nitrogen (BldV) [Mass/Vol] 18 mg/dL 7 - 22 mg/dL [facility] Phone: CBC auto differentialOrdered By: Palmer Dave on 08-07-2021 Atypical Lymphocytes OCC. % [employer] Phone: Basophils (Bld) [#/Vol] 0.0 10*3/uL [employer] Phone: Basophils/100 WBC (Bld) 0.2 % [employer] Phone: Eosinophils Absolute 0.0 [facility] [employer] Phone: Eosinophils/100 WBC (Bld) 0 % [employer] Phone: Erythrocyte distribution width (RBC) [Ratio] 13.9 % 11.5 - 14.5 % [facility] Phone: Erythrocyte distribution width (RBC) [Ratio] 46.7 fL High 35.0 - 45.0 fL [employer] Phone: Hematocrit (Bld) [Volume fraction] 41.0 % 37.0 - 47.0 % [facility] Phone: Hemoglobin.gastrointe stinal spec 1 Ql (Stl) 13.6 [facility] Phone: Immature Grans (Abs) 0.12 High [facility] [employer] Phone: Immature granulocytes/100 WBC (Bld) 3 % [employer] Phone: Interpretation and review of laboratory results Abnormal [facility] Phone: Lymphocytes Absolute 0.6 Low [facility] [employer] Phone: Lymphocytes/100 WBC (Bld) 14.5 % [facility] Phone: MCH (RBC) [Entitic mass] 30.2 pg 26.0 - 33.0 pg [facility] Phone: MCHC (RBC) [Mass/Vol] 33.2 g/dL [facility] [employer] Work Phone: MCV (RBC) [Entitic vol] 90.9 fL 81.0 - 99.0 fL [employer] Work Phone: Monocytes Absolute 0.2 Low [employer] Work Phone: Monocytes/100 WBC (Bld) 4.9 % [employer] Work Phone: nRBC 0 /100 wbc [employer] Work Phone: Comment on above: Performed at [facility] [address] [place] [address] Platelet Estimate ADEQUATE Adequate [employer] Work Phone: Platelet mean volume (Bld) [Entitic vol] 8.8 fL Low 9.4 - 12.4 fL [employer] Work Phone: Platelets (Bld) [#/Vol] 322 10*3/uL [employer] Work Phone: RBC (Bld) [#/Vol] 4.51 10*6/uL [employer] Work Phone: Segmented neutrophils/100 WBC (Bld) 77.4 % [employer] Work Phone: Segs Absolute 3.2 [employer] Work Phone: WBC (Bld) [#/Vol] 4.1 10*3/uL Low [employer] Work Phone: Glomerular Filtration Rate, EstimatedOrdered By: Unknown Result on 08-07-2021 GFR/1.73 sq M.predicted MDRD (S/P/Bld) [Vol rate/Area] mL/min/{1.73_m2} ml/min/1.7 3m2 [employer] Work Phone: Comment on above: Stage Description [...] Vol. 139 (2) pg 137-147. Performed at [facility] [address] [place] [address] No Panel InformationOrdered By: Palmer Dave on 08-07-2021 [employer] Phone: [employer] Phone: Scan of Blood SmearOrdered B y: Unknown Result on 08-07-2021 SCAN OF BLOOD SMEAR see below [employer] Phone: Comment on above: Criteria Exceeded; S can of Differential Slide Performed Performed at [facility] [address] [place] [address] APTTOrdered By: Glenn Newton on 08-06-2021 aPTT Coag (Bld) [Time] 33.6 s [facility]em Phone: Comment on above: Therapeutic Heparin Reference Range= 60-95 seconds (corresponds to 0.3 to 0.7 u/mL Anti-Xa factor activity) Performed [place] [address] [employer] Phone: Anion GapOrdered By: Dann veronica on 08-06-2021 Anion gap [Moles/Vol] 13.0 mmol/L 8.0 - 16.0 meq/L [employer] Phone: Comment on above: ANION GAP = Sodium - (Chloride + CO2) Performed [place] [address] Brain Natriuretic PeptideOrd ered By: Dann Haile on 08-06-2021 Natriuretic peptide B (Bld) [Mass/Vol] 60.1 pg/mL 0.0 - 450.0 pg/mL [employer] Phone: Comment on above: Values < 300 pg/ml rule out, or make the probability of heart failure highly unlikely. Values which rule in heart failue are as follows: AGE RANGE <50 years >450 pg/ml 50-75 years >900 pg/ml >75 years >1800 pg/ml Performed at [facility] [address] [place] [address] C-Reactive ProteinOrdered By : Glenn Newton on 08-06-2021 CRP 23.15 mg/dl High 0.00 - 1.00 mg/dl [employer] Phone: Comment on above: Performed at [facility] [address] [place] [address] CBC Auto DifferentialOrdered By: Dann Haile on 08-06-2021 Atypical Lymphocytes RARE % [employer] Work Phone: Basophils (Bld) [#/Vol] 0.0 10*3/uL [employer] Work Phone: Basophils/100 WBC (Bld) 0.2 % [employer] Phone: Eosinophils Absolute 0.0 [employer] Phone: Eosinophils/100 WBC (Bld) 0 % [employer] Work Phone: Erythrocyte distribution width (RBC) [Ratio] 14.1 % 11.5 - 14.5 % [employer] Phone: Erythrocyte distribution width (RBC) [Ratio] 48.4 fL High 35.0 - 45.0 fL [employer] Phone: Hematocrit (Bld) [Volume fraction] 42.2 % 37.0 - 47.0 % [employer] Phone: Hemoglobin.gastrointe stinal spec 1 Ql (Stl) 13.9 [employer] Phone: Immature Grans (Abs) 0.07 [employer] Work Phone: Immature granulocytes/100 WBC (Bld) 1.2 % [employer] Phone: Interpretation and review of laboratory results Abnormal [employer] Phone: Lymphocytes Absolute 0.6 Low [employer] Work Phone: Lymphocytes/100 WBC (Bld) 11 % [employer] Work Phone: MCH (RBC) [Entitic mass] 30.5 pg 26.0 - 33.0 pg [facility] [employer] Work Phone: MCHC (RBC) [Mass/Vol] 32.9 g/dL [facility] Work Phone: MCV (RBC) [Entitic vol] 92.5 fL 81.0 - 99.0 fL [facility] Work Phone: Monocytes Absolute 0.2 Low [facility] Work Phone: Monocytes/100 WBC (Bld) 3.9 % [facility] Work Phone: nRBC 0 /100 wbc [facility] Work Phone: Comment on above: Performed at [facility] [address] [place] [address] Platelet mean volume (Bld) [Entitic vol] 8.9 fL Low 9.4 - 12.4 fL [facility] Work Phone: Platelets (Bld) [#/Vol] 234 10*3/uL [facility] Work Phone: RBC (Bld) [#/Vol] 4.56 10*6/uL [employer] Work Phone: Segmented neutrophils/100 WBC (Bld) 83.7 % [facility] Phone: Segs Absolute 4.7 [facility] [employer] Work Phone: WBC (Bld) [#/Vol] 5.6 10*3/uL [facility] Work Phone: COVID-19, RapidOrdered By: Casimiro Haile on 08-06-2021 Interpretation and review of laboratory results Abnormal [facility] Phone: SARS-CoV-2 (COVID-19) RNA TIAGO+probe Ql (Unsp spec) Detected Critically abnormal NOT DETECTED [facility] Phone: Comment on above: Rapid NAAT: Negative [...] authorized laboratories. Fact sheet for Healthcare Providers: https://www.fda.gov/media/250496/download Fact sheet for Patients: https://www.fda.gov/media/200423/download METHODOLOGY: Isothermal Nucleic Acid Amplification Performed at [facility] [address] [place] [address] [employer] Phone: Comprehensive Metabolic Pane l w/ Reflex to MGOrdered By: Dann Haile on 08-06-2021 Albumin [Mass/Vol] 3.8 g/dL 3.5 - 5.1 g/dL [employer] Phone: ALP (Bld) [Catalytic activity/Vol] 83 U/L 38 - 126 U/L [employer] Phone: ALT [Catalytic activity/Vol] 104 U/L High 11 - 66 U/L [employer] Phone: Comment on above: Performed at [facility] [address] [place] [address] AST [Catalytic activity/Vol] 71 U/L High 5 - 40 U/L [employer] Phone: Bilirubin [Mass/Vol] 0.4 mg/dL 0.3 - 1 .2 mg/dL [employer] Phone: Calcium [Mass/Vol] 9.1 mg/dL 8.5 - 10. 5 mg/dL [employer] Phone: Chloride [Moles/Vol] 102 mmol/L 98 - 11 1 meq/L [employer] Phone: CO2 [Moles/Vol] 26 mmol/L 23 - 33 meq/L [employer] Phone: Creatinine [Mass/Vol] 0.7 mg/dL 0.4 - 1.2 mg/dL [employer] Phone: Free PSA/Total PSA [Mass fraction] 7.6 g/dL 6.1 - 8.0 g/dL [employer] Phone: Glucose [Mass/Vol] 107 mg/dL 70 - 108 mg/dL [employer] Phone: Potassium [Moles/Vol] 3.9 mmol/L 3.5 - 5.2 meq/L [employer] Phone: Sodium [Moles/Vol] 141 mmol/L 135 - 145 meq/L [employer] Phone: Urea nitrogen (BldV) [Mass/Vol] 11 mg/dL 7 - 22 mg/dL [employer] Phone: FerritinOrdered By: Glenn denis on 08-06-2021 Ferritin [Mass/Vol] 4179 ng/mL High 10 - 291 ng/mL [employer] Phone: Comment on above: Performed at [facility] [address] [place] [address] Interpretation and review of laboratory results Abnormal [employer] Phone: [employer] Phone: FibrinogenOrdered By: Glenn Newton on 08-06-2021 Fibrinogen 688 High [employer] Phone: Comment on above: Performed at [facility] [address] [place] [address] Interpretation and review of laboratory results Abnormal [employer] Phone: Glomerular Filtration Rate, EstimatedOrdered By: Dann Haile on 08-06-2021 GFR/1.73 sq M.predicted MDRD (S/P/Bld) [Vol rate/Area] 89 mL/min/{1.73_m2} Abnormal ml/min/1.7 3m2 [employer] Phone: Comment on above: Stage Description GF [...] Vol. 139 (2) pg 137-147. Performed at [facility] [address] [place] [address] Lactate DehydrogenaseOrdered By: Glenn Newton on 08-06-2021 LD 539 U/L High 100 - 190 U/L [employer] Work Phone: Comment on above: Performed at [facility] [address] [place] [address] No Panel InformationOrdered By: Dann Haile on 08-06-2021 [employer] Work Phone: Interpretation and review of laboratory results Abnormal [employer] Work Phone: [employer] Work Phone: [employer] Work Phone: No Panel InformationOrdered By: Glenn Newton on 08-06-2021 Interpretation and review of laboratory results Abnormal [employer] Work Phone: [employer] Work Phone: [employer] Work Phone: OsmolalityOrdered By: Dann magallanes on 08-06-2021 Osmolality Calc 281.1 [facility] Work Phone: Comment on above: Performed at [facility] [address] [place] [address] ProcalcitoninOrdered By: Thomas Newton on 08-06-2021 Procalcitonin 0.12 ng/mL High 0.01 - 0.09 ng/mL [employer] Work Phone: Comment on above: Suspected Sepsis: [...] entered into the Change in Procalcitonin Calculator (www.dfvzyx-vna-wuymjiconx.Ultimate Shopper) to determine the patient's Mortality Risk Prognosis. In healthy neonates, plasma Procalcitonin (PCT) concentrations increase gradually after , reaching peak values at about 24 hours of age then decrease to normal values below 0.5 ng/mL by 48-72 hours of age. Performed at [facility] [address] [place] [address] Protime-INROrdered By: Carlee Newton on 08-06-2021 INR Coag (Bld) [Relative time] 1.06 {INR} [employer] Phone: Comment on above: ---------INDICATION- INR Reference Range DVT, PE, AF, AMI, tissue heart valve 2.0 to 3.0 Mechanical prosthetic valves 2.5 to 3.5 Performed at [facility] [address] [place] [address] Rapid influenza A/B antigens Ordered By: Dann Haile on 08-06-2021 Flu A Antigen Negative NEGATIVE [employer] Work Phone: Flu B Antigen Negative NEGATIVE [employer] Work Phone: Comment on above: Performed at [facility] [address] [place] [address] [employer] Phone: Scan of Blood SmearOrdered B y: Dann Haile on 08-06-2021 SCAN OF BLOOD SMEAR see below [employer] Phone: Comment on above: Criteria Exceeded; S can of Differential Slide Performed Performed at [facility] [address] [place] [address] TroponinOrdered By: Dann damon on 08-06-2021 Troponin T < 0.010 ng/ml [employer] Phone: Comment on above: <0.010 ng/ml Normal [...] an acute or chronic condition. Performed at [facility] [address] [address] XR CHEST PORTABLEOrdered By: Dann Haile on [...] Dr. Bari Franklin on 08/06/2021 1:30 PM [employer] Phone: Flo, Wcoh Incoming R adiant Results From [employer] - 08/06/2021 1:32 PM EDT PROCEDURE: XR [...] Dr. Bari Franklin on 08/06/2021 1:30 PM [facility] Phone: [employer] Phone: BASIC METABOLIC PANEL WITH G FRon 02-14-2021 Anion gap [Moles/Vol] 8 mmol/L Normal 5-15 [facility] Comment on above: Result Comment: Test performed at [facility] [address] [place] [address] CLIA Number [id number] ----- Calcium [Mass/Vol] 9.6 mg/dL Normal 8.5-10.5 [facility] Chloride [Moles/Vol] 103 mmol/L Normal 98-109 [facility] [facility] CO2 [Moles/Vol] 27 mmol/L Normal 22-32 [facility] Creatinine [Mass/Vol] 0.84 mg/dL Normal 0.40-1.00 [facility] Comment on above: Result Comment: METH OD TRACEABLE TO IDMS STANDARD GFR/1.73 sq M.predicted among blacks MDRD (S/P/Bld) [Vol rate/Area] mL/min/{1.73_m2} Normal >59 [facility] GFR/1.73 sq M.predicted among non-blacks MDRD (S/P/Bld) [Vol rate/Area] mL/min/{1.73_m2} Normal >59 [facility] Glucose [Mass/Vol] 101 mg/dL High 65-99 [facility] Potassium [Moles/Vol] 4.5 mmol/L Normal 3.5-5.0 [facility] Sodium [Moles/Vol] 138 mmol/L Normal 134-146 [facility] Urea nitrogen [Mass/Vol] 11 mg/dL Normal 5-23 [facility] CBC W/AUTO DIFFon 02-14-2021 ABS NEUTROPHILS 2.9 X10E9/L Normal 1.5-6.6 [facility] Basophils (Bld) [#/Vol] 0.1 10*3/uL Normal 0.0-0.2 [facility] Comment on above: Result Comment: Perf ormed at [facility] [address] [place] [address] [facility] [place] [address] CLIA No. [id number] CAP Accreditation No. [id number] [employer] Machinist: Dominick Mosley M.D. Basophils/100 WBC (Bld) 1.2 [...] (Bld) [#/Vol] 5.3 10*3/uL Normal 4.0-11.0 [facility] COVID-19on 04-18-2020 SARS-CoV-2, PCR NOT DETECTED [...] is terminated or revoked sooner. Performed at [facility] [place] [address] CT COMPARISON OF OUT[facility]IDE [facility] MSon 04-18-2020 Radiology exam is complete. No Radiologist dictation. Please follow up with ordering provider. [place] US COMPARISON OF OUTSIDE [facility] MSon 04-18-2020 Radiology exam is complete. No Radiologist dictation. Please follow up with ordering provider. [place] [facility] Radiology exam is complete. No Radiologist dictation. Please follow up with ordering provider. [place] CT Abd Pelvis w/o IV Cont [...] nonacute findings detailed above. Radiation Dose Estimate: CTDI(mGy):0.832927 / / / kVp:130.031154 / mAs:0.616316 / / / Body Part: Abdomen CTDI(mGy):19.358664 / / / kVp:130.589958 / mAs:130.724481 / / / Body Part: Abdomen Final Dictated by: Ryan Epstein MD Dictated DT/TM: 04.14.2020 1:45 pm Signed by: Ryan Epstein MD Signed (Electronic Signature): 04.14.2020 1:53 pm (If Report Is Signed, Electronically Signed in Other Vendor System) Normal [facility] US Renal Onlyon 04-04-2020 US Renal [...] Electronically Signed in Other Vendor System) Normal [facility] XR Abdomen APon 04-04-2020 XR Abdomen [...] Electronically Signed in Other Vendor System) Normal [facility] FLUORO FOR SURGICAL PROCEDUR ESOrdered By: Antonia Grigsby on 11-09-2019 Radiology exam is complete. No Radiologist dictation. Please follow up with ordering provider. [employer] Phone: XR ABDOMEN (KUB) (SINGLE AP VIEW)Ordered By: Antonia Grigsby on 11-09-2019 Status post double-J stent insertion by Dr. Grigsby This report has been created using voice recognition software. It may contain minor errors which are inherent in voice recognition technology. Final report electronically signed by Dr. Bari Franklin on 11/09/2019 4:53 PM [employer] Phone: Anion GapOrdered By: Ligia James on 10-30-2019 Anion gap [Moles/Vol] 15.0 mmol/L 8 - 16 meq/L [employer] Phone: Comment on above: ANION GAP = Sodium - (Chloride + CO2) Performed at [facility] [address] [place] [address] CBC auto differentialOrdered By: Malena James on 10-30-2019 Basophils (Bld) [#/Vol] 0.1 10*3/uL [employer] Phone: Basophils/100 WBC (Bld) 1 % [employer] Phone: Eosinophils Absolute 0.1 [employer] Phone: Eosinophils/100 WBC (Bld) 1.4 % [employer] Phone: Erythrocyte distribution width (RBC) [Ratio] 13.2 % 11.5 - 14.5 % [employer] Phone: Hematocrit (Bld) [Volume fraction] 40.5 % 37 - 47 % [employer] Phone: Hemoglobin (Bld) [Mass/Vol] 13.1 g/dL [employer] Phone: Immature Grans (Abs) 0.01 [employer] Phone: Immature granulocytes/100 WBC (Bld) 0.2 % [employer] Phone: Interpretation and review of laboratory results Abnormal [employer] Phone: Lymphocytes Absolute 1.9 [employer] Phone: Lymphocytes/100 WBC (Bld) 37.7 % [employer] Phone: MCH (RBC) [Entitic mass] 29.9 pg 26 - 33 pg [employer] Phone: MCHC (RBC) [Mass/Vol] 32.3 g/dL [facility] [employer] Work Phone: MCV (RBC) [Entitic vol] 92.5 fL 81 - 99 fL [employer] Work Phone: Monocytes Absolute 0.3 Low [employer] Phone: Monocytes/100 WBC (Bld) 6.3 % [employer] Phone: nRBC 0 /100 wbc [employer] Work Phone: Comment on above: Performed at [facility] [address] [place] [address] Platelet mean volume (Bld) [Entitic vol] 9.1 fL Low 9.4 - 12.4 fL [facility] Phone: Platelets (Bld) [#/Vol] 292 10*3/uL [employer] Work Phone: RBC (Bld) [#/Vol] 4.38 10*6/uL [employer] Work Phone: RDW-SD 44.6 fL 35 - 45 fL [employer] Phone: Segmented neutrophils/100 WBC (Bld) 53.4 % [employer] Phone: Segs Absolute 2.7 [employer] Work Phone: WBC (Bld) [#/Vol] 5.1 10*3/uL [employer] Phone: CT ABDOMEN PELVIS W WO CONTR [...] Dr. Darleen Spring on 10/30/2019 2:42 PM [employer] Phone: Comprehensive Metabolic Pane l w/ Reflex to MGOrdered By: Malena James on 10-30-2019 Albumin [Mass/Vol] 4.5 g/dL 3.5 - 5.1 g/dL [employer] Phone: ALP [Catalytic activity/Vol] 84 U/L 38 - 126 U/L [employer] Phone: ALT [Catalytic activity/Vol] 34 U/L 11 - 66 U/L [employer] Phone: Comment on above: Performed at [facility] [address] [place] [address] AST [Catalytic activity/Vol] 23 U/L 5 - 40 U/L [employer] Phone: Bilirubin [Mass/Vol] 0.4 mg/dL 0.3 - 1 .2 mg/dL [employer] Phone: Calcium [Mass/Vol] 9.7 mg/dL 8.5 - 10. 5 mg/dL [employer] Phone: Chloride [Moles/Vol] 102 mmol/L 98 - 11 1 meq/L [employer] Phone: CO2 [Moles/Vol] 22 mmol/L Low 23 - 33 meq/L [employer] Phone: Creatinine [Mass/Vol] 0.8 mg/dL 0.4 - 1.2 mg/dL [employer] Phone: Glucose [Mass/Vol] 96 mg/dL 70 - 108 mg/dL [employer] Phone: Potassium [Moles/Vol] 4.1 mmol/L 3.5 - 5.2 meq/L [employer] Phone: Protein [Mass/Vol] 7.7 g/dL 6.1 - 8 g/dL [employer] Phone: Sodium [Moles/Vol] 139 mmol/L 135 - 145 meq/L [employer] Phone: Urea nitrogen [Mass/Vol] 15 mg/dL 7 - 22 mg/dL [employer] Work Phone: Glomerular Filtration Rate, EstimatedOrdered By: Malena James on 10-30-2019 Est Globruna Filt Rate 77 Abnormal ml/min/1 .7 3m2 [employer] Work Phone: Comment on above: Stage Description [...] Vol. 139 (2 pg 137-147. Performed at [facility] [address] [place] [address] HCG Qualitative, SerumOrdere d By: Malena James on 10-30-2019 Preg, Serum Negative NEGATIVE [employer] Work Phone: Comment on above: Performed at [facility] [address] [place] [address] No Panel InformationOrdered By: Malena James on 10-30-2019 Interpretation and review of laboratory results Abnormal [employer] Phone: OsmolalityOrdered By: Miguel James on 10-30-2019 Osmolality Calc 278.2 [employer] Work Phone: Comment on above: Performed at [facility] [address] [place] [address] Urine with Reflexed MicroOrd ered By: Malena James on 10-30-2019 Bacteria, UA NONE SEEN FEW/NONE S /hpf [employer] Work Phone: Bilirubin Urine Negative NEGATIVE [employer] Work Phone: Blood, Urine TRACE Abnormal NEGATIVE [employer] Work Phone: CASTS 2 NONE SEEN NONE SEEN /lpf [employer] Work Phone: Casts UA NONE SEEN NONE SEEN /lpf [facility] Work Phone: Character, Urine CLEAR CLEAR-SL C [facility] Work Phone: Color, UA DK YELLOW Abnormal STRAW-YELL [facility] [employer] Work Phone: Crystals LM Nom (Urine sed) NONE SEEN NONE SEEN [facility] Work Phone: Epi Cells 0-2 3-5/hpf /hpf [facility] Work Phone: Glucose, Ur Negative NEGATIVE mg/dl [employer] Work Phone: Interpretation and review of laboratory results Abnormal [facility] Work Phone: Ketones Ql (U) Negative NEGATIVE [facility] Work Phone: Leukocyte esterase Test strip Ql (U) Negative NEGATIVE [facility] Work Phone: MISCELLANEOUS 2 NONE SEEN [facility] Work Phone: Comment on above: Performed at [facility] [address] [place] [address] Nitrite, Urine Positive Abnormal NEGATIVE [facility] Work Phone: pH, UA 6.0 [facility] Work Phone: Protein, UA Negative NEGATIVE [facility] [employer] Work Phone: RBC, UA 0-2 0-2/hpf /hpf [facility] Work Phone: Renal Epithelial, Urine NONE SEEN NONE SEEN [facility] Work Phone: Specific [place], Urine < 1.005 [employer] Work Phone: Urobilinogen, Urine 0.2 [employer] Work Phone: WBC, UA NONE SEEN 0-4/hpf /hpf [facility] Work Phone: Yeast, UA NONE SEEN NONE SEEN [facility] Work Phone: Microalb/Creat Ratio,[place] Ur on 04-14-2018 Microalbumin, Random Urine < 2.0 Normal [facility] Comment on above: Performed By: #### L 500.0950 ####Main Laboratory ([facility])[address] [phone] Nivar, MD Microalbumin/Creatini ne Ratio < 3.7 Normal 0-30.0 [facility] Comment on above: Performed By: #### L 500.0950 ####Main Laboratory ([facility])[address] [phone] Nivar, MD Urine, creatinine 54.0 mg/dL Normal [facility] Comment on above: Performed By: #### L 500.0950 ####Main Laboratory ([facility])[address] [phone] Nivar, MD Urinalysis with Reflex Cultu reon 04-14-2018 Bilirubin (total) Negative Normal Negative [facility] Comment on above: Order Comment: Urine Source Urine, Clean Catch Performed By: #### L 300.3000 ####Main Laboratory ([facility])[address] [phone] Nivar, MD Epi,Squamous 0-5 Normal [facility] Comment on above: Order Comment: Urine Source Urine, Clean Catch Performed By: #### L 300.3000 ####Main Laboratory ([facility])[address], [place] [phone] Nivar, MD Epi,Transitional 0-5 Normal [facility] Comment on above: Order Comment: Urine Source Urine, Clean Catch Performed By: #### L 300.3000 ####Main Laboratory ([facility])[address] [phone] Nivar, MD Erythrocytes (RBC) 0-2 Normal [place] [facility] Comment on above: Order Comment: Urine Source Urine, Clean Catch Performed By: #### L 300.3000 ####Main Laboratory ([facility])[address], [place] [phone] Nivar, MD Glucose mass conc Negative Normal Negative [facility] Comment on above: Order Comment: Urine Source Urine, Clean Catch Performed By: #### L 300.3000 ####Main Laboratory ([facility])[address], [place] [phone] Nivar, MD Hemoglobin mass conc (Bld) Negative Normal Negative [facility] Comment on above: Order Comment: Urine Source Urine, Clean Catch Performed By: #### L 300.3000 ####Main Laboratory ([facility])[address] [phone] Nivar, MD Mucous Present Normal [facility] Comment on above: Order Comment: Urine Source Urine, Clean Catch Performed By: #### L 300.3000 ####Main Laboratory ([facility])[address] [place] [phone] Nivar, MD pH of blood 5.0 [pH] Normal 5.0-8.0 [facility] Comment on above: Order Comment: Urine Source Urine, Clean Catch Performed By: #### L 300.3000 ####Main Laboratory ([facility])[address], [place] [phone] Nivar, MD Protein Negative Normal Negative [facility] Comment on above: Order Comment: Urine Source Urine, Clean Catch Performed By: #### L 300.3000 ####Main Laboratory ([facility])[address], [place] [phone] Nivar, MD UA Reflex Culture No Normal [facility] Comment on above: Order Comment: Urine Source Urine, Clean Catch Result Comment: Cult ure not done per lab protocol Performed By: #### L 300.3000 ####Main Laboratory ([facility])[address], [place] [phone] Nivar, MD Urine, appearance Clear Normal [facility] Comment on above: Order Comment: Urine Source Urine, Clean Catch Performed By: #### L 300.3000 ####Main Laboratory ([facility])[address], [place] [phone] Nivar, MD Urine, color Straw Normal [facility] Comment on above: Order Comment: Urine Source Urine, Clean Catch Performed By: #### L 300.3000 ####Main Laboratory ([facility])[address], [place] [phone] Nivar, MD Urine, ketones presence Negative Normal Negative [facility] Comment on above: Order Comment: Urine Source Urine, Clean Catch Performed By: #### L 300.3000 ####Main Laboratory ([facility])[address], [place] [phone] Nivar, MD Urine, nitrite presence Negative Normal Negative [facility] Comment on above: Order Comment: Urine Source Urine, Clean Catch Performed By: #### L 300.3000 ####Main Laboratory ([facility])[address], [place] [phone] Nivar, MD Urine, specific gravity 1.008 Normal 1.000-1.03 5 [facility] Comment on above: Order Comment: Urine Source Urine, Clean Catch Performed By: #### L 300.3000 ####Main Laboratory ([facility])[address], [place] [phone] Nivar, MD Urine, urobilinogen {Kylee'U}/dL Normal 0.2-1.[address] [facility] Comment on above: Order Comment: Urine Source Urine, Clean Catch Performed By: #### L 300.3000 ####Main Laboratory ([facility])[address], [place] [phone] Nivar, MD WBC (Leukocytes) Negative Normal Negative [facility] Comment on above: Order Comment: Urine Source Urine, Clean Catch Performed By: #### L 300.3000 ####Main Laboratory ([facility])[address] [place] [phone] Nivar, MD WBC (Leukocytes) 0-5 Normal [facility] Comment on above: Order Comment: Urine Source Urine, Clean Catch Performed By: #### L 300.3000 ####Main Laboratory ([facility])[address] [place] [id number] Nivar, MD AMYLASEon 06-29-2017 Amylase 66 U/L Normal 25-115 [facility] Comment on above: Result Comment: The above 1 analytes were performed by [facility] [address] [place] [address] Performed By: #### 1 1000, 56776, 72520, 70146, 12525 ####[facility] Laboratory, [address] [place] [facility] [place] [address] BASIC METABOLIC PANELon 06-20 BUN (urea nitrogen) 20 mg/dL High 7-18 [facility] Comment on above: Performed By: #### 1 1000, 24452, 71992, 65388, 18144 ####[facility], [address] [place] [facility] [place] [address] Calcium 9.1 mg/dL Normal 8.5-10.1 [facility] Comment on above: Result Comment: The above 11 analytes were performed by [facility] [address] [facility] [place] [address] Performed By: #### 1 1000, 43712, 69797, 61488, 95907 ####[facility], [address] [place] [facility] [place] [address] Chloride 103 mmol/L Normal 98-107 [facility] Comment on above: Performed By: #### 1 1000, 85614, 88998, 76747, 74538 ####[facility], [address] [facility] [place] [address] CO2 26 mmol/L Normal 21-32 [facility] Comment on above: Performed By: #### 1 1000, 50223, 35033, 22406, 40289 ####[facility], [address] [place] [address] Creatinine 0.90 mg/dL Normal 0.60-1.30 [facility] Comment on above: Performed By: #### 1 1000, 91238, 79533, 42311, 86765 ####[facility], [address] [place] [address] eGFR (non-black) mL/min/{1.73_m2} Normal [facility] Comment on above: Result Comment: Norm al Reference Range is >60. Performed By: #### 1 1000, 78262, 60831, 54946, 06219 ####[facility], [address] [place] [address] Result Comment: AfAm = UNITS=mL/min/1.73 u8Nemtgg Reference Ranges is >60.Persistent reduction of eGFR (<60) for 3 months or more defines chronickidney disease, while eGFR <15 indicates renal failure. Patients witheGFR values >= 60 may also have CKD if evidence of persistentproteinuria is present. Gap 11 Normal 5-15 [facility] Comment on above: Performed By: #### 1 1000, 39781, 19492, 45281, 51005 ####[facility], [address] [place] [address] Glucose mass conc 97 mg/dL Normal 74-106 [facility] Comment on above: Performed By: #### 1 1000, 08455, 01450, 59479, 00315 ####[facility], [address] [place] [address] Potassium molar conc 3.6 mmol/L Normal 3.5-5.1 [facility] Comment on above: Performed By: #### 1 1000, 53834, 06383, 78854, 92653 ####[facility], [address] [place] [address] Sodium 136 mmol/L Normal 136-145 [facility] Comment on above: Performed By: #### 1 1000, 14939, 68341, 93086, 19303 ####[facility], [address] [place] [address] CBC WITH AUTO DIFFon 06-29-2 017 Basophils Auto #/vol (Bld) 0.00 x1000 Normal [facility] Comment on above: Result Comment: The above 20 analytes were performed by [facility] [address] [place] [address] Performed By: #### 1 1000, 35640, 89704, 35321, 51601 ####[facility], [address] [place] [address] Basophils/100 WBC Auto (Bld) 0.5 % Normal 0.0-3.0 [facility] Comment on above: Performed By: #### 1 1000, 55878, 93279, 74682, 73297 ####[facility], [address] [place] [address] Eosinophils 0.10 x1000 Normal [facility] Comment on above: Performed By: #### 1 1000, 34963, 99516, 30352, 16767 ####[facility], [address] [place] [address] Eosinophils/100 leukocytes 0.7 % Normal 0.0-6.0 [facility] Comment on above: Performed By: #### 1 1000, 51943, 54435, 90137, 37556 ####[facility], [address] [place] [address] Erythrocyte distribution width Auto Ratio (RBC) 13.2 % Normal 11.0-15.0 [facility] Comment on above: Performed By: #### 1 1000, 58145, 26919, 53372, 75320 ####[facility], [address] [place] [address] Hematocrit (HCT) 42.9 % Normal 37.0-47.0 [facility] Comment on above: Performed By: #### 1 1000, 27335, 46892, 68619, 71132 ####[facility], [address] [place] [address] Hemoglobin mass conc (Bld) 14.5 g/dL Normal 12.0-16.0 [facility] Comment on above: Performed By: #### 1 1000, 90774, 72467, 54964, 95514 ####[facility], [address] [place] [address] Lymphocytes 2.10 x1000 Normal [facility] Comment on above: Performed By: #### 1 1000, 33493, 38404, 24647, 40646 ####[facility], [address] [place] [address] Lymphocytes/100 leukocytes 24.8 % Normal 14.0-47.0 [facility] Comment on above: Performed By: #### 1 1000, 85480, 61018, 39989, 94196 ####[facility], [address] [place] [address] MCH 30.2 pg Normal 27-31 [facility] Comment on above: Performed By: #### 1 1000, 73186, 91985, 21145, 69161 ####[facility], [address] [place] [address] MCHC mass conc (RBC) 33.9 g/dL Normal 32.0-36.0 [facility] Comment on above: Performed By: #### 1 1000, 33883, 61740, 16940, 19852 ####[facility], [address] [place] [address] MCV 89.1 fL Normal 80.0-100.0 [facility] Comment on above: Performed By: #### 1 1000, 62533, 30280, 22438, 25563 ####[facility], [address] [place] [address] Monocytes 0.40 x1000 Normal [facility] Comment on above: Performed By: #### 1 1000, 86659, 46149, 85592, 11337 ####[facility], [address] [place] [address] Monocytes/100 leukocytes 5.4 % Normal 0.0-10.0 [facility] Comment on above: Performed By: #### 1 1000, 86470, 74174, 83577, 18690 ####[facility], [address] [place] [address] Neutrophils 5.70 x1000 Normal [facility] Comment on above: Performed By: #### 1 1000, 30444, 36504, 76096, 28593 ####[facility], [address] [place] [address] Neutrophils/100 WBC Auto (Bld) 68.6 % Normal 43.0-77.0 [facility] Comment on above: Performed By: #### 1 1000, 84579, 92638, 06453, 36038 ####[facility], [address] [place] [address] NRBC% 0.00 % WBC Normal [facility] Comment on above: Performed By: #### 1 1000, 98990, 19090, 88702, 06782 ####[facility], [facility] [place] [address] Platelets 297 x1000 Normal 144-420 [facility] Comment on above: Performed By: #### 1 1000, 60779, 15380, 88866, 41325 ####[facility], [facility] [place] [address] Red Blood Cell 4.82 MILLION Normal 4.2-5.4 [facility] Comment on above: Performed By: #### 1 1000, 81928, 25675, 93091, 28978 ####[facility], [facility] [place] [address] WBC (Leukocytes) 8.4 x1000 Normal 4.8-10.8 [facility] Comment on above: Performed By: #### 1 1000, 11101, 15061, 24917, 68602 ####[facility], [address] [place] [address] ABD&PELVIS W/O CONon 06-20 CT ABD&PELVIS W/O CON [place], OHIORADIOLOGY INTERPRETATION Patient Name: YARELI JOYNER Med Rec #: [id number] DR: JAQUAN DRAPER M.D. Date: 06/29/2017 Age: 47Y 2MLocation: ER : [address]: Pham RESTREPO M.D. Acces #: [id number] DR: Order #: [id number] DR: MD Dominick GutierrezExam Description: CT ABD&PELVIS [...] 1 of 2Patient Name: FILEMON JOYNERCLARISSAChococount #: [id number] Med Rec #: [id number] DR: MD Dominick Gutierrez.2. Bilateral nephrolithiasis.###FMC/dxr Dict: 06/29/2017 2:11:32 PMTran: 06/29/2017 2:18:10 PMJob#: [id number] Name: Ceci JOYNERectronically signed by Dominick Gutierrez MD on 06/30/2017 7:24:32 AMRADIOLOGY INTERPRETATION Page 2 of 2 [facility] LIPASEon 06-29-2017 Lipase 163 U/L Normal 73-393 [facility] Comment on above: Result Comment: The above 1 analytes were performed by [facility] [address] [place] [address] Performed By: #### 1 1000, 44414, 47683, 51435, 98799 ####[facility], [address] [place] [address] URINALYSIS W/MICROSCOPIC REF SAMEERA TO CULTUREon 06-29-2017 Bilirubin,Urine Negative Normal Negative [facility] Comment on above: Performed By: #### 1 1000, 28488, 98273, 95924, 38325 ####[facility], [address], [place] [address] Blood,Urine Moderate Critically abnormal Negative [facility] Comment on above: Performed By: #### 1 1000, 15247, 06806, 34227, 94812 ####[facility], [address], [place] [address] Epith,Urine Few Normal [facility] Comment on above: Performed By: #### 1 1000, 80895, 44697, 43933, 11560 ####[facility], [address], [place] [address] Ketone,Urine Trace Critically abnormal Negative [facility] Comment on above: Performed By: #### 1 1000, 68460, 53840, 72446, 57388 ####[facility], [address], [place] [address] Leukocyte,Urine Negative Normal Negative [facility] Comment on above: Performed By: #### 1 1000, 40475, 58562, 85066, 21855 ####[facility], [address], [place] [address] Mucus,Urine Few Normal [facility] Comment on above: Result Comment: The above 16 analytes were performed by [facility] [address],[place] [address] Performed By: #### 1 1000, 05100, 82086, 20454, 53318 ####[facility], [address], [place] [address] Nitrite,Urine Negative Normal Negative [facility] Comment on above: Performed By: #### 1 1000, 67164, 67503, 17656, 50701 ####[facility], [address], [place] [address] pH of blood 5.0 [pH] Low 6.0-8.0 [facility] Comment on above: Performed By: #### 1 1000, 31272, 32198, 46967, 21849 ####[facility], [address], [place] [address] Protein,Urine Qual Negative Normal Negative [facility] Comment on above: Performed By: #### 1 1000, 04168, 49921, 25813, 55058 ####[facility], [address], [place] [address] S.G. 1.014 Normal 1.000-1.02 0 [facility] Comment on above: Performed By: #### 1 1000, 27942, 27503, 14273, 27841 ####[facility], [address], [place] [address] Urine, appearance Clear Normal Clear [facility] Comment on above: Performed By: #### 1 1000, 10117, 41195, 55705, 79829 ####[facility], [address], [place] [address] Urine, color Yellow Normal Yellow [facility] Comment on above: Performed By: #### 1 1000, 04151, 28146, 01298, 84539 ####[facility], [address], [place] [address] Urine, erythrocytes in sediment by area 11-20 [facility] Comment on above: Performed By: #### 1 1000, 57937, 33192, 71564, 84536 ####[facility], [address], [place] [address] Urine, glucose presence Negative Normal Negative [facility] Comment on above: Performed By: #### 1 1000, 88250, 61011, 51684, 03829 ####[facility], [address], [place] [address] Urine, leukocytes in sedmiment 1-2 [facility] Comment on above: Performed By: #### 1 1000, 69953, 43002, 12277, 01541 ####[facility], [address] [place] [address] Urobilinogen,Urine Normal Normal Normal [facility] Comment on above: Performed By: #### 1 1000, 63824, 16191, 14673, 51073 ####[facility], [address] [place] [address] Vital Signs Date Time Vital Sign Value Performing Clinician John christopher 01-18-2025 11:220400 Body height 165.1 cm [employer] Work Phone: [facility] 01-18-2025 11:22040 Body mass index (BMI) [Ratio] 28.03 kg/m2 [employer] Work Phone: [facility] 01-18-2025 11:22040 Body weight 76.4 kg [employer] Work Phone: [facility] 01-18-2025 11:22-0400 Diastolic blood pressure 72 mm[Hg] [employer] Work Phone: [facility] 01-18-2025 11:22-0400 Heart rate 57 /min [employer] Work Phone: [facility] 01-18-2025 11:22-0400 Systolic blood pressure 112 mm[Hg] [employer] Work Phone: [facility] 08-14-2021 16:11-0400 Body temperature 97.5 [degF] [employer] Work Phone: [employer] Work Phone: 08-14-2021 16:11-0400 Diastolic blood pressure 66 mm[Hg] [employer] Work Phone: [employer] Phone: 08-14-2021 16:11-0400 Heart rate 64 /min [employer] Work Phone: [employer] Phone: 08-14-2021 16:11-0400 Respiratory rate 19 /min Dann Agiro DO Work Phone: [employer] Work Phone: 08-14-2021 16:11-0400 SaO2% (BldA) [Mass fraction] 93 % [employer] Work Phone: [employer] Phone: 08-14-2021 16:11-0400 Systolic blood pressure 105 mm[Hg] [employer] Work Phone: [employer] Work Phone: 08-06-2021 21:36-0400 Body mass index (BMI) [Ratio] 29.02 kg/m2 [employer] Work Phone: [employer] Phone: 08-06-2021 21:36-0400 Body weight 84.05 kg [employer] Phone: [employer] Phone: 08-06-2021 12:38-0400 Body height 170.2 cm [employer] Phone: [employer] Phone: 04-18-2020 18:41-0400 BP Diastolic 64 mm[Hg] [facility] , [place] 04-18-2020 18:41-0400 BP Systolic 128 mm[Hg] [facility] [place] 04-18-2020 18:41-0400 Pulse (Heart Rate) 66 /min [facility] [place] 04-18-2020 18:41-0400 Pulse Oximetry 98 % [facility] , [place] 04-18-2020 18:41-0400 Respiratory Rate 16 /min [facility] [place] 04-18-2020 17:40-0400 Body Temperature 98.2 [degF] [facility] [place] 04-18-2020 14:55-0400 BMI (Body Mass Index) 32.02 kg/m2 [facility], [place] 04-18-2020 14:55-0400 Body weight 87.27 kg [facility] , [place] 04-18-2020 14:55-0400 Height 165.1 cm Antoniaalfred Vidales [facility] , [place] 11-23-2019 12:05-0500 BP Diastolic 59 mm[Hg] Antonia Ball [employer] Work Phone: 11-23-2019 12:05-0500 BP Systolic 106 mm[Hg] Antoniaalfred Grigsby [facility] [employer] Work Phone: 11-23-2019 12:05-0500 Pulse (Heart Rate) 77 /min Antoniaalfred Grigsby [facility] [employer] Work Phone: 11-23-2019 12:05-0500 Pulse Oximetry 97 % Antoniaalfred Grigsby [facility] [employer] Work Phone: 11-23-2019 12:05-0500 Respiratory Rate 16 /min Antoniaalfred Grigsby [facility] [employer] Work Phone: 11-23-2019 11:06-0500 Body Temperature 97 [degF] Antoniaalfred Grigsby [facility] [employer] Work Phone: 11-23-2019 08:01-0500 BMI (Body Mass Index) 32.42 kg/m2 Antoniaalfred Vidales [facility] Work Phone: 11-23-2019 08:01-0500 Body weight 88.36 kg Antoniaalfred Grigsby [facility] Work Phone: 11-23-2019 08:01-0500 Height 165.1 cm Antoniaalfred Grigsby [facility] [employer] Work Phone: 11-09-2019 17:38-0500 Body temperature 97.2 [degF] Antonia Grigsby MD Work Phone: [employer] Work Phone: 11-09-2019 17:38-0500 Diastolic blood pressure 68 mm[Hg] Antonia Grigsby MD Work Phone: [employer] Work Phone: 11-09-2019 17:38-0500 Heart rate 63 /min Antonia Grigsby MD Work Phone: [employer] Work Phone: 11-09-2019 17:38-0500 Respiratory rate 16 /min Antonia Grigsby MD Work Phone: [employer] Work Phone: 11-09-2019 17:38-0500 SaO2% (BldA) [Mass fraction] 100 % Antonia Grigsby MD Work Phone: [employer] Work Phone: 11-09-2019 17:38-0500 Systolic blood pressure 124 mm[Hg] Antonia Grigsby MD Work Phone: [employer] Work Phone: 11-09-2019 14:01-0500 Body height 165.1 cm Antonia Grigsby MD Work Phone: [employer] Work Phone: 11-09-2019 14:01-0500 Body mass index (BMI) [Ratio] 32.48 kg/m2 Antonia Grigsby MD Work Phone: [employer] Work Phone: 11-09-2019 14:01-0500 Body weight 88.54 kg Antonia Grigsby MD Work Phone: [employer] Work Phone: 10-30-2019 15:10-0500 Diastolic blood pressure 79 mm[Hg] Caitlyn Ferguson Other Phone: [employer] Work Phone: 10-30-2019 15:10-0500 Heart rate 68 /min Caitlyn Ferguson Other Phone: [employer] Work Phone: 10-30-2019 15:10-0500 Respiratory rate 18 /min Caitlyn Ferguson Other Phone: [employer] Phone: 10-30-2019 15:10-0500 SaO2% (BldA) [Mass fraction] 96 % Caitlyn Ferguson Other Phone: [employer] Phone: 10-30-2019 15:10-0500 Systolic blood pressure 123 mm[Hg] Caitlyn Ferguson Other Phone: [employer] Phone: 10-30-2019 13:21-0500 Body height 165.1 cm Caitlyn Ferguson Other Phone: [employer] Phone: 10-30-2019 13:21-0500 Body mass index (BMI) [Ratio] 31.62 kg/m2 Caitlyn Beachhamilton Other Phone: [employer] Phone: 10-30-2019 13:21-0500 Body temperature 98.4 [degF] Caitlyn Bairdabel Other Phone: [employer] Phone: 10-30-2019 13:21-0500 Body weight 86.18 kg Caitlyn Madeleine Other Phone: [employer] Phone: Encounters Encounter Date Encounter Type Care Provider Facility Start: 07-14-2025 End: 07-14-2025 ambulatory LESLEE MORTENSEN [facility] Start: 06-03-2025 End: 06-03-[address] Leslee Mortensen MD Work Phone: -Laboratory Specimen Start: 06-03-2025 End: 06-03-[address] Leslee Mortensen MD -Laboratory Specimen Work Phone: Start: 06-03-2025 End: 06-03-2025 ambulatory Leslee Mortensen Facility:[facility] Start: 05-03-2025 End: 05-03-2025 [facility] Start: 01-18-2025 End: 01-18-2025 Patient encounter procedure Sid Fragoso DO Work Phone: [facility] Comment on above: Palpitations (Primar y Dx); Hyperlipidemia LDL goal <70; History of stress test; Non-smoker Start: 01-18-2025 End: 01-18-2025 ambulatory SID FRAGOSO Facility:[id number] Start: 03-11-2024 End: 03-11-2024 [facility] Start: 05-07-2022 End: 05-07-2022 Subsequent hospital visit by physician Caitlyn Ferguson [employer] Work Phone: [facility] Start: 08-06-2021 End: 08-14-2021 Evaluation and management of inpatient Dann Haile DO Work Phone: [facility] 8B Comment on above: Pneumonia due to COV ID-19 virus (Primary Dx); Acute respiratory failure with hypoxia (HCC) Start: 02-15-2021 End: 02-15-2021 Subsequent hospital visit by physician Caitlyn Ferguson [employer] Work Phone: [facility] [place] Comment on above: Right flank pain; Nephrolithiasis Start: 04-18-2020 End: 04-18-2020 Subsequent hospital visit by physician Antonia Grigsby Work Phone: [facility] Comment on above: Nephrolithiasis (Key nikky Dx) Start: 04-18-2020 End: 04-18-2020 Subsequent hospital visit by physician Leila Willams [facility] Ultrasound Comment on above: Examination for norm al comparison for clinical research Start: 04-14-2020 End: 04-15-2020 Patient encounter procedure MAMI RICHARD Facility:[facility] Start: 04-04-2020 End: 04-05-2020 Patient encounter procedure Malena Cantor Facility:[facility] Start: 11-23-2019 End: 11-23-2019 Subsequent hospital visit by physician Antonia Grigsby Work Phone: [facility] Comment on above: Postoperative pain ( Primary Dx) Start: 11-09-2019 End: 11-09-2019 Subsequent hospital visit by physician Antonia Grigsby MD Work Phone: [facility] Comment on above: Postoperative pain ( Primary Dx) Start: 10-30-2019 End: 10-30-2019 Emergency department patient visit Caitlyn Ferguson Other Phone: [facility] Comment on above: Right nephrolithiasi s (Primary Dx) Start: 04-14-2018 End: 04-14-2018 Ambulatory Caitlyn Ferguson CNP Facility:[facility] Start: 06-29-2017 End: 06-29-2017 Ambulatory PCP UNKNOWN [facility] Procedures Date Procedure Procedure Detail Performing Clinician [...] procedure 01/18/2027 11:20 AM EDT Office Visit [facility] [address] [place] [address] [address] [place] [address] Gerardo Mullen APRN.[facility] [address] [facility] [address] [place], [place] [id number] 2 year f/u [facility] Comment on above: 2 year f/u Start: 07-19-2025 Lipid panel [facility] Start: 08-14-2024 Diabetes Screening Diabetes Screenin g [facility] Start: 06-20-2024 Covid-19 Vaccine ( season) Covid-19 Vaccine ( season) [facility] Start: 06-20-2024 Influenza vaccination Influenza Vacc ine (#1) [facility] Start: 11-05-2022 End: 11-05-2022 Patient encounter procedure 11/05/2022 Office Visit Urology Antonia Grigsby MD [address] [place] [address] [facility] Start: 06-20-2022 Influenza vaccination Flu vaccine (# 1) [facility] Start: 2022 Pneumococcal Vaccine : 50+ (1 of 1 - PCV) Pneumococcal Vaccine: 50+ (1 of 1 - PCV) [facility] Start: 2022 Screening for malign ant neoplasm of breast Breast cancer screen [facility] Start: 06-29-2022 Shingles vaccine (1 of 2) Shingles vaccine (1 of 2) DEANNA HART [facility] Start: 2022 Shingrix Vaccine (1 of 2) Shingrix Vaccine (1 of 2) [facility] Start: 06-20-2021 [facility] Start: 02-20-2021 End: 02-20-2021 Admission to same day surgery center 02/20/2021 Surgery IP Unit Antonia Grigsby MD [address] [place], [facility] [phone] RIGHT ESWL EXTRACORPOREAL SHOCK WAVE LITHOTRIPSY [facility] Comment on above: RIGHT ESWL EXTRACORP OREAL SHOCK WAVE LITHOTRIPSY Start: 02-20-2021 Subsequent hospital visit by physician 02/20/2021 Hospital Encounter IP Unit Antonia Grigsby MD [address] [place], [facility] [phone] [facility] Start: 06-20-2020 Influenza vaccination Flu vacc ine (Season Ended) [facility] [place] Start: 05-16-2020 End: 05-16-2020 Office Visit 05/16/2020 Office Visit Urology Antonia Grigsby MD [address] [place], [id number] [phone] [facility] Urology Start: 11-29-2019 End: 11-29-2019 Nurse Only [facility] Urology Start: 11-01-2019 End: 11-01-2019 Patient encounter procedure 11/01/2019 Office Visit Urology [facility] Urology Start: 06-30-2019 Lipid panel [facility] screen [facility] [place] [place] Start: 06-30-2019 Lipid screen Lipid screen [facility] Work Phone: Start: 06-20-2019 Influenza vaccination Flu vaccine (# 1) [employer] Phone: Start: 08-30-2017 Cervical cancer screen Cervical canc er screen [facility]: Start: 08-30-2017 Screening for malign ant neoplasm of cervix Cervical cancer screen [facility] [place], [place] Start: 06-30-2017 Diabetes screen Diabetes screen [facility] Start: 2017 Lipid panel Lipid Screening [facility] Start: 2017 Screening for malign ant neoplasm of colon [facility] Start: 2012 Screening for malign ant neoplasm of breast Mammogram Screening [facility] Start: 2002 Screening for malign ant neoplasm of cervix [facility] Start: 1993 Screening for malign ant neoplasm of cervix [facility] Start: 1991 DTaP/Tdap/Td vaccine (1 - Tdap) DTaP/Tdap/Td vaccine (1 - Tdap) [facility] Start: 1991 Hepatitis B Vaccine (1 of 3 - 19+ 3-dose series) Hepatitis B Vaccine (1 of 3 - 19+ 3-dose series) [facility] Start: 1991 Urine microalbumin profile DTaP,Tdap,Td Vaccine (1 - Tdap) [facility] Start: 1990 Anxiety Screening Anxiety Screening [facility] Start: 1990 [facility] C [facility] Start: 1990 HIV screening HIV Screening [facility] Start: 1988 COVID-19 Vaccine (1) COVID-19 Vaccin e (1) [facility] [employer] Work Phone: Start: 1987 HIV screen HIV screen [facility] Work Phone: Start: 1987 HIV screening HIV screen [facility] Start: 1984 COVID-19 Vaccine (1) COVID-19 Vaccin e (1) [employer] Work Phone: Start: 1984 Depression Screen Depression Screen [facility] Start: 1983 DTaP/Tdap/Td vaccine (1 - Tdap) DTaP/Tdap/Td vaccine (1 - Tdap) [facility] Work Phone: Start: 1972 COVID-19 Vaccine (#1) COVID-19 Vacci ne (#1) DEANNA HART [employer] Start: 1972 Hepatitis C screening Hepatitis C sc víctor [employer] Phone: Acapella Acapella Respira tory Care Routine As Needed until discontinued starting 08/08/2021 [employer] Work Phone: Comment on above: As Needed until disc ontinued starting 08/08/2021 Basic metabolic 2000 panel - Serum or Plasma Basic Metabolic Panel Lab Routine Daily until discontinued starting 08/08/2021, 7 completed [employer] Phone: Comment on above: Daily until disconti nued starting 08/08/2021, 7 completed CBC W Auto Different ial panel - Blood CBC auto differential Lab Routine Daily until discontinued starting 08/08/2021, 7 completed [employer] Phone: Comment on above: Daily until disconti nued starting 08/08/2021, 7 completed COVID-19 COVID-19 Lab [place] Right flank pain Nephrolithiasis 02/15/2021 9:20 AM EDT [employer] Work Phone: End: 10-30-2019 Culture, Reflexed, Urine Culture, Reflexed, Urine Microbiology Routine Once for 1 Occurrences starting 10/30/2019 until 10/30/2019 [employer] Work Phone: Comment on above: Once for 1 Occurrenc es starting 10/30/2019 until 10/30/2019 Culture, Reflexed, Urine Culture , Reflexed, Urine Microbiology Routine 10/30/2019 1:22 PM [employer] Work Phone: ECG COMPLETE ECG COMPLETE ECG Routine Palpitations 01/18/2025 11:16 AM EDT [facility] Work Phone: EKG Emergency EKG Emergency EC G STAT 10/30/2019 1:18 PM EST [employer] Work Phone: Heated/ Humidified H igh Flow Nasal Cannula Heated/ Humidified High Flow Nasal Cannula Respiratory Care Routine Every 4hr until discontinued starting 08/07/2021 [employer] Phone: Comment on above: Every 4hr until disc ontinued starting 08/07/2021 End: 08-13-2021 Home O2 eval (desaturation screen) Home O2 eval (desaturation screen) Respiratory Care Routine One Time for 1 Occurrences starting 08/13/2021 until 08/13/2021 [employer] Phone: Comment on above: One Time for 1 Occur rences starting 08/13/2021 until 08/13/2021 End: 08-14-2021 Home O2 eval (desaturation screen) Home O2 eval (desaturation screen) Respiratory Care Routine One Time for 1 Occurrences starting 08/14/2021 until 08/14/2021 [employer] Phone: Comment on above: One Time for 1 Occur rences starting 08/14/2021 until 08/14/2021 Incentive spirometry [facility] [employer] Phone: Comment on above: Every 2hr while awak e until discontinued starting 11/23/2019 Every 2hr while awak e until discontinued starting 11/09/2019 Initiate Oxygen Ther apy Protocol [employer] Phone: Comment on above: Daily until disconti nued starting 11/23/2019 Daily until disconti nued starting 11/09/2019 Oxygen therapy [[facility] Data Set] Initiate Oxygen Therapy Protocol Respiratory Care Routine Daily until discontinued starting 08/06/2021 [employer] Phone: Comment on above: Daily until disconti nued starting 08/06/2021 Phase I & II - meter ed glucose [employer] Phone: Comment on above: As Needed until disc ontinued starting 11/23/2019 As Needed until disc ontinued starting 11/09/2019 End: 11-23-2019 Stone Analysis Stone Analysis Microbiology Routine Once for 1 Occurrences starting 11/23/2019 until 11/23/2019 [employer] Phone: Comment on above: Once for 1 Occurrenc es starting 11/23/2019 until 11/23/2019 Stone Analysis Stone Analysis Microbiology Routine 11/23/2019 9:59 AM EST [employer] Phone: Surgical Pathology Surgical Path ology Lab Routine ONE TIME for 1 Occurrences starting 11/23/2019 [employer] Phone: Comment on above: ONE TIME for 1 Occur rences starting 11/23/2019 Payers Date Payer Category Payer Self-pay 1970 Unknown [id number] 1970 Unknown [id number] Self-pay [id number] Unknown [id number] Social History Date Type Detail Facility Start: 11-23-2019 End: 08-29-2023 Tobacco smoking status MNIS Never smoker DEANNA HART [employer] Phone: Start: 11-23-2019 End: 05-07-2022 Alcohol intake Current non-drinker of alcohol (finding) [employer] Phone: Start: 1970 Sex Assigned At Not on file [employer] Phone: Exposure to SARS-CoV -2 (event) Unable to assess [facility]- [place], [place] Start: 02-14-2021 End: 08-29-2023 Tobacco use and exposure Never used [employer] Exposure to SARS-CoV -2 (event) Not sure [employer] Start: 01-18-2025 Alcoholic beverage intake Lifetime non-drinker (finding) [facility] Start: 08-29-2023 End: 01-18-2025 History of Social function [facility] Start: 08-29-2023 End: 01-18-2025 Tobacco use panel [facility] National Score (1-10 0), lower number is lower risk 48 [facility] ever smoked [facility] Work Phone: Start: 1970 Sex Assigned At Female [facility] Medical Equipment Procedure Code Equipment Code Equipment Origin al Text Equipment Identifier Dates Stent Uret Hydrp l Coat W/O [id number] Start: 11-09-2019 Stent Uret Hydrp l Coat W/O [id number] Start: 11-23-2019 Stent Uret Hydrp l Coat W/O [id number] Start: 04-18-2020 Goals Date Patient Goal Desired Activity /State Personal health goal Clinical Notes 10-30-2019 to 01-18-2025 Sid Fragoso DO - 01/18/2025 11:18 AM Palmer Murillo DO - 08/14/2021 3:31 PM Akosua Jaramillo RN - 08/14/2021 2:50 PM Amie Hernández PT - 08/14/2021 10:55 AM EDTInstructions Note Date & Type Note Facility 01-18-2025 Note HNO ID: [id number] Author: SID FRAGOSO DO Service: ? Author [...] showed nonspecific S (more content not included)... [facility] 01-18-2025 History of Presen t illness [...] In a pictorial format; I described the [place] and QRS intervals. This was to show [...] one hundred percent of my time in soid-gu-spln conversation with the patient. I answered all the questions and explained the diagnosis of palpitations now with lifestyle modification. Beta-blockade has been stopped in the past she has not had any return of the palpitations. Greater that 51% of my time was spent with ecow-la-thpn conversation with the patient. I have discussed [...] Sid Fragoso DO documented in this encounter [facility] 08-14-2021 Hospital course Narrative Images from the original note were not included. Hospitalist Discharge Summary Patient: Yareli Joyner Date of : 1970 Acct: [id number] Primary Care Physician: Caitlyn Ferguson APRN - GLUE MIXER Admit date 08/06/2021 Discharge date: 08/14/2021 3:31 [...] Your Medications These medications were sent to [id number] - [place], [place] - [address] - P [phone] - F [phone] [place] [address] albuterol sulfate HFA 108 (90 Base) MCG/ACT [...] Palliative [] Hospice [] Pain management [] food services coordinator []TCU [] PT/OT OTHERS:- Disposition: home Condition at Discharge: Stable Time Spent:- 40 minutes Discharging Hospitalist documented in this encounter [employer] Phone: 08-14-2021 History of Presen t illness [...] was 91% on room air during ambulation. [facility] INPATIENT PHYSICAL THERAPY DAILY NOTE STRZ [...] Ambulation Assistance: Independent Transfer Assistance: Independent Active Bar Hostess: Yes Additional Comments: Pt stays at home, [...] throughout the day Functional Outcome Measures: Completed [facility] Inpatient Mobility Raw Score : 22 [facility] Inpatient T-Scale Score : 53.28 ASSESSMENT: Assessment: [...] with IND to progress towards PLOF safely. intermediate accountant goals Time Frame for intermediate accountant goals : NA due to short ELOS Following session, patient left in safe position with all fall risk precautions in place. [facility] MED SURG 8B Occupational Therapy Daily Note Time: Time In: 946 Time Out: 1020 Timed Code Treatment Minutes: 33 Minutes Minutes: 33 Date: 08/14/2021 Patient Name: Yareli Joyner, Gender: female Room: [facility]021-A : 1970 (51 y.o.) Referring Practitioner: Palmer [...] status. No questions voiced at this time. [facility] OCCUPATIONAL THERAPY MISSED TREATMENT NOTE STRZ MED SURG 8B 8B-21/021-A Date: 08/13/2021 Patient Name: Yareli Joyner CSN: [id number] : 1970 (51 y.o.) Gender: female Referring Practitioner: Palmer Dave DO Diagnosis: Acute Respiratory Failure with hypoxia REASON FOR MISSED TREATMENT: Attx1 Patient positive for orthostatic BP Attx2 patient sleeping [facility] INPATIENT PHYSICAL THERAPY DAILY NOTE STRZ [...] Ambulation Assistance: Independent Transfer Assistance: Independent Active Bar Hostess: Yes Additional Comments: Pt stays at home, [...] with functional mobility. Functional Outcome Measures: Completed [facility] Inpatient Mobility Raw Score : 19 [facility] Inpatient T-Scale Score : 45.44 ASSESSMENT: Assessment: [...] with IND to progress towards PLOF safely. intermediate accountant goals Time Frame for jail goals : NA due to short ELOS Following session, patient left in safe position with all fall risk precautions in place. Images from the original note were not included. Hospitalist Progress Note Patient: Yareli Joyner Unit/Bed:8B-/021-A Date of : 1970 Acct: [id number] PCP: CELESTE Moffett CNP Date of Admission: [...] Joyner Unit/Bed:8B-21/021-A Date of : 1970 Acct: [id number] PCP: CELESTE Moffett CNP Date of Admission: [...] Joyner Unit/Bed:8B-21/021-A Date of : 1970 Acct: [id number] PCP: CELESTE Moffett CNP Date of Admission: [...] called unless she turns for the worse. [facility] INPATIENT OCCUPATIONAL THERAPY STRZ MED SURG 8B [...] Ambulation Assistance: Independent Transfer Assistance: Independent Active Bar Hostess: Yes Occupation: Unemployed Additional Comments: Pt stays [...] Joyner Unit/Bed:8B-21/021-A Date of : 1970 Acct: [id number] PCP: CELESTE Moffett CNP Date of Admission: [...] Dr. Bari Franklin on 08/06/2021 1:30 PM [facility] INPATIENT PHYSICAL THERAPY EVALUATION [facility] MED SURG 8B - 8B-21/021-A Time [...] Ambulation Assistance: Independent Transfer Assistance: Independent Active Bar Hostess: Yes Occupation: Unemployed Additional Comments: Pt stays [...] UE support intermittently Functional Outcome Measures: Completed [facility] Inpatient Mobility Raw Score : 19 [facility] Inpatient T-Scale Score : 45.44 ASSESSMENT: Activity [...] with IND to progress towards PLOF safely. jail goals Time Frame for jail goals : NA due to short ELOS [...] included. Hospitalist Progress Note Patient: Yareli Joyner Unit/Bed:[facility]21/021-A Date of : 1970 Acct: [id number] PCP: CELESTE Moffett CNP Date of Admission: [...] Joyner Unit/Bed:8B-21/021-A Date of : 1970 Acct: [id number] PCP: CELESTE Moffett CNP Date of Admission: [...] included. Hospitalist Progress Note Patient: Yareli Joyner Unit/Bed:[facility]021-A Date of : 1970 Acct: [id number] PCP: Caitlyn Ferguson APRN - ZOIE Date [...] PM Explained patients right to have family, account maintenance representative or physician notified of their admission. Patient has Declined for physician to be notified. Patient has Declined for family/account maintenance representative to be notified. Patient would like family notified once per shift? No documented in this encounter [employer] Phone: 08-14-2021 Hospital DischFlro Nelson RN - 08/14/2021 Images from the [...] Where can you learn more? Go to [email or web address] and sign in to your [employer] account. Enter C123 in the Search Health Information box to learn more about Learning About COVID-19 and Flu Symptoms. If you do not have an account, please click on the Sign Up Now link. Current as of: January 12, 2021 Content Version: 13.0 [employer]. Care instructions adapted under license by [employer]. If you have questions about a medical condition or this instruction, always ask your healthcare professional. [employer] disclaims any warranty or liability for your [...] may report side effects to FDA at 5-988-DWM-4494. What other drugs will affect albuterol and ipratropium inhalation? Tell your doctor about all your other medicines, especially: a diuretic or water pill; heart or blood pressure medicine; other beta-blockers; or an antidepressant. This list is not complete. Other drugs may affect albuterol and ipratropium, including prescription and ugry-yzm-xxfjzci medicines, vitamins, and herbal products. Not all [...] to ensure that the information provided by [employer] ('[employer]') is accurate, up-to-date, and complete, but no guarantee is made to that effect. Drug information contained herein may be time sensitive. [employer] information has been compiled for use by healthcare practitioners and consumers in the [place] and therefore [employer] does not warrant that uses outside of the [place] are appropriate, unless specifically indicated otherwise. [employer] drug information does not endorse drugs, diagnose patients or recommend therapy. [employer] drug information is an informational resource designed [...] effective or appropriate for any given patient. [employer] does not assume any responsibility for any aspect of healthcare administered with the aid of information [employer] provides. The information contained herein is not intended to cover all possible uses, directions, precautions, warnings, drug interactions, allergic reactions, or adverse effects. If you have questions about the drugs you are taking, check with your doctor, nurse or pharmacist. Copyright 5228-5671 [employer] Version: 8.01. Revision date: 07/24/2020. Care instructions adapted under license by [employer]. If you have questions about a medical condition or this instruction, always ask your healthcare professional. [employer] disclaims any warranty or liability for your [...] not expected to produce life threatening symptoms. jail use of high doses can lead to [...] may report side effects to FDA at 5-193-NMP-3595. What other drugs will affect dexamethasone? Sometimes [...] may affect dexamethasone. This includes prescription and pirf-ezx-vknggak medicines, vitamins, and herbal products. Not all [...] to ensure that the information provided by [employer]') is accurate, up-to-date, and complete, but no guarantee is made to that effect. Drug information contained herein may be time sensitive. [employer] information has been compiled for use by healthcare practitioners and consumers in the [place] and therefore [employer] does not warrant that uses outside of the [place] are appropriate, unless specifically indicated otherwise. [employer] drug information does not endorse drugs, diagnose patients or recommend therapy. [employer] drug information is an informational resource designed [...] effective or appropriate for any given patient. [employer] does not assume any responsibility for any aspect of healthcare administered with the aid of information [employer] provides. The information contained herein is not intended to cover all possible uses, directions, precautions, warnings, drug interactions, allergic reactions, or adverse effects. If you have questions about the drugs you are taking, check with your doctor, nurse or pharmacist. Copyright 9344-9295 [employer] Version: 8.01. Revision date: 08/23/2020. Care instructions adapted under license by [employer]. If you have questions about a medical condition or this instruction, always ask your healthcare professional. [employer], [facility] disclaims any warranty or liability for your use of this information. documented in this encounter [employer] Phone: 08-06-2021 Note PROCEDURE: XR CHEST PORTABLE CLINICAL INFORMATION: sob COMPARISON: No prior study. TECHNIQUE: A single mobile view of the chest was obtained. [employer] Phone: 02-15-2021 History of Presen t illness Narrative Covid swab obtained. Given to lab. Tolerated well. Proper PPE worn. documented in this encounter [employer] Phone: 11-09-2019 History of Presen t illness [...] appointments. Pt transported to discharge lobby by [facility] staff. Pt returned to [facility] room 14. Vitals and assessment as [...] urine sample needed. 1414: Patient admitted to [facility] room 14. Dago, spouse at bedside. [...] 1430: Consent signed. documented in this encounter [employer] Phone: 11-09-2019 Note PROCEDURE: XR ABDOME N [...] calculi in the right kidney. . . [employer] Phone: 11-09-2019 Note Flo, Wcoh Incoming R adiant Results From [employer] - 11/09/2019 4:55 PM EST PROCEDURE: XR [...] Dr. Bari Franklin on 11/09/2019 4:53 PM [employer] Phone: 11-09-2019 Hospital Discharg Antonia Coronel MD [...] narcotics Please call attending physician or hospital freight elevator operator with questions Call or Present to ED if fever (> 101F), intractable nausea vomiting or pain. Rx in chart Pt should follow up with ANTONIA GRIGSBY MD, in 1-2 weeks for repeat surgery The following attachments cannot be sent through Care Everywhere.Cystoscopy: Post-op (British)Lithotripsy: Post-op (British)documented in this encounter [employer] Phone: 10-30-2019 Note PROCEDURE: CT ABDOME N [...] normal. No suspicious osseous lesions are present. [employer] Work Phone: 10-30-2019 Note Flo, Wcoh Incoming R adiant Results From [employer] - 10/30/2019 2:44 PM EST PROCEDURE: CT [...] Dr. Darleen Spring on 10/30/2019 2:42 PM [employer] Phone: 10-30-2019 Hospital Discharg e Malena Estrada [...] cannot be sent through Care Everywhere.Kidney Stone (British)documented in this encounter [employer] Phone: Evaluation note Diagnosis Right flank pain Abdominal pain, unspecified site Nephrolithiasis Calculus of kidney documented in this encounter [employer] Phone: evaluation note* Diagnosis Pneumonia due to COVID-19 virus- Primary Acute respiratory failure with hypoxia (HCC) Acute respiratory failure documented in this encounter [employer] Phone: evaluation note* Diagnosis Right nephrolithiasis- Primary documented in this encounter [employer] Phone: evaluation note* Diagnosis Postoperative pain- Primary Other acute postoperative pain documented in this encounter [employer] Phone: evaluation note* Diagnosis Palpitations- Primary Hyperlipidemia LDL goal <70 Other and unspecified hyperlipidemia History of stress test Other specified conditions influencing health status Non-smoker Other specified conditions influencing health status [facility] note[facility] information availableWSt. Francis [facility] Work Phone: Reason for referral (narrative)No reason for referral information availableWSt. Francis Hospital Work Phone: Summary Purpose Family History No Family History Records FoundNo Family History Records FoundNo Family History Records FoundNo Family History Records FoundNo Family History Records FoundNo Family History Records FoundNo Family History Records FoundNo Family History Records FoundNo Family History Records Found Advance Directives No Advanced Directives Records FoundDocuments on File Type Date Recorded Patient Funeral Home Attendant Expl anation Advance Directives and Living Will Power of Retreader Latest Code Status on File Code Status Date Activated Date Inactivated Comments Full Code 06/30/2017 7:48 AM 07/01/2017 2:32 PM Documents on File Type Date Recorded Patient Funeral Home Attendant Expl anation Advance Directives and Living Will Power of Retreader Latest Code Status on File Code Status Date Activated Date Inactivated Comments Full Code 06/30/2017 7:48 AM 07/01/2017 2:32 PM Documents on File Type Date Recorded Patient Funeral Home Attendant Expl anation ACP-Advance Directive ACP-Power of Retreader Latest Code Status on File Code Status [...] narcotics Please call attending physician or hospital freight elevator operator with questions Call or Present to [...] narcotics Please call attending physician or hospital freight elevator operator with questions Call or Present to [...] meets criteria for discharge , transported to [facility] , family aware * Sylvia Richardson RN - 11/23/2019 8:00 AM EST Admitted and oriented to [facility]. Fall risk band applied, and information [...] up appointments. Pt transported to dischargelobby by [facility] staff. * Amie Salomon RN - 04/18/2020 5:40 PM EDT Pt returned to [facility] room 8. Vitals and assessment as [...] bed. Denies pain or discomfort. VSS. To [facility] in stable condition. * Amie Crane RN - 04/18/2020 3:08 PM EDT ADMITTED TO [facility] AND ORIENTED TO UNIT. SCDS ON. [...] section and content) DATE CREATED AUTHOR 04/15/2018 [facility] DATE CREATED AUTHOR AUTHOR'S [facility] 2018 [facility] DATE CREATED AUTHOR AUTHOR'S ORGANIZ ATION 05/10/2020 [facility] DATE CREATED AUTHOR AUTHOR'S ORGANIZ ATION 02/15/2021 Pathology Teresafauzia saldaña [facility] DATE CREATED AUTHOR AUTHOR'S ORGANIZ ATION 01/27/2024 [facility] [place] [facility] DATE CREATED AUTHOR AUTHOR'S ORGANIZ ATION 03/19/2024 [facility] DATE CREATED AUTHOR AUTHOR'S ORGANIZ ATION 05/02/2025 [facility] DATE CREATED AUTHOR AUTHOR'S ORGANIZ ATION 06/19/2025 [facility] DATE CREATED AUTHOR AUTHOR'S ORGANIZ ATION 07/15/2025 [facility] Reason for Visit (unrecogniz ed section and content) Status Reason Specialty Diagnoses / Procedures Referre d By Contact Referred To Contact Diagnoses KIDNEY STONES Procedures [place] CYSTO/URETERO W/LITHOTRIPSY &INDWELL STENT INSRT CYSTOSCOPY, RIGHT URETEROSCOPY, HOLMIUM LASER LITHOTRIPSY, RIGHT STENT EXCHANGE Antonia Grigsby MD [address] [facility] [address] [place] [address] [facility] Status Reason Specialty Diagnoses / Procedures Referre d By Contact Referred To Contact Diagnoses Kidney stone KIDNEY STONE Procedures [place] CYSTO/URETERO W/LITHOTRIPSY &INDWELL STENT INSRT CYSTOSCOPY, LEFT URETEROSCOPY, LASER LITHOTRIPSY, BASKET RETRIEVAL OF STONE FRAGMENTS, POSSIBLE LEFT URETERAL STENT Antonia Grigsby MD [address] [place] [address] [facility] Status Reason Specialty Diagnoses / Procedures Referre d By Contact Referred To Contact Open Radiology Diagnoses Examination for normal comparison for clinical research Procedures CT COMPARISON OF OUTSIDE FILMS Darleen Spring MD [address] [facility] [place] [address] Reason Comments Fever Shortness of Breath Reason Comments Flank Pain Status Reason Specialty Diagnoses / Procedures Referre d By Contact Referred To Contact Diagnoses Kidney stone KIDNEY STONE Procedures [place] OFFICE/OUTPT VISIT,PROCEDURE ONLY [place] CYSTO/URETERO W/LITHOTRIPSY &INDWELL STENT INSRT CYSTOSCOPY, RIGHT URETEROSCOPY, HOLMIUM LASER LITHOTRIPSY, POSSIBLE RIGHT URETERAL STENT Antonia Grigsby MD [address] [facility] [address] [place] [address] [facility] Reason Comments Established Patient Follow-Up 1 year fol low up Specialty Diagnoses / Procedures Referred By Isabell schafer Referred To Contact Cardiology / CARDIOLOGY Diagnoses 1 year follow up. (H.N.F) Procedures EST PATIENT Sid Fragoso, [address] [place] [address] Phone: tel: fax: Sid Fragoso, [address] [place] [address] Phone: tel: fax: Referral ID Status Reason Start Date Expiration Date Visits Requested Visits Authorized [id number] Authorized Patient Cleared - Qualified 100% FAS [...] (Due - Provider: [place] [facility]) sodium chloride flush 0.9 % injection [...] at 1700, Labeling may look different. 25 [id number] Units. Please double check dosages. 0918 (Not [...]
Care Teams (unrecognized sec tion and content) Boiler Installer Relationship Specialty Start Date End Date Caitlyn Ferguson APRN - [facility] PCP - General Certified Nurse Practitioner 10/30/19 Boiler Installer Relationship Specialty Start Date End Date Dorota Jones MD [address] [facility] [address] [place] [address] Cripple Worker 03/22/24 Team Status: Inactive Member Role/Relationship Status [...] or prosecute any alcohol or drug abuse patient.[facility] Goals (unrecognized section and content) Goals may [...] BE BASED ON THE PRIMARY CLINICAL RECORDS. [facility]. provides no warranty or guarantee of the accuracy or completeness of information in this document.
== END | disposition home or self-care (01) ==
LOC: LABSPEC 15:26
PROVIDERS: Referring Provider Specialist; Visit Provider Specialist
DX: M87.9 Osteonecrosis, unspecified (principal)
CPT/HCPCS: 88304; 88311